=== PATIENT | female | born 1965 | race Caucasian/White ===

== ENCOUNTER → 2017-12-31 11:03 | Outpatient (CLI) | payer OTHER, SELFPAY ==
[2017-12-31 11:30] LABS: Basophils # 0.1 K/mm3 (0-0.2); Basophils % 0.5 % (0.1-2.0); Eosinophils # 0.3 K/mm3 (0.0-0.4); Eosinophils % 2.9 % (0.1-12.0); Hematocrit 43.3 % (37.0-47.0); Hemoglobin 13.6 g/dL (12.2-16.2); Lymphocytes # 2.3 K/mm3 (0.7-4.5); Lymphocytes % 25.8 K/mm3 (10-50); Mean Corpuscular HGB Conc 31.5 g/dL (31.8-35.4); Mean Corpuscular Hemoglobin 26.9 pg (27.0-31.2); Mean Corpuscular Volume 85.6 fl (81-99); Mean Platelet Volume 6.9 fl (7.4-10.4); Monocytes # 0.5 K/mm3 (0.1-1.0); Monocytes % 5.7 % (1.7-9.3); Neutrophils # 5.9 K/mm3 (1.8-7.8); Neutrophils % 65.1 % (37.0-80.0); Platelet Count 394 K/mm3 (142-424); Red Blood Count 5.07 M/mm3 (4.20-5.40); Red Cell Distribution Width 14.8 % (11.5-17.5)
[2017-12-31 12:04] LABS: Anion Gap 14.3 mEq/L (5-15); Blood Urea Nitrogen 23 mg/dL (7-18); Carbon Dioxide 24 mmol/L (21.0-32.0); Chloride 109 mmol/L (98-107); Estimated Glomerular Filt Rate 66 ml/min (>60); GFR (African American) 80 ML/MIN (>60); Glucose 94 mg/dL (74-106); Potassium 4.3 mmoL/L (3.5-5.1); Sodium 143 mmol/L (136-145)
[2018-01-01 08:23] LABS: Iron 45 ug/dL (27-159); UIBC 315 ug/dL (131-425)
[2018-01-03 10:53] LABS: Iron Saturation 13 % (15-55)
== END ==
PROVIDERS: PCP Physician Assistant; Visit Provider Internal Medicine
DX: C18.9 Malignant neoplasm of colon, unspecified (principal)
CPT/HCPCS: 36415; 80048; 83550; 85025

== ENCOUNTER 2018-01-10 09:53 | Day surgery (SDC) | payer OTHER, SELFPAY ==
[2018-01-07 10:53] VITALS: BMI 30.7
[2018-01-10] VITALS (7 sets, daily range): BP systolic 112–146; BP diastolic 74–94; PULSE 86–107; RESP 18–20; TEMP 36.6–37; O2SAT 92–98
--- NOTE | 2018-01-10 10:45 | HMH.PROC ---
[facility] Procedure Note Procedure Note:: Upper Endoscopy Procedure Report: Esophagogastroduodenoscopy with cold biopsies Endoscopost: Dayne Johnson II, MD Referring Physician: Maryse Samuel PA-C/Gaston Huitron MD/Yoel Portillo MD Date of Procedure: January 10, 2018 Equipment: Olympus GIF 180 standard upper endoscope Sedation: MAC sedation Indications: Mrs. Juares is a 52-year-old female with iron deficiency anemia and was found to have a T4 right colonic adenocarcinoma/colon cancer. She had peritoneal spread. She has had chemotherapy. The patient did have right hemicolectomy which was started at [facility] but she was transferred for completion surgery to the [facility] (Dr. Portillo). Prior to reversal of her colostomy, EGD/colon through stoma was recommended. During the operation, there was involvement of the duodenal wall with concomitant duodenal defect. There also appeared to be some end of the distal small bowel. This has prompted the endoscopic evaluations prior to reversal. The patient reports no abdominal pain. There is some bleeding around the stoma. She has gained weight. She reports of minor heartburn but has no complaints. Her CAT scan on November 15, 2017 showed evidence of the partial hemicolectomy of the right colon with ileostomy and no enlarged lymph nodes and no hepatic or adrenal metastasis. Her CAT scan of the chest was also unremarkable. Procedure: Prior to the procedure, a history and physical exam was performed, and patient's medications and allergies were reviewed. The risks, benefits and alternatives of the sedation and procedure were discussed with the patient. All questions were answered and informed consent was obtained. The patient was brought to the procedure room. Patient identification and proposed procedure were verified by the physician and the nurse. The patient was placed in a left lateral decubitus position and the scope was passed under direct vision. Throughout the procedure, the patient's blood pressure, pulse, and oxygen saturations were monitored continuously. The upper GI endoscopy was accomplished without difficulty. The patient tolerated the procedure well. Findings: The scope was passed directly into the upper esophagus and advanced to the third portion of the duodenum. Within the second/third portion of the duodenum was a friable fungating marginated lesion with ulceration and spontaneous bleeding indicative of tumor spread within the duodenum in the second portion going into the third portion of the duodenum. This encompassed one third of the circumference and was extending may be 2.5-3 cm in length. Multiple biopsies were obtained. There was some suture identified at this site. The first portion and duodenal bulb were free of tumor. There was some suture identified along the greater curvature of the stomach but there was no tumor involvement of the stomach. There was minimal reactive gastritis of the stomach. Upon retroflexion there was a small 1-2 cm hiatal hernia. The scope was withdrawn into the esophagus. There was no evidence of reflux esophagitis. The reader of the esophageal mucosa was normal. Impression: 1. Friable fungating duodenal mass lesion encompassing one third circumference of second/third portion of duodenum consistent with tumor involvement at this location status post multiple biopsies Plan: I will discuss this with Dr. Portillo and Dr. Huitron as well as with the patient and family. I will follow up the biopsies.
--- NOTE | 2018-01-10 11:21 | P.PCN_ITS ---
[facility] Procedure Note Procedure Note:: Upper Endoscopy Procedure Report: Esophagogastroduodenoscopy with cold biopsies Endoscopost: Dayne Johnson II, MD Referring Physician: Maryse Samuel PA-C/Gaston Huitron MD/Yoel Portillo MD Date of Procedure: January 10, 2018 Equipment: Olympus GIF 180 standard upper endoscope Sedation: MAC sedation Indications: Mrs. Juares is a 52-year-old female with iron deficiency anemia and was found to have a T4 right colonic adenocarcinoma/colon cancer. She had peritoneal spread. She has had chemotherapy. The patient did have right hemicolectomy which was started at [facility] but she was transferred for completion surgery to the [facility] (Dr. Portillo) . Prior to reversal of her colostomy, EGD/colon through stoma was recommended. During the operation, there was involvement of the duodenal wall with concomitant duodenal defect. There also appeared to be some end of the distal small bowel. This has prompted the endoscopic evaluations prior to reversal. The patient reports no abdominal pain. There is some bleeding around the stoma. She has gained weight. She reports of minor heartburn but has no complaints. Her CAT scan on November 15, 2017 showed evidence of the partial hemicolectomy of the right colon with ileostomy and no enlarged lymph nodes and no hepatic or adrenal metastasis. Her CAT scan of the chest was also unremarkable. Procedure: Prior to the procedure, a history and physical exam was performed, and patient' s medications and allergies were reviewed. The risks, benefits and alternatives of the sedation and procedure were discussed with the patient. All questions were answered and informed consent was obtained. The patient was brought to the procedure room. Patient identification and proposed procedure were verified by the physician and the nurse. The patient was placed in a left lateral decubitus position and the scope was passed under direct vision. Throughout the procedure, the patient's blood pressure, pulse, and oxygen saturations were monitored continuously. The upper GI endoscopy was accomplished without difficulty. The patient tolerated the procedure well. Findings: The scope was passed directly into the upper esophagus and advanced to the third portion of the duodenum. Within the second/third portion of the duodenum was a friable fungating marginated lesion with ulceration and spontaneous bleeding indicative of tumor spread within the duodenum in the second portion going into the third portion of the duodenum. This encompassed one third of the circumference and was extending may be 2.5-3 cm in length. Multiple biopsies were obtained. There was some suture identified at this site. The first portion and duodenal bulb were free of tumor. There was some suture identified along the greater curvature of the stomach but there was no tumor involvement of the stomach. There was minimal reactive gastritis of the stomach. Upon retroflexion there was a small 1-2 cm hiatal hernia. The scope was withdrawn into the esophagus. There was no evidence of reflux esophagitis. The reader of the esophageal mucosa was normal. Impression: 1. Friable fungating duodenal mass lesion encompassing one third circumference of second/third portion of duodenum consistent with tumor involvement at this location status post multiple biopsies Plan: I will discuss this with Dr. Portillo and Dr. Huitron as well as with the patient and family. I will follow up the biopsies.
--- NOTE | 2018-01-10 11:35 | P.PCN_ITS ---
[facility] Procedure Note Procedure Note:: Colonoscopy Procedure Report: Ileoscopy through stoma Endoscopist: Dayne Johnson II, MD Referring physician: Maryse Samuel PA-C/Gaston Huitron MD/Yoel Portillo MD Date of Procedure: January 10, 2018 Equipment: Olympus 180 variable stiffness pediatric colonoscope Sedation: MAC sedation Indication: Mrs. Juares is a 52-year-old female with iron deficiency anemia and was found to have a T4 right colonic adenocarcinoma/colon cancer. She had peritoneal spread. She has had chemotherapy. The patient did have right hemicolectomy which was started at [facility] but she was transferred for completion surgery to the [facility] (Dr. Portillo) . Prior to reversal of her colostomy, EGD/colon through stoma was recommended. During the operation, there was involvement of the duodenal wall with concomitant duodenal defect. There also appeared to be some end of the distal small bowel. This has prompted the endoscopic evaluations prior to reversal. The patient reports no abdominal pain. There is some bleeding around the stoma. She has gained weight. She reports of minor heartburn but has no complaints. Her CAT scan on November 15, 2017 showed evidence of the partial hemicolectomy of the right colon with ileostomy and no enlarged lymph nodes and no hepatic or adrenal metastasis. Her CAT scan of the chest was also unremarkable. Procedure: Prior to the procedure, a history and physical exam was performed, and patient' s medications and allergies were reviewed. The risks, benefits and alternatives of the sedation and procedure were discussed with the patient. All questions were answered and informed consent was obtained. The patient was brought to the procedure room. Patient identification and proposed procedure were verified by the physician and the nurse. The patient was placed in a supine position and the scope was passed under direct vision. Throughout the procedure, the patient's blood pressure, pulse, and oxygen saturations were monitored continuously. The ileoscopy was accomplished without difficulty. The patient tolerated the procedure well. Findings: The stomal bag was removed and the upper endoscope was advanced into the stomal canal into the ileum and advanced 65 cm. At approximately 45-50 cm was an anastomotic site that appeared to be clear and free of tumor. Upon withdrawal of the remainder of the ileum was normal. After completion of the ileoscopy, the scope was introduced into the anal canal and advanced a very short distance but there was marked amount of solid residue impairing advancement of the scope. Impression: 1. Normal ileoscopy to 65 cm Plan: I will discuss the findings with Dr. Portillo, Dr. Huitron and family. We will await the duodenal biopsies.
--- NOTE | 2018-01-13 07:35 | HMH.ANESCL ---
[facility] Anesthesia Checklist - Patient Identification Patient Identification: Arm Band - Structural Data Admitted From: Home Consent for Planned Operative Procedure(s) Verified: Yes Verified Documents: Surgical Consent, History and Physical - NPO Status Verified Time NPO: 00:00 - Additional verifications Anesthesia Reactions: No - Airway Assessment C-Spine Mobility Assessed: Yes TMJ Mobility Assessed: Yes Dentition: Good Dentition - Neurological Assessment Level of Consciousness: Awake, Alert - Anesthesia Plan Anesthesia Risk discussed: Yes Anesthesia Plan: Verified ASA Class: III Anesthesia Type: MAC [facility] Anesthesia HX Medical History: Reports:: Aneurysm (TIA), Cancer, Cerebrovascular Accident Denies:: Diabetes Mellitus Type 1, Diabetes Mellitus Type 2, Internal Pacemaker, Lung Disease, Seizures Other Surgeries: Yes: Cancer Surgery, Colonoscopy, Colostomy. No: Pacemaker *Family Hx:: No significant family history
== END 2018-01-10 12:50 | disposition home or self-care (01) ==
LOC: OUTP 09:55
PROVIDERS: Family Provider Physician Assistant; PCP Physician Assistant; Visit Provider Internal Medicine Gastroenterology
PROC: 0DJ08ZZ Inspection of Upper Intestinal Tract, Via Natural or Artificial Opening Endoscopic (ICD-10-PCS; CPT 43235; principal; 2018-01-10 11:00)
DX: K31.89 Other diseases of stomach and duodenum (principal); C18.9 Malignant neoplasm of colon, unspecified; K44.9 Diaphragmatic hernia without obstruction or gangrene; C78.6 Secondary malignant neoplasm of retroperitoneum and peritoneum; C78.4 Secondary malignant neoplasm of small intestine; D50.9 Iron deficiency anemia, unspecified
CPT/HCPCS: 43239; J1642

== ENCOUNTER → 2018-01-27 10:39 | Outpatient (CLI) | payer OTHER, SELFPAY ==
--- NOTE | 2018-01-27 | MR_ITS ---
MR head/brain wo/w con Ordering Physician: Christina Her MD Patient Age: 52 years: Female HISTORY: Patient reports a previous CVA in May 2017. Diagnosed with colon cancer at the same time. Having of procedure and clearance of MRI brain to do the procedure. TECHNIQUE: Precontrast Multiplanar FLAIR, T1, T2 weighted images along with axial diffusion/ADC imaging performed on 1.5 T. Siemens, MRI. Postcontrast imaging [id number] ProHance T1-weighted images axial & coronal plane performed COMPARISON :Previous CT head without contrast 05/09/2017. Also previous CT sinuses without contrast from 2015 FINDINGS The May [address] showed low density at medial right occipital lobe, just superior to the tentorium. This is site of the old 2017 infarct. Today's MR study shows resulting encephalomalacia and volume loss in the region of this old infarct.-.. This stripe of Encephalomalacia Measuring up to 4.5 cm AP x 12 mm transverse. No significant additional findings.. Somewhat surprised that we do not see more evident gliosis adjacent along the margin of this old infarct at the medial right occipital lobe. .Diffusion images today unremarkable with no additional acute acute or recent infarct evident. The sensitive FLAIR images show only a few scattered tiny deep white matter high signal foci superiorly at centrum semiovale, at frontal and parietal regions. Barely appreciable. Most likely reflect chronic small vessel deep white matter ischemic gliotic changes in this patient with vascular disease.. Other possibilities considered but less likely. These areas show no enhancement. A small slightly more evident white matter focus also noted towards the right occipital lobe axial image 5 also noted just lateral to the old occipital infarct. . The ventricles and basal cistern satisfactory. Cranial cervical junction is normal. Sella normal size and appearance. The postcontrast images show no abnormal areas of enhancement. No focal enhancing intracranial lesions evident. As as seen on the 2015 CT sinuses, again markedly enlarged inferior right turbinate. It measures over 4 cm length, nearly 20 mm height 15 mm transverse and fills the inferior nasal cavity extending back towards the posterior nasopharynx. However this has not shown significant change since the 2015 sinus series and apparently patient was seen by Dr. Vizcaino ENT previously in 2014. . At the right maxillary sinus There is also a 23 mm height 18 mm AP retention cyst or similar polypoid lesion. It too has remained stable since 2015. No erosive changes. No air-fluid levels at paranasal sinuses.. Patient may benefit from follow-up with Dr. Vizcaino/ENT since this area, particularly since this enlarged turbinate does partially occluded right right nasal airway. The orbits unremarkable. Remainder paranasal sinuses fairly clear with only scant mucosal thickening right ethmoid air cells. At the posterior fossa the IACs appear symmetric CP angles clear. No significant lesions here. Mastoid air cells well-developed and clear. Overview survey images of [place] unremarkable. On the standard MRI IMPRESSION......... 1.. Old 2017 infarct at medial inferior right occipital lobe evident.., With Resulting strip of encephalomalacia & volume loss seen here 2. A few tiny deep white matter high signal foci cerebral hemispheres, most compatible with chronic small vessel deep white matter ischemic gliotic change 3. No abnormal l enhancing intracranial lesions.-No evidence of metastatic disease to the brain. 4.... Prominent enlarged slightly lobulated inferior right nasal turbinate which extends back towards the right nasopharynx but appears unchanged 2015 CT sinuses images.... No osseous destruction or erosion. & no significant change ... Also Sta
[2018-01-27 15:53] LABS: Alanine Aminotransferase 29 U/L (12-78); Albumin Level 4.2 gm/dL (3.4-5.0); Alkaline Phosphatase 117 U/L (46-116); Aspartate Amino Transferase 11 U/L (15-37); Bilirubin,Total 0.2 mg/dL (0.2-1.0); Blood Urea Nitrogen 19 mg/dL (7-18); Carbon Dioxide 24 mmol/L (21.0-32.0); Estimated Glomerular Filt Rate 76 ml/min (>60); GFR (African American) 92 ML/MIN (>60); Globulin 4.3 gm/dl (1.3-3.2); Glucose 95 mg/dL (74-106); Thyroid Stimulating Hormone 1.88 uIU/ml (0.358-3.740); Total Protein,Serum 8.5 gm/dL (6.4-8.2)
[2018-01-27 18:14] LABS: Chloride 107 mmol/L (98-107); Sodium 147 mmol/L (136-145)
[2018-01-28 10:39] LABS: Folate 16.6 ng/mL (>3.0); Vitamin B12 663 pg/mL (232-1245)
--- NOTE | 2018-01-30 14:06 | SW/DCPLANNER ---
Followed up with patient IN OFFICE 01/15/18 VINITA: Received income from [employer] in office stating this patient has scored a 10. Visited patient and patient stated that she was receiving any income since May 2017. 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 Due to patients emotional apperance I have recommended that patient speak with a counselor at [facility] and patient refused. I have explained the process for this patient to sign up for disability and explained to importance of doing so...spoke with patient on 01/27/18 and patient stated that she has began this process. Patient did score a 10 on 07/18 and it has went down to an 8 on 01/19. Patient stated that she felt better after our conversation this afternoon. Date of visit: 01/15/18
== END ==
PROVIDERS: Family Provider Physician Assistant; PCP Physician Assistant; Visit Provider Specialist
DX: I63.9 Cerebral infarction, unspecified (principal); G25.9 Extrapyramidal and movement disorder, unspecified; C18.2 Malignant neoplasm of ascending colon
CPT/HCPCS: 36415; 70553; 80053; 82607; 82746; 84443; 95816; A9576

== ENCOUNTER 2018-03-10 11:01 | Outpatient (CLI) | payer OTHER, SELFPAY ==
[2018-03-10 12:00] VITALS: BP 100/74; PULSE 68; RESP 20; TEMP 36.4; O2SAT 96
== END 2018-03-10 12:00 | disposition home or self-care (01) ==
LOC: INF 11:01
PROVIDERS: Family Provider Physician Assistant; PCP Physician Assistant; Visit Provider Internal Medicine
DX: R11.0 Nausea (principal)

== ENCOUNTER 2018-04-04 09:11 | Outpatient (CLI) | payer OTHER, SELFPAY ==
[2018-04-04 09:00] VITALS: BP 112/70; PULSE 68; RESP 20; TEMP 36.7; O2SAT 96
[2018-04-04 09:11] VITALS: BMI 23.7
[2018-04-04 09:45] VITALS: BP 112/70; PULSE 66; RESP 20; TEMP 36.7; O2SAT 96
[2018-04-04 10:12] LABS: INR 3.16 (0.9-1.1); Prothrombin Time 34.5 seconds (9.4-11.8)
--- NOTE | 2018-04-04 12:11 | PC.NURSE ---
PT ARRIVED AT 0850 PT WAS SEEN IN THE ER AT LAST NIGHT; PT WAS INSTRUCTED TO RETURN TO OUR CLINIC THIS AM FOR A PT/INR CHECK PER [facility]. PT IS CURRENTLY ON COUMADIN; PT IS NOT TAKING [facility] CALLED FOR ABNORMAL LABS AND PT IS TO HOLD THE COUMADIN AND GET ANOTHER PT/INR CHECK ON SATURDAY; PT WILL FOLLOW UP WITH [facility] ON SATURDAY WHILE PATIENT WAS HERE SHE NEEDED GAUZE CHANGED ON THE JOSE DRAIN THAT SHE HAS IN PLACE; PT IS FLUSHING THE DRAIN AND CHANGING THE GAUZE AROUND IT AT HOME; THE GAUZE WAS SATURATED WITH DRAINAGE AND WAS CHANGED WHILE SHE WAS HERE; INSTRUCTED PATIENT TO CHECK THE GAUZE MORE OFTEN AT HOME DUE TO IT DRAINING MORE OVER THE LAST DAY; PT IS FOLLOWING UP WITH SURGEON AT ON SATURDAY AND THAT WILL DECIDE IF THE DRAIN WILL NEED TO STAY IN PLACE OR BE REMOVED; PT CONTINUES TO BE VERY WEAK AND NOT FEEL WELL AT ALL; PT IS DRINKING BOOST OR ENSURE AT HOME; PT IS UNABLE TO TOLERATE NORMAL FOOD AT HOME; INSTRUCTED PATIENT TO CALL SOONER WITH ANY PROBLEMS OR CONCERNS. NO OTHER CHANGES TO REPORT AT THIS TIME;
== END 2018-04-04 10:00 | disposition home or self-care (01) ==
LOC: INF 09:11
PROVIDERS: Family Provider Physician Assistant; PCP Physician Assistant; Visit Provider Internal Medicine
DX: C18.9 Malignant neoplasm of colon, unspecified (principal)
CPT/HCPCS: 85610; J1642

== ENCOUNTER 2018-04-07 11:10 | Outpatient (CLI) | payer OTHER, SELFPAY ==
[2018-04-07 11:17] VITALS: BMI 27.1
[2018-04-07 12:23] LABS: Prothrombin Time 16.3 seconds (9.4-11.8)
== END 2018-04-07 12:50 | disposition home or self-care (01) ==
LOC: INF 15:00
PROVIDERS: Family Provider Physician Assistant; PCP Physician Assistant; Visit Provider Internal Medicine
DX: C18.9 Malignant neoplasm of colon, unspecified (principal); Z45.2 Encounter for adjustment and management of vascular access device
CPT/HCPCS: 85610; J1642

== ENCOUNTER 2018-04-15 12:29 | Outpatient (CLI) | payer OTHER, SELFPAY ==
[2018-04-15 12:00] VITALS: BMI 23.8
[2018-04-15 12:19] LABS: Basophils % 0.4 % (0.1-2.0); Eosinophils # 0.2 K/mm3 (0.0-0.4); Eosinophils % 2.4 % (0.1-12.0); Hematocrit 31.2 % (37.0-47.0); Hemoglobin 9.5 g/dL (12.2-16.2); Lymphocytes # 1.6 K/mm3 (0.7-4.5); Lymphocytes % 16.3 K/mm3 (10-50); Mean Corpuscular HGB Conc 30.4 g/dL (31.8-35.4); Monocytes # 0.5 K/mm3 (0.1-1.0); Monocytes % 5.6 % (1.7-9.3); Neutrophils # 7.3 K/mm3 (1.8-7.8); Neutrophils % 75.3 % (37.0-80.0); Platelet Count 697 K/mm3 (142-424); Red Cell Distribution Width 17.1 % (11.5-17.5); White Blood Count 9.7 K/mm3 (4.8-10.8)
[2018-04-15 12:34] LABS: INR 2.58 (0.9-1.1); Prothrombin Time 28.1 seconds (9.4-11.8)
[2018-04-15 12:37] LABS: Alanine Aminotransferase 9 U/L (12-78); Albumin Level 2.1 gm/dL (3.4-5.0); Albumin/Globulin Ratio 0.4 (1.1-1.8); Alkaline Phosphatase 89 U/L (46-116); Anion Gap 13.5 mEq/L (5-15); Aspartate Amino Transferase 14 U/L (15-37); Bilirubin,Total 0.2 mg/dL (0.2-1.0); Blood Urea Nitrogen 3 mg/dL (7-18); Calcium 9.1 mg/dL (8.5-10.1); Carbon Dioxide 25 mmol/L (21.0-32.0); Chloride 107 mmol/L (98-107); Creatinine Clearance Estimated 137 mL/min (0-300); Creatinine,Serum 0.51 mg/dL (0.55-1.02); Estimated Glomerular Filt Rate 127 ml/min (>60); GFR (African American) 153 ML/MIN (>60); Globulin 5.2 gm/dl (1.3-3.2); Glucose 97 mg/dL (74-106); Potassium 3.5 mmoL/L (3.5-5.1); Sodium 142 mmol/L (136-145); Total Protein,Serum 7.3 gm/dL (6.4-8.2)
[2018-04-15 13:00] VITALS: BP 118/70; PULSE 68; RESP 20; TEMP 37.1; O2SAT 96
[2018-04-15 17:02] VITALS: BP 122/70; PULSE 66; RESP 20; TEMP 36.9; O2SAT 96
== END 2018-04-15 13:05 | disposition home or self-care (01) ==
LOC: INF 12:29
PROVIDERS: Family Provider Physician Assistant; PCP Physician Assistant; Visit Provider Internal Medicine
DX: C18.9 Malignant neoplasm of colon, unspecified (principal); Z45.2 Encounter for adjustment and management of vascular access device; Z79.01 Long term (current) use of anticoagulants; Z51.81 Encounter for therapeutic drug level monitoring
CPT/HCPCS: 80053; 85025; 85610; J1642

== ENCOUNTER 2018-04-21 10:02 | Outpatient (CLI) | payer OTHER, SELFPAY ==
[2018-04-21 10:04] VITALS: BMI 23.6
[2018-04-21 10:23] LABS: Basophils % 0.3 % (0.1-2.0); Eosinophils # 0.4 K/mm3 (0.0-0.4); Eosinophils % 2.7 % (0.1-12.0); Hematocrit 34.4 % (37.0-47.0); Hemoglobin 10.5 g/dL (12.2-16.2); Lymphocytes # 1.5 K/mm3 (0.7-4.5); Lymphocytes % 10.6 K/mm3 (10-50); Mean Corpuscular HGB Conc 30.5 g/dL (31.8-35.4); Mean Corpuscular Hemoglobin 25.5 pg (27.0-31.2); Mean Corpuscular Volume 83.7 fl (81-99); Mean Platelet Volume 6.9 fl (7.4-10.4); Monocytes # 0.6 K/mm3 (0.1-1.0); Monocytes % 4.2 % (1.7-9.3); Neutrophils # 11.2 K/mm3 (1.8-7.8); Neutrophils % 82.2 % (37.0-80.0); Platelet Count 605 K/mm3 (142-424); Red Blood Count 4.11 M/mm3 (4.20-5.40); Red Cell Distribution Width 17.8 % (11.5-17.5); White Blood Count 13.7 K/mm3 (4.8-10.8)
[2018-04-21 10:34] LABS: Prothrombin Time 18.5 seconds (9.4-11.8)
[2018-04-21 10:37] LABS: Alanine Aminotransferase 22 U/L (12-78); Albumin Level 2.5 gm/dL (3.4-5.0); Albumin/Globulin Ratio 0.5 (1.1-1.8); Alkaline Phosphatase 95 U/L (46-116); Anion Gap 13.8 mEq/L (5-15); Aspartate Amino Transferase 24 U/L (15-37); Bilirubin,Total 0.2 mg/dL (0.2-1.0); Blood Urea Nitrogen 8 mg/dL (7-18); Calcium 8.8 mg/dL (8.5-10.1); Carbon Dioxide 25 mmol/L (21.0-32.0); Chloride 107 mmol/L (98-107); Creatinine Clearance Estimated 104 mL/min (0-300); Creatinine,Serum 0.66 mg/dL (0.55-1.02); Estimated Glomerular Filt Rate 94 ml/min (>60); GFR (African American) 114 ML/MIN (>60); Globulin 4.9 gm/dl (1.3-3.2); Glucose 107 mg/dL (74-106); Sodium 143 mmol/L (136-145); Total Protein,Serum 7.4 gm/dL (6.4-8.2)
[2018-04-21 10:38] LABS: Potassium 2.8 mmoL/L (3.5-5.1)
--- NOTE | 2018-04-21 12:04 | PC.NURSE ---
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 PT IS SCEHDULED TO SEE THEM IN THE OFFICE TOMORROW; MD INSTRUCTED TO MAKE SURE PATIENT WAS TAKING KCL 40 MEQ. INSTRUCTED FOR PATIENT TO BE TAKING TWICE TODAY. MD WAS GOING TO FOLLOW UP WITH PATIENT LATER TODAY ABOUT SCHEDULING CT SCAN PRIOR TO HER APPT TOMORROW; LEFT PORT ACCESSED FOR HER LABS TOMORROW THEN IT WILL BE DC'D PER MD OFFICE; PT WILL FOLLOW BACK WITH US ON WEDNESDAY 04/25
--- NOTE | 2018-04-21 15:13 | PC.NURSE ---
pt also has drain, flushed drain with 20ml saline flush, the flushe with 10ml saline flush into drainage bag. approximatley 20ml of milky looking substance emptied from drainage bag.
== END 2018-04-21 11:55 | disposition home or self-care (01) ==
LOC: INF 10:02
PROVIDERS: Family Provider Physician Assistant; PCP Physician Assistant; Visit Provider Internal Medicine
DX: Z45.2 Encounter for adjustment and management of vascular access device (principal); Z79.01 Long term (current) use of anticoagulants; Z51.81 Encounter for therapeutic drug level monitoring
CPT/HCPCS: 80053; 85025; 85610; G0463; J1642

== ENCOUNTER 2018-04-24 08:43 | Outpatient (CLI) | payer OTHER, SELFPAY ==
[2018-04-24 09:54] VITALS: BMI 25.8
[2018-04-24 10:43] LABS: Alanine Aminotransferase 29 U/L (12-78); Albumin Level 3.1 gm/dL (3.4-5.0); Albumin/Globulin Ratio 0.6 (1.1-1.8); Alkaline Phosphatase 109 U/L (46-116); Anion Gap 13.6 mEq/L (5-15); Aspartate Amino Transferase 31 U/L (15-37); Basophils # 0.1 K/mm3 (0-0.2); Basophils % 0.7 % (0.1-2.0); Bilirubin,Total 0.4 mg/dL (0.2-1.0); Blood Urea Nitrogen 6 mg/dL (7-18); Calcium 9.5 mg/dL (8.5-10.1); Carbon Dioxide 26 mmol/L (21.0-32.0); Chloride 105 mmol/L (98-107); Creatinine Clearance Estimated 102 mL/min (0-300); Creatinine,Serum 0.74 mg/dL (0.55-1.02); Eosinophils # 0.2 K/mm3 (0.0-0.4); Eosinophils % 2.9 % (0.1-12.0); Estimated Glomerular Filt Rate 82 ml/min (>60); GFR (African American) 100 ML/MIN (>60); Globulin 5.1 gm/dl (1.3-3.2); Glucose 117 mg/dL (74-106); Hematocrit 37.2 % (37.0-47.0); Hemoglobin 11.4 g/dL (12.2-16.2); Lymphocytes # 1.7 K/mm3 (0.7-4.5); Lymphocytes % 20.3 K/mm3 (10-50); Mean Corpuscular HGB Conc 30.6 g/dL (31.8-35.4); Mean Corpuscular Hemoglobin 25.4 pg (27.0-31.2); Mean Platelet Volume 8.6 fl (7.4-10.4); Monocytes # 0.4 K/mm3 (0.1-1.0); Monocytes % 5.1 % (1.7-9.3); Platelet Count 554 K/mm3 (142-424); Potassium 4.6 mmoL/L (3.5-5.1); Red Blood Count 4.49 M/mm3 (4.20-5.40); Red Cell Distribution Width 18.2 % (11.5-17.5); Sodium 140 mmol/L (136-145); Total Protein,Serum 8.2 gm/dL (6.4-8.2); White Blood Count 8.5 K/mm3 (4.8-10.8)
== END 2018-04-24 10:00 | disposition home or self-care (01) ==
LOC: INF 08:43
PROVIDERS: Family Provider Physician Assistant; PCP Physician Assistant; Visit Provider Internal Medicine
DX: C18.9 Malignant neoplasm of colon, unspecified (principal); Z45.2 Encounter for adjustment and management of vascular access device
CPT/HCPCS: 80053; 85025; G0463

== ENCOUNTER 2018-05-01 08:38 | Outpatient (CLI) | payer OTHER, SELFPAY ==
[2018-05-01 08:40] VITALS: BMI 25.8
[2018-05-01 09:11] LABS: Basophils # 0.1 K/mm3 (0-0.2); Basophils % 0.6 % (0.1-2.0); Eosinophils # 0.3 K/mm3 (0.0-0.4); Eosinophils % 3.8 % (0.1-12.0); Hematocrit 38.9 % (37.0-47.0); Hemoglobin 11.1 g/dL (12.2-16.2); Lymphocytes # 1.9 K/mm3 (0.7-4.5); Lymphocytes % 21.9 K/mm3 (10-50); Mean Corpuscular HGB Conc 28.5 g/dL (31.8-35.4); Mean Corpuscular Hemoglobin 24.3 pg (27.0-31.2); Mean Corpuscular Volume 85.2 fl (81-99); Mean Platelet Volume 7.5 fl (7.4-10.4); Monocytes # 0.6 K/mm3 (0.1-1.0); Monocytes % 6.5 % (1.7-9.3); Neutrophils # 5.7 K/mm3 (1.8-7.8); Neutrophils % 67.2 % (37.0-80.0); Platelet Count 428 K/mm3 (142-424); Red Blood Count 4.56 M/mm3 (4.20-5.40); Red Cell Distribution Width 17.7 % (11.5-17.5); White Blood Count 8.5 K/mm3 (4.8-10.8)
[2018-05-01 09:18] LABS: INR 1.38 (0.9-1.1)
[2018-05-01 09:22] LABS: Alanine Aminotransferase 23 U/L (12-78); Albumin Level 3.2 gm/dL (3.4-5.0); Albumin/Globulin Ratio 0.7 (1.1-1.8); Alkaline Phosphatase 98 U/L (46-116); Anion Gap 13.1 mEq/L (5-15); Aspartate Amino Transferase 15 U/L (15-37); Bilirubin,Total 0.3 mg/dL (0.2-1.0); Blood Urea Nitrogen 16 mg/dL (7-18); Calcium 9.2 mg/dL (8.5-10.1); Carbon Dioxide 26 mmol/L (21.0-32.0); Chloride 107 mmol/L (98-107); Creatinine Clearance Estimated 125 mL/min (0-300); Creatinine,Serum 0.64 mg/dL (0.55-1.02); Estimated Glomerular Filt Rate 97 ml/min (>60); GFR (African American) 118 ML/MIN (>60); Globulin 4.5 gm/dl (1.3-3.2); Glucose 91 mg/dL (74-106); Potassium 4.1 mmoL/L (3.5-5.1); Sodium 142 mmol/L (136-145); Total Protein,Serum 7.7 gm/dL (6.4-8.2)
== END 2018-05-01 09:40 | disposition home or self-care (01) ==
LOC: INF 08:38
PROVIDERS: Family Provider Physician Assistant; PCP Physician Assistant; Visit Provider Internal Medicine
DX: C18.9 Malignant neoplasm of colon, unspecified (principal); Z79.01 Long term (current) use of anticoagulants; Z51.81 Encounter for therapeutic drug level monitoring; Z48.01 Encounter for change or removal of surgical wound dressing
CPT/HCPCS: 80053; 85025; 85610; G0463; J1642

== ENCOUNTER 2018-05-05 08:26 | Outpatient (CLI) | payer OTHER, SELFPAY ==
[2018-05-05 08:30] VITALS: BMI 24.9
[2018-05-05 08:40] VITALS: BP 133/69; PULSE 103; RESP 18; TEMP 36.6; O2SAT 98
[2018-05-05 08:57] LABS: Basophils # 0.1 K/mm3 (0-0.2); Basophils % 0.6 % (0.1-2.0); Eosinophils # 0.3 K/mm3 (0.0-0.4); Eosinophils % 3.2 % (0.1-12.0); Hematocrit 40.8 % (37.0-47.0); Hemoglobin 11.8 g/dL (12.2-16.2); Lymphocytes # 1.6 K/mm3 (0.7-4.5); Lymphocytes % 18.6 K/mm3 (10-50); Mean Corpuscular HGB Conc 28.9 g/dL (31.8-35.4); Mean Corpuscular Hemoglobin 24.5 pg (27.0-31.2); Mean Corpuscular Volume 84.7 fl (81-99); Mean Platelet Volume 7.3 fl (7.4-10.4); Monocytes # 0.5 K/mm3 (0.1-1.0); Monocytes % 5.3 % (1.7-9.3); Neutrophils # 6.2 K/mm3 (1.8-7.8); Neutrophils % 72.3 % (37.0-80.0); Platelet Count 465 K/mm3 (142-424); Red Blood Count 4.81 M/mm3 (4.20-5.40); Red Cell Distribution Width 17.4 % (11.5-17.5); White Blood Count 8.6 K/mm3 (4.8-10.8)
[2018-05-05 09:05] LABS: INR 2.55 (0.9-1.1); Prothrombin Time 27.8 seconds (9.4-11.8)
[2018-05-05 09:09] LABS: Alanine Aminotransferase 26 U/L (12-78); Albumin Level 3.4 gm/dL (3.4-5.0); Albumin/Globulin Ratio 0.8 (1.1-1.8); Alkaline Phosphatase 111 U/L (46-116); Aspartate Amino Transferase 20 U/L (15-37); Bilirubin,Total 0.4 mg/dL (0.2-1.0); Blood Urea Nitrogen 12 mg/dL (7-18); Calcium 9.4 mg/dL (8.5-10.1); Carbon Dioxide 24 mmol/L (21.0-32.0); Chloride 106 mmol/L (98-107); Creatinine Clearance Estimated 98 mL/min (0-300); Creatinine,Serum 0.79 mg/dL (0.55-1.02); Estimated Glomerular Filt Rate 76 ml/min (>60); GFR (African American) 92 ML/MIN (>60); Globulin 4.5 gm/dl (1.3-3.2); Glucose 98 mg/dL (74-106); Sodium 142 mmol/L (136-145); Total Protein,Serum 7.9 gm/dL (6.4-8.2)
--- NOTE | 2018-05-05 10:29 | PC.NURSE ---
PT/INR 27.8/2.55. Called to [facility] for coumadin dosing.
== END 2018-05-05 08:55 | disposition home or self-care (01) ==
LOC: INF 08:26
PROVIDERS: Family Provider Physician Assistant; PCP Physician Assistant; Visit Provider Internal Medicine
DX: C18.9 Malignant neoplasm of colon, unspecified (principal); Z45.2 Encounter for adjustment and management of vascular access device; Z79.01 Long term (current) use of anticoagulants; Z51.81 Encounter for therapeutic drug level monitoring
CPT/HCPCS: 80053; 85025; 85610; 96523; J1642

== ENCOUNTER 2018-05-08 09:00 | Outpatient (CLI) | payer OTHER, SELFPAY ==
[2018-05-08 09:19] VITALS: BMI 24.9
[2018-05-08 09:25] VITALS: BP 122/76; PULSE 68; RESP 20; TEMP 36.7; O2SAT 96
[2018-05-08 09:45] VITALS: BP 122/76; RESP 20; TEMP 36.7; O2SAT 96
[2018-05-08 09:46] LABS: Basophils # 0.1 K/mm3 (0-0.2); Basophils % 0.7 % (0.1-2.0); Eosinophils # 0.4 K/mm3 (0.0-0.4); Eosinophils % 4.2 % (0.1-12.0); Hematocrit 38.6 % (37.0-47.0); Hemoglobin 11.3 g/dL (12.2-16.2); Lymphocytes # 1.8 K/mm3 (0.7-4.5); Lymphocytes % 19.7 K/mm3 (10-50); Mean Corpuscular HGB Conc 29.3 g/dL (31.8-35.4); Mean Corpuscular Hemoglobin 24.8 pg (27.0-31.2); Mean Corpuscular Volume 84.7 fl (81-99); Mean Platelet Volume 7.4 fl (7.4-10.4); Monocytes # 0.6 K/mm3 (0.1-1.0); Monocytes % 6.7 % (1.7-9.3); Neutrophils # 6.2 K/mm3 (1.8-7.8); Neutrophils % 68.6 % (37.0-80.0); Platelet Count 460 K/mm3 (142-424); Red Blood Count 4.55 M/mm3 (4.20-5.40); Red Cell Distribution Width 17.1 % (11.5-17.5)
[2018-05-08 09:51] LABS: INR 3.15 (0.9-1.1); Prothrombin Time 34.4 seconds (9.4-11.8)
== END 2018-05-08 09:45 | disposition home or self-care (01) ==
LOC: INF 09:22
PROVIDERS: Family Provider Physician Assistant; PCP Physician Assistant; Visit Provider Internal Medicine
DX: C18.9 Malignant neoplasm of colon, unspecified (principal); Z45.2 Encounter for adjustment and management of vascular access device; Z79.01 Long term (current) use of anticoagulants; Z51.81 Encounter for therapeutic drug level monitoring
CPT/HCPCS: 85025; 85610; J1642

== ENCOUNTER 2018-05-15 08:30 | Outpatient (CLI) | payer OTHER, SELFPAY ==
--- NOTE | 2018-05-15 13:05 | PC.NURSE ---
0840 - REMOVED GAUZE AND PACKING FROM WOUND IN LLQ WHERE JOSE DRAIN WAS RECENTLY REMOVED. IRRIGATED WOUND WITH NS. PACKED WITH 1/4 IN. PLAIN PACKING STRIP, COVERED WITH 2 DRY 4X4'S FOLDED IN HALF AND TAPED INTO PLACE. PT TO RETURN FOR WOUND CARE AGAIN TOMORROW.
== END 2018-05-15 09:00 | disposition home or self-care (01) ==
LOC: INF 08:41
PROVIDERS: Family Provider Physician Assistant; PCP Physician Assistant; Visit Provider Internal Medicine
DX: C18.9 Malignant neoplasm of colon, unspecified (principal); Z45.2 Encounter for adjustment and management of vascular access device
CPT/HCPCS: G0463

== ENCOUNTER 2018-05-16 08:55 | Outpatient (CLI) | payer OTHER, SELFPAY ==
[2018-05-16 08:55] VITALS: BMI 24.9
[2018-05-16 09:00] VITALS: BP 124/70; PULSE 68; RESP 20; TEMP 36.9; O2SAT 96
[2018-05-16 09:30] VITALS: BP 124/70; PULSE 68; RESP 20; TEMP 36.9; O2SAT 96
[2018-05-16 11:24] LABS: Basophils % 0.5 % (0.1-2.0); Eosinophils # 0.3 K/mm3 (0.0-0.4); Eosinophils % 3.4 % (0.1-12.0); Hematocrit 38.5 % (37.0-47.0); Hemoglobin 11.2 g/dL (12.2-16.2); Lymphocytes # 1.8 K/mm3 (0.7-4.5); Lymphocytes % 20.6 K/mm3 (10-50); Mean Corpuscular HGB Conc 29.2 g/dL (31.8-35.4); Mean Corpuscular Hemoglobin 24.4 pg (27.0-31.2); Mean Corpuscular Volume 83.7 fl (81-99); Mean Platelet Volume 7.7 fl (7.4-10.4); Monocytes # 0.4 K/mm3 (0.1-1.0); Monocytes % 4.6 % (1.7-9.3); Neutrophils # 6.3 K/mm3 (1.8-7.8); Neutrophils % 70.9 % (37.0-80.0); Platelet Count 435 K/mm3 (142-424); Red Cell Distribution Width 16.7 % (11.5-17.5); White Blood Count 8.9 K/mm3 (4.8-10.8)
== END 2018-05-16 09:30 | disposition home or self-care (01) ==
LOC: INF 08:55
PROVIDERS: Family Provider Physician Assistant; PCP Physician Assistant; Visit Provider Internal Medicine
DX: C18.9 Malignant neoplasm of colon, unspecified (principal); Z45.2 Encounter for adjustment and management of vascular access device
CPT/HCPCS: 85025; G0463; J1642

== ENCOUNTER 2018-05-19 09:25 | Outpatient (CLI) | payer OTHER, SELFPAY ==
[2018-05-19 09:33] VITALS: BMI 26.9
[2018-05-19 10:04] VITALS: BP 124/89; PULSE 84; RESP 18; TEMP 36.8; O2SAT 97
[2018-05-19 10:15] VITALS: BP 124/89; PULSE 84; RESP 18; TEMP 36.8; O2SAT 97
[2018-05-19 10:15] LABS: Basophils % 0.7 % (0.1-2.0); Eosinophils # 0.2 K/mm3 (0.0-0.4); Eosinophils % 4.3 % (0.1-12.0); Hematocrit 37.9 % (37.0-47.0); Hemoglobin 11.2 g/dL (12.2-16.2); Lymphocytes # 1.4 K/mm3 (0.7-4.5); Lymphocytes % 25.2 K/mm3 (10-50); Mean Corpuscular HGB Conc 29.5 g/dL (31.8-35.4); Mean Corpuscular Hemoglobin 24.5 pg (27.0-31.2); Mean Corpuscular Volume 83.1 fl (81-99); Mean Platelet Volume 6.9 fl (7.4-10.4); Monocytes # 0.3 K/mm3 (0.1-1.0); Monocytes % 4.8 % (1.7-9.3); Neutrophils # 3.5 K/mm3 (1.8-7.8); Platelet Count 392 K/mm3 (142-424); Red Blood Count 4.57 M/mm3 (4.20-5.40); Red Cell Distribution Width 16.3 % (11.5-17.5); White Blood Count 5.4 K/mm3 (4.8-10.8)
[2018-05-19 10:37] LABS: Anion Gap 15.1 mEq/L (5-15); Blood Urea Nitrogen 11 mg/dL (7-18); Carbon Dioxide 24 mmol/L (21.0-32.0); Chloride 109 mmol/L (98-107); Creatinine Clearance Estimated 96 mL/min (0-300); Creatinine,Serum 0.82 mg/dL (0.55-1.02); Estimated Glomerular Filt Rate 73 ml/min (>60); GFR (African American) 89 ML/MIN (>60); Glucose 128 mg/dL (74-106); Potassium 3.1 mmoL/L (3.5-5.1); Sodium 145 mmol/L (136-145)
--- NOTE | 2018-05-19 13:38 | PC.NURSE ---
1008: LLQ old adam drain site, area is scabbed, no drainage. No foul odors.
== END 2018-05-19 10:15 | disposition home or self-care (01) ==
LOC: INF 09:31
PROVIDERS: Family Provider Physician Assistant; PCP Physician Assistant; Visit Provider Internal Medicine
DX: Z90.49 Acquired absence of other specified parts of digestive tract (principal); Z85.038 Personal history of other malignant neoplasm of large intestine
CPT/HCPCS: 80048; 85025; J1642

== ENCOUNTER 2018-06-18 10:00 | Outpatient (CLI) | payer OTHER, SELFPAY ==
[2018-06-18 10:18] VITALS: BMI 27.6
[2018-06-18 11:28] LABS: Alanine Aminotransferase 33 U/L (12-78); Albumin Level 3.4 gm/dL (3.4-5.0); Albumin/Globulin Ratio 0.9 (1.1-1.8); Alkaline Phosphatase 105 U/L (46-116); Anion Gap 9.5 mEq/L (5-15); Aspartate Amino Transferase 14 U/L (15-37); Basophils # 0.1 K/mm3 (0-0.2); Basophils % 0.8 % (0.1-2.0); Bilirubin,Total 0.4 mg/dL (0.2-1.0); Blood Urea Nitrogen 15 mg/dL (7-18); Calcium 8.9 mg/dL (8.5-10.1); Carbon Dioxide 28 mmol/L (21.0-32.0); Chloride 108 mmol/L (98-107); Creatinine Clearance Estimated 103 mL/min (0-300); Creatinine,Serum 0.78 mg/dL (0.55-1.02); Eosinophils # 0.2 K/mm3 (0.0-0.4); Eosinophils % 2.3 % (0.1-12.0); Estimated Glomerular Filt Rate 78 ml/min (>60); GFR (African American) 94 ML/MIN (>60); Glucose 101 mg/dL (74-106); Hematocrit 39.3 % (37.0-47.0); Hemoglobin 11.9 g/dL (12.2-16.2); Lymphocytes # 1.6 K/mm3 (0.7-4.5); Mean Corpuscular HGB Conc 30.2 g/dL (31.8-35.4); Mean Corpuscular Hemoglobin 25.2 pg (27.0-31.2); Mean Corpuscular Volume 83.2 fl (81-99); Mean Platelet Volume 7.1 fl (7.4-10.4); Monocytes # 0.4 K/mm3 (0.1-1.0); Monocytes % 5.7 % (1.7-9.3); Neutrophils # 4.9 K/mm3 (1.8-7.8); Neutrophils % 69.2 % (37.0-80.0); Platelet Count 326 K/mm3 (142-424); Potassium 3.5 mmoL/L (3.5-5.1); Red Blood Count 4.72 M/mm3 (4.20-5.40); Red Cell Distribution Width 14.4 % (11.5-17.5); Sodium 142 mmol/L (136-145); Total Protein,Serum 7.4 gm/dL (6.4-8.2); White Blood Count 7.1 K/mm3 (4.8-10.8)
[2018-06-18 13:56] LABS: Free Thyroxine Index 2.2 ug/dL (5.93-13.13); T4 (Thyroxine) 5.8 ug/dl (4.7-13.3); Thyroid Stimulating Hormone 1.68 uIU/ml (0.358-3.740); Triiodothryronine (T3) Uptake 38 % (31-39)
[2018-06-19 09:11] LABS: Hematocrit 36.3 % (34.0-46.6)
[2018-06-19 15:28] LABS: Folate, Hemolysate 306.8 ng/mL (Not Estab.)
[2018-06-20 11:59] LABS: Folate, RBC 845 ng/mL (>498); Vitamin B12 365 pg/mL (232-1245)
[2018-06-25 06:14] LABS: Vitamin A 56.7 ug/dL (33.1-100.0)
== END 2018-06-18 11:10 | disposition home or self-care (01) ==
LOC: INF 10:09
PROVIDERS: Family Provider Physician Assistant; PCP Physician Assistant; Visit Provider Internal Medicine
DX: C18.9 Malignant neoplasm of colon, unspecified (principal); Z45.2 Encounter for adjustment and management of vascular access device; L65.9 Nonscarring hair loss, unspecified
CPT/HCPCS: 80053; 82607; 82747; 84436; 84443; 84479; 84590; 85014; 85025; J1642

== ENCOUNTER 2018-07-14 13:53 | Outpatient (CLI) | payer OTHER, SELFPAY ==
[2018-07-14 14:15] VITALS: BP 122/70; PULSE 68; RESP 20; TEMP 36.7; O2SAT 96
[2018-07-14 14:20] VITALS: BP 116/70; PULSE 68; RESP 20; TEMP 37.1; O2SAT 96
[2018-07-14 14:46] LABS: C-Reactive Protein 15.4 mg/L (0.0-0.9)
[2018-07-14 15:03] LABS: Erythrocyte Sedimentation Rate 73 mm/hr (0-30)
[2018-07-16 13:17] LABS: Anti-Centromere B Antibodies <0.2 AI (0.0-0.9); Anti-Jo-1 <0.2 AI (0.0-0.9); Anti-Smith Antibody <0.2 AI (0.0-0.9); Antichromatin Antibodies <0.2 AI (0.0-0.9); Antiscleroderma-70 Antibodies <0.2 AI (0.0-0.9); RNP Antibodies <0.2 AI (0.0-0.9); Sjogren's Anti-SS-A <0.2 AI (0.0-0.9); Sjogren's Anti-SS-B <0.2 AI (0.0-0.9)
[2018-07-16 15:04] LABS: Anti-DNA (DS) Ab Qn 1 IU/mL (0-9)
== END 2018-07-14 14:30 | disposition home or self-care (01) ==
LOC: LAB 13:53 → INF 15:33
PROVIDERS: Visit Provider Nurse Practitioner Family
DX: R51 Headache (principal)
CPT/HCPCS: 36415; 85651; 86140; 86225; 86235; J1642

== ENCOUNTER 2018-07-23 10:15 | Outpatient (CLI) | payer OTHER, SELFPAY ==
[2018-07-23 10:25] VITALS: BMI 26.6
[2018-07-23 10:59] LABS: Basophils % 0.4 % (0.1-2.0); Eosinophils # 0.2 K/mm3 (0.0-0.4); Eosinophils % 2.4 % (0.1-12.0); Hemoglobin 11.6 g/dL (12.2-16.2); Lymphocytes # 2.2 K/mm3 (0.7-4.5); Lymphocytes % 23.3 K/mm3 (10-50); Mean Corpuscular HGB Conc 31.4 g/dL (31.8-35.4); Mean Corpuscular Hemoglobin 25.4 pg (27.0-31.2); Mean Platelet Volume 6.6 fl (7.4-10.4); Monocytes # 0.6 K/mm3 (0.1-1.0); Neutrophils # 6.3 K/mm3 (1.8-7.8); Neutrophils % 67.9 % (37.0-80.0); Platelet Count 476 K/mm3 (142-424); Red Blood Count 4.57 M/mm3 (4.20-5.40); Red Cell Distribution Width 13.8 % (11.5-17.5); White Blood Count 9.3 K/mm3 (4.8-10.8)
[2018-07-23 11:12] LABS: Alanine Aminotransferase 39 U/L (12-78); Albumin Level 3.3 gm/dL (3.4-5.0); Albumin/Globulin Ratio 0.8 (1.1-1.8); Alkaline Phosphatase 112 U/L (46-116); Aspartate Amino Transferase 13 U/L (15-37); Bilirubin,Total 0.3 mg/dL (0.2-1.0); Blood Urea Nitrogen 19 mg/dL (7-18); Calcium 8.7 mg/dL (8.5-10.1); Carbon Dioxide 25 mmol/L (21.0-32.0); Chloride 108 mmol/L (98-107); Creatinine Clearance Estimated 89 mL/min (0-300); Creatinine,Serum 0.87 mg/dL (0.55-1.02); Estimated Glomerular Filt Rate 68 ml/min (>60); GFR (African American) 83 ML/MIN (>60); Globulin 4.2 gm/dl (1.3-3.2); Glucose 96 mg/dL (74-106); Sodium 141 mmol/L (136-145); Total Protein,Serum 7.5 gm/dL (6.4-8.2)
== END 2018-07-23 10:40 | disposition home or self-care (01) ==
LOC: INF 10:23
PROVIDERS: Family Provider Physician Assistant; PCP Physician Assistant; Visit Provider Internal Medicine
DX: Z45.2 Encounter for adjustment and management of vascular access device (principal); C18.9 Malignant neoplasm of colon, unspecified
CPT/HCPCS: 80053; 85025; J1642

== ENCOUNTER → 2018-08-15 14:44 | Outpatient (CLI) | payer OTHER, SELFPAY ==
[2018-08-15 18:31] LABS: Amphetamine/Metha Screen,Urine Negative ng/mL (<1000); Barbiturates Screen,Urine Negative ng/mL (<200); Benzodiazepines Screen,Urine Negative ng/mL (<200); Cannabinoid Screen,Urine Negative ng/mL (<50); Cocaine Screen,Urine Negative ng/mL (<300); Methadone Screen,Urine Negative ng/mL (<300); Opiate Screen,Urine Negative ng/mL (<300); Phencyclidine Screen,Urine Negative ng/mL (<25)
== END ==
PROVIDERS: Visit Provider Nurse Practitioner Family
DX: Z79.899 Other long term (current) drug therapy (principal)
CPT/HCPCS: 80305

== ENCOUNTER → 2018-08-19 09:46 | Outpatient (POV) | payer OTHER, SELFPAY | PROVIDERS: Visit Provider Otolaryngology | DX: Z00.00 Encounter for general adult medical examination without abnormal findings (principal) ==

== ENCOUNTER → 2018-10-02 17:54 | Outpatient (CLI) | payer OTHER, SELFPAY ==
[2018-10-02 18:38] LABS: Basophils # 0.8 K/mm3 (0-0.2); Basophils % 7.2 % (0.1-2.0); Eosinophils # 0.2 K/mm3 (0.0-0.4); Eosinophils % 1.7 % (0.1-12.0); Hematocrit 39.2 % (37.0-47.0); Hemoglobin 12.7 g/dL (12.2-16.2); Lymphocytes # 2.4 K/mm3 (0.7-4.5); Lymphocytes % 22.9 K/mm3 (10-50); Mean Corpuscular HGB Conc 32.5 g/dL (31.8-35.4); Mean Corpuscular Hemoglobin 26.2 pg (27.0-31.2); Mean Corpuscular Volume 80.6 fl (81-99); Mean Platelet Volume 7.9 fl (7.4-10.4); Monocytes # 0.7 K/mm3 (0.1-1.0); Monocytes % 6.7 % (1.7-9.3); Neutrophils # 7.3 K/mm3 (1.8-7.8); Neutrophils % 68.7 % (37.0-80.0); Platelet Count 325 K/mm3 (142-424); Red Blood Count 4.86 M/mm3 (4.20-5.40); White Blood Count 10.6 K/mm3 (4.8-10.8)
[2018-10-02 18:51] LABS: Alanine Aminotransferase 44 U/L (12-78); Albumin Level 3.8 gm/dL (3.4-5.0); Albumin/Globulin Ratio 1.1 (1.1-1.8); Alkaline Phosphatase 142 U/L (46-116); Anion Gap 19.7 mEq/L (5-15); Aspartate Amino Transferase 24 U/L (15-37); Bilirubin,Total 0.4 mg/dL (0.2-1.0); Blood Urea Nitrogen 16 mg/dL (7-18); Calcium 8.8 mg/dL (8.5-10.1); Carbon Dioxide 20 mmol/L (21.0-32.0); Chloride 107 mmol/L (98-107); Chol/HDL Ratio 4.2 (1-3.5); Cholesterol 156 mg/dL (140-200); Creatinine,Serum 0.84 mg/dL (0.55-1.02); Estimated Glomerular Filt Rate 71 ml/min (>60); GFR (African American) 86 ML/MIN (>60); Globulin 3.6 gm/dl (1.3-3.2); Glucose 119 mg/dL (74-106); HDL Cholesterol 37 mg/dL (29-89); LDL Cholesterol 74 mg/dL (0-130); Potassium 4.7 mmoL/L (3.5-5.1); Sodium 142 mmol/L (136-145); T4 (Thyroxine) 4.9 ug/dl (4.7-13.3); Thyroid Stimulating Hormone 1.58 uIU/ml (0.358-3.740); Total Protein,Serum 7.4 gm/dL (6.4-8.2); Triglycerides 226 mg/dL (30-200); VLDL Cholesterol 45 mg/dL (0-40)
[2018-10-04 18:43] LABS: Vitamin B12 484 pg/mL (232-1245); Vitamin D 25 Hydroxy 20.8 ng/mL (30.0-100.0)
== END ==
PROVIDERS: Visit Provider Nurse Practitioner Family
DX: R42 Dizziness and giddiness (principal)
CPT/HCPCS: 80053; 80061; 82607; 82652; 84436; 84443; 85025

== ENCOUNTER → 2018-10-07 13:20 | Outpatient (CLI) | payer OTHER, SELFPAY ==
[2018-10-07 14:31] LABS: Hemoglobin A1C 5.8 % (0.0-7.0)
== END ==
PROVIDERS: PCP Physician Assistant; Visit Provider Physician Assistant
DX: R73.09 Other abnormal glucose (principal)
CPT/HCPCS: 83036

== ENCOUNTER → 2018-11-17 10:45 | Outpatient (CLI) | payer OTHER, SELFPAY ==
--- NOTE | 2018-11-17 10:48 | CT_ITS ---
CT head/brain wo con HISTORY: Stroke last year. His been having bad headaches posterior left and behind eyes. Seen spots from right side. ITS.REASON: acute onset headache, visual disturbance ORDERING PHYSICIAN: Christina Her MD PATIENT AGE: 53 years COMPARISON: CT head without contrast 05/09/2017. Also MRI brain 01/27/2018. TECHNIQUE: Axial images obtained without contrast. Brain and bone windows reviewed. All CT scans at the facility use one or more dose reduction, viz: automated exposure control, ma/kV adjustment per patient size (including targeted exams where dose is matched to indication, i.e. head), or iterative reconstruction technique. FINDINGS: Again note the old infarct medial aspect right occipital lobe, just above the tentorium. This is matured since May 2017 CT and was seen to good advantage on the MRI from January 2018. It is not changed since that prior MRI. Mild Focal atrophy again noted in this region from the encephalomalacia and volume loss at specifically slight enlargement right occipital horn right lateral ventricle & slight prominent sulci above this region. No new findings evident today . No acute findings No midline shift, no mass effect, no intracranial hemorrhage, no hydrocephalus, nor extra-axial fluid collection is evident. The posterior fossa otherwise unremarkable. The skull is intact. Only slight additional mild mucosal thickening and inflammatory changes at the right ethmoid air cells. No air-fluid levels. Otherwise the frontal sinuses clear. Left ethmoid and both sphenoid sinuses clear. Top of the maxillary sinuses included and clear. The mastoid air cells are well-developed and clear. Middle air clear IACs unremarkable.No mastoid effusion. IMPRESSION: ......... 1. No new nor acute intracranial findings. Old infarct and encephalomalacia seen at the medial aspect of the right occipital lobe. Stable. Features here unchanged since January 2018 MRI brain 2. Only minor additional mucosal thickening right ethmoid air cells vs February MRI study.
== END ==
PROVIDERS: PCP Physician Assistant; Visit Provider Specialist
DX: I63.9 Cerebral infarction, unspecified (principal); R51 Headache
CPT/HCPCS: 70450

== ENCOUNTER → 2018-12-08 10:27 | Outpatient (CLI) | payer OTHER, SELFPAY | PROVIDERS: Visit Provider Podiatrist | DX: L60.0 Ingrowing nail (principal) | CPT/HCPCS: 87102; 87206; 87220 ==

== ENCOUNTER 2019-01-27 12:48 | Outpatient (RCR) | payer OTHER, SELFPAY ==
--- NOTE | 2019-01-27 13:56 | HMH.PTOPEV ---
PT Outpatient Evaluation Rehab PT Outpatient Evaluation Start: 01/27/19 13:41 Freq: Status: Active Protocol: Document 01/27/19 13:42 LAKHWINDER (Rec: 01/27/19 13:54 LAKHWINDER [id number]) Electronically Signed By Zachary Merritt, PT 01/27/19 13:42 Outpatient Therapy Subjective History Subjective History Patient is a 53 year old female presenting to outpatient PT with reports of chronic headaches (L>R) starting after a CVA 05/18. Pt reports moderate relief with oral medication. 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 No other motor deficits noted. Comorbidites include OA , hx of cancer, whipple procedure. Chief Complaint Pain Symptom Type Ache Sharp Dull Symptoms Relieved By Rest/Positioning Prescription Meds Prior Functional Limitations None Current Functional Limitations Lifting Housework Desk Work/Reading Driving Sleeping Recreation Activity Symptom Description Constant but Variable Level of pain today (0-10) 5 Pain scale - at its best (0-10) 2 Pain scale - at its worst (0-10) 9 Cervical Eval Palpation Cervical Muscles R Cervical Paraspinal L Cervical Paraspinal R Suboccipital L Suboccipital R Upper Trapezius L Upper Trapezius Cervical/Thoracic Palpation Findings Tenderness Posture Head/C-Spine Posture Sitting Position C-Spine Flattened Flexibility Deficits Upper Trapezius Muscle Length (R) Moderate Tightness (L) Moderate Tightness Levaetor Scapulae Muscle Length (R) Moderate Tightness (L) Moderate Tightness Pectoralis Minor Muscle Length (R) Mild Tightness (L) Mild Tightness Passive Joint Mobility Cervical PIVM Dec: R OA L OA R AA L AA WNL: R C2/3 L C2/3 R C3/4 L C3/4
== END 2019-01-27 12:55 | disposition home or self-care (01) ==
LOC: PT 12:48
PROVIDERS: Visit Provider Specialist
DX: R51 Headache (principal)
CPT/HCPCS: 97163

== ENCOUNTER → 2019-02-02 10:00 | Outpatient (CLI) | payer OTHER, SELFPAY ==
--- NOTE | 2019-02-02 10:04 | XR_ITS ---
XR foot wt bearing LT 3V HISTORY: Pain ITS.REASON: rule out fracture of distal phalanx ORDERING PHYSICIAN: Haily Garg DPM PATIENT AGE: 53 years COMPARISON: None FINDINGS: No fracture or dislocation. No lytic or blastic change. There is normal mineralization.. There are mild osteoarthritic changes of the first metatarsophalangeal joint. No bony erosive process evident. Hypertrophic changes are present at the distal aspect of the first metatarsal. IMPRESSION: 1. No acute finding. 2. Osteoarthritis of the first metatarsophalangeal joint
[2019-02-02 16:03] LABS: Amphetamine/Metha Screen,Urine Negative ng/mL (<1000); Barbiturates Screen,Urine Positive ng/mL (<200); Benzodiazepines Screen,Urine Negative ng/mL (<200); Cannabinoid Screen,Urine Negative ng/mL (<50); Cocaine Screen,Urine Negative ng/mL (<300); Methadone Screen,Urine Negative ng/mL (<300); Opiate Screen,Urine Negative ng/mL (<300); Phencyclidine Screen,Urine Negative ng/mL (<25)
== END ==
PROVIDERS: Nurse Practitioner Family; PCP Physician Assistant; Visit Provider Podiatrist
DX: M79.675 Pain in left toe(s) (principal)
CPT/HCPCS: 73630; 80305

== ENCOUNTER → 2019-02-02 14:32 | Outpatient (CLI) | payer OTHER, SELFPAY | PROVIDERS: Visit Provider Nurse Practitioner Family | DX: Z79.899 Other long term (current) drug therapy (principal) | CPT/HCPCS: 80305 ==

== ENCOUNTER → 2019-02-04 09:25 | Outpatient (CLI) | payer OTHER, SELFPAY ==
[2019-02-04 10:38] LABS: Alanine Aminotransferase 37 U/L (12-78); Albumin Level 3.7 gm/dL (3.4-5.0); Alkaline Phosphatase 176 U/L (46-116); Aspartate Amino Transferase 13 U/L (15-37); Bilirubin,Direct 0.1 mg/dL (0.0-0.2); Bilirubin,Indirect 0.2 mg/dL (0.0-0.9); Bilirubin,Total 0.3 mg/dL (0.2-1.0); Chol/HDL Ratio 3.9 (1-3.5); Cholesterol 162 mg/dL (140-200); HDL Cholesterol 42 mg/dL (29-89); LDL Cholesterol 91 mg/dL (0-130); Total Protein,Serum 7.6 gm/dL (6.4-8.2); Triglycerides 143 mg/dL (30-200); VLDL Cholesterol 29 mg/dL (0-40)
== END ==
PROVIDERS: Visit Provider Internal Medicine
DX: E78.5 Hyperlipidemia, unspecified (principal)
CPT/HCPCS: 36415; 80061; 80076

== ENCOUNTER → 2019-03-04 09:34 | Outpatient (CLI) | payer OTHER, SELFPAY ==
[2019-03-04 09:57] LABS: Basophils % 0.6 % (0.1-2.0); Eosinophils # 0.1 K/mm3 (0.0-0.4); Eosinophils % 2.2 % (0.1-12.0); Hemoglobin 13.8 g/dL (12.2-16.2); Lymphocytes # 1.7 K/mm3 (0.7-4.5); Lymphocytes % 27.1 % (10-50); Mean Corpuscular Hemoglobin 26.2 pg (27.0-31.2); Monocytes # 0.4 K/mm3 (0.1-1.0); Monocytes % 5.8 % (1.7-9.3); Neutrophils # 4.1 K/mm3 (1.8-7.8); Neutrophils % 64.3 % (37.0-80.0); Platelet Count 278 K/mm3 (142-424); Red Blood Count 5.25 M/mm3 (4.20-5.40); Red Cell Distribution Width 14.8 % (11.5-17.5); White Blood Count 6.4 K/mm3 (4.8-10.8)
[2019-03-04 10:25] LABS: Anion Gap 16.5 mEq/L (5-15); Blood Urea Nitrogen 23 mg/dL (7-18); Carbon Dioxide 25 mmol/L (21.0-32.0); Chloride 107 mmol/L (98-107); Creatinine,Serum 0.98 mg/dL (0.55-1.02); Estimated Glomerular Filt Rate 60 ml/min (>60); GFR (African American) 72 ML/MIN (>60); Glucose 111 mg/dL (74-106); Potassium 4.5 mmoL/L (3.5-5.1); Sodium 144 mmol/L (136-145)
[2019-03-04 11:53] LABS: Erythrocyte Sedimentation Rate 22 mm/hr (0-30)
== END ==
PROVIDERS: Visit Provider Internal Medicine
DX: D59.9 Acquired hemolytic anemia, unspecified (principal); E78.2 Mixed hyperlipidemia; I48.0 Paroxysmal atrial fibrillation; I63.9 Cerebral infarction, unspecified; Z85.038 Personal history of other malignant neoplasm of large intestine
CPT/HCPCS: 36415; 80048; 85025; 85651

== ENCOUNTER → 2019-05-04 08:23 | Outpatient (CLI) | payer OTHER, SELFPAY ==
--- NOTE | 2019-05-04 08:26 | CI_ITS ---
Cerebrovascular Exam Indications: 780.4 Dizziness and giddiness. IMPRESSIONS 1. The bilateral vertebral arteries are patent with normal antegrade flow. 2. Study suggests 20-49% (lower end of scale) stenosis involving the right internal carotid artery. No change from the study of 16-Nov-2011. 3. Study suggests 20-49% (lower end of scale)stenosis involving the left internal carotid artery. No change from the study of 16-Nov-2011. 4. Tortuous carotid arteries seen bilaterally. History: Stroke. Risk factors: Hyperlipidemia. Carotid duplex study. Complete study and Doppler flow study including spectral analysis, color and valenzuela scale imaging. Height: Height: 170.2cm. Height: 67in. Weight: Weight: 81.6kg. Weight: 179.6lb. Body mass index: BMI: 28.2kg/m^2. Body surface area: BSA: 1.98m^2. Location: Vascular laboratory. Patient status: Outpatient. Tables: Arterial flow: + +--------+--------+ Location V sys V ed + +--------+--------+ Right CCA - proximal 80.9cm/s 21.2cm/s + +--------+--------+ Right CCA - distal 97.1cm/s 28.9cm/s + +--------+--------+ Right ECA 99.5cm/s 16.9cm/s + +--------+--------+ Right ICA - proximal 94.2cm/s 24.3cm/s + +--------+--------+ Right ICA - mid 80.6cm/s 17cm/s + +--------+--------+ Right ICA - distal 66cm/s 13.6cm/s + +--------+--------+ Right vertebral 44.1cm/s 16.4cm/s + +--------+--------+ Left CCA - proximal 80.1cm/s 19.3cm/s + +--------+--------+ Left CCA - distal 86.1cm/s 29.4cm/s + +--------+--------+ Left ECA 64.3cm/s 18.4cm/s + +--------+--------+ Left ICA - proximal 65.1cm/s 24.9cm/s + +--------+--------+ Left ICA - mid 73.3cm/s 26.9cm/s + +--------+--------+ Left ICA - distal 76.3cm/s 30.4cm/s + +--------+--------+ Left vertebral 44.3cm/s 19cm/s + +--------+--------+ Velocity ratios: + + + + + + Right, V sys Right, V ed Left, V sys Left, V ed + + + + + + Max ICA/dist CCA 0.97 0.84 0.89 1.03 + + + + + + (Report amended ) Electronically signed by: Randy Lopez [id number]
== END ==
PROVIDERS: PCP Emergency Medicine; Visit Provider Internal Medicine
DX: R42 Dizziness and giddiness (principal); G43.909 Migraine, unspecified, not intractable, without status migrainosus; I63.9 Cerebral infarction, unspecified
CPT/HCPCS: 93880

== ENCOUNTER → 2019-06-24 14:35 | Outpatient (POV) | payer OTHER, SELFPAY | DX: Z00.00 Encounter for general adult medical examination without abnormal findings (principal) ==

== ENCOUNTER → 2019-06-25 10:55 | Outpatient (CLI) | payer OTHER, SELFPAY ==
--- NOTE | 2019-06-25 10:55 | MM_ITS ---
MM Dig screening mamm BI w/CAD CAD Screening COMPARISON: None, this is baseline INDICATION: There is no personal or family history of breast cancer TECHNIQUE: Standard CC and MLO images were obtained. R2 CAD reviewed. FINDINGS: Moderate diffuse fibroglandular densities are seen throughout both breasts. There is a loop recorder device seen in her quadrant left breast. There are 2 possible asymmetric densities left breast probably representing summation shadows but recommend patient return for spot compression views and ultrasound as well. There are couple benign-appearing calcifications left breast. IMPRESSION: Moderate breast density with possible asymmetric densities left breast BI-RADS Category: 0 Need Additional Imaging Evaluation RECOMMENDED FOLLOW-UP: IMM - IMMEDIATE FOLLOW-UP RECOMMENDED (A letter has been sent to the patient regarding results of the study.)
== END ==
PROVIDERS: PCP Physician Assistant; Visit Provider Physician Assistant
DX: Z12.31 Encounter for screening mammogram for malignant neoplasm of breast (principal)
CPT/HCPCS: 77067

== ENCOUNTER → 2019-09-07 11:24 | Outpatient (CLI) | payer OTHER, SELFPAY ==
[2019-09-07 14:31] LABS: Uric Acid 4.2 mg/dL (2.6-7.2)
== END ==
PROVIDERS: Visit Provider Nurse Practitioner Family
DX: M10.9 Gout, unspecified (principal)
CPT/HCPCS: 36415; 84550

== ENCOUNTER → 2019-09-29 13:27 | Outpatient (CLI) | payer OTHER, SELFPAY ==
[2019-09-29 14:12] LABS: Basophils # 0.1 K/mm3 (0-0.2); Basophils % 0.6 % (0.1-2.0); Eosinophils # 0.2 K/mm3 (0.0-0.4); Hematocrit 40.3 % (37.0-47.0); Hemoglobin 12.8 g/dL (12.2-16.2); Lymphocytes # 1.5 K/mm3 (0.7-4.5); Lymphocytes % 20.1 % (10-50); Mean Corpuscular HGB Conc 31.7 g/dL (31.8-35.4); Mean Corpuscular Hemoglobin 26.9 pg (27.0-31.2); Mean Corpuscular Volume 84.8 fl (81-99); Mean Platelet Volume 8.3 fl (7.4-10.4); Monocytes # 0.5 K/mm3 (0.1-1.0); Monocytes % 6.1 % (1.7-9.3); Neutrophils # 5.3 K/mm3 (1.8-7.8); Neutrophils % 70.2 % (37.0-80.0); Platelet Count 264 K/mm3 (142-424); Red Blood Count 4.75 M/mm3 (4.20-5.40); Red Cell Distribution Width 13.4 % (11.5-17.5); White Blood Count 7.5 K/mm3 (4.8-10.8)
[2019-09-29 14:24] LABS: Alanine Aminotransferase 22 U/L (12-78); Albumin Level 3.6 gm/dL (3.4-5.0); Albumin/Globulin Ratio 0.9 (1.1-1.8); Alkaline Phosphatase 151 U/L (46-116); Anion Gap 17.3 mEq/L (5-15); Aspartate Amino Transferase 11 U/L (15-37); Bilirubin,Total 0.3 mg/dL (0.2-1.0); Blood Urea Nitrogen 26 mg/dL (7-18); Calcium 8.8 mg/dL (8.5-10.1); Carbon Dioxide 22 mmol/L (21.0-32.0); Chloride 107 mmol/L (98-107); Chol/HDL Ratio 3.3 (1-3.5); Cholesterol 139 mg/dL (140-200); Creatinine,Serum 1.05 mg/dL (0.55-1.02); Estimated Glomerular Filt Rate 55 ml/min (>60); GFR (African American) 66 ML/MIN (>60); Globulin 3.8 gm/dl (1.3-3.2); Glucose 77 mg/dL (74-106); HDL Cholesterol 42 mg/dL (29-89); LDL Cholesterol 72 mg/dL (0-130); Potassium 4.3 mmoL/L (3.5-5.1); Sodium 142 mmol/L (136-145); T4 (Thyroxine) 7.4 ug/dl (4.7-13.3); Thyroid Stimulating Hormone 1.36 uIU/ml (0.358-3.740); Total Protein,Serum 7.4 gm/dL (6.4-8.2); Triglycerides 126 mg/dL (30-200); VLDL Cholesterol 25 mg/dL (0-40)
[2019-09-29 16:51] LABS: Hemoglobin A1C 5.9 % (0.0-7.0)
[2019-09-30 16:24] LABS: Vitamin D 25 Hydroxy 81.2 ng/mL (30.0-100.0)
== END ==
PROVIDERS: Visit Provider Physician Assistant
DX: D64.9 Anemia, unspecified (principal); E78.5 Hyperlipidemia, unspecified; R42 Dizziness and giddiness
CPT/HCPCS: 80053; 80061; 82652; 83036; 84436; 84443; 85025

== ENCOUNTER → 2019-10-09 08:49 | Outpatient (CLI) | payer OTHER, SELFPAY ==
--- NOTE | 2019-10-09 08:50 | CA_ITS ---
APPROVED REPORT Dairy Nutrition Specialist: Jennifer Wells RVT Laterality: Bilateral Study Quality: Adequate Indications: vertigo, h/o stroke, tunnel vision, pre-syncope Risk Factors Hyperlipidemia Doppler Spectral Velocity Analysis ECA (R) 83.30/14.20 cm/s ECA (L) 76.40/11.80 cm/s dICA (R) 61.40/25.90 cm/s dICA (L) 51.30/20.70 cm/s Radha (R) 68.00/17.30 cm/s Radha (L) 46.00/20.00 cm/s pICA (R) 79.60/14.40 cm/s pICA (L) 62.00/17.90 cm/s dCCA (R) 93.50/22.20 cm/s dCCA (L) 81.40/15.70 cm/s pCCA (R) 80.50/17.10 cm/s pCCA (L) 81.70/18.60 cm/s Vert (R) 59.00/25.90 cm/s Vert (L) 47.80/11.20 cm/s ICA/CCA 0.85 ICA/CCA 0.76 Conclusion Study suggests 20-49% (lower end of scale) stenosis of the right internal carotid artery unchanged from the 05/04/19 study. Study suggests 20-49% (lower end of scale) stenosis of the left internal carotid artery unchanged from the 05/04/19 study. Antegrade flow seen bilateral vertebral arteries. Tortuous carotid arteries bilaterally. Electronically signed by : Randy Lopez MD 10/09/2019 17:13:45
--- NOTE | 2019-10-09 09:33 | MR_ITS ---
PROCEDURE: MR HEAD/BRAIN WO CON CLINICAL INDICATION: Tunnel vision, headache, memory loss, h/o CA Dizziness COMPARISON: BRAINWW MR head/brain wo/w con from 01/27/2018 TECHNIQUE: Routine multiplanar multi echo sequences are performed without gadolinium enhancement. FINDINGS: No midline shift, mass effect, intracranial hemorrhage, or hydrocephalus is evident. There is no evidence of acute infarction. The cerebellopontine angles, cerebellum, and brainstem have an unremarkable appearance. Encephalomalacia changes are present involving the medial aspect of the right occipital lobe consistent with an old infarction. There is a small focus of increased T2 signal in the right olguin radiata and may be due to small ischemic gliotic focus. Retention cyst is present in the floor the right maxillary sinus. There is mild mucosal thickening of the left maxillary sinus posteriorly. Previously noted posterior nasal mass on the right is no longer apparent. No mastoid effusion. Small cystic areas noted along the posterior aspect of the pituitary gland not significantly changed measuring 4 mm without mass effect. The optic chiasm, corpus callosum, and craniocervical junction are unremarkable. There is degenerative disc disease at C3-C4 with mild bulging disc with narrowing of the canal at 8 mm at this area. IMPRESSION: 1. No acute intracranial findings. 2. Old right occipital infarction. 3. 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 4. Canal stenosis at C3-C4 which may be better evaluated with MRI of the neck as clinically desired Dictated by: Randy Lopez MD 10/09/2019 16:49 Electronically signed by Randy Lopez MD in [place] 10/10/2019 07:50
== END ==
PROVIDERS: PCP Physician Assistant; Visit Provider Physician Assistant
DX: H53.489 Generalized contraction of visual field, unspecified eye (principal); R42 Dizziness and giddiness; Z86.73 Personal history of transient ischemic attack (TIA), and cerebral infarction without residual deficits
CPT/HCPCS: 70551; 93880

== ENCOUNTER → 2019-11-16 10:51 | Outpatient (CLI) | payer OTHER, SELFPAY ==
--- NOTE | 2019-11-16 10:51 | MR_ITS ---
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 3-D MIP and myelographic images are also rendered and reviewed FINDINGS: There is normal alignment. Cranial cervical junction has an unremarkable appearance. C2-C3: There is mild prominence of the posterior longitudinal ligament with narrowing of the canal at 10 mm without impingement. C3-C4: Mild degenerative disc disease with mild bulging disc with narrowing of the canal at 9 mm with minimal contour deformity of the anterior aspect of the cord. C3-C4: Degenerative disc disease with bulging disc and endplate hypertrophic change eccentric to the right with narrowing of the canal at 7 mm along with severe right lateral recess and moderate bilateral foraminal narrowing. There is right sided uncovertebral disc osteophyte complex. C5-C6: Degenerate disc disease with bulging disc which is eccentric toward the right with bilateral uncovertebral disc osteophyte complex. There is severe right lateral recess and foraminal narrowing. C6-C7: Mild degenerative disc disease there is mild contour deformity of the cord anteriorly at this level. C7-T1: Unremarkable. No extruded herniated disc evident. IMPRESSION: Multilevel cervical spondylosis with degenerative disc disease, bulging disc, and uncovertebral disc osteophyte complexes resulting in canal stenosis lateral recess narrowing and foraminal narrowing at multiple levels. Please see above for detailed description at each level. Overall, the findings do not appear significantly changed from 07/24/2016. Dictated by: Randy Lopez MD 11/18/2019 05:34 Electronically signed by Randy Lopez MD in [place] 11/18/2019 05:34
== END ==
PROVIDERS: PCP Physician Assistant; Visit Provider Physician Assistant
DX: M54.2 Cervicalgia (principal)
CPT/HCPCS: 72141; 76376

== ENCOUNTER → 2020-01-21 13:47 | Outpatient (POV) | payer MEDICARE, MEDICAID, SELFPAY | PROVIDERS: PCP Physician Assistant; Visit Provider Neurological Surgery | DX: Z00.00 Encounter for general adult medical examination without abnormal findings (principal) ==

== ENCOUNTER → 2020-03-30 10:40 | Outpatient (CLI) | payer MEDICARE, SELFPAY ==
[2020-03-30 12:40] LABS: Basophils # 0.1 K/mm3 (0-0.2); Basophils % 1.1 % (0.1-2.0); Eosinophils # 0.2 K/mm3 (0.0-0.4); Eosinophils % 2.8 % (0.1-12.0); Hematocrit 41.1 % (37.0-47.0); Hemoglobin 12.8 g/dL (12.2-16.2); Lymphocytes # 2.1 K/mm3 (0.7-4.5); Lymphocytes % 32.3 % (10-50); Mean Corpuscular HGB Conc 31.2 g/dL (31.8-35.4); Mean Corpuscular Hemoglobin 26.1 pg (27.0-31.2); Mean Corpuscular Volume 83.6 fl (81-99); Mean Platelet Volume 7.5 fl (7.4-10.4); Monocytes # 0.4 K/mm3 (0.1-1.0); Monocytes % 6.2 % (1.7-9.3); Neutrophils # 3.8 K/mm3 (1.8-7.8); Neutrophils % 57.6 % (37.0-80.0); Platelet Count 288 K/mm3 (142-424); Red Blood Count 4.91 M/mm3 (4.20-5.40); Red Cell Distribution Width 13.6 % (11.5-17.5); White Blood Count 6.6 K/mm3 (4.8-10.8)
[2020-03-30 12:44] LABS: Anion Gap 12.3 mEq/L (5-15); Blood Urea Nitrogen 22 mg/dl (7-17); Calcium 9.3 mg/dl (8.4-10.2); Carbon Dioxide 26 mmol/L (22.0-30.0); Chloride 109 mmol/L (98-107); Estimated Glomerular Filt Rate 58 ml/min (>60); GFR (African American) 70 ML/MIN (>60); Glucose 92 mg/dl (74-100); Potassium 4.3 mmoL/L (3.5-5.1); Sodium 143 mmol/L (136-145)
== END ==
PROVIDERS: Visit Provider Urology
DX: G89.29 Other chronic pain (principal); M54.2 Cervicalgia; I10 Essential (primary) hypertension; I48.0 Paroxysmal atrial fibrillation; R42 Dizziness and giddiness
CPT/HCPCS: 36415; 80048; 85025

== ENCOUNTER → 2020-04-04 14:22 | Outpatient (CLI) | payer MEDICARE, MEDICAID, SELFPAY ==
--- NOTE | 2020-04-04 14:24 | CA_ITS ---
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: Joy Henderson RT(R) Ht: 5 ft 7 in Wt: 182lbs BSA: 1.94 BP: 98/59 mmHg Indications: Hyperlipidemia, Family history of HD, AFIB, dizziness, hx CVA, migraine, hx of CM, GERD 2D Dimensions LVOT 1.58 cm (M/F) 1.5-2.5 M-Mode Dimensions RVDd 2.81 cm (0.9-2.6) LVDd 3.83 cm (3.5-5.7) LVDs 2.84 cm (3.5-5.7) IVSd 0.95 cm (0.6-1.1) PWd 0.80 cm (0.6-1.1) EF (Teich) 51.50% FS 25.80% EDV (Teich) 63.10 mL ESV (Teich) 30.60 mL LV Diastology E/A Ratio 0.88 Mitral Valve MV A Velocity 85.00 (40-130 cm/s) Left Ventricle Left atrium is mildly enlarged, left ventricle is normal size, visually estimated ejection fraction 55% with no regional wall motion abnormality, diastolic parameters are within normal range. Right Ventricle Right atrium and right ventricular normal size and contractility. Aortic Valve Aortic valve is minimally thickened and fibrosed. There is no aortic stenosis aortic insufficiency. Mitral Valve Mitral valve leaflets is not well visualized, there appears to be mild prolapse of the posterior mitral leaflet. There is mitral regurgitation present which is likely in moderate range. Tricuspid Valve Tricuspid valve is grossly normal, there is mild tricuspid regurgitation, tricuspid irritation jet velocity is inadequate for calculation of the right ventricular systolic pressure. Pulmonic Valve Pulmonic valve is poorly visualized. Great Vessels Aortic root is normal size. Pericardium No significant pericardial effusion noted. Conclusion 1. Mildly enlarged left atrium, normal left ventricular size, visually estimated ejection fraction 55% with no regional wall motion abnormality, diastolic parameters are within normal range. 2. Mitral valve leaflets are not well visualized, there is appears to be mild prolapse of the posterior mitral leaflet, there is moderate mitral regurgitation. If clinically indicated a transesophageal echocardiogram is recommended to evaluate the mitral valve and severity of the mitral regurgitation. 3. Mild tricuspid regurgitation 4. No significant pericardial effusion noted. Electronically signed by : Sridhar Dominique, 04/04/2020 20:29:08
[2020-04-04 16:48] LABS: Bilirubin,Unconjugated 0.3 mg/dL (0.0-1.1)
[2020-04-04 16:49] LABS: Alanine Aminotransferase 18 U/L (12-78); Albumin Level 3.9 g/dl (3.5-5.0); Alkaline Phosphatase 105 U/L (38-126); Aspartate Amino Transferase 22 U/L (14-36); Bilirubin,Indirect 0.3 mg/dL (0.0-0.9); Bilirubin,Total 0.3 mg/dl (0.2-1.3); Chol/HDL Ratio 2.5 (1-3.5); Cholesterol 107 mg/dl (140-200); HDL Cholesterol 42 mg/dl (40-60); Total Protein,Serum 6.7 g/dl (6.3-8.2); Triglycerides 209 mg/dl (30-150); VLDL Cholesterol 42 mg/dL (0-40)
[2020-04-04 17:00] LABS: Direct LDL Cholesterol 58.31 mg/dL (100-129)
[2020-04-04 17:05] LABS: Triiodothryronine (T3) Uptake 38 % (23.5-40.5)
[2020-04-04 17:06] LABS: Free Thyroxine Index 2.8 ug/dL (5.93-13.13); T4 (Thyroxine) 7.4 ug/dl (5.53-11.0)
[2020-04-04 17:20] LABS: Thyroid Stimulating Hormone 0.96 uIU/mL (0.465-4.68)
== END ==
PROVIDERS: PCP Physician Assistant; Visit Provider Physician Assistant
DX: E78.2 Mixed hyperlipidemia (principal); G43.909 Migraine, unspecified, not intractable, without status migrainosus; I48.0 Paroxysmal atrial fibrillation; I63.9 Cerebral infarction, unspecified; R42 Dizziness and giddiness
CPT/HCPCS: 36415; 80061; 80076; 84436; 84443; 84479; 93306

== ENCOUNTER → 2020-04-29 10:35 | Outpatient (CLI) | payer MEDICARE, MEDICAID, SELFPAY ==
--- NOTE | 2020-04-29 10:45 | MR_ITS ---
PROCEDURE: MR FOOT LT WO/W CON CLINICAL INDICATION: ACUTE OSTEOMYELITIS Pain and swelling left great toe COMPARISON: [id number] XR foot wt bearing LT 3V from 02/02/2019 TECHNIQUE: Routine multiplanar multi echo sequences are performed without and with gadolinium enhancement. FINDINGS: Stir images show increased T2 signal involving the proximal and distal phalanx of the great toe. These areas do demonstrate contrast enhancement. There is associated soft tissue swelling along the medial aspect of the great toe. No obvious abscess or sinus tract. No other significant anomalies are evident. There is a small amount of fluid about the ankle joint. No obvious ligamentous or tendon abnormalities. IMPRESSION: Findings are compatible with cellulitis and osteomyelitis of the proximal and distal phalanx of the great toe Dictated by: Randy Lopez MD 05/03/2020 09:18 Electronically signed by Randy Lopez MD in [place] 05/03/2020 09:18
== END ==
PROVIDERS: PCP Physician Assistant; Visit Provider Podiatrist Foot & Ankle Surgery
DX: M86.172 Other acute osteomyelitis, left ankle and foot (principal)
CPT/HCPCS: 73720; A9576

== ENCOUNTER 2020-05-07 09:48 | Outpatient (CLI) | payer MEDICARE, MEDICAID, SELFPAY ==
[2020-05-07 09:59] VITALS: BP 106/41; PULSE 60; RESP 18; TEMP 36.8; O2SAT 97
[2020-05-07 11:50] VITALS: BP 104/76; PULSE 66; RESP 16; TEMP 36.6; O2SAT 100
== END 2020-05-07 12:00 | disposition home or self-care (01) ==
LOC: INF 09:49
PROVIDERS: PCP Physician Assistant; Visit Provider Internal Medicine Infectious Disease
DX: M86.172 Other acute osteomyelitis, left ankle and foot (principal); L03.032 Cellulitis of left toe; L03.116 Cellulitis of left lower limb
CPT/HCPCS: 96365; G0463; J1335

== ENCOUNTER 2020-05-08 10:06 | Outpatient (CLI) | payer MEDICARE, MEDICAID, SELFPAY ==
[2020-05-08 10:19] VITALS: BP 116/64; PULSE 73; RESP 17; TEMP 36.8; O2SAT 100
[2020-05-08 11:20] VITALS: BP 118/55; PULSE 62; RESP 16; RESP 17; TEMP 36.4; TEMP 36.5; O2SAT 98
== END 2020-05-08 11:20 | disposition home or self-care (01) ==
LOC: INF 10:07
PROVIDERS: PCP Physician Assistant; Visit Provider Internal Medicine Infectious Disease
DX: M86.172 Other acute osteomyelitis, left ankle and foot (principal); L03.032 Cellulitis of left toe; L03.116 Cellulitis of left lower limb
CPT/HCPCS: 96365; J1335

== ENCOUNTER 2020-05-09 09:51 | Outpatient (CLI) | payer MEDICARE, MEDICAID, SELFPAY ==
[2020-05-09 09:53] VITALS: BMI 28.5
[2020-05-09 10:11] LABS: Basophils % 0.5 % (0.1-2.0); Eosinophils # 0.1 K/mm3 (0.0-0.4); Eosinophils % 2.1 % (0.1-12.0); Hematocrit 38.3 % (37.0-47.0); Hemoglobin 12.6 g/dL (12.2-16.2); Lymphocytes % 30.2 % (10-50); Mean Corpuscular Volume 81.8 fl (81-99); Monocytes # 0.4 K/mm3 (0.1-1.0); Monocytes % 6.2 % (1.7-9.3); Platelet Count 225 K/mm3 (142-424); Red Blood Count 4.68 M/mm3 (4.20-5.40); Red Cell Distribution Width 14.1 % (11.5-17.5); White Blood Count 6.6 K/mm3 (4.8-10.8)
[2020-05-09 10:16] LABS: Chloride 114 mmol/L (98-107); Potassium 4.1 mmoL/L (3.5-5.1); Sodium 143 mmol/L (136-145)
[2020-05-09 10:18] LABS: Alanine Aminotransferase 28 U/L (12-78); Aspartate Amino Transferase 27 U/L (14-36); Blood Urea Nitrogen 18 mg/dl (7-17); Creatinine Clearance Estimated 84 mL/min (50-200); Estimated Glomerular Filt Rate 58 ml/min (>60); GFR (African American) 70 ML/MIN (>60)
[2020-05-09 10:19] LABS: Albumin Level 3.9 g/dl (3.5-5.0); Albumin/Globulin Ratio 1.3 (1.1-1.8); Alkaline Phosphatase 116 U/L (38-126); Anion Gap 9.1 mEq/L (5-15); Bilirubin,Total 0.7 mg/dl (0.2-1.3); Calcium 8.9 mg/dl (8.4-10.2); Carbon Dioxide 24 mmol/L (22.0-30.0); Glucose 98 mg/dl (74-100); Total Protein,Serum 6.9 g/dl (6.3-8.2)
[2020-05-09 10:20] VITALS: BP 110/62; PULSE 68; RESP 20; TEMP 36.9; O2SAT 98
[2020-05-09 10:46] LABS: Erythrocyte Sedimentation Rate 19 mm/hr (0-30)
[2020-05-09 11:00] VITALS: BP 122/74; PULSE 68; RESP 20; TEMP 36.9; O2SAT 95
[2020-05-09 11:11] LABS: C-Reactive Protein 2.1 mg/L (0-4)
== END 2020-05-09 11:00 | disposition home or self-care (01) ==
LOC: INF 09:51
PROVIDERS: Visit Provider Internal Medicine Infectious Disease
DX: M86.172 Other acute osteomyelitis, left ankle and foot (principal); L03.032 Cellulitis of left toe; L03.116 Cellulitis of left lower limb
CPT/HCPCS: 80053; 85025; 85651; 86140; 96365; J1335

== ENCOUNTER 2020-05-10 09:56 | Outpatient (CLI) | payer MEDICARE, MEDICAID, SELFPAY ==
[2020-05-10 10:08] VITALS: BP 123/70; PULSE 72; RESP 18
[2020-05-10 11:00] VITALS: BP 107/68; PULSE 65; RESP 18
== END 2020-05-10 11:00 | disposition home or self-care (01) ==
LOC: INF 09:56
PROVIDERS: Visit Provider Internal Medicine Infectious Disease
DX: Z51.11 Encounter for antineoplastic chemotherapy (principal); C18.9 Malignant neoplasm of colon, unspecified
CPT/HCPCS: 96365; J1335

== ENCOUNTER 2020-05-11 10:08 | Outpatient (CLI) | payer MEDICARE, MEDICAID, SELFPAY ==
[2020-05-11 10:20] VITALS: BP 110/68; PULSE 77; RESP 18; TEMP 36.9; O2SAT 97
[2020-05-11 11:12] VITALS: BP 104/74; PULSE 65; RESP 18; TEMP 36.9; O2SAT 98
== END 2020-05-11 11:12 | disposition home or self-care (01) ==
LOC: INF 10:08
PROVIDERS: Visit Provider Internal Medicine Infectious Disease
DX: M86.172 Other acute osteomyelitis, left ankle and foot (principal); L03.032 Cellulitis of left toe; L03.116 Cellulitis of left lower limb; M10.9 Gout, unspecified
CPT/HCPCS: 96365; J1335

== ENCOUNTER 2020-05-12 08:27 | Outpatient (CLI) | payer MEDICARE, MEDICAID, SELFPAY ==
[2020-05-12 08:35] VITALS: BP 117/82; PULSE 64; RESP 18; TEMP 36.6; O2SAT 99
[2020-05-12 09:26] VITALS: BP 122/57; PULSE 66; RESP 18
== END 2020-05-12 09:26 | disposition home or self-care (01) ==
LOC: INF 08:27
PROVIDERS: Visit Provider Internal Medicine Infectious Disease
DX: M86.172 Other acute osteomyelitis, left ankle and foot (principal); M79.676 Pain in unspecified toe(s); L03.032 Cellulitis of left toe; L03.116 Cellulitis of left lower limb; M10.9 Gout, unspecified
CPT/HCPCS: 96365; J1335

== ENCOUNTER → 2020-05-14 10:11 | Outpatient (CLI) | payer MEDICARE, MEDICAID, SELFPAY ==
[2020-05-14 10:15] VITALS: BP 107/73; PULSE 61; RESP 14; TEMP 36.4; O2SAT 100
[2020-05-14 11:30] VITALS: BP 110/61; PULSE 66; RESP 16; TEMP 36.6; O2SAT 100
== END ==
PROVIDERS: PCP Internal Medicine Infectious Disease; Visit Provider Internal Medicine Infectious Disease
DX: M86.172 Other acute osteomyelitis, left ankle and foot (principal); L03.032 Cellulitis of left toe; L03.116 Cellulitis of left lower limb; M10.9 Gout, unspecified
CPT/HCPCS: 96365; 96367; J0878

== ENCOUNTER → 2020-05-15 09:19 | Outpatient (CLI) | payer MEDICARE, MEDICAID, SELFPAY ==
[2020-05-15 09:36] VITALS: BP 104/62; PULSE 57; RESP 18; TEMP 36.4; O2SAT 98; BMI 28.1
[2020-05-15 11:34] VITALS: BP 129/83; PULSE 59; RESP 16; TEMP 36.6; O2SAT 98
== END ==
PROVIDERS: PCP Physician Assistant; Referring Provider Internal Medicine Infectious Disease; Visit Provider Internal Medicine Infectious Disease
DX: M86.172 Other acute osteomyelitis, left ankle and foot (principal); L03.032 Cellulitis of left toe; L03.116 Cellulitis of left lower limb; M10.9 Gout, unspecified
CPT/HCPCS: 96365; 96367; J0878

== ENCOUNTER 2020-05-16 09:00 | Outpatient (CLI) | payer MEDICARE, MEDICAID, SELFPAY ==
[2020-05-16 09:30] VITALS: BP 107/76; PULSE 68; RESP 20; TEMP 36.9; O2SAT 95
[2020-05-16 10:09] VITALS: BP 108/76; PULSE 72; RESP 20; TEMP 36.9; O2SAT 95
== END 2020-05-16 10:18 | disposition home or self-care (01) ==
LOC: INF 09:01
PROVIDERS: Visit Provider Internal Medicine Infectious Disease
DX: M86.172 Other acute osteomyelitis, left ankle and foot (principal); L03.032 Cellulitis of left toe; L03.116 Cellulitis of left lower limb; M10.9 Gout, unspecified
CPT/HCPCS: 96365; 96367; J0878

== ENCOUNTER 2020-05-17 09:35 | Outpatient (CLI) | payer MEDICARE, MEDICAID, SELFPAY ==
[2020-05-17 09:44] VITALS: BMI 28.5
[2020-05-17 09:55] VITALS: BP 118/73; PULSE 62; RESP 18; O2SAT 100
[2020-05-17 10:00] LABS: Basophils % 0.4 % (0.1-2.0); Eosinophils # 0.2 K/mm3 (0.0-0.4); Eosinophils % 2.6 % (0.1-12.0); Hemoglobin 13.2 g/dL (12.2-16.2); Lymphocytes # 2.3 K/mm3 (0.7-4.5); Lymphocytes % 32.4 % (10-50); Mean Corpuscular HGB Conc 32.9 g/dL (31.8-35.4); Mean Corpuscular Hemoglobin 27.1 pg (27.0-31.2); Mean Corpuscular Volume 82.4 fl (81-99); Mean Platelet Volume 7.7 fl (7.4-10.4); Monocytes # 0.5 K/mm3 (0.1-1.0); Monocytes % 6.5 % (1.7-9.3); Neutrophils # 4.2 K/mm3 (1.8-7.8); Neutrophils % 58.2 % (37.0-80.0); Platelet Count 214 K/mm3 (142-424); Red Blood Count 4.86 M/mm3 (4.20-5.40); Red Cell Distribution Width 13.9 % (11.5-17.5); White Blood Count 7.2 K/mm3 (4.8-10.8)
[2020-05-17 10:07] LABS: Alanine Aminotransferase 43 U/L (12-78); Albumin Level 4.1 g/dl (3.5-5.0); Albumin/Globulin Ratio 1.2 (1.1-1.8); Alkaline Phosphatase 137 U/L (38-126); Anion Gap 12.3 mEq/L (5-15); Aspartate Amino Transferase 36 U/L (14-36); Bilirubin,Total 0.6 mg/dl (0.2-1.3); Blood Urea Nitrogen 16 mg/dl (7-17); Calcium 9.1 mg/dl (8.4-10.2); Carbon Dioxide 26 mmol/L (22.0-30.0); Chloride 108 mmol/L (98-107); Creatine Kinase 105 U/L (30-135); Creatinine Clearance Estimated 93 mL/min (50-200); Estimated Glomerular Filt Rate 65 ml/min (>60); GFR (African American) 79 ML/MIN (>60); Globulin 3.3 g/dL (1.3-3.2); Glucose 107 mg/dl (74-100); Potassium 4.3 mmoL/L (3.5-5.1); Sodium 142 mmol/L (136-145); Total Protein,Serum 7.4 g/dl (6.3-8.2)
[2020-05-17 10:13] LABS: C-Reactive Protein 1.8 mg/L (0-4)
[2020-05-17 10:31] LABS: Erythrocyte Sedimentation Rate 17 mm/hr (0-30)
[2020-05-17 10:45] VITALS: BP 101/74; PULSE 61; RESP 18
== END 2020-05-17 10:45 | disposition home or self-care (01) ==
LOC: INF 09:38
PROVIDERS: Visit Provider Internal Medicine Infectious Disease
DX: M86.172 Other acute osteomyelitis, left ankle and foot (principal); L03.032 Cellulitis of left toe; L03.116 Cellulitis of left lower limb
CPT/HCPCS: 80053; 82550; 85025; 85651; 86140; 96365; 96367; J0878

== ENCOUNTER 2020-05-19 10:02 | Outpatient (CLI) | payer MEDICARE, MEDICAID, SELFPAY ==
[2020-05-19 10:10] VITALS: BP 97/69; PULSE 58; RESP 18; O2SAT 97
[2020-05-19 11:15] VITALS: BP 119/77; PULSE 63; RESP 18; O2SAT 98
== END 2020-05-19 11:15 | disposition home or self-care (01) ==
LOC: INF 10:02
PROVIDERS: Visit Provider Internal Medicine Infectious Disease
DX: M86.172 Other acute osteomyelitis, left ankle and foot (principal); L03.032 Cellulitis of left toe; L03.116 Cellulitis of left lower limb
CPT/HCPCS: 96365; 96367; J0878

== ENCOUNTER 2020-05-20 09:27 | Outpatient (CLI) | payer MEDICARE, MEDICAID, SELFPAY ==
[2020-05-20 09:45] VITALS: BP 102/70; PULSE 71; RESP 18; TEMP 36.7
[2020-05-20 10:30] VITALS: BP 112/70; PULSE 68; RESP 18
== END 2020-05-20 10:30 | disposition home or self-care (01) ==
LOC: INF 09:27
PROVIDERS: Visit Provider Internal Medicine Infectious Disease
DX: M86.172 Other acute osteomyelitis, left ankle and foot (principal); L03.032 Cellulitis of left toe; L03.116 Cellulitis of left lower limb
CPT/HCPCS: 96365; 96367; J0878

== ENCOUNTER 2020-05-21 09:05 | Outpatient (CLI) | payer MEDICARE, MEDICAID, SELFPAY ==
[2020-05-21 09:27] VITALS: BP 99/71; PULSE 77; RESP 16; O2SAT 97
[2020-05-21 10:20] VITALS: BP 100/60; PULSE 70; RESP 15; O2SAT 98
== END 2020-05-21 10:23 | disposition home or self-care (01) ==
PROVIDERS: PCP Physician Assistant; Visit Provider Internal Medicine Infectious Disease
DX: M86.172 Other acute osteomyelitis, left ankle and foot (principal); L03.032 Cellulitis of left toe; L03.116 Cellulitis of left lower limb; M10.9 Gout, unspecified
CPT/HCPCS: 96365; 96367; J0878

== ENCOUNTER 2020-05-22 09:16 | Outpatient (CLI) | payer MEDICARE, MEDICAID, SELFPAY ==
[2020-05-22 09:45] VITALS: BP 122/77; PULSE 74; RESP 16; O2SAT 96
[2020-05-22 10:37] VITALS: BP 119/72; PULSE 62; RESP 15; O2SAT 96
== END 2020-05-22 10:33 | disposition home or self-care (01) ==
LOC: INF 09:18
PROVIDERS: PCP Physician Assistant; Visit Provider Internal Medicine Infectious Disease
DX: M86.172 Other acute osteomyelitis, left ankle and foot (principal); L03.032 Cellulitis of left toe; L03.116 Cellulitis of left lower limb
CPT/HCPCS: 96365; 96367; J0878

== ENCOUNTER 2020-05-23 09:58 | Outpatient (CLI) | payer MEDICARE, MEDICAID, SELFPAY ==
[2020-05-23 10:02] VITALS: BMI 28.5
[2020-05-23 10:13] LABS: Basophils # 0.1 K/mm3 (0-0.2); Basophils % 0.7 % (0.1-2.0); Eosinophils # 0.2 K/mm3 (0.0-0.4); Eosinophils % 2.9 % (0.1-12.0); Hematocrit 39.2 % (37.0-47.0); Lymphocytes # 2.3 K/mm3 (0.7-4.5); Lymphocytes % 28.5 % (10-50); Mean Corpuscular HGB Conc 33.2 g/dL (31.8-35.4); Mean Corpuscular Volume 81.2 fl (81-99); Mean Platelet Volume 7.3 fl (7.4-10.4); Monocytes # 0.5 K/mm3 (0.1-1.0); Monocytes % 6.4 % (1.7-9.3); Neutrophils # 4.9 K/mm3 (1.8-7.8); Neutrophils % 61.5 % (37.0-80.0); Platelet Count 216 K/mm3 (142-424); Red Blood Count 4.83 M/mm3 (4.20-5.40); Red Cell Distribution Width 14.1 % (11.5-17.5)
[2020-05-23 10:15] LABS: Chloride 111 mmol/L (98-107); Potassium 3.9 mmoL/L (3.5-5.1); Sodium 140 mmol/L (136-145)
[2020-05-23 10:18] LABS: Alanine Aminotransferase 53 U/L (12-78); Albumin/Globulin Ratio 1.2 (1.1-1.8); Alkaline Phosphatase 118 U/L (38-126); Anion Gap 9.9 mEq/L (5-15); Aspartate Amino Transferase 35 U/L (14-36); Bilirubin,Total 0.7 mg/dl (0.2-1.3); Blood Urea Nitrogen 17 mg/dl (7-17); Calcium 8.6 mg/dl (8.4-10.2); Carbon Dioxide 23 mmol/L (22.0-30.0); Creatine Kinase 128 U/L (30-135); Creatinine Clearance Estimated 70 mL/min (50-200); Estimated Glomerular Filt Rate 47 ml/min (>60); GFR (African American) 57 ML/MIN (>60); Globulin 3.3 g/dL (1.3-3.2); Glucose 136 mg/dl (74-100); Total Protein,Serum 7.3 g/dl (6.3-8.2)
[2020-05-23 10:20] VITALS: BP 104/66; PULSE 67; RESP 18; TEMP 36.7; O2SAT 99
[2020-05-23 10:23] LABS: C-Reactive Protein 3.9 mg/L (0-4)
[2020-05-23 10:54] LABS: Erythrocyte Sedimentation Rate 18 mm/hr (0-30)
[2020-05-23 11:05] VITALS: BP 109/76; PULSE 78; RESP 18; O2SAT 98
== END 2020-05-23 11:05 | disposition home or self-care (01) ==
LOC: INF 09:58
PROVIDERS: Visit Provider Internal Medicine Infectious Disease
DX: M86.172 Other acute osteomyelitis, left ankle and foot (principal); L03.032 Cellulitis of left toe; L03.116 Cellulitis of left lower limb
CPT/HCPCS: 80053; 82550; 85025; 85651; 86140; 96365; 96367; J0878

== ENCOUNTER 2020-05-24 10:07 | Outpatient (CLI) | payer MEDICARE, MEDICAID, SELFPAY ==
[2020-05-24 10:10] VITALS: BMI 28.5
[2020-05-24 10:20] VITALS: BP 130/80; PULSE 51; RESP 20; TEMP 36.8; O2SAT 95
[2020-05-24 10:24] LABS: Chloride 108 mmol/L (98-107); Potassium 4.6 mmoL/L (3.5-5.1); Sodium 142 mmol/L (136-145)
[2020-05-24 10:27] LABS: Alanine Aminotransferase 55 U/L (12-78); Albumin Level 4.1 g/dl (3.5-5.0); Albumin/Globulin Ratio 1.3 (1.1-1.8); Alkaline Phosphatase 117 U/L (38-126); Anion Gap 14.6 mEq/L (5-15); Aspartate Amino Transferase 37 U/L (14-36); Bilirubin,Total 0.5 mg/dl (0.2-1.3); Blood Urea Nitrogen 19 mg/dl (7-17); Carbon Dioxide 24 mmol/L (22.0-30.0); Creatinine Clearance Estimated 93 mL/min (50-200); Estimated Glomerular Filt Rate 65 ml/min (>60); GFR (African American) 79 ML/MIN (>60); Globulin 3.2 g/dL (1.3-3.2); Total Protein,Serum 7.3 g/dl (6.3-8.2)
[2020-05-24 10:28] LABS: Calcium 9.3 mg/dl (8.4-10.2); Glucose 105 mg/dl (74-100)
[2020-05-24 10:55] VITALS: BP 132/84; PULSE 68; RESP 20; TEMP 36.9; O2SAT 95
== END 2020-05-24 11:00 | disposition home or self-care (01) ==
LOC: INF 10:09
PROVIDERS: Visit Provider Internal Medicine Infectious Disease
DX: M86.172 Other acute osteomyelitis, left ankle and foot (principal); L03.032 Cellulitis of left toe; L03.116 Cellulitis of left lower limb
CPT/HCPCS: 80053; 96365; 96367; J0878

== ENCOUNTER 2020-05-26 09:25 | Outpatient (CLI) | payer MEDICARE, MEDICAID, SELFPAY ==
[2020-05-26 09:47] VITALS: BP 107/78; PULSE 72; RESP 18; TEMP 36.6; O2SAT 98
[2020-05-26 10:50] VITALS: BP 124/73; PULSE 69; RESP 16; TEMP 36.6; O2SAT 99
== END 2020-05-26 10:55 | disposition home or self-care (01) ==
PROVIDERS: PCP Physician Assistant; Visit Provider Internal Medicine Infectious Disease
DX: M86.172 Other acute osteomyelitis, left ankle and foot (principal); L03.032 Cellulitis of left toe; L03.116 Cellulitis of left lower limb
CPT/HCPCS: 96365; 96367; J0878

== ENCOUNTER 2020-05-27 08:29 | Outpatient (CLI) | payer MEDICARE, MEDICAID, SELFPAY ==
[2020-05-27 08:29] VITALS: BP 127/85; PULSE 65; RESP 20; TEMP 36.9; O2SAT 95
[2020-05-27 09:13] VITALS: BP 121/74; PULSE 56; RESP 20; TEMP 36.9; O2SAT 95
== END 2020-05-27 09:10 | disposition home or self-care (01) ==
LOC: INF 08:29
PROVIDERS: Visit Provider Internal Medicine Infectious Disease
DX: M86.172 Other acute osteomyelitis, left ankle and foot (principal); L03.032 Cellulitis of left toe; L03.116 Cellulitis of left lower limb
CPT/HCPCS: 96365; 96367; J0878

== ENCOUNTER → 2020-05-28 09:09 | Outpatient (CLI) | payer MEDICARE, MEDICAID, SELFPAY ==
[2020-05-28 09:45] VITALS: BP 113/66; PULSE 68; RESP 18; TEMP 36.5; O2SAT 98
[2020-05-28 10:15] VITALS: BP 114/81; PULSE 66; RESP 16; TEMP 36.7; O2SAT 97
== END ==
PROVIDERS: PCP Physician Assistant; Visit Provider Internal Medicine Infectious Disease
DX: M86.172 Other acute osteomyelitis, left ankle and foot (principal); L03.032 Cellulitis of left toe; L03.116 Cellulitis of left lower limb
CPT/HCPCS: 96365; 96367; G0463; J0878

== ENCOUNTER → 2020-05-29 09:55 | Outpatient (CLI) | payer MEDICARE, MEDICAID, SELFPAY ==
[2020-05-29 10:25] VITALS: BP 123/74; PULSE 68; RESP 18; TEMP 36.5; O2SAT 98
--- NOTE | 2020-05-29 10:35 | PC.NURSE ---
PICC LINE DRESSING CHANGED D/T BEING SOILED USING STERILE TECHNIQUE.
[2020-05-29 10:50] VITALS: BP 107/71; PULSE 58; RESP 16; TEMP 36.7; O2SAT 98
== END ==
PROVIDERS: PCP Physician Assistant; Visit Provider Internal Medicine Infectious Disease
DX: M86.172 Other acute osteomyelitis, left ankle and foot (principal); L03.032 Cellulitis of left toe; L03.116 Cellulitis of left lower limb
CPT/HCPCS: 96365; 96367; G0463; J0878

== ENCOUNTER 2020-05-31 07:53 | Outpatient (CLI) | payer MEDICARE, MEDICAID, SELFPAY ==
--- NOTE | 2020-05-31 07:54 | MR_ITS ---
PROCEDURE: MR HEAD/BRAIN WO CON CLINICAL INDICATION: headaches, colon CA, seizures, stroke Headaches and left with blurred vision COMPARISON: MR HEAD/BRAIN WO CON from 10/09/2019 TECHNIQUE: Routine multiplanar multi echo sequences are performed without gadolinium enhancement. FINDINGS: No evidence of acute infarction. No midline shift or mass effect. The cerebellopontine angles, cerebellum, and brainstem have an unremarkable appearance. There are few scattered periventricular and subcortical T2 white matter hyperintensities noted. There is a small T2 white matter hyperintensity in the right occipital lobe not significantly changed. The pituitary, optic chiasm, corpus callosum, and craniocervical junction have an unremarkable appearance. There is an area of encephalomalacia in the right occipital lobe medially. No mastoid effusion or sinus air-fluid levels evident. Right maxillary sinus mucous retention cyst is present measuring 3 cm. There is mucosal thickening of the left maxillary sinus. IMPRESSION: 1. No acute intracranial findings. 2. Scattered nonspecific periventricular and subcortical T2 white matter hyperintensities including a small T2 hyperintensity in the right occipital lobe which is not significantly changed.. This may be seen with ischemic gliotic change from microvascular disease. Demyelinating process and migraine headache is also included in the differential diagnosis 3. Encephalomalacia change right occipital lobe. 4. Sinus disease 5. No change with no acute finding Dictated by: Randy Lopez MD 06/01/2020 11:24 Electronically signed by Randy Lopez MD in [place] 06/01/2020 11:24
[2020-05-31 08:56] VITALS: BMI 28.5
[2020-05-31 09:10] VITALS: BP 105/68; PULSE 58; RESP 18; TEMP 36.6
[2020-05-31 09:15] LABS: Basophils % 0.5 % (0.1-2.0); Chloride 111 mmol/L (98-107); Eosinophils # 0.2 K/mm3 (0.0-0.4); Hematocrit 40.4 % (37.0-47.0); Lymphocytes # 2.5 K/mm3 (0.7-4.5); Lymphocytes % 33.2 % (10-50); Mean Corpuscular HGB Conc 32.2 g/dL (31.8-35.4); Mean Corpuscular Hemoglobin 26.8 pg (27.0-31.2); Mean Corpuscular Volume 83.1 fl (81-99); Mean Platelet Volume 7.5 fl (7.4-10.4); Monocytes # 0.4 K/mm3 (0.1-1.0); Monocytes % 5.7 % (1.7-9.3); Neutrophils # 4.3 K/mm3 (1.8-7.8); Neutrophils % 57.6 % (37.0-80.0); Platelet Count 249 K/mm3 (142-424); Red Blood Count 4.86 M/mm3 (4.20-5.40); Red Cell Distribution Width 14.3 % (11.5-17.5); Sodium 140 mmol/L (136-145); White Blood Count 7.4 K/mm3 (4.8-10.8)
[2020-05-31 09:17] LABS: Alanine Aminotransferase 46 U/L (12-78); Aspartate Amino Transferase 33 U/L (14-36); Blood Urea Nitrogen 18 mg/dl (7-17); Creatinine Clearance Estimated 93 mL/min (50-200); Estimated Glomerular Filt Rate 65 ml/min (>60); GFR (African American) 79 ML/MIN (>60)
[2020-05-31 09:18] LABS: Albumin Level 3.9 g/dl (3.5-5.0); Albumin/Globulin Ratio 1.3 (1.1-1.8); Alkaline Phosphatase 112 U/L (38-126); Bilirubin,Total 0.7 mg/dl (0.2-1.3); Calcium 9.2 mg/dl (8.4-10.2); Carbon Dioxide 24 mmol/L (22.0-30.0); Creatine Kinase 135 U/L (30-135); Globulin 3.1 g/dL (1.3-3.2); Glucose 103 mg/dl (74-100)
[2020-05-31 09:23] LABS: C-Reactive Protein 2.9 mg/L (0-4)
[2020-05-31 09:44] LABS: Erythrocyte Sedimentation Rate 19 mm/hr (0-30)
[2020-05-31 10:00] VITALS: BP 100/60; PULSE 63; RESP 18
== END 2020-05-31 10:00 | disposition home or self-care (01) ==
LOC: RAD 07:54 → INF 08:35
PROVIDERS: Internal Medicine Infectious Disease; PCP Physician Assistant; Visit Provider Physician Assistant
DX: R51 Headache (principal); M86.172 Other acute osteomyelitis, left ankle and foot; L03.032 Cellulitis of left toe; L03.116 Cellulitis of left lower limb
CPT/HCPCS: 70551; 80053; 82550; 85025; 85651; 86140; 96365; 96367; J0878

== ENCOUNTER 2020-06-01 09:50 | Outpatient (CLI) | payer MEDICARE, MEDICAID, SELFPAY ==
[2020-06-01 10:10] VITALS: BP 91/57; PULSE 63; RESP 18; TEMP 36.9
[2020-06-01 10:40] VITALS: BP 94/74; PULSE 73; RESP 18
== END 2020-06-01 11:05 | disposition home or self-care (01) ==
LOC: INF 09:56
PROVIDERS: Visit Provider Internal Medicine Infectious Disease
DX: M86.172 Other acute osteomyelitis, left ankle and foot (principal); L03.032 Cellulitis of left toe; L03.116 Cellulitis of left lower limb
CPT/HCPCS: 96365; 96367; J0878

== ENCOUNTER 2020-06-02 14:05 | Outpatient (CLI) | payer MEDICARE, MEDICAID, SELFPAY ==
[2020-06-02 14:20] VITALS: BP 119/66; PULSE 79; RESP 18; TEMP 36.6
[2020-06-02 14:55] VITALS: BP 110/71; PULSE 75; RESP 18
== END 2020-06-02 15:10 | disposition home or self-care (01) ==
LOC: INF 14:06
PROVIDERS: Visit Provider Internal Medicine Infectious Disease
DX: M86.172 Other acute osteomyelitis, left ankle and foot (principal); L03.032 Cellulitis of left toe; L03.116 Cellulitis of left lower limb; M10.9 Gout, unspecified
CPT/HCPCS: 96365; 96367; J0878

== ENCOUNTER 2020-06-03 09:15 | Outpatient (CLI) | payer MEDICARE, MEDICAID, SELFPAY ==
[2020-06-03 09:35] VITALS: BP 116/77; PULSE 62; RESP 18; TEMP 36.6
[2020-06-03 10:20] VITALS: BP 123/75; PULSE 68; RESP 18
== END 2020-06-03 10:25 | disposition home or self-care (01) ==
LOC: INF 09:24
PROVIDERS: Visit Provider Internal Medicine Infectious Disease
DX: M86.172 Other acute osteomyelitis, left ankle and foot (principal); L03.032 Cellulitis of left toe; L03.116 Cellulitis of left lower limb
CPT/HCPCS: 96365; 96367; J0878

== ENCOUNTER 2020-06-04 09:39 | Outpatient (CLI) | payer MEDICARE, MEDICAID, SELFPAY ==
[2020-06-04 10:04] VITALS: BP 105/69; PULSE 56; RESP 17; TEMP 36.5; O2SAT 98
[2020-06-04 11:02] VITALS: BP 105/69; PULSE 58; RESP 16; TEMP 36.6; O2SAT 98
== END 2020-06-04 11:06 | disposition home or self-care (01) ==
LOC: INF 09:41
PROVIDERS: PCP Physician Assistant; Visit Provider Internal Medicine Infectious Disease
DX: M86.172 Other acute osteomyelitis, left ankle and foot (principal); L03.032 Cellulitis of left toe; L03.116 Cellulitis of left lower limb
CPT/HCPCS: 96365; 96367; J0878

== ENCOUNTER 2020-06-05 08:46 | Outpatient (CLI) | payer MEDICARE, MEDICAID, SELFPAY ==
[2020-06-05 09:20] VITALS: BP 103/70; PULSE 63; RESP 16; TEMP 36.5; O2SAT 98
[2020-06-05 09:50] VITALS: BP 105/88; PULSE 59; RESP 15; TEMP 36.5; O2SAT 98
== END 2020-06-05 09:55 | disposition home or self-care (01) ==
PROVIDERS: PCP Physician Assistant; Visit Provider Internal Medicine Infectious Disease
DX: M86.172 Other acute osteomyelitis, left ankle and foot (principal); L03.032 Cellulitis of left toe; L03.116 Cellulitis of left lower limb
CPT/HCPCS: 96365; 96367; J0878

== ENCOUNTER 2020-06-06 09:35 | Outpatient (CLI) | payer MEDICARE, MEDICAID, SELFPAY ==
[2020-06-06 09:37] VITALS: BMI 28.5
[2020-06-06 09:50] VITALS: BP 112/79; PULSE 68; RESP 18; TEMP 36.6; O2SAT 98
[2020-06-06 10:01] LABS: Basophils # 0.1 K/mm3 (0-0.2); Basophils % 0.6 % (0.1-2.0); Eosinophils # 0.3 K/mm3 (0.0-0.4); Eosinophils % 3.4 % (0.1-12.0); Hematocrit 39.9 % (37.0-47.0); Hemoglobin 13.3 g/dL (12.2-16.2); Lymphocytes # 2.2 K/mm3 (0.7-4.5); Lymphocytes % 26.9 % (10-50); Mean Corpuscular HGB Conc 33.2 g/dL (31.8-35.4); Mean Corpuscular Hemoglobin 27.3 pg (27.0-31.2); Mean Corpuscular Volume 82.2 fl (81-99); Mean Platelet Volume 7.8 fl (7.4-10.4); Monocytes # 0.4 K/mm3 (0.1-1.0); Monocytes % 5.4 % (1.7-9.3); Neutrophils # 5.3 K/mm3 (1.8-7.8); Neutrophils % 63.7 % (37.0-80.0); Platelet Count 252 K/mm3 (142-424); Red Blood Count 4.86 M/mm3 (4.20-5.40); White Blood Count 8.3 K/mm3 (4.8-10.8)
[2020-06-06 10:06] LABS: Chloride 111 mmol/L (98-107)
[2020-06-06 10:07] LABS: Potassium 3.8 mmoL/L (3.5-5.1); Sodium 142 mmol/L (136-145)
[2020-06-06 10:09] LABS: Alanine Aminotransferase 36 U/L (12-78); Alkaline Phosphatase 108 U/L (38-126); Aspartate Amino Transferase 29 U/L (14-36); Bilirubin,Total 0.8 mg/dl (0.2-1.3); Blood Urea Nitrogen 15 mg/dl (7-17); Creatinine Clearance Estimated 93 mL/min (50-200); Estimated Glomerular Filt Rate 65 ml/min (>60); GFR (African American) 79 ML/MIN (>60)
[2020-06-06 10:10] LABS: Albumin Level 4.1 g/dl (3.5-5.0); Albumin/Globulin Ratio 1.2 (1.1-1.8); Anion Gap 13.8 mEq/L (5-15); Carbon Dioxide 21 mmol/L (22.0-30.0); Creatine Kinase 120 U/L (30-135); Globulin 3.3 g/dL (1.3-3.2); Glucose 101 mg/dl (74-100); Total Protein,Serum 7.4 g/dl (6.3-8.2)
[2020-06-06 10:15] LABS: C-Reactive Protein 2.3 mg/L (0-4)
[2020-06-06 10:28] VITALS: BP 104/79; PULSE 67; RESP 16; TEMP 36.6; O2SAT 98
[2020-06-06 10:34] LABS: Erythrocyte Sedimentation Rate 18 mm/hr (0-30)
== END 2020-06-06 10:28 | disposition home or self-care (01) ==
LOC: INF 09:35
PROVIDERS: Visit Provider Internal Medicine Infectious Disease
DX: M86.172 Other acute osteomyelitis, left ankle and foot (principal); L03.032 Cellulitis of left toe; L03.116 Cellulitis of left lower limb; M79.675 Pain in left toe(s)
CPT/HCPCS: 80053; 82550; 85025; 85651; 86140; 96365; 96367; J0878

== ENCOUNTER 2020-06-09 09:55 | Outpatient (CLI) | payer MEDICARE, MEDICAID, SELFPAY ==
[2020-06-09 10:16] VITALS: BP 132/82; PULSE 79; RESP 18; TEMP 36.9; O2SAT 99
[2020-06-09 11:00] VITALS: BP 106/67; PULSE 65; RESP 18; TEMP 36.8; O2SAT 98
== END 2020-06-09 11:00 | disposition home or self-care (01) ==
LOC: INF 09:55
PROVIDERS: Visit Provider Internal Medicine Infectious Disease
DX: M86.172 Other acute osteomyelitis, left ankle and foot (principal); L03.032 Cellulitis of left toe; L03.116 Cellulitis of left lower limb
CPT/HCPCS: 87493; 96365; 96367; J0878

== ENCOUNTER 2020-06-10 09:00 | Outpatient (CLI) | payer MEDICARE, MEDICAID, SELFPAY ==
[2020-06-10 09:05] VITALS: BP 106/78; PULSE 72; RESP 18; O2SAT 97
[2020-06-10 09:45] VITALS: BP 120/72; PULSE 61; RESP 18
== END 2020-06-10 10:05 | disposition home or self-care (01) ==
LOC: INF 09:00
PROVIDERS: Visit Provider Internal Medicine Infectious Disease
DX: M86.172 Other acute osteomyelitis, left ankle and foot (principal); L03.032 Cellulitis of left toe; L03.116 Cellulitis of left lower limb
CPT/HCPCS: 96365; 96367; J0878

== ENCOUNTER → 2020-06-11 08:21 | Outpatient (CLI) | payer MEDICARE, MEDICAID, SELFPAY ==
[2020-06-11 08:48] VITALS: BP 106/67; PULSE 68; RESP 16; TEMP 37.1; O2SAT 98
[2020-06-11 09:32] VITALS: BP 111/75; PULSE 69; RESP 18; TEMP 36.6; O2SAT 98
== END ==
PROVIDERS: PCP Physician Assistant; Visit Provider Internal Medicine Infectious Disease
DX: M86.172 Other acute osteomyelitis, left ankle and foot (principal); L03.032 Cellulitis of left toe; L03.116 Cellulitis of left lower limb
CPT/HCPCS: 96365; 96367; J0878

== ENCOUNTER → 2020-06-12 08:19 | Outpatient (CLI) | payer MEDICARE, MEDICAID, SELFPAY ==
[2020-06-12 08:36] VITALS: BP 116/70; PULSE 68; RESP 16; TEMP 36.7; O2SAT 99
[2020-06-12 09:31] VITALS: BP 113/53; PULSE 71; RESP 18; TEMP 36.8; O2SAT 98
== END ==
PROVIDERS: PCP Physician Assistant; Visit Provider Internal Medicine Infectious Disease
DX: M86.172 Other acute osteomyelitis, left ankle and foot (principal); L03.032 Cellulitis of left toe; L03.116 Cellulitis of left lower limb
CPT/HCPCS: 96365; 96367; J0878

== ENCOUNTER 2020-06-13 08:57 | Outpatient (CLI) | payer MEDICARE, MEDICAID, SELFPAY ==
[2020-06-13 09:02] VITALS: BMI 28.5
[2020-06-13 09:15] VITALS: BP 105/71; PULSE 59; RESP 18; TEMP 36.6; O2SAT 100
[2020-06-13 09:35] LABS: Chloride 111 mmol/L (98-107); Sodium 143 mmol/L (136-145)
[2020-06-13 09:36] LABS: Basophils # 0.1 K/mm3 (0-0.2); Basophils % 0.6 % (0.1-2.0); Eosinophils # 0.3 K/mm3 (0.0-0.4); Eosinophils % 3.6 % (0.1-12.0); Hematocrit 40.9 % (37.0-47.0); Hemoglobin 13.4 g/dL (12.2-16.2); Lymphocytes # 2.5 K/mm3 (0.7-4.5); Lymphocytes % 33.4 % (10-50); Mean Corpuscular HGB Conc 32.8 g/dL (31.8-35.4); Mean Corpuscular Hemoglobin 27.1 pg (27.0-31.2); Mean Corpuscular Volume 82.7 fl (81-99); Mean Platelet Volume 7.9 fl (7.4-10.4); Monocytes # 0.4 K/mm3 (0.1-1.0); Monocytes % 5.8 % (1.7-9.3); Neutrophils # 4.2 K/mm3 (1.8-7.8); Neutrophils % 56.5 % (37.0-80.0); Platelet Count 250 K/mm3 (142-424); Red Blood Count 4.95 M/mm3 (4.20-5.40); Red Cell Distribution Width 14.1 % (11.5-17.5); White Blood Count 7.3 K/mm3 (4.8-10.8)
[2020-06-13 09:37] LABS: Alanine Aminotransferase 43 U/L (12-78); Alkaline Phosphatase 109 U/L (38-126); Aspartate Amino Transferase 33 U/L (14-36); Bilirubin,Total 0.6 mg/dl (0.2-1.3); Blood Urea Nitrogen 17 mg/dl (7-17); Creatinine Clearance Estimated 93 mL/min (50-200); Estimated Glomerular Filt Rate 65 ml/min (>60); GFR (African American) 79 ML/MIN (>60)
[2020-06-13 09:38] LABS: Albumin Level 4.2 g/dl (3.5-5.0); Albumin/Globulin Ratio 1.4 (1.1-1.8); Calcium 9.1 mg/dl (8.4-10.2); Carbon Dioxide 23 mmol/L (22.0-30.0); Creatine Kinase 143 U/L (30-135); Glucose 97 mg/dl (74-100); Total Protein,Serum 7.2 g/dl (6.3-8.2)
[2020-06-13 09:43] LABS: C-Reactive Protein 2.1 mg/L (0-4)
[2020-06-13 10:06] LABS: Erythrocyte Sedimentation Rate 14 mm/hr (0-30)
[2020-06-13 10:07] VITALS: BP 108/69; PULSE 54; RESP 18; O2SAT 100
== END 2020-06-13 10:07 | disposition home or self-care (01) ==
LOC: INF 08:57
PROVIDERS: Visit Provider Internal Medicine Infectious Disease
DX: M86.172 Other acute osteomyelitis, left ankle and foot (principal); L03.032 Cellulitis of left toe; L03.116 Cellulitis of left lower limb
CPT/HCPCS: 80053; 82550; 85025; 85651; 86140; 96365; 96367; J0878

== ENCOUNTER 2020-06-14 11:25 | Outpatient (CLI) | payer MEDICARE, MEDICAID, SELFPAY ==
[2020-06-14 11:55] VITALS: BP 101/72; PULSE 73; RESP 18; TEMP 36.4; O2SAT 97
[2020-06-14 12:49] VITALS: BP 106/72; PULSE 66; RESP 18; O2SAT 97
== END 2020-06-14 12:49 | disposition home or self-care (01) ==
LOC: INF 11:31
PROVIDERS: Visit Provider Internal Medicine Infectious Disease
DX: M86.172 Other acute osteomyelitis, left ankle and foot (principal); L03.032 Cellulitis of left toe; L03.116 Cellulitis of left lower limb
CPT/HCPCS: 96365; 96367; J0878

== ENCOUNTER → 2020-08-25 08:54 | Outpatient (CLI) | payer MEDICARE, MEDICAID, SELFPAY | PROVIDERS: PCP Physician Assistant; Visit Provider Internal Medicine Cardiovascular Disease | DX: G47.30 Sleep apnea, unspecified (principal); R40.0 Somnolence; G47.9 Sleep disorder, unspecified | CPT/HCPCS: G0399 ==

== ENCOUNTER → 2020-09-01 09:17 | Outpatient (POV) | payer MEDICARE, MEDICAID, SELFPAY ==
[2020-09-01 10:14] VITALS: BP 140/74; PULSE 74; RESP 18; TEMP 36.7; O2SAT 99; BMI 28.7
--- NOTE | 2020-09-01 10:41 | HMH.PMCON ---
Assessment and Plan (1) Sacroiliitis Status: Acute Category: Medical Code(s): M46.1 - Sacroiliitis, not elsewhere classified (2) Neck pain Status: Chronic Category: Medical Code(s): M54.2 - Cervicalgia (3) Degenerative joint disease of cervical spine Status: Chronic Category: Medical Code(s): M47.812 - Spondylosis without myelopathy or radiculopathy, cervical region - Assessment and plan all Dx Assessment and Plan for all problems:: Patient reported her neck pain to be worse than her left buttock pain. Patient has had a left SI injection in the past that gave her relief. Patient does have imaging of her cervical spine from 2019. I did review the MRI and discussed the plan of care with the patient, however, she is not interested in any type of therapy at this time. Patient says that she knows that Dr. Sandoval will not approve her to hold the anticoagulation therapy for any type of injective therapy. She also says that she is afraid of needles and does not want any type of injections. She says that she will only allow specific providers to inject her and she will need to discuss this with her primary care provider before proceeding with any type of intervention. Patient has been encouraged to call the clinic if she has any concerns for next appointment. The patient and I specifically discussed risk factors for COVID19. These risks include, but are not limited to age greater than 60, heart or lung disease, diabetes, immunosuppression, and travel. We also discussed NSAIDs may worsen COVID19 infection or symptoms. Patient should not use NSAIDs to treat COVID19 signs or symptoms. Patient was also informed that any type of corticosteroid of any form (oral or injection) will decrease the patient's immune system response and may increase the likelihood of COVID19 infection [address] symptoms[address] Zimmerman has reviewed this note and agrees with this plan of care. This note was dictated using voice recognition software and make contain errors or omissions. HPI - Data of Consult Patient: new to practice Consult date: 09/01/20 Requesting Physician: Britni Last APRN Primary Care Provider: RAUL Hudson - Consult Narrative Reason for consult: Neck pain, left buttock pain History of present illness: Ms. Juares is a 55 year old female presents today for consultation for neck pain as well as left buttock pain. Patient says she has had her neck pain ongoing for approximately 2 to 3 years. She says she had her left lower buttock pain approximately a year and a half ago. She was given a left SI joint injection and says her pain was resolved. She says the pain is recently returned. Patient reports her neck pain be worse than her left low buttock pain at this time, however. Patient says that her pain is worse when she turns her head to the left side. She says that it does radiate into her left scapular area. She denies any numbness or tingling. Patient says that she does not want any type of medication that will causes me to gain even a pound of weight . Patient also says that she does not want medication that would cause her to have any type of constipation. Patient says that medications work much differently on her than other people. Patient is very concerned about any type of therapies that we can provide. Patient says that she has had bad experiences with multiple providers and is unsure if she wants any treatment within our clinic. She does rate her pain a 5 out of 10 today. Patient is on Xarelto which is prescribed per Dr. Sandoval. CC: Britni Last APRN [facility] History I have reviewed the patient's past medical history: Yes Medical History: Reports:: Aneurysm, Arrhythmia, Atrial Fibrillation, Cardiomyopathy, Coronary Artery Disease, Cerebrovascular Accident, Depression, Gastroesophageal Reflux Disease(GERD), Hyperlipidemia, Hypertension, Migraine, Transient Ischemic Attacks (TIA) Denies:: Cancer, Diabe
== END ==
PROVIDERS: PCP Physician Assistant; Visit Provider Clinical Nurse Specialist Family Health
DX: M46.1 Sacroiliitis, not elsewhere classified (principal); M54.2 Cervicalgia; M47.812 Spondylosis without myelopathy or radiculopathy, cervical region
CPT/HCPCS: 99202

== ENCOUNTER → 2020-09-13 17:41 | Outpatient (CLI) | payer MEDICARE, MEDICAID, SELFPAY ==
[2020-09-13 18:30] LABS: Basophils % 0.5 % (0.1-2.0); Eosinophils # 0.2 K/mm3 (0.0-0.4); Eosinophils % 2.4 % (0.1-12.0); Hematocrit 43.9 % (37.0-47.0); Hemoglobin 13.4 g/dL (12.2-16.2); Lymphocytes # 2.1 K/mm3 (0.7-4.5); Lymphocytes % 24.6 % (10-50); Mean Corpuscular HGB Conc 30.5 g/dL (31.8-35.4); Mean Corpuscular Hemoglobin 26.3 pg (27.0-31.2); Mean Platelet Volume 8.5 fl (7.4-10.4); Monocytes # 0.6 K/mm3 (0.1-1.0); Monocytes % 6.6 % (1.7-9.3); Neutrophils # 5.6 K/mm3 (1.8-7.8); Neutrophils % 65.9 % (37.0-80.0); Platelet Count 333 K/mm3 (142-424); Red Cell Distribution Width 13.4 % (11.5-17.5); White Blood Count 8.4 K/mm3 (4.8-10.8)
[2020-09-13 18:34] LABS: Alanine Aminotransferase 34 U/L (12-78); Albumin Level 4.6 g/dl (3.5-5.0); Albumin/Globulin Ratio 1.4 (1.1-1.8); Alkaline Phosphatase 140 U/L (38-126); Anion Gap 16.5 mEq/L (5-15); Aspartate Amino Transferase 33 U/L (14-36); Bilirubin,Total 0.6 mg/dl (0.2-1.3); Blood Urea Nitrogen 23 mg/dl (7-17); Calcium 9.5 mg/dl (8.4-10.2); Carbon Dioxide 23 mmol/L (22.0-30.0); Chloride 109 mmol/L (98-107); Cholesterol 130 mg/dl (140-200); Estimated Glomerular Filt Rate 58 ml/min (>60); GFR (African American) 70 ML/MIN (>60); Globulin 3.3 g/dL (1.3-3.2); Glucose 99 mg/dl (74-100); HDL Cholesterol 43 mg/dl (40-60); Potassium 4.5 mmoL/L (3.5-5.1); Sodium 144 mmol/L (136-145); Total Protein,Serum 7.9 g/dl (6.3-8.2); Triglycerides 122 mg/dl (30-150); VLDL Cholesterol 24 mg/dL (0-40)
[2020-09-13 18:45] LABS: C-Reactive Protein 11.8 mg/L (0-4); Direct LDL Cholesterol 59.53 mg/dL (100-129)
[2020-09-13 18:56] LABS: Erythrocyte Sedimentation Rate 11 mm/hr (0-30)
[2020-09-13 19:08] LABS: Thyroid Stimulating Hormone 1.37 uIU/mL (0.465-4.68)
[2020-09-15 10:58] LABS: RA Latex Turbid. <10.0 IU/mL (0.0-13.9)
[2020-09-15 13:25] LABS: Anti-Centromere B Antibodies <0.2 AI (0.0-0.9); Anti-Jo-1 <0.2 AI (0.0-0.9); Anti-Smith Antibody <0.2 AI (0.0-0.9); Antichromatin Antibodies <0.2 AI (0.0-0.9); Antiscleroderma-70 Antibodies <0.2 AI (0.0-0.9); RNP Antibodies <0.2 AI (0.0-0.9); Sjogren's Anti-SS-A <0.2 AI (0.0-0.9); Sjogren's Anti-SS-B <0.2 AI (0.0-0.9)
[2020-09-15 14:57] LABS: Anti-DNA (DS) Ab Qn <1 IU/mL (0-9)
[2020-09-16 13:26] LABS: Anti-Cyclic Citrullinated Pept 6 units (0-19)
== END ==
PROVIDERS: Visit Provider Physician Assistant
DX: M25.50 Pain in unspecified joint (principal); M46.1 Sacroiliitis, not elsewhere classified; I10 Essential (primary) hypertension; R53.83 Other fatigue
CPT/HCPCS: 80053; 80061; 84443; 85025; 85651; 86140; 86200; 86225; 86235; 86431

== ENCOUNTER 2020-10-18 11:29 | Outpatient (CLI) | payer MEDICARE, MEDICAID, SELFPAY ==
[2020-10-18 11:50] VITALS: BP 117/78; PULSE 54; RESP 18; TEMP 36.6; O2SAT 97
[2020-10-18 12:35] VITALS: BP 146/81; PULSE 56; RESP 18
== END 2020-10-18 12:35 | disposition home or self-care (01) ==
LOC: INF 11:48
PROVIDERS: Visit Provider Specialist
DX: G43.919 Migraine, unspecified, intractable, without status migrainosus (principal)
CPT/HCPCS: 96365; J3032

== ENCOUNTER → 2021-01-05 13:43 | Outpatient (CLI) | payer MEDICARE, MEDICAID, SELFPAY ==
--- NOTE | 2021-01-05 13:44 | CT_ITS ---
PROCEDURE: CT HEAD/BRAIN WO CON CLINICAL INDICATION: dizziness, memory loss Dizziness, headaches, blurred vision, memory loss COMPARISON: CT HEADWO CT head/brain wo con from 11/17/2018 TECHNIQUE: Axial images obtained. All CT scans at the facility use one or more dose reduction, viz: automated exposure control, ma/kV adjustment per patient size (including targeted exams where dose is matched to indication, i.e. head), or iterative reconstruction technique. FINDINGS: No midline shift, mass effect, intracranial hemorrhage, hydrocephalus, or extra-axial fluid collection is evident. There are encephalomalacia changes involving the medial aspect of the right occipital lobe. The calvarium has an unremarkable appearance. No mastoid effusion. There is a small amount of mucus in the right ethmoid sinus posteriorly and minimal mucosal thickening involves the left maxillary sinus laterally. IMPRESSION: No change with acute intracranial finding Dictated by: Randy Lopez MD 01/05/2021 17:31 Randy Lopez MD in [place] 01/05/2021 17:31
== END ==
PROVIDERS: PCP Physician Assistant; Visit Provider Physician Assistant
DX: R41.3 Other amnesia (principal); R42 Dizziness and giddiness
CPT/HCPCS: 70450

== ENCOUNTER → 2021-05-17 11:55 | Outpatient (CLI) | payer MEDICARE, MEDICAID, SELFPAY ==
[2021-05-17 14:13] LABS: Vitamin B12 784 pg/mL (239-931)
[2021-05-17 14:25] LABS: Folate > 20.00 ng/mL
[2021-05-25 20:51] LABS: Vitamin B1 127.7 nmol/L (66.5-200.0)
== END ==
PROVIDERS: Visit Provider Podiatrist Foot & Ankle Surgery
DX: G60.9 Hereditary and idiopathic neuropathy, unspecified (principal); M19.072 Primary osteoarthritis, left ankle and foot
CPT/HCPCS: 36415; 82607; 82746; 84425

== ENCOUNTER 2021-05-17 12:27 | Outpatient (RCR) | payer MEDICARE, MEDICAID, SELFPAY ==
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
== END 2021-05-17 12:30 | disposition home or self-care (01) ==
LOC: OT 12:27
PROVIDERS: PCP Physician Assistant; Visit Provider Physician Assistant
DX: M25.512 Pain in left shoulder (principal)
CPT/HCPCS: 97165

== ENCOUNTER → 2021-05-20 10:45 | Outpatient (CLI) | payer MEDICARE, MEDICAID, SELFPAY ==
[2021-05-20 11:47] LABS: Blood Urea Nitrogen 21 mg/dl (7-17); Estimated Glomerular Filt Rate 58 ml/min (>60); GFR (African American) 70 ML/MIN (>60)
== END ==
PROVIDERS: Visit Provider Podiatrist Foot & Ankle Surgery
DX: G57.62 Lesion of plantar nerve, left lower limb (principal)
CPT/HCPCS: 36415; 82565; 84520

== ENCOUNTER → 2021-05-24 09:27 | Outpatient (CLI) | payer MEDICARE, MEDICAID, SELFPAY | PROVIDERS: PCP Physician Assistant; Visit Provider Podiatrist Foot & Ankle Surgery | DX: G57.62 Lesion of plantar nerve, left lower limb (principal) ==

== ENCOUNTER 2021-06-22 09:00 | Outpatient (RCR) | payer MEDICARE, MEDICAID, SELFPAY ==
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
== END 2021-06-22 09:05 | disposition home or self-care (01) ==
LOC: PT 09:00
PROVIDERS: PCP Physician Assistant; Visit Provider Physician Assistant
DX: M54.2 Cervicalgia (principal)
CPT/HCPCS: 97010; 97014; 97035; 97110; 97140; 97163; 97164; G0283

== ENCOUNTER → 2021-07-17 16:55 | Outpatient (CLI) | payer MEDICARE, MEDICAID, SELFPAY ==
[2021-07-17 17:36] LABS: Basophils # 0.1 K/mm3 (0-0.2); Basophils % 0.6 % (0.1-2.0); Eosinophils # 0.1 K/mm3 (0.0-0.4); Eosinophils % 1.2 % (0.1-12.0); Hemoglobin 11.9 g/dL (12.2-16.2); Lymphocytes # 2.4 K/mm3 (0.7-4.5); Mean Corpuscular HGB Conc 32.2 g/dL (31.8-35.4); Mean Corpuscular Hemoglobin 26.2 pg (27.0-31.2); Mean Corpuscular Volume 81.1 fl (81-99); Mean Platelet Volume 7.1 fl (7.4-10.4); Monocytes # 0.6 K/mm3 (0.1-1.0); Neutrophils % 65.2 % (37.0-80.0); Platelet Count 309 K/mm3 (142-424); Red Blood Count 4.56 M/mm3 (4.20-5.40); Red Cell Distribution Width 14.6 % (11.5-17.5); White Blood Count 9.2 K/mm3 (4.8-10.8)
[2021-07-17 17:58] LABS: Chloride 111 mmol/L (98-107); Potassium 3.5 mmoL/L (3.5-5.1); Sodium 145 mmol/L (136-145)
[2021-07-17 18:01] LABS: Anion Gap 12.5 mEq/L (5-15); Blood Urea Nitrogen 15 mg/dl (7-17); Carbon Dioxide 25 mmol/L (22.0-30.0); Estimated Glomerular Filt Rate 74 ml/min (>60); GFR (African American) 90 ML/MIN (>60); Glucose 95 mg/dl (74-100)
[2021-07-17 18:02] LABS: Magnesium 1.7 mg/dl (1.6-2.3)
== END ==
PROVIDERS: Visit Provider Emergency Medicine
DX: R25.2 Cramp and spasm (principal)
CPT/HCPCS: 36415; 80048; 83735; 85025

== ENCOUNTER → 2021-08-14 18:40 | Outpatient (CLI) | payer MEDICARE, MEDICAID, SELFPAY ==
[2021-08-14 19:28] LABS: Alanine Aminotransferase 18 U/L (12-78); Albumin Level 3.9 g/dl (3.5-5.0); Albumin/Globulin Ratio 1.3 (1.1-1.8); Alkaline Phosphatase 93 U/L (38-126); Anion Gap 16.2 mEq/L (5-15); Aspartate Amino Transferase 23 U/L (14-36); Bilirubin,Total 0.6 mg/dl (0.2-1.3); Blood Urea Nitrogen 21 mg/dl (7-17); Calcium 9.1 mg/dl (8.4-10.2); Carbon Dioxide 24 mmol/L (22.0-30.0); Chloride 109 mmol/L (98-107); Chol/HDL Ratio 3.1 (1-3.5); Cholesterol 122 mg/dl (140-200); Estimated Glomerular Filt Rate 65 ml/min (>60); GFR (African American) 79 ML/MIN (>60); Globulin 3.1 g/dL (1.3-3.2); Glucose 95 mg/dl (74-100); HDL Cholesterol 40 mg/dl (40-60); Potassium 4.2 mmoL/L (3.5-5.1); Sodium 145 mmol/L (136-145); Triglycerides 117 mg/dl (30-150); VLDL Cholesterol 23 mg/dL (0-40)
[2021-08-14 19:41] LABS: Direct LDL Cholesterol 58.42 mg/dL (100-129)
[2021-08-14 19:45] LABS: 25-OH Vitamin D, Total 60.4 ng/mL (30-100)
[2021-08-14 19:46] LABS: Free T4 (Free Thyroxine) 1.18 ng/dl (0.78-2.19)
[2021-08-14 19:59] LABS: Thyroid Stimulating Hormone 1.36 uIU/mL (0.465-4.68)
[2021-08-14 20:26] LABS: Basophils # 0.1 K/mm3 (0-0.2); Basophils % 0.6 % (0.1-2.0); Eosinophils # 0.2 K/mm3 (0.0-0.4); Eosinophils % 1.8 % (0.1-12.0); Hematocrit 42.3 % (37.0-47.0); Hemoglobin 12.9 g/dL (12.2-16.2); Lymphocytes # 1.7 K/mm3 (0.7-4.5); Lymphocytes % 17.7 % (10-50); Mean Corpuscular HGB Conc 30.5 g/dL (31.8-35.4); Mean Corpuscular Volume 85.4 fl (81-99); Mean Platelet Volume 8.1 fl (7.4-10.4); Monocytes # 0.5 K/mm3 (0.1-1.0); Monocytes % 5.2 % (1.7-9.3); Neutrophils # 7.1 K/mm3 (1.8-7.8); Neutrophils % 74.7 % (37.0-80.0); Platelet Count 395 K/mm3 (142-424); Red Blood Count 4.96 M/mm3 (4.20-5.40); Red Cell Distribution Width 14.3 % (11.5-17.5); White Blood Count 9.4 K/mm3 (4.8-10.8)
== END ==
PROVIDERS: Visit Provider Physician Assistant
DX: D64.9 Anemia, unspecified (principal); E78.5 Hyperlipidemia, unspecified; R53.83 Other fatigue; K59.00 Constipation, unspecified; E55.9 Vitamin D deficiency, unspecified; R73.03 Prediabetes; I10 Essential (primary) hypertension
CPT/HCPCS: 80053; 80061; 82306; 83036; 84439; 84443; 85025

== ENCOUNTER → 2021-10-10 09:58 | Outpatient (CLI) | payer MEDICARE, MEDICAID, SELFPAY ==
--- NOTE | 2021-10-10 10:04 | XR_ITS ---
PROCEDURE: XR SHOULDER RT MIN 2V CLINICAL INDICATION: fall; right shoulder pain The COMPARISON: No exams were available for comparison FINDINGS: No fracture or dislocation. No lytic or blastic change. There is normal mineralization. There is subacromial stenosis. Minimal osteoarthritic changes of the glenohumeral joint. Other findings:None. IMPRESSION: Mild glenohumeral osteoarthritis with subacromial stenosis Dictated by: Randy Lopez MD 10/10/2021 12:21 Randy Lopez MD in [place] 10/10/2021 12:21
--- NOTE | 2021-10-10 10:04 | XR_ITS ---
PROCEDURE: XR HIP RT 2-3V W/PELVIS CLINICAL INDICATION: right hip pain COMPARISON: No exams were available for comparison FINDINGS: No fracture or dislocation is evident. No significant degenerative change. No lytic or blastic change. Unremarkable soft tissues. A small sclerotic focus in the right femoral neck which may be due to small bone at approximately 5 mm minimal soft tissue calcification lateral to the proximal femur IMPRESSION: No acute findings. Dictated by: Randy Lopez MD 10/10/2021 12:19 Randy Lopez MD in [place] 10/10/2021 12:19
== END ==
PROVIDERS: PCP Physician Assistant; Visit Provider Physician Assistant
DX: M25.511 Pain in right shoulder (principal); M25.551 Pain in right hip
CPT/HCPCS: 73030; 73502

== ENCOUNTER → 2021-11-03 13:12 | Outpatient (CLI) | payer MEDICARE, MEDICAID, SELFPAY ==
[2021-11-03 13:55] LABS: Basophils # 0.1 K/mm3 (0-0.2); Basophils % 0.9 % (0.1-2.0); Eosinophils # 0.3 K/mm3 (0.0-0.4); Eosinophils % 5.6 % (0.1-12.0); Hematocrit 39.3 % (37.0-47.0); Hemoglobin 12.2 g/dL (12.2-16.2); Lymphocytes # 1.8 K/mm3 (0.7-4.5); Lymphocytes % 32.3 % (10-50); Mean Corpuscular HGB Conc 31.1 g/dL (31.8-35.4); Mean Corpuscular Volume 83.8 fl (81-99); Mean Platelet Volume 7.9 fl (7.4-10.4); Monocytes # 0.4 K/mm3 (0.1-1.0); Monocytes % 7.8 % (1.7-9.3); Neutrophils % 53.4 % (37.0-80.0); Platelet Count 372 K/mm3 (142-424); Red Blood Count 4.69 M/mm3 (4.20-5.40); Red Cell Distribution Width 13.9 % (11.5-17.5); White Blood Count 5.7 K/mm3 (4.8-10.8)
[2021-11-03 16:28] LABS: Alanine Aminotransferase 14 U/L (12-78); Albumin Level 4.2 g/dl (3.5-5.0); Albumin/Globulin Ratio 1.4 (1.1-1.8); Alkaline Phosphatase 77 U/L (38-126); Anion Gap 11.4 mEq/L (5-15); Aspartate Amino Transferase 31 U/L (14-36); Bilirubin,Total 0.3 mg/dl (0.2-1.3); Blood Urea Nitrogen 24 mg/dl (7-17); Calcium 9.4 mg/dl (8.4-10.2); Carbon Dioxide 25 mmol/L (22.0-30.0); Chloride 110 mmol/L (98-107); Chol/HDL Ratio 4.7 (1-3.5); Cholesterol 170 mg/dl (140-200); Estimated Glomerular Filt Rate 65 ml/min (>60); GFR (African American) 79 ML/MIN (>60); Globulin 2.9 g/dL (1.3-3.2); Glucose 99 mg/dl (74-100); HDL Cholesterol 36 mg/dl (40-60); Potassium 4.4 mmoL/L (3.5-5.1); Sodium 142 mmol/L (136-145); Total Protein,Serum 7.1 g/dl (6.3-8.2); Triglycerides 146 mg/dl (30-150); VLDL Cholesterol 29 mg/dL (0-40)
[2021-11-03 16:40] LABS: Direct LDL Cholesterol 98.26 mg/dL (100-129)
[2021-11-03 16:43] LABS: T4 (Thyroxine) 8.7 ug/dl (5.53-11.0)
[2021-11-03 16:56] LABS: Thyroid Stimulating Hormone 0.93 uIU/mL (0.465-4.68)
[2021-11-03 17:16] LABS: Vitamin B12 609 pg/mL (239-931)
[2021-11-17 17:09] LABS: 1,25 Dihydroxy Vitamin D 78 pg/mL (.); 1,25-Dihydroxy, Vitamin D-2 31 pg/mL (.); 1,25-Dihydroxy, Vitamin D-3 47 pg/mL (.)
== END ==
PROVIDERS: Visit Provider Physician Assistant
DX: I10 Essential (primary) hypertension (principal); K59.00 Constipation, unspecified; R10.2 Pelvic and perineal pain; R53.83 Other fatigue
CPT/HCPCS: 36415; 80053; 80061; 82607; 82652; 84436; 84443; 85025

== ENCOUNTER 2021-11-17 12:36 | Emergency (ER) | payer MEDICARE, MEDICAID, SELFPAY ==
[2021-11-17 14:00] VITALS: BP 111/72; PULSE 70; RESP 20; TEMP 36.8; O2SAT 99; BMI 22.6
[2021-11-17 14:11] LABS: Apearance,Urine Cloudy (Clear); Color,Urine Amber (Yellow); Glucose,Urine (UA) Negative (Negative); Ketones,Urine Negative (Negative); PH,Urine 6.5 (5.0-8.5); Protein,Urine 2+ (Negative); Specific Gravity, Urine 1.025 (1.005-1.030)
[2021-11-17 14:12] LABS: Bilirubin,Urine Negative (Negative); Blood, Urine 3+ (Negative); UTC Leukocyte Esterase,Urine 1+ (Negative); UTC Nitrate,Urine Positive (Negative); Urobilinogen,Urine 0.2 EU/dl (0.2)
--- NOTE | 2021-11-17 14:51 | HMH.EDUTC ---
[facility] [place] Clinical Impression: UTI (urinary tract infection) Qualifiers: Urinary tract infection type: site unspecified Hematuria presence: with hematuria Qualified Code(s): N39.0 - Urinary tract infection, site not specified Disposition: Home, Self-Care Condition on Discharge: Good Instructions: Trimethoprim/Sulfamethoxazole (Alternative Therapy), DI for Urinary Tract Infection (UTI), Phenazopyridine Additional Instructions: Drink plenty of fluids. Take tylenol or ibuprofen for pain or fever. Take the medications as directed. Follow up with your regular doctor. GO TO THE ER FOR ANY WORSENING SYMPTOMS, The pyridium will make your urine turn orange, this is an expected side effect. It will stain your clothes if it comes into contact with them. Prescriptions: Sulfamethoxazole/Trimethoprim [Bactrim DS tablet] 1 each PO BID 7 Days #14 tab Transmission Status: Received by [facility] #[id number] Phenazopyridine HCl [Pyridium 200mg Tablet] 200 pow PO TID #6 tab Transmission Status: Received by [facility] #[id number] Referrals: Maryse Samuel PA [Primary Care Provider] - Time of Disposition: 15:25 Medical Decision Making - Medical Records Medical records reviewed: No: I reviewed the patient's medical records. - Kan Inquiry Pt receiving controlled substance: No Vital Signs: 11/17/21 14:00 11/17/21 15:11 Temperature 98.2 F 98.2 F Temperature Source Oral Pulse Rate 70 Pulse Rate [Right Brachial] 70 Respiratory Rate 20 20 Blood Pressure 111/72 Blood Pressure [Right Arm] 111/72 Blood Pressure Mean [Right Arm] 85 Blood Pressure Source [Right Arm] Automatic Cuff Blood Pressure Position [Right Arm] Sitting 02 Sat by Pulse Oximetry 99 Oxygen Delivery Method Room Air - Lab Data Lab results reviewed: Yes: I reviewed the patient's lab results. Lab Results 11/17/21 14:10: Urine Color Adrianna, Urine Appearance Cloudy, Urine pH 6.5, Ur Specific [place] 1.025, Urine Protein 2+, Urine Glucose (UA) Negative, Urine Ketones Negative, Urine Blood 3+, Urine Nitrate Positive A, Urine Bilirubin Negative, Urine Urobilinogen 0.2, Ur Leukocyte Esterase 1+ A Orders (Tests/Meds): ED MEDICATIONS Discontinued Medications Generic Name Dose Route Start Last Admin Trade Name Homero PRN Reason Stop Dose Admin Ceftriaxone Sodium 1 gm 11/17/21 15:03 11/17/21 15:09 Ceftriaxone 1gm Vial IM 11/17/21 15:04 1 gm ONCE ONE Administration Lidocaine HCl 0 ml 11/17/21 15:03 11/17/21 15:09 Lidocaine 1% 5ml Pf Vial IM 11/17/21 15:04 2 ml ONCE ONE Administration ORDERS Category Date Time Status Urine Culture Stat Micro 11/17/21 13:15 Results [facility] [place] - General Stated complaint: UTI Time Seen by Provider: 11/17/21 14:52 Mode of Arrival: Ambulatory Source of Information: Patient Limitations: No Limitations Description of Symptoms (Recalled from Triage Doc. by RN): PATIENT C/O PAIN WITH URINATION X 3 DAYS HEENT Symptoms (Recalled from RN notes): No Resp Symptoms (Recalled from RN notes): No Skin Symptoms (Recalled from RN notes): No MS Symptoms (Recalled from RN notes): No Functional Status (Recalled from RN notes): WNL - History of Present Illness Provider Complaint: She c/o dysuria, urinary frequency and low back pain for the past 2 days. She states that her urine has a foul odor to it also. - Related Data Home Medications Medication Instructions Recorded Confirmed crpsvc-wszildhe-[id number] 1 cap PO BID 07/08/18 10/31/21 12,000-38,000-60,000 unit capsule,delayed rel indomethacin 25 mg capsule 25 mg PO TID 04/10/21 10/31/21 Previous Rx's Medication Instructions Recorded colchicine 0.6 mg tablet 0.6 mg PO DAILY #90 tab 06/13/21 icosapent ethyl 1 gram capsule 2 g PO BID #360 cap 06/13/21 omeprazole 40 mg capsule,delayed 40 mg PO DAILY #90 cap 06/13/21 release rivaroxaban 20 mg tablet 20 mg PO DAILY #90 tab 06/13/21 pr
[2021-11-17 15:11] VITALS: BP 111/72; PULSE 70; RESP 20; TEMP 36.8; O2SAT 99
== END 2021-11-17 15:25 | disposition home or self-care (01) ==
PROVIDERS: Emergency Provider Nurse Practitioner Family; PCP Physician Assistant
DX: N30.00 Acute cystitis without hematuria (principal); B96.4 Proteus (mirabilis) (morganii) as the cause of diseases classified elsewhere; I48.91 Unspecified atrial fibrillation; I25.10 Atherosclerotic heart disease of native coronary artery without angina pectoris; F33.1 Major depressive disorder, recurrent, moderate; K21.9 Gastro-esophageal reflux disease without esophagitis; E78.5 Hyperlipidemia, unspecified; I10 Essential (primary) hypertension
CPT/HCPCS: G0463; 81003; 87086; 87088; 87186; 96372; 99202

== ENCOUNTER 2021-12-15 14:17 | Emergency (ER) | payer MEDICARE, MEDICAID, SELFPAY ==
[2021-12-15 14:18] VITALS: BP 121/71; PULSE 86; RESP 18; TEMP 36.6; O2SAT 100; BMI 24.2
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
--- NOTE | 2021-12-15 15:09 | PC.NURSE ---
rad notified of CT orders, spoke with Dimitrios
[2021-12-15 15:10] LABS: Microscopic, Urine URINE MICROSCOPIC (MICROSCOPIC)
[2021-12-15 15:15] LABS: Basophils # 0.1 K/mm3 (0-0.2); Basophils % 1.3 % (0.1-2.0); Eosinophils # 0.2 K/mm3 (0.0-0.4); Hematocrit 37.6 % (37.0-47.0); Hemoglobin 11.8 g/dL (12.2-16.2); Lymphocytes # 2.2 K/mm3 (0.7-4.5); Lymphocytes % 28.4 % (10-50); Mean Corpuscular HGB Conc 31.4 g/dL (31.8-35.4); Mean Corpuscular Hemoglobin 25.7 pg (27.0-31.2); Mean Corpuscular Volume 81.8 fl (81-99); Mean Platelet Volume 7.5 fl (7.4-10.4); Monocytes # 0.5 K/mm3 (0.1-1.0); Neutrophils # 4.7 K/mm3 (1.8-7.8); Neutrophils % 61.2 % (37.0-80.0); Platelet Count 392 K/mm3 (142-424); Red Cell Distribution Width 14.1 % (11.5-17.5); White Blood Count 7.6 K/mm3 (4.8-10.8)
[2021-12-15 15:27] LABS: Alanine Aminotransferase 14 U/L (12-78); Albumin Level 4.3 g/dl (3.5-5.0); Albumin/Globulin Ratio 1.3 (1.1-1.8); Alkaline Phosphatase 87 U/L (38-126); Anion Gap 11.8 mEq/L (5-15); Appearance,Urine SL CLOUDY (Clear); Aspartate Amino Transferase 24 U/L (14-36); Bilirubin,Total 0.4 mg/dl (0.2-1.3); Bilirubin,Urine Negative (Negative); Blood Urea Nitrogen 23 mg/dl (7-17); Blood, Urine Negative (Negative); Calcium 9.3 mg/dl (8.4-10.2); Carbon Dioxide 28 mmol/L (22.0-30.0); Chloride 104 mmol/L (98-107); Color,Urine YELLOW (Yellow); Creatinine Clearance Estimated 85 mL/min (50-200); Estimated Glomerular Filt Rate 74 ml/min (>60); GFR (African American) 90 ML/MIN (>60); Globulin 3.4 g/dL (1.3-3.2); Glucose 87 mg/dl (74-100); Glucose,Urine (UA) Negative (Negative); Ketones,Urine Negative (Negative); Leukocyte Esterase,Urine Negative (Negative); Nitrate,Urine Negative (Negative); PH,Urine 5.5 (5.0-8.5); Potassium 3.8 mmoL/L (3.5-5.1); Protein,Urine Negative (Negative); Sodium 140 mmol/L (136-145); Specific Gravity, Urine 1.025 (1.005-1.030); Total Protein,Serum 7.7 g/dl (6.3-8.2); Urobilinogen,Urine 0.2 EU/dl (0.2)
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
[2021-12-15 15:50] LABS: Bacteria,Urine Trace /lpf
--- NOTE | 2021-12-15 16:52 | PC.NURSE ---
Pt requested to have her IV removed. i did so at this time.
[2021-12-15 17:21] VITALS: BP 121/71; PULSE 86; RESP 18; TEMP 36.6; O2SAT 100
== END 2021-12-15 17:21 | disposition home or self-care (01) ==
PROVIDERS: Emergency Provider Emergency Medicine; PCP Physician Assistant
DX: S30.1XXA Contusion of abdominal wall, initial encounter (principal); W22.8XXA Striking against or struck by other objects, initial encounter; Y92.89 Other specified places as the place of occurrence of the external cause; I10 Essential (primary) hypertension; E78.5 Hyperlipidemia, unspecified; K21.9 Gastro-esophageal reflux disease without esophagitis; I48.91 Unspecified atrial fibrillation
CPT/HCPCS: 71260; 74177; 80053; 81001; 85025; 99282; Q9967

== ENCOUNTER → 2021-12-25 15:36 | Outpatient (CLI) | payer MEDICARE, MEDICAID, SELFPAY ==
[2021-12-25 17:31] LABS: Amphetamine/Metha Screen,Urine Negative ng/ml (<1000)
[2021-12-25 17:32] LABS: Barbiturates Screen,Urine Negative ng/ml (<200)
[2021-12-25 17:33] LABS: Benzodiazepines Screen,Urine Negative ng/ml (<200); Cannabinoid Screen,Urine Negative ng/ml (<50)
[2021-12-25 17:34] LABS: Cocaine Screen,Urine Negative ng/ml (<300)
[2021-12-25 17:35] LABS: Methadone Screen,Urine Negative ng/ml (<300); Opiate Screen,Urine Negative ng/ml (<300)
[2021-12-25 17:36] LABS: Phencyclidine Screen,Urine Negative ng/ml (<25)
== END ==
PROVIDERS: Visit Provider Physician Assistant
DX: M54.2 Cervicalgia (principal)
CPT/HCPCS: 80305

== ENCOUNTER → 2022-04-13 15:42 | Outpatient (CLI) | payer MEDICARE, MEDICAID, SELFPAY | PROVIDERS: Visit Provider Physician Assistant | DX: I10 Essential (primary) hypertension (principal); Z79.899 Other long term (current) drug therapy ==

== ENCOUNTER → 2022-04-17 12:55 | Outpatient (CLI) | payer MEDICARE, MEDICAID, SELFPAY ==
[2022-04-17 13:56] LABS: Hemoglobin A1C 5.6 % (4.0-6.0)
[2022-04-17 14:22] LABS: Chloride 108 mmol/L (98-107); Sodium 143 mmol/L (136-145)
[2022-04-17 14:23] LABS: Potassium 3.6 mmoL/L (3.5-5.1)
[2022-04-17 14:25] LABS: Alanine Aminotransferase 16 U/L (12-78); Albumin Level 3.5 g/dl (3.5-5.0); Albumin/Globulin Ratio 1.2 (1.1-1.8); Alkaline Phosphatase 91 U/L (38-126); Anion Gap 9.6 mEq/L (5-15); Aspartate Amino Transferase 21 U/L (14-36); Bilirubin,Total 0.5 mg/dl (0.2-1.3); Blood Urea Nitrogen 16 mg/dl (7-17); Carbon Dioxide 29 mmol/L (22.0-30.0); Estimated Glomerular Filt Rate 103 ml/min (>60); GFR (African American) 125 ML/MIN (>60); Globulin 2.9 g/dL (1.3-3.2); Total Protein,Serum 6.4 g/dl (6.3-8.2)
[2022-04-17 14:26] LABS: Calcium 9.1 mg/dl (8.4-10.2); Glucose 100 mg/dl (74-100)
== END ==
PROVIDERS: PCP Physician Assistant; Visit Provider Physician Assistant
DX: I10 Essential (primary) hypertension (principal); Z79.899 Other long term (current) drug therapy
CPT/HCPCS: 36415; 80053; 83036

== ENCOUNTER → 2022-05-02 09:40 | Outpatient (CLI) | payer MEDICARE, MEDICAID, SELFPAY ==
[2022-05-02 09:45] LABS: Adenovirus F 40/41, stool Not Detected (NotDetected); Astrovirus Not Detected (NotDetected); Clostridium Difficile A/B, PCR Not Detected (NotDetected); Cryptosporidium Not Detected (NotDetected); Cyclospora Cayetanesis Not Detected (NotDetected); Entamoeba histolytica Not Detected (NotDetected); Enteroaggregative E coli Not Detected (NotDetected); Enteropathogenic E coli Not Detected (NotDetected); Enterotoxigenic E coli Not Detected (NotDetected); Giardia lamblia Not Detected (NotDetected); Norovirus Not Detected (NotDetected); Plesimonas Shigalloides, PCR Not Detected (NotDetected); Rotavirus A Not Detected (NotDetected); Salmonella, PCR Not Detected (NotDetected); Sapovirus Not Detected (NotDetected); Shiga-like toxin E coli Not Detected (NotDetected); Shigella Enterovasive E coli Not Detected (NotDetected); Vibrio Cholerae Not Detected (NotDetected); Vibrio, PCR Not Detected (NotDetected); Yersinia Entercolitica, PCR Not Detected (NotDetected)
[2022-05-02 13:37] LABS: Campylobacter Detected (NotDetected)
[2022-05-03 11:21] LABS: Occult Blood,Stool Negative (Negative)
== END ==
PROVIDERS: PCP Physician Assistant; Visit Provider Physician Assistant
DX: R19.7 Diarrhea, unspecified (principal); A04.5 Campylobacter enteritis
CPT/HCPCS: 82272; 87506; G0328

== ENCOUNTER 2022-05-06 15:23 | Emergency (ER) | payer MEDICARE, MEDICAID, SELFPAY ==
[2022-05-06 15:37] VITALS: BP 109/68; PULSE 85; RESP 16; TEMP 36.8; O2SAT 98; BMI 21.6
[2022-05-06 16:03] VITALS: BP 109/68; PULSE 83; RESP 17; TEMP 36.6; O2SAT 99; BMI 21.5
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
--- NOTE | 2022-05-06 16:51 | XR_ITS ---
PROCEDURE INFORMATION: Exam: XR Cervical Spine Exam date and time: 05/06/2022 4:59 PM Age: 57 years old Clinical indication: Neck pain; Additional info: Pain- after stopping quickly TECHNIQUE: Imaging protocol: XR of the cervical spine. Views: 2 or 3 views. COMPARISON: MR CERVICAL SPINE WO CON 11/16/2019 11:16 AM FINDINGS: Bones/joints: Generalized osteopenia. Mild loss of the cervical lordotic curvature. Changes of disc degeneration C3-4 through C6-7. Findings most pronounced at C4-5 and C5-6. Less than 2 mm retrolisthesis of C4 with respect to C5 and C5 with respect to C6. Soft tissues: Unremarkable. IMPRESSION: 1. Cervical spondylosis with multilevel disc degeneration most pronounced at C4-5 and C5-6. 2. Less than 2 mm retrolisthesis of C4 with respect to C5 and C5 with respect to C6.
[2022-05-06 17:52] VITALS: BP 109/68; PULSE 83; RESP 17; TEMP 36.6
== END 2022-05-06 17:54 | disposition home or self-care (01) ==
PROVIDERS: Emergency Provider Nurse Practitioner; PCP Physician Assistant
DX: M54.2 Cervicalgia (principal); M62.838 Other muscle spasm
CPT/HCPCS: 71046; 72040; 99212; G0463

== ENCOUNTER 2022-07-28 11:25 | Emergency (ER) | payer MEDICARE, MEDICAID, SELFPAY ==
--- NOTE | 2022-07-28 11:41 | EXP.UTC ---
Discharge Plan Disposition Patient Disposition: Home, Self-Care Condition: Good Prescriptions Prescriptions: New levofloxacin 500 mg tablet 500 mg PO DAILY Qty: 7 0RF No Action jkaceu-avceslaj-bhykdqv [Creon] 12,000-38,000 -60,000 unit capsule,delayed release(DR/EC) 1 cap PO BID minoxidil 10 mg tablet 10 mg PO DAILY levocetirizine 5 mg tablet 5 mg PO DAILY indomethacin 25 mg capsule 25 mg PO TID Rx Instructions: administer with food or milk icosapent ethyl 1 gram capsule 2 g PO BID Qty: 360 3RF Xarelto 20 mg tablet 20 mg PO DAILY Qty: 90 3RF atorvastatin 20 mg tablet 20 mg PO HS propranolol 20 mg tablet See Rx Instructions .ROUTE .COMPLEX Qty: 180 1RF Dose Instruction: TAKE 1 TABLET TWICE DAILY Rx Instructions: TAKE 1 TABLET TWICE DAILY desloratadine 5 mg tablet 5 mg PO DAILY Qty: 30 1RF ergocalciferol (vitamin D2) 1,250 mcg (50,000 unit) capsule See Rx Instructions .ROUTE .COMPLEX Qty: 13 0RF Dose Instruction: TAKE 1 CAPSULE EVERY WEEK FOR SUPPLEMENT Rx Instructions: TAKE 1 CAPSULE EVERY WEEK FOR SUPPLEMENT colchicine [Colcrys] 0.6 mg tablet 0.6 mg PO DAILY Qty: 90 3RF quetiapine 25 mg tablet See Rx Instructions .ROUTE .COMPLEX Qty: 180 0RF Dose Instruction: TAKE 1 TABLET TWICE DAILY Rx Instructions: TAKE 1 TABLET TWICE DAILY omeprazole 40 mg capsule,delayed release(DR/EC) See Rx Instructions .ROUTE .COMPLEX Qty: 90 0RF Dose Instruction: TAKE 1 CAPSULE EVERY DAY DIRECTED Rx Instructions: TAKE 1 CAPSULE EVERY DAY DIRECTED Ozempic 1 mg/dose (4 mg/3 mL) pen injector See Rx Instructions .ROUTE .COMPLEX Qty: 9 0RF Dose Instruction: INJECT 1 MG SUBCUTANEOUSLY WEEKLY Rx Instructions: INJECT 1 MG SUBCUTANEOUSLY WEEKLY zonisamide 100 mg capsule See Rx Instructions .ROUTE .COMPLEX Qty: 180 0RF Dose Instruction: TAKE 1 CAPSULE TWICE DAILY (ANTICONVULSANT) Rx Instructions: TAKE 1 CAPSULE TWICE DAILY (ANTICONVULSANT) gabapentin 800 mg tablet 800 mg PO TID Qty: 90 0RF oxycodone 5 mg tablet 5 mg PO Q6H PRN (Reason: pain) Qty: 120 0RF tretinoin 0.1 % cream See Rx Instructions .ROUTE .COMPLEX Qty: 45 0RF Dose Instruction: APPLY TOPICALLY TO THE AFFECTED AREA(S) AT BEDTIME Rx Instructions: APPLY TOPICALLY TO THE AFFECTED AREA(S) AT BEDTIME tizanidine 4 mg tablet See Rx Instructions .ROUTE .COMPLEX Qty: 90 0RF Dose Instruction: TAKE 1 TABLET EVERY 8 HOURS NEEDED FOR MUSCLE SPASMS/MUSCLE SPASTICITY Rx Instructions: TAKE 1 TABLET EVERY 8 HOURS NEEDED FOR MUSCLE SPASMS/MUSCLE SPASTICITY ondansetron 8 mg tablet,disintegrating See Rx Instructions .ROUTE .COMPLEX Qty: 90 0RF Dose Instruction: DISSOLVE 1 TABLET ON THE TONGUE EVERY 8 HOURS NEEDED FOR NAUSEA AND VOMITING Rx Instructions: DISSOLVE 1 TABLET ON THE TONGUE EVERY 8 HOURS NEEDED FOR NAUSEA AND VOMITING Referrals Follow up/Referrals: Maryse Samuel PA [Primary Care Provider] - See instructions Activity Restrictions/Add. Instructions Additional Instructions/Restrictions: Urine culture results should be available Saturday Clinical Impressions Clinical Impression: UTI (urinary tract infection) Instructions Patient Instructions: DI for Urinary Tract Infection (UTI) Discharge ED Provider: Maryse Samuel [facility] General Stated complaint: possible uti Time Seen by Provider: 07/28/22 13:11 History of Present Illness Provider Complaint: Dysuria X 2 days, hematuria this am. No fever. No nausea or vomiting. Onset (ago): day(s) (2) Consistency: constant Relieving factors: none Exacerbating factors: none Associated symptoms: denies other symptoms Treatments prior to arrival: none Related Data Home Medications Medication Instructions Recorded Confirmed pgunje-ljmbpeog-trfbkga 1 c
[2022-07-28 12:52] VITALS: BP 101/55; PULSE 71; RESP 16; TEMP 37.3; O2SAT 100; BMI 20.9
[2022-07-28 13:22] VITALS: BP 101/55; PULSE 71; RESP 16; TEMP 37.3
[2022-07-28 13:38] LABS: Apearance,Urine Turbid (Clear); Color,Urine Red (Yellow); Glucose,Urine (UA) Negative (Negative); Ketones,Urine SMALL (Negative); PH,Urine 8.5 (5.0-8.5); Protein,Urine 3+ (Negative)
[2022-07-28 13:39] LABS: Blood, Urine 3+ (Negative)
[2022-07-28 13:41] LABS: Bilirubin,Urine 3+ (Negative)
[2022-07-28 13:42] LABS: Urobilinogen,Urine 2 EU/dl (0.2)
[2022-07-28 13:43] LABS: UTC Leukocyte Esterase,Urine 3+ (Negative); UTC Nitrate,Urine Negative (Negative)
== END 2022-07-28 13:32 | disposition home or self-care (01) ==
PROVIDERS: Emergency Provider Physician Assistant; PCP Physician Assistant
DX: N39.0 Urinary tract infection, site not specified (principal)
CPT/HCPCS: 81003; 87086; 87088; 87186; 99212; G0463

== ENCOUNTER → 2022-08-08 10:04 | Outpatient (CLI) | payer MEDICARE, MEDICAID, SELFPAY ==
--- NOTE | 2022-08-08 10:04 | US_ITS ---
FINAL REPORT TECHNIQUE: Ultrasound images of the kidneys were obtained. CLINICAL HISTORY: R31.9 - Hematuria, unspecified FINDINGS: US RETROPERITONEAL The right kidney measures 10.6 cm in length. It is normal in echogenicity. There is no hydronephrosis. The left kidney measures 10.5 cm in length. It is normal in echogenicity. There is mild to moderate hydronephrosis. Limited images of the spleen are unremarkable. IMPRESSION: Weer-xz-cfyfnrif left hydronephrosis. Reviewed, Interpreted and Dictated by Pelon Duvall III, MD Transcribed by Melissa Escalante Authenticated and [facility]
== END ==
PROVIDERS: PCP Physician Assistant; Visit Provider Physician Assistant
DX: R31.9 Hematuria, unspecified (principal)
CPT/HCPCS: 76770

== ENCOUNTER → 2022-08-29 08:37 | Outpatient (CLI) | payer MEDICARE, MEDICAID, SELFPAY ==
--- NOTE | 2022-08-29 08:41 | US_ITS ---
FINAL REPORT CLINICAL HISTORY: Bilateral swelling of legs/feet, pain.,CLAUDICATION FINDINGS: LOWER EXTREMITY SEGMENTAL PRESSURE MEASUREMENTS Pressure indices are as follows: RIGHT LOWER EXTREMITY: Thigh: 1.07 Calf: 1.25 Ankle, posterior tibial artery: 1.10 Ankle, dorsalis pedis: 1.32 Toe: 0.46 Comments: LEFT LOWER EXTREMITY: Thigh: 1.10 Calf: 1.02 Ankle, posterior tibial artery: 1.02 Ankle, dorsalis pedis: 1.28 Toe: 0.65 Comments: IMPRESSION: No evidence of significant obstructive peripheral vascular disease of the lower extremities Reviewed, Interpreted and Dictated by Yaa Manzano MD Transcribed by Melissa Escalante Authenticated and [facility]
--- NOTE | 2022-08-29 08:41 | CA_ITS ---
APPROVED REPORT EXAM: Comprehensive 2D, Doppler, and color-flow Echocardiogram Math Interventionist: Vashti Baker, ELVIA, RVS Ht: 5 ft 6 in Wt: 131lbs BSA: 1.67 BP: 102/68 mmHg Indications: Murmur, pedal edema ith kidney stone, Hx-CVA, Fatigue, ? MVP with MR 2D Dimensions IVSd 0.81 cm LVEF (Visual) 60.00 % PWd 1.01 cm LA Volume 37.70 mL LVDd 5.36 cm LA Volume Index 22.57 mL/m2 (M/F) 16-34 LVDs 2.57 cm Aortic Root 2.80 cm Left Atrium 3.13 cm LVOT 1.95 cm (M/F) 1.5-2.5 M-Mode Dimensions LA Diam 2.74 cm (1.9-4.0) Ao Diam 3.13 cm (2.0-3.7) EPSs 0.57 cm TAPSE 1.90 (<1.7) LV Diastology E Decel Time 170.00 (160-240 msec) E/A Ratio 0.76 MED E' 10.70 (< 7 cm/sec) MED A' 12.90 cm/s E'/MED E' Ratio 7.66 (>14) LAT E' 10.60 (<10 cm/sec) LAT A' 12.20 cm/s E/LAT E' Ratio 7.74 (>14) Aortic Valve LVOT Max 98.00 (70-110 cm/s) LVOT VTI 21.10 cm AoV Peak Floyd. 128.00 (50-130 cm/s) AO Peak GR. 6.50 mmHg AO Mean GR. 3.20 (<5 mmHg) AO VTI 23.75 (18-25 cm) KEILA (VTI) 2.65 (2.5-4.5 cm2) Mitral Valve MV A Velocity 107.00 (40-130 cm/s) E/A Ratio 0.76 MV Decel. Time 170.00 (160-240 ms) Pulmonary Valve PV Peak Velocity 70.00 (50-150 cm/s) Tricuspid Valve TR P. Velocity 243.00 cm/s RAP Estimate 10.00 mmHg RVSP 33.60 mmHg Left Ventricle Left atrium is mildly enlarged, left ventricle is normal size overall preserved left ventricular systolic function, estimated ejection fraction 55% with no regional wall motion abnormality, diastolic parameters are inconclusive in the study. Right Ventricle Right atrium and right ventricle are normal size and contractility. Aortic Valve Aortic valve is grossly normal there is no aortic stenosis or aortic insufficiency. Mitral Valve Mitral valve is grossly normal, there is no obvious mitral valve prolapse, there is trace mitral regurgitation. Tricuspid Valve Tricuspid valve grossly normal, there is trace tricuspid regurgitation, tricuspid regurgitation jet velocity is inadequate for calculation of the right ventricular systolic pressure. Pulmonic Valve Pulmonic valve is poorly visualized. Great Vessels Aortic root is normal size. Inferior vena cava is normal size with normal inspiratory collapse. Pericardium No significant pericardial effusion noted. Conclusion 1. Normal left ventricular size preserved left ventricular systolic function, estimated ejection fraction 55% with no regional wall motion abnormality, diastolic parameters are inconclusive. 2. Trace mitral and tricuspid regurgitation. There is no obvious mitral valve prolapse. 3. No significant pericardial effusion. 4. Inferior vena cava normal size with normal inspiratory collapse. Electronically signed by : Sridhar Dominique MD 08/30/2022 06:39:18
== END ==
PROVIDERS: PCP Physician Assistant; Visit Provider Physician Assistant
DX: M25.471 Effusion, right ankle (principal); M25.472 Effusion, left ankle; M25.474 Effusion, right foot; M25.475 Effusion, left foot; M79.604 Pain in right leg; M79.605 Pain in left leg; R60.0 Localized edema; R09.89 Other specified symptoms and signs involving the circulatory and respiratory systems
CPT/HCPCS: 93306; 93923

== ENCOUNTER → 2022-09-06 12:10 | Outpatient (CLI) | payer MEDICARE, MEDICAID, SELFPAY ==
[2022-09-06 15:23] LABS: Basophils # 0.1 K/mm3 (0-0.2); Basophils % 0.5 % (0.1-2.0); Eosinophils # 0.2 K/mm3 (0.0-0.4); Eosinophils % 1.5 % (0.1-12.0); Hematocrit 33.3 % (37.0-47.0); Hemoglobin 10.3 g/dL (12.2-16.2); Lymphocytes # 1.7 K/mm3 (0.7-4.5); Lymphocytes % 14.4 % (10-50); Mean Corpuscular Hemoglobin 25.2 pg (27.0-31.2); Mean Corpuscular Volume 81.2 fl (81-99); Monocytes # 0.9 K/mm3 (0.1-1.0); Monocytes % 7.3 % (1.7-9.3); Neutrophils % 76.3 % (37.0-80.0); Platelet Count 397 K/mm3 (142-424); Red Cell Distribution Width 15.6 % (11.5-17.5); White Blood Count 11.8 K/mm3 (4.8-10.8)
[2022-09-06 15:54] LABS: Alanine Aminotransferase 23 U/L (12-78); Albumin Level 3.5 g/dl (3.5-5.0); Albumin/Globulin Ratio 1.3 (1.1-1.8); Alkaline Phosphatase 78 U/L (38-126); Anion Gap 11.7 mEq/L (5-15); Aspartate Amino Transferase 21 U/L (14-36); Blood Urea Nitrogen 22 mg/dl (7-17); Calcium 8.5 mg/dl (8.4-10.2); Carbon Dioxide 29 mmol/L (22.0-30.0); Chloride 106 mmol/L (98-107); Erythrocyte Sedimentation Rate 39 mm/hr (0-30); Estimated Glomerular Filt Rate 65 ml/min (>60); GFR (African American) 78 ML/MIN (>60); Globulin 2.8 g/dL (1.3-3.2); Glucose 66 mg/dl (74-100); Potassium 4.7 mmoL/L (3.5-5.1); Sodium 142 mmol/L (136-145); Total Protein,Serum 6.3 g/dl (6.3-8.2)
[2022-09-06 16:00] LABS: C-Reactive Protein 4.3 mg/L (0-4)
[2022-09-06 16:03] LABS: Bilirubin,Total < 0.1 mg/dl (0.2-1.3)
[2022-09-08 09:17] LABS: RA Latex Turbid. <10.0 IU/mL (<14.0)
[2022-09-11 00:08] LABS: Anti-Cyclic Citrullinated Pept 4 units (0-19)
== END ==
PROVIDERS: PCP Physician Assistant; Visit Provider Physician Assistant
DX: M25.50 Pain in unspecified joint (principal); M25.551 Pain in right hip
CPT/HCPCS: 80053; 85025; 85651; 86140; 86200; 86431

== ENCOUNTER → 2022-10-02 13:36 | Outpatient (CLI) | payer MEDICARE, MEDICAID, SELFPAY ==
[2022-10-02 13:30] LABS: Anion Gap 16.1 mEq/L (5-15); Blood Urea Nitrogen 17 mg/dl (7-17); Calcium 9.1 mg/dl (8.4-10.2); Carbon Dioxide 26 mmol/L (22.0-30.0); Chloride 105 mmol/L (98-107); Estimated Glomerular Filt Rate 87 ml/min (>60); GFR (African American) 105 ML/MIN (>60); Glucose 80 mg/dl (74-100); Potassium 4.1 mmoL/L (3.5-5.1); Sodium 143 mmol/L (136-145)
== END ==
PROVIDERS: PCP Physician Assistant; Visit Provider Physician Assistant
DX: E87.70 Fluid overload, unspecified (principal)
CPT/HCPCS: 80048

== ENCOUNTER 2023-01-09 13:18 | Emergency (ER) | payer MEDICARE, MEDICAID, SELFPAY ==
[2023-01-09 13:27] VITALS: BP 124/84; PULSE 72; RESP 20; TEMP 36.8; O2SAT 94; BMI 21.4
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
--- NOTE | 2023-01-09 13:56 | HMH.EDGENADL ---
Discharge Plan Disposition Patient Disposition: Home, Self-Care Condition: Good Prescriptions Prescriptions: New lidocaine 5 % adhesive patch,medicated 1 patch topical DAILY Qty: 15 0RF Rx Instructions: leave on most painful area for up to 12 hrs No Action [id number] [Creon] 12,000-38,000 -60,000 unit capsule,delayed release(DR/EC) 1 cap PO BID minoxidil 10 mg tablet 10 mg PO DAILY indomethacin 25 mg capsule 25 mg PO TID Rx Instructions: administer with food or milk icosapent ethyl 1 gram capsule 2 g PO BID Qty: 360 3RF Xarelto 20 mg tablet 20 mg PO DAILY Qty: 90 3RF diazepam 10 mg tablet 10 mg PO rosuvastatin 10 mg tablet 10 mg PO QHS Qty: 90 0RF quetiapine 25 mg tablet See Rx Instructions .ROUTE .COMPLEX Qty: 180 0RF Dose Instruction: TAKE 1 TABLET TWICE DAILY Rx Instructions: TAKE 1 TABLET TWICE DAILY levocetirizine 5 mg tablet 5 mg PO DAILY Qty: 90 0RF desloratadine 5 mg tablet 5 mg PO DAILY Qty: 30 1RF prednisone 20 mg tablet 20 mg PO BID Qty: 10 0RF Rx Instructions: administer with food or milk furosemide 20 mg tablet See Rx Instructions .ROUTE .COMPLEX Qty: 30 0RF Dose Instruction: TAKE ONE TABLET BY MOUTH EVERY DAY Rx Instructions: TAKE ONE TABLET BY MOUTH EVERY DAY propranolol 20 mg tablet See Rx Instructions .ROUTE .COMPLEX Qty: 180 1RF Dose Instruction: TAKE 1 TABLET TWICE DAILY Rx Instructions: TAKE 1 TABLET TWICE DAILY ergocalciferol (vitamin D2) 1,250 mcg (50,000 unit) capsule See Rx Instructions .ROUTE .COMPLEX Qty: 13 0RF Dose Instruction: TAKE 1 CAPSULE EVERY WEEK FOR SUPPLEMENT Rx Instructions: TAKE 1 CAPSULE EVERY WEEK FOR SUPPLEMENT zonisamide 100 mg capsule See Rx Instructions .ROUTE .COMPLEX Qty: 180 0RF Dose Instruction: TAKE 1 CAPSULE TWICE DAILY (ANTICONVULSANT) Rx Instructions: TAKE 1 CAPSULE TWICE DAILY (ANTICONVULSANT) sulfasalazine 500 mg tablet,delayed release (DR/EC) See Rx Instructions .ROUTE .COMPLEX Qty: 270 0RF Dose Instruction: TAKE 1 TABLET THREE TIMES DAILY Rx Instructions: TAKE 1 TABLET THREE TIMES DAILY colchicine [Colcrys] 0.6 mg tablet 0.6 mg PO DAILY Qty: 90 3RF Linzess 290 mcg capsule 290 mcg PO DAILY Qty: 90 2RF tretinoin 0.1 % cream See Rx Instructions .ROUTE .COMPLEX Qty: 45 0RF Dose Instruction: APPLY TOPICALLY TO THE AFFECTED AREA(S) AT BEDTIME Rx Instructions: APPLY TOPICALLY TO THE AFFECTED AREA(S) AT BEDTIME ondansetron 8 mg tablet,disintegrating See Rx Instructions .ROUTE .COMPLEX Qty: 90 0RF Dose Instruction: DISSOLVE 1 TABLET ON THE TONGUE EVERY 8 HOURS NEEDED FOR NAUSEA AND VOMITING Rx Instructions: DISSOLVE 1 TABLET ON THE TONGUE EVERY 8 HOURS NEEDED FOR NAUSEA AND VOMITING tizanidine 4 mg tablet See Rx Instructions .ROUTE .COMPLEX Qty: 90 0RF Dose Instruction: TAKE 1 TABLET EVERY 8 HOURS NEEDED FOR MUSCLE SPASMS/MUSCLE SPASTICITY Rx Instructions: TAKE 1 TABLET EVERY 8 HOURS NEEDED FOR MUSCLE SPASMS/MUSCLE SPASTICITY omeprazole 40 mg capsule,delayed release(DR/EC) See Rx Instructions .ROUTE .COMPLEX Qty: 90 0RF Dose Instruction: TAKE 1 CAPSULE EVERY DAY DIRECTED Rx Instructions: TAKE 1 CAPSULE EVERY DAY DIRECTED Ozempic 1 mg/dose (4 mg/3 mL) pen injector See Rx Instructions .ROUTE .COMPLEX Qty: 9 0RF Dose Instruction: INJECT 1MG UNDER THE SKIN ONE TIME WEEKLY Rx Instructions: INJECT 1MG UNDER THE SKIN ONE TIME WEEKLY gabapentin 800 mg tablet 800 mg PO TID Qty: 90 0RF oxycodone 5 mg tablet 5 mg PO Q6H PRN (Reason: pain) Qty: 120 0RF Referrals Follow up/Referrals: Maryse Samuel PA [Primary Care Provider] - See instructions Activity Restrictions/Add. Instructions Additional Instructions/Restrictio
[2023-01-09 14:00] VITALS: BP 122/86; PULSE 79; O2SAT 99
[2023-01-09 14:30] VITALS: BP 109/74; PULSE 102; RESP 20; O2SAT 100
[2023-01-09 15:00] VITALS: BP 115/73; PULSE 75; RESP 18; O2SAT 99
[2023-01-09 15:52] VITALS: BP 127/86; PULSE 75; RESP 16; TEMP 36.8; O2SAT 100
== END 2023-01-09 15:43 | disposition home or self-care (01) ==
PROVIDERS: Emergency Provider Emergency Medicine; PCP Physician Assistant
DX: V49.40XA Driver injured in collision with unspecified motor vehicles in traffic accident, initial encounter (principal); S16.1XXA Strain of muscle, fascia and tendon at neck level, initial encounter
CPT/HCPCS: 71045; 72125; 96372; 99284

== ENCOUNTER → 2023-01-27 10:02 | Outpatient (CLI) | payer MEDICARE, MEDICAID, SELFPAY | PROVIDERS: PCP Physician Assistant; Visit Provider Physician Assistant | DX: R31.9 Hematuria, unspecified (principal); B96.29 Other Escherichia coli [E. coli] as the cause of diseases classified elsewhere | CPT/HCPCS: 87086; 87088; 87186 ==

== ENCOUNTER 2023-01-28 11:10 | Emergency (ER) | payer MEDICARE, MEDICAID, SELFPAY ==
[2023-01-28 11:10] VITALS: BP 116/68; BP 141/84; PULSE 62; PULSE 85; RESP 18; RESP 20; TEMP 36.3; TEMP 36.7; O2SAT 100; O2SAT 95; BMI 20.9
--- NOTE | 2023-01-28 11:18 | CT_ITS ---
FINAL REPORT TECHNIQUE: Thin section axial images were obtained from the lung bases to the pubic symphysis without IV contrast. Coronal reconstruction images were obtained from the axial data. Exam was performed using dose reduction technique. CLINICAL HISTORY: left flank pain COMPARISON: 12/15/2021 FINDINGS: There is atelectasis in the lower lungs bilaterally. There is moderate left hydronephrosis and hydroureter to the level of an obstructing 7 mm distal left ureteral stone. There are additional nonobstructing renal stones bilaterally. No right hydronephrosis. The liver, spleen, adrenals, and pancreas are without acute abnormality. The gallbladder is absent. There are postoperative changes in the upper abdomen, likely from Whipple procedure. There is no evidence of small bowel obstruction. The appendix is not visualized and there are no secondary signs of appendicitis. GI tract is without acute abnormality. There is no lymphadenopathy or free fluid. The uterus is normal for age. No acute osseous abnormality is identified. IMPRESSION: Obstructing 7 mm distal left ureteral stone with hydronephrosis. Bilateral nonobstructing stones. Reviewed, Interpreted and Dictated by Mel Sinclair MD Transcribed by Kaylyn Krishnamurthy Authenticated and . [facility]
--- NOTE | 2023-01-28 11:22 | HMH.EDGENADL ---
Discharge Plan Disposition Patient Disposition: Home, Self-Care Condition: Good Prescriptions Prescriptions: New oxycodone-acetaminophen [Percocet] 5-325 mg tablet 1 tab PO Q6H PRN (Reason: pain) Qty: 10 0RF cephalexin 500 mg capsule 500 mg PO Q8H 7 Days Qty: 21 0RF ondansetron 4 mg tablet,disintegrating 4 mg PO Q8H PRN (Reason: nausea and vomiting) 4 Days Qty: 14 0RF No Action yjrsbc-eqprrqag-kvmddxb [Creon] 12,000-38,000 -60,000 unit capsule,delayed release(DR/EC) 1 cap PO BID minoxidil 10 mg tablet 10 mg PO DAILY indomethacin 25 mg capsule 25 mg PO TID Rx Instructions: administer with food or milk icosapent ethyl 1 gram capsule 2 g PO BID Qty: 360 3RF Xarelto 20 mg tablet 20 mg PO DAILY Qty: 90 3RF diazepam 10 mg tablet 10 mg PO rosuvastatin 10 mg tablet 10 mg PO QHS Qty: 90 0RF quetiapine 25 mg tablet See Rx Instructions .ROUTE .COMPLEX Qty: 180 0RF Dose Instruction: TAKE 1 TABLET TWICE DAILY Rx Instructions: TAKE 1 TABLET TWICE DAILY levocetirizine 5 mg tablet 5 mg PO DAILY Qty: 90 0RF desloratadine 5 mg tablet 5 mg PO DAILY Qty: 30 1RF prednisone 20 mg tablet 20 mg PO BID Qty: 10 0RF Rx Instructions: administer with food or milk propranolol 20 mg tablet See Rx Instructions .ROUTE .COMPLEX Qty: 180 1RF Dose Instruction: TAKE 1 TABLET TWICE DAILY Rx Instructions: TAKE 1 TABLET TWICE DAILY ergocalciferol (vitamin D2) 1,250 mcg (50,000 unit) capsule See Rx Instructions .ROUTE .COMPLEX Qty: 13 0RF Dose Instruction: TAKE 1 CAPSULE EVERY WEEK FOR SUPPLEMENT Rx Instructions: TAKE 1 CAPSULE EVERY WEEK FOR SUPPLEMENT zonisamide 100 mg capsule See Rx Instructions .ROUTE .COMPLEX Qty: 180 0RF Dose Instruction: TAKE 1 CAPSULE TWICE DAILY (ANTICONVULSANT) Rx Instructions: TAKE 1 CAPSULE TWICE DAILY (ANTICONVULSANT) sulfasalazine 500 mg tablet,delayed release (DR/EC) See Rx Instructions .ROUTE .COMPLEX Qty: 270 0RF Dose Instruction: TAKE 1 TABLET THREE TIMES DAILY Rx Instructions: TAKE 1 TABLET THREE TIMES DAILY colchicine [Colcrys] 0.6 mg tablet 0.6 mg PO DAILY Qty: 90 3RF Linzess 290 mcg capsule 290 mcg PO DAILY Qty: 90 2RF tretinoin 0.1 % cream See Rx Instructions .ROUTE .COMPLEX Qty: 45 0RF Dose Instruction: APPLY TOPICALLY TO THE AFFECTED AREA(S) AT BEDTIME Rx Instructions: APPLY TOPICALLY TO THE AFFECTED AREA(S) AT BEDTIME ondansetron 8 mg tablet,disintegrating See Rx Instructions .ROUTE .COMPLEX Qty: 90 0RF Dose Instruction: DISSOLVE 1 TABLET ON THE TONGUE EVERY 8 HOURS NEEDED FOR NAUSEA AND VOMITING Rx Instructions: DISSOLVE 1 TABLET ON THE TONGUE EVERY 8 HOURS NEEDED FOR NAUSEA AND VOMITING tizanidine 4 mg tablet See Rx Instructions .ROUTE .COMPLEX Qty: 90 0RF Dose Instruction: TAKE 1 TABLET EVERY 8 HOURS NEEDED FOR MUSCLE SPASMS/MUSCLE SPASTICITY Rx Instructions: TAKE 1 TABLET EVERY 8 HOURS NEEDED FOR MUSCLE SPASMS/MUSCLE SPASTICITY omeprazole 40 mg capsule,delayed release(DR/EC) See Rx Instructions .ROUTE .COMPLEX Qty: 90 0RF Dose Instruction: TAKE 1 CAPSULE EVERY DAY DIRECTED Rx Instructions: TAKE 1 CAPSULE EVERY DAY DIRECTED Ozempic 1 mg/dose (4 mg/3 mL) pen injector See Rx Instructions .ROUTE .COMPLEX Qty: 9 0RF Dose Instruction: INJECT 1MG UNDER THE SKIN ONE TIME WEEKLY Rx Instructions: INJECT 1MG UNDER THE SKIN ONE TIME WEEKLY gabapentin 800 mg tablet 800 mg PO TID Qty: 90 0RF oxycodone 5 mg tablet 5 mg PO Q6H PRN (Reason: pain) Qty: 120 0RF furosemide 20 mg tablet See Rx Instructions .ROUTE .COMPLEX Qty: 30 0RF Dose Instruction: TAKE ONE TABLET BY MOUTH EVERY DAY Rx Instructions: TAKE ONE TABLET BY MOUTH EVERY DAY lidocaine 5 % adhesive patch,medicated 1 p
[2023-01-28 11:44] LABS: Basophils % 0.4 % (0.1-2.0); Eosinophils # 0.1 K/mm3 (0.0-0.4); Eosinophils % 0.7 % (0.1-12.0); Hematocrit 30.6 % (37.0-47.0); Hemoglobin 9.7 g/dL (12.2-16.2); Lymphocytes # 1.3 K/mm3 (0.7-4.5); Lymphocytes % 16.2 % (10-50); Mean Corpuscular HGB Conc 31.7 g/dL (31.8-35.4); Mean Corpuscular Hemoglobin 24.3 pg (27.0-31.2); Mean Corpuscular Volume 76.6 fl (81-99); Mean Platelet Volume 7.8 fl (7.4-10.4); Monocytes # 0.5 K/mm3 (0.1-1.0); Monocytes % 5.7 % (1.7-9.3); Neutrophils # 6.3 K/mm3 (1.8-7.8); Platelet Count 373 K/mm3 (142-424); Red Cell Distribution Width 15.8 % (11.5-17.5); White Blood Count 8.2 K/mm3 (4.8-10.8)
[2023-01-28 11:47] LABS: Microscopic, Urine URINE MICROSCOPIC (MICROSCOPIC)
--- NOTE | 2023-01-28 11:48 | PC.NURSE ---
PT BACK FROM CT DILAUDID NOT GIVEN DUE TO NO RIDE
[2023-01-28 11:51] LABS: Chloride 108 mmol/L (98-107); Sodium 139 mmol/L (136-145)
[2023-01-28 11:52] LABS: Appearance,Urine CLEAR (Clear); Bilirubin,Urine Negative (Negative); Blood, Urine 3+ (Negative); Color,Urine YELLOW (Yellow); Glucose,Urine (UA) Negative (Negative); Ketones,Urine Negative (Negative); Leukocyte Esterase,Urine TRACE (Negative); Nitrate,Urine Negative (Negative); Protein,Urine Negative (Negative); Specific Gravity, Urine >= 1.030 (1.005-1.030); Urobilinogen,Urine 0.2 EU/dl (0.2)
[2023-01-28 11:52] LABS: Potassium 3.6 mmoL/L (3.5-5.1)
[2023-01-28 11:54] LABS: Alanine Aminotransferase 35 U/L (12-78); Alkaline Phosphatase 102 U/L (38-126); Anion Gap 9.6 mEq/L (5-15); Aspartate Amino Transferase 38 U/L (14-36); Bilirubin,Total 0.6 mg/dl (0.2-1.3); Blood Urea Nitrogen 13 mg/dl (7-17); Carbon Dioxide 25 mmol/L (22.0-30.0); Estimated Glomerular Filt Rate 87 ml/min (>60); GFR (African American) 105 ML/MIN (>60); Lipase 109 U/L (23-300)
[2023-01-28 11:55] LABS: Albumin/Globulin Ratio 1.2 (1.1-1.8); Calcium 8.4 mg/dl (8.4-10.2); Globulin 3.3 g/dL (1.3-3.2); Glucose 137 mg/dl (74-100); Total Protein,Serum 7.3 g/dl (6.3-8.2)
[2023-01-28 12:00] VITALS: BP 139/81; PULSE 78; RESP 18; O2SAT 100
--- NOTE | 2023-01-28 12:01 | PC.NURSE ---
PT BACK FROM CT AND PT RESTING
[2023-01-28 12:26] LABS: Bacteria,Urine Trace /lpf; Squamous Epithelial Cell,Urine Occasional #/hpf (0-5)
[2023-01-28 13:00] VITALS: BP 145/72; PULSE 68; RESP 18
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
--- NOTE | 2023-01-28 13:22 | PC.NURSE ---
PT ASSISTED TO BR
[2023-01-28 13:30] VITALS: BP 160/93; PULSE 82; RESP 20
--- NOTE | 2023-01-28 13:35 | PC.NURSE ---
DR HOLLEY AT BEDSIDE
--- NOTE | 2023-01-28 14:03 | PC.NURSE ---
THIS NURSE WENT TO DISCHARGE THE PT. PT STATES SHE FEELS BAD. REFUSED PAIN MEDICATION AND ZOFRAN. STATES SHE WILL TAKE HER PRESCRIBED MEDICATION WHEN SHE GETS HOME.
--- NOTE | 2023-01-28 14:05 | PC.NURSE ---
PT STATES SHE HAS CHEST PAIN IN THE CENTER OF HER CHEST. ER MD NOTIFIED.
[2023-01-28 14:06] VITALS: BP 140/80; PULSE 65; RESP 20; TEMP 36.8; O2SAT 98
--- NOTE | 2023-01-28 14:11 | ECG_ITS ---
APPROVED REPORT Exam: Resting ECG HR:60 bpm ECG Measurements Heart Rate 60 AXES VA 152 P 15 QRSd 89 QRS 42 QT 454 T 48 QTc 456 Conclusion SINUS RHYTHM WITH OCCASIONAL SUPRAVENTRICULAR PREMATURE COMPLEXES BORDERLINE ECG UNCONFIRMED REPORT Electronically signed by : Raúl Alan MD 01/29/2023 20:30:38
== END 2023-01-28 15:00 | disposition home or self-care (01) ==
PROVIDERS: Emergency Provider Emergency Medicine; PCP Physician Assistant
DX: R10.9 Unspecified abdominal pain (principal); R11.2 Nausea with vomiting, unspecified; Z87.442 Personal history of urinary calculi; Z86.79 Personal history of other diseases of the circulatory system; Z86.73 Personal history of transient ischemic attack (TIA), and cerebral infarction without residual deficits; M54.50 Low back pain, unspecified; G89.29 Other chronic pain; M54.2 Cervicalgia; Z85.00 Personal history of malignant neoplasm of unspecified digestive organ
CPT/HCPCS: 74176; 80053; 81001; 83690; 85025; 93005; 96361; 96374; 96375; 99285; J2405

== ENCOUNTER → 2023-04-08 13:05 | Outpatient (CLI) | payer MEDICARE, MEDICAID, SELFPAY ==
[2023-04-08 13:10] LABS: Adenovirus F 40/41, stool Not Detected (NotDetected); Astrovirus Not Detected (NotDetected); Campylobacter Not Detected (NotDetected); Clostridium Difficile A/B, PCR Not Detected (NotDetected); Cryptosporidium Not Detected (NotDetected); Cyclospora Cayetanesis Not Detected (NotDetected); Entamoeba histolytica Not Detected (NotDetected); Enteroaggregative E coli Not Detected (NotDetected); Enteropathogenic E coli Not Detected (NotDetected); Enterotoxigenic E coli Not Detected (NotDetected); Giardia lamblia Not Detected (NotDetected); Norovirus Not Detected (NotDetected); Plesimonas Shigalloides, PCR Not Detected (NotDetected); Rotavirus A Not Detected (NotDetected); Salmonella, PCR Not Detected (NotDetected); Sapovirus Not Detected (NotDetected); Shiga-like toxin E coli Not Detected (NotDetected); Shigella Enterovasive E coli Not Detected (NotDetected); Vibrio Cholerae Not Detected (NotDetected); Vibrio, PCR Not Detected (NotDetected); Yersinia Entercolitica, PCR Not Detected (NotDetected)
[2023-04-08 15:41] LABS: Basophils % 0.4 % (0.1-2.0); Eosinophils # 0.1 K/mm3 (0.0-0.4); Eosinophils % 2.4 % (0.1-12.0); Hematocrit 30.1 % (37.0-47.0); Hemoglobin 9.2 g/dL (12.2-16.2); Lymphocytes # 1.3 K/mm3 (0.7-4.5); Lymphocytes % 26.9 % (10-50); Mean Corpuscular HGB Conc 30.6 g/dL (31.8-35.4); Mean Corpuscular Hemoglobin 23.7 pg (27.0-31.2); Mean Corpuscular Volume 77.4 fl (81-99); Monocytes # 0.3 K/mm3 (0.1-1.0); Monocytes % 7.1 % (1.7-9.3); Neutrophils # 3.1 K/mm3 (1.8-7.8); Neutrophils % 63.1 % (37.0-80.0); Platelet Count 330 K/mm3 (142-424); Red Blood Count 3.89 M/mm3 (4.20-5.40); Red Cell Distribution Width 17.5 % (11.5-17.5); White Blood Count 4.8 K/mm3 (4.8-10.8)
[2023-04-08 16:03] LABS: Alanine Aminotransferase 47 U/L (12-78); Albumin Level 3.7 g/dl (3.5-5.0); Albumin/Globulin Ratio 1.5 (1.1-1.8); Alkaline Phosphatase 95 U/L (38-126); Aspartate Amino Transferase 53 U/L (14-36); Bilirubin,Total 0.7 mg/dl (0.2-1.3); Blood Urea Nitrogen 13 mg/dl (7-17); Calcium 8.4 mg/dl (8.4-10.2); Carbon Dioxide 21 mmol/L (22.0-30.0); Chloride 105 mmol/L (98-107); Chol/HDL Ratio 1.8 (1-3.5); Cholesterol 89 mg/dl (140-200); Estimated Glomerular Filt Rate 86 ml/min (>60); GFR (African American) 104 ML/MIN (>60); Globulin 2.5 g/dL (1.3-3.2); Glucose 81 mg/dl (74-100); HDL Cholesterol 49 mg/dl (40-60); Sodium 138 mmol/L (136-145); Total Protein,Serum 6.2 g/dl (6.3-8.2); Triglycerides 74 mg/dl (30-150); VLDL Cholesterol 15 mg/dL (0-40)
[2023-04-08 16:14] LABS: Direct LDL Cholesterol 34.92 mg/dL (100-129)
[2023-04-08 16:20] LABS: 25-OH Vitamin D, Total 74.1 ng/mL (30-100)
[2023-04-08 16:33] LABS: Thyroid Stimulating Hormone 0.44 uIU/mL (0.465-4.68)
== END ==
PROVIDERS: PCP Physician Assistant; Visit Provider Physician Assistant
DX: E78.5 Hyperlipidemia, unspecified (principal); I10 Essential (primary) hypertension; R19.5 Other fecal abnormalities; Z85.038 Personal history of other malignant neoplasm of large intestine; E55.9 Vitamin D deficiency, unspecified
CPT/HCPCS: 36415; 80053; 80061; 82306; 84443; 85025; 87507

== ENCOUNTER → 2023-04-22 12:20 | Outpatient (CLI) | payer MEDICARE, MEDICAID, SELFPAY ==
[2023-04-22 14:09] LABS: Hematocrit 29.3 % (37.0-47.0); Mean Corpuscular HGB Conc 30.8 g/dL (31.8-35.4); Mean Corpuscular Hemoglobin 24.4 pg (27.0-31.2); Mean Corpuscular Volume 79.2 fl (81-99); Platelet Count 346 K/mm3 (142-424); Red Blood Count 3.69 M/mm3 (4.20-5.40); White Blood Count 7.9 K/mm3 (4.8-10.8)
[2023-04-22 14:23] LABS: Chloride 107 mmol/L (98-107)
[2023-04-22 14:24] LABS: Potassium 4.6 mmoL/L (3.5-5.1); Sodium 139 mmol/L (136-145)
[2023-04-22 14:26] LABS: Alanine Aminotransferase 40 U/L (12-78); Albumin Level 3.9 g/dl (3.5-5.0); Albumin/Globulin Ratio 1.5 (1.1-1.8); Alkaline Phosphatase 91 U/L (38-126); Anion Gap 10.6 mEq/L (5-15); Aspartate Amino Transferase 36 U/L (14-36); Bilirubin,Total 0.7 mg/dl (0.2-1.3); Blood Urea Nitrogen 19 mg/dl (7-17); Carbon Dioxide 26 mmol/L (22.0-30.0); Estimated Glomerular Filt Rate 103 ml/min (>60); GFR (African American) 125 ML/MIN (>60); Globulin 2.6 g/dL (1.3-3.2); Total Protein,Serum 6.5 g/dl (6.3-8.2)
[2023-04-22 14:27] LABS: Calcium 8.9 mg/dl (8.4-10.2); Glucose 72 mg/dl (74-100)
[2023-04-24 08:23] LABS: Prealbumin 25 mg/dL (10-36)
== END ==
PROVIDERS: PCP Physician Assistant; Visit Provider Surgery
DX: C18.9 Malignant neoplasm of colon, unspecified (principal)
CPT/HCPCS: 36415; 80053; 84134; 85014; 85018; 85048; 85049

== ENCOUNTER → 2023-05-01 23:23 | Outpatient (CLI) | payer MEDICARE, MEDICAID, SELFPAY ==
[2023-05-01 15:27] LABS: Chloride 106 mmol/L (98-107); Sodium 139 mmol/L (136-145)
[2023-05-01 15:31] LABS: Blood Urea Nitrogen 20 mg/dl (7-17); Calcium 8.3 mg/dl (8.4-10.2); Carbon Dioxide 26 mmol/L (22.0-30.0); Estimated Glomerular Filt Rate 86 ml/min (>60); GFR (African American) 104 ML/MIN (>60); Glucose 87 mg/dl (74-100); Magnesium 1.8 mg/dl (1.6-2.3)
[2023-05-01 16:06] LABS: Ferritin 5.36 ng/ml (11.1-264)
== END ==
PROVIDERS: PCP Physician Assistant; Visit Provider Physician Assistant
DX: C18.2 Malignant neoplasm of ascending colon (principal); M62.838 Other muscle spasm
CPT/HCPCS: 80048; 82728; 83735

== ENCOUNTER 2023-09-26 12:09 | Emergency (ER) | payer MEDICARE, MEDICAID, SELFPAY ==
[2023-09-26 12:12] VITALS: BP 116/78; PULSE 78; RESP 17; TEMP 36.7; O2SAT 99; BMI 21.3
--- NOTE | 2023-09-26 12:13 | CT_ITS ---
FINAL REPORT TECHNIQUE: Thin section axial CT with IV contrast supplemented with multiplanar reconstruction under CT angiogram protocol. 3-D reconstructions were performed. This study was performed with techniques to keep radiation doses as low as reasonably achievable (ALARA). Individualized dose reduction techniques using automated exposure control or adjustment of mA and/or kV according to the patient''s size were employed. CLINICAL HISTORY: previous CVA/Previous intestine cancer/Vertigo stroke protocol FINDINGS: The distal vertebral, basilar and distal internal carotid arteries have an unremarkable appearance. No aneurysm is seen. Major intracranial vessels are patent without significant stenosis. IMPRESSION: No significant stenosis identified. Reviewed, Interpreted and Dictated by Pelon Duvall III, MD Transcribed by Kandace Tan Authenticated and [facility]
--- NOTE | 2023-09-26 12:13 | CT_ITS ---
FINAL REPORT CLINICAL HISTORY: previous CVA/Previous intestine cancer/Vertigo stroke protocol COMPARISON: 01/05/2021 FINDINGS: Axial images of the head were obtained without contrast. Coronal reformatted images were also obtained.This study was performed with techniques to keep radiation doses as low as reasonably achievable (ALARA). Individualized dose reduction techniques using automated exposure control or adjustment of mA and/or kV according to the patient''s size were employed. There is no evidence of intracranial hemorrhage or mass. There is right occipital encephalomalacia consistent with prior infarct, stable. The ventricular size is within normal limits. There is no evidence of shift of the midline structures. No abnormal extra axial fluid collection is identified. No skull abnormality is seen on the bone window images. There are retention cysts or polyps in the right maxillary sinus. IMPRESSION: No acute intracranial abnormality. Right occipital encephalomalacia. Reviewed, Interpreted and Dictated by Pelon Duvall III, MD Transcribed by Kandace Tan Authenticated and [facility]
--- NOTE | 2023-09-26 12:13 | CT_ITS ---
FINAL REPORT TECHNIQUE: Thin section axial CT with IV contrast supplemented with multiplanar reconstruction under CT angiogram protocol. This study was performed with techniques to keep radiation doses as low as reasonably achievable (ALARA). Individualized dose reduction techniques using automated exposure control or adjustment of mA and/or kV according to the patient''s size were employed. NASCET criteria was utilized during interpretation. CLINICAL HISTORY: previous CVA/Previous intestine cancer/Vertigo FINDINGS: Aortic arch: Arch shows no significant narrowing. Great vessel origins are widely patent. Right carotid: No significant stenosis is seen of the cervical common or internal carotid artery. Left carotid: No significant stenosis is seen of the cervical common or internal carotid artery. Vertebral: The vertebral arteries are codominant. No significant stenosis is present. IMPRESSION: No significant stenosis identified. Reviewed, Interpreted and Dictated by Pelon Duvall III, MD Transcribed by Kandace Tan Authenticated and [facility]
--- NOTE | 2023-09-26 12:15 | HMH.EDGENADL ---
Discharge Plan Disposition Patient Disposition: Home, Self-Care Chief Complaint: Neuro Symptoms/Deficit Prescriptions Prescriptions: No Action minoxidil 10 mg tablet 10 mg PO DAILY lidocaine [Lidoderm] 5 % adhesive patch,medicated 1 patch topical DAILY Qty: 30 2RF Rx Instructions: leave on most painful area for up to 12 hrs triamcinolone acetonide 0.025 % lotion 1 applic topical BID Qty: 60 0RF indomethacin 25 mg capsule 25 mg PO TID Rx Instructions: administer with food or milk icosapent ethyl 1 gram capsule 2 g PO BID Qty: 360 3RF Xarelto 20 mg tablet 20 mg PO DAILY Qty: 90 3RF diazepam 10 mg tablet 10 mg PO rosuvastatin 10 mg tablet 10 mg PO QHS Qty: 90 0RF quetiapine 25 mg tablet See Rx Instructions .ROUTE .COMPLEX Qty: 180 0RF Dose Instruction: TAKE 1 TABLET TWICE DAILY Rx Instructions: TAKE 1 TABLET TWICE DAILY levocetirizine 5 mg tablet 5 mg PO DAILY Qty: 90 0RF desloratadine 5 mg tablet 5 mg PO DAILY Qty: 30 1RF Sutab 1.479-0.188- 0.225 gram tablet See Rx Instructions PO PER PKG DIR Qty: 24 0RF Rx Instructions: PO PER PKG DIR tuberculin PPD 5 tub. unit /0.1 mL solution 0.1 ml intradermal ONCE Qty: 0.1 0RF Creon 36,000-114,000- 180,000 unit capsule,delayed release(DR/EC) PO propranolol 20 mg tablet See Rx Instructions .ROUTE .COMPLEX Qty: 180 1RF Dose Instruction: TAKE 1 TABLET TWICE DAILY Rx Instructions: TAKE 1 TABLET TWICE DAILY ergocalciferol (vitamin D2) 1,250 mcg (50,000 unit) capsule See Rx Instructions .ROUTE .COMPLEX Qty: 13 0RF Dose Instruction: TAKE 1 CAPSULE EVERY WEEK FOR SUPPLEMENT Rx Instructions: TAKE 1 CAPSULE EVERY WEEK FOR SUPPLEMENT colchicine (gout) [Colcrys] 0.6 mg tablet 0.6 mg PO DAILY Qty: 90 3RF Slow Fe 142 mg (45 mg iron) tablet extended release 142 mg PO DAILY Qty: 90 0RF calcium carbonate [Calcium 600] 600 mg calcium (1,500 mg) tablet 600 mg PO DAILY Qty: 90 0RF omeprazole 40 mg capsule,delayed release(DR/EC) See Rx Instructions .ROUTE .COMPLEX Qty: 90 0RF Dose Instruction: TAKE 1 CAPSULE EVERY DAY DIRECTED Rx Instructions: TAKE 1 CAPSULE EVERY DAY DIRECTED Linzess 290 mcg capsule 290 mcg PO DAILY Qty: 90 3RF Ozempic 2 mg/dose (8 mg/3 mL) pen injector See Rx Instructions .ROUTE .COMPLEX Qty: 9 0RF Dose Instruction: INJECT 2MG UNDER THE SKIN ONE TIME WEEKLY Rx Instructions: INJECT 2MG UNDER THE SKIN ONE TIME WEEKLY zonisamide 100 mg capsule See Rx Instructions .ROUTE .COMPLEX Qty: 180 0RF Dose Instruction: TAKE 1 CAPSULE TWICE DAILY (ANTICONVULSANT) Rx Instructions: TAKE 1 CAPSULE TWICE DAILY (ANTICONVULSANT) furosemide 20 mg tablet See Rx Instructions .ROUTE .COMPLEX Qty: 30 3RF Dose Instruction: TAKE ONE TABLET BY MOUTH EVERY DAY Rx Instructions: TAKE ONE TABLET BY MOUTH EVERY DAY tizanidine 4 mg tablet See Rx Instructions .ROUTE .COMPLEX Qty: 90 0RF Dose Instruction: TAKE 1 TABLET EVERY 8 HOURS NEEDED FOR MUSCLE SPASMS/MUSCLE SPASTICITY Rx Instructions: TAKE 1 TABLET EVERY 8 HOURS NEEDED FOR MUSCLE SPASMS/MUSCLE SPASTICITY tretinoin 0.1 % cream See Rx Instructions .ROUTE .COMPLEX Qty: 45 0RF Dose Instruction: APPLY TOPICALLY TO THE AFFECTED AREA(S) AT BEDTIME Rx Instructions: APPLY TOPICALLY TO THE AFFECTED AREA(S) AT BEDTIME ondansetron 8 mg tablet,disintegrating See Rx Instructions .ROUTE .COMPLEX Qty: 90 0RF Dose Instruction: DISSOLVE 1 TABLET ON THE TONGUE EVERY 8 HOURS NEEDED FOR NAUSEA AND VOMITING Rx Instructions: DISSOLVE 1 TABLET ON THE TONGUE EVERY 8 HOURS NEEDED FOR NAUSEA AND VOMITING gabapentin 800 mg tablet 800 mg PO TID Qty: 90 1RF oxycodone 10 mg tablet 10 mg PO QID PRN (Reason: pain) Qty: 120 0RF sulfasalazine 500
--- NOTE | 2023-09-26 12:18 | ECG_ITS ---
APPROVED REPORT Exam: Resting ECG HR:64 bpm ECG Measurements Heart Rate 64 AXES ME 170 P 138 QRSd 89 QRS 48 QT 395 T 49 QTc 405 Conclusion Sinus rhythm, atrial abnormality noted Late R wave progression, old finding ABNORMAL ECG UNCONFIRMED REPORT Electronically signed by : Raúl Alan MD 09/27/2023 17:06:46
--- NOTE | 2023-09-26 12:21 | PC.NURSE ---
pt to CT
[2023-09-26 12:32] LABS: Basophils % 0.5 % (0.1-2.0); Eosinophils # 0.1 K/mm3 (0.0-0.4); Eosinophils % 1.6 % (0.1-12.0); Hematocrit 29.3 % (37.0-47.0); Hemoglobin 9.4 g/dL (12.2-16.2); Lymphocytes # 1.4 K/mm3 (0.7-4.5); Lymphocytes % 23.6 % (10-50); Mean Corpuscular HGB Conc 32.1 g/dL (31.8-35.4); Mean Corpuscular Hemoglobin 25.5 pg (27.0-31.2); Mean Corpuscular Volume 79.4 fl (81-99); Mean Platelet Volume 7.9 fl (7.4-10.4); Monocytes # 0.5 K/mm3 (0.1-1.0); Monocytes % 8.5 % (1.7-9.3); Neutrophils # 3.8 K/mm3 (1.8-7.8); Neutrophils % 65.7 % (37.0-80.0); Platelet Count 292 K/mm3 (142-424); Red Blood Count 3.69 M/mm3 (4.20-5.40); Red Cell Distribution Width 15.5 % (11.5-17.5); White Blood Count 5.8 K/mm3 (4.8-10.8)
--- NOTE | 2023-09-26 12:38 | PC.NURSE ---
pt back from ct scan and obtaining full NIHSS at this time
[2023-09-26 12:40] LABS: Chloride 106 mmol/L (98-107); Potassium 4.5 mmoL/L (3.5-5.1); Sodium 137 mmol/L (136-145)
[2023-09-26 12:43] LABS: Alanine Aminotransferase 43 U/L (12-78); Albumin Level 3.9 g/dl (3.5-5.0); Albumin/Globulin Ratio 1.3 (1.1-1.8); Alkaline Phosphatase 97 U/L (38-126); Anion Gap 8.5 mEq/L (5-15); Aspartate Amino Transferase 43 U/L (14-36); Bilirubin,Total 0.7 mg/dl (0.2-1.3); Blood Urea Nitrogen 15 mg/dl (7-17); Calcium 8.2 mg/dl (8.4-10.2); Carbon Dioxide 27 mmol/L (22.0-30.0); Estimated Glomerular Filt Rate 74 ml/min (>60); GFR (African American) 89 ML/MIN (>60); Glucose 99 mg/dl (74-100); Total Protein,Serum 6.9 g/dl (6.3-8.2)
[2023-09-26 12:44] LABS: Magnesium 1.8 mg/dl (1.6-2.3)
--- NOTE | 2023-09-26 13:12 | PC.NURSE ---
Dr. Avelar at [facility] for pt eval
[2023-09-26 13:36] VITALS: BP 113/78; PULSE 67; RESP 18; TEMP 36.7; O2SAT 97
== END 2023-09-26 14:23 | disposition home or self-care (01) ==
PROVIDERS: Emergency Provider Emergency Medicine; PCP Physician Assistant
DX: R55 Syncope and collapse (principal)
CPT/HCPCS: 70450; 70496; 70498; 80053; 83735; 85025; 93005; 96360; 99285; Q9967

== ENCOUNTER → 2023-11-28 16:49 | Outpatient (CLI) | payer MEDICARE, MEDICAID, SELFPAY ==
[2023-11-28 16:32] LABS: Amphetamine/Metha Screen,Urine Negative ng/ml (<1000)
[2023-11-28 16:33] LABS: Barbiturates Screen,Urine Negative ng/ml (<200); Benzodiazepines Screen,Urine Negative ng/ml (<200)
[2023-11-28 16:35] LABS: Cannabinoid Screen,Urine Negative ng/ml (<50); Cocaine Screen,Urine Negative ng/ml (<300)
[2023-11-28 16:36] LABS: Methadone Screen,Urine Negative ng/ml (<300); Opiate Screen,Urine Negative ng/ml (<300)
[2023-11-28 16:37] LABS: Phencyclidine Screen,Urine Negative ng/ml (<25)
[2023-12-05 14:12] LABS: Opiates Negative ng/mL (Cutoff=100)
== END ==
LOC: LAB.DROPOF 16:50
PROVIDERS: PCP Physician Assistant; Visit Provider Physician Assistant
DX: G89.29 Other chronic pain (principal); M54.2 Cervicalgia; Z79.891 Long term (current) use of opiate analgesic
CPT/HCPCS: 80307; 80361; 80365; G0480

== ENCOUNTER 2024-08-21 09:52 | Outpatient (CLI) | payer MEDICARE, MEDICAID, SELFPAY ==
--- NOTE | 2024-08-21 09:56 | XR_ITS ---
FINAL REPORT CLINICAL HISTORY: low back pain COMPARISON: None FINDINGS: 3 views of the lumbar spine were obtained. There is no evidence of fracture. There is no malalignment. There is moderately advanced disc space narrowing at L5-S1. There is moderate facet sclerosis noted in the lower lumbar spine. Scattered surgical clips are noted in the mid upper abdomen. Calcified kidney stones are noted on the left measuring up to 8 mm. IMPRESSION: Degenerative changes without acute bony abnormality. Calcified left kidney stones. Reviewed, Interpreted and Dictated by Yoel Bryant MD Transcribed by Kaylyn Krishnamurthy Authenticated and [facility]
== END 2024-08-21 23:59 | disposition home or self-care (01) ==
LOC: RAD 09:54
PROVIDERS: PCP Family Medicine; Visit Provider Family Medicine
DX: M54.41 Lumbago with sciatica, right side (principal); G89.29 Other chronic pain
CPT/HCPCS: 72100

== ENCOUNTER 2024-09-25 14:47 | Outpatient (CLI) | payer MEDICARE, MEDICAID, SELFPAY ==
[2024-09-25 18:39] LABS: Basophils % 0.6 % (0.1-2.0); Eosinophils # 0.3 K/mm3 (0.0-0.4); Eosinophils % 4.6 % (0.1-12.0); Hematocrit 36.8 % (37.0-47.0); Hemoglobin 11.3 g/dL (12.2-16.2); Lymphocytes # 1.6 K/mm3 (0.7-4.5); Lymphocytes % 21.5 % (10-50); Mean Corpuscular HGB Conc 30.6 g/dL (31.8-35.4); Mean Corpuscular Hemoglobin 25.1 pg (27.0-31.2); Mean Corpuscular Volume 82.2 fl (81-99); Mean Platelet Volume 8.4 fl (7.4-10.4); Monocytes # 0.5 K/mm3 (0.1-1.0); Monocytes % 7.4 % (1.7-9.3); Neutrophils # 4.8 K/mm3 (1.8-7.8); Neutrophils % 65.8 % (37.0-80.0); Platelet Count 429 K/mm3 (142-424); Red Blood Count 4.48 M/mm3 (4.20-5.40); Red Cell Distribution Width 15.3 % (11.5-17.5); White Blood Count 7.3 K/mm3 (4.8-10.8)
[2024-09-25 19:01] LABS: Alanine Aminotransferase 30 U/L (12-78); Albumin Level 3.9 g/dl (3.5-5.0); Albumin/Globulin Ratio 1.2 (1.1-1.8); Alkaline Phosphatase 93 U/L (38-126); Anion Gap 11.6 mEq/L (5-15); Aspartate Amino Transferase 39 U/L (14-36); Bilirubin,Total 0.6 mg/dl (0.2-1.3); Blood Urea Nitrogen 24 mg/dl (7-17); Calcium 8.8 mg/dl (8.4-10.2); Carbon Dioxide 25 mmol/L (22.0-30.0); Chloride 110 mmol/L (98-107); Chol/HDL Ratio 1.6 (1-3.5); Cholesterol 122 mg/dl (140-200); Erythrocyte Sedimentation Rate 48 mm/hr (0-30); Estimated Glomerular Filt Rate 86 ml/min (>60); GFR (African American) 104 ML/MIN (>60); Globulin 3.2 g/dL (1.3-3.2); Glucose 91 mg/dl (74-100); HDL Cholesterol 76 mg/dl (40-60); Potassium 4.6 mmoL/L (3.5-5.1); Sodium 142 mmol/L (136-145); Total Protein,Serum 7.1 g/dl (6.3-8.2); Triglycerides 71 mg/dl (30-150); Uric Acid 3.3 mg/dl (2.5-6.2); VLDL Cholesterol 14 mg/dL (0-40)
[2024-09-25 19:11] LABS: Direct LDL Cholesterol 47.09 mg/dL (100-129)
[2024-09-25 20:07] LABS: Folate 7.55 ng/mL
[2024-09-25 20:08] LABS: Thyroid Stimulating Hormone 0.29 uIU/mL (0.465-4.68); Vitamin B12 603 pg/mL (239-931)
[2024-09-25 20:21] LABS: Ferritin 6.17 ng/ml (11.1-264)
[2024-09-25 21:39] LABS: HIV (1&2) Antibody Rapid NONREACTIVE (NONREACTIVE)
[2024-09-27 08:22] LABS: RA Latex Turbid. 11.7 IU/mL (<14.0)
[2024-09-27 10:22] LABS: HCV Ab Non Reactive (Non Reactive)
[2024-09-29 13:11] LABS: Antinuclear Antibodies, IFA Negative (.)
== END 2024-09-25 23:59 | disposition home or self-care (01) ==
LOC: LAB.DROPOF 09-28 14:47
PROVIDERS: PCP Family Medicine; Visit Provider Family Medicine
DX: D64.9 Anemia, unspecified (principal); I10 Essential (primary) hypertension; M19.90 Unspecified osteoarthritis, unspecified site; Z11.4 Encounter for screening for human immunodeficiency virus [HIV]; R41.3 Other amnesia; Z90.410 Acquired total absence of pancreas; Z90.49 Acquired absence of other specified parts of digestive tract; Z86.73 Personal history of transient ischemic attack (TIA), and cerebral infarction without residual deficits; M46.1 Sacroiliitis, not elsewhere classified; G43.909 Migraine, unspecified, not intractable, without status migrainosus; E78.2 Mixed hyperlipidemia; I48.0 Paroxysmal atrial fibrillation; C18.2 Malignant neoplasm of ascending colon; Z79.899 Other long term (current) drug therapy; R63.4 Abnormal weight loss; R53.83 Other fatigue; Z11.59 Encounter for screening for other viral diseases
CPT/HCPCS: 80053; 80061; 82607; 82728; 82746; 84443; 84550; 85025; 85651; 86038; 86431; 86803; 87389

== ENCOUNTER 2024-10-16 08:55 | Outpatient (CLI) | payer MEDICARE, MEDICAID, SELFPAY ==
[2024-10-16 18:48] LABS: Free Thyroxine Index 2.5 ug/dL (5.93-13.13); T4 (Thyroxine) 7.2 ug/dl (5.53-11.0); Triiodothryronine (T3) Uptake 35 % (23.5-40.5)
[2024-10-16 19:01] LABS: Thyroid Stimulating Hormone 0.18 uIU/mL (0.465-4.68)
== END 2024-10-16 23:59 | disposition home or self-care (01) ==
LOC: LAB.DROPOF 10-19 10:34
PROVIDERS: PCP Family Medicine; Visit Provider Family Medicine
DX: E05.90 Thyrotoxicosis, unspecified without thyrotoxic crisis or storm (principal)
CPT/HCPCS: 84436; 84443; 84479

== ENCOUNTER 2024-12-29 08:59 | Outpatient (CLI) | payer MEDICARE, MEDICAID, SELFPAY ==
--- NOTE | 2024-12-29 09:02 | MR_ITS ---
FINAL REPORT CLINICAL HISTORY: MILD COGNITIVE IMPAIRMENT. h.o stroke.hx cancer FINDINGS: Multi planar MR imaging was obtained through the brain without contrast. The midline structures appear intact. There is no evidence of Chiari malformation. There are a few tiny scattered foci of abnormal signal in the deep white matter bilaterally which are nonspecific. On diffusion-weighted images there is no evidence of restricted diffusion. There is mild lobular mucoperiosteal thickening in the left maxillary sinus. The seventh and eighth nerve root complexes are intact. IMPRESSION: Small scattered foci of abnormal signal in the deep white matter, probably due to chronic ischemia. Chronic left maxillary sinusitis. Reviewed, Interpreted and Dictated by Yoel Bryant MD Transcribed by Kandace Tan Authenticated and . [facility]
== END 2024-12-29 23:59 | disposition home or self-care (01) ==
LOC: RAD 09:00
PROVIDERS: PCP Family Medicine; Visit Provider Nurse Practitioner Family
DX: R41.3 Other amnesia (principal); R41.0 Disorientation, unspecified
CPT/HCPCS: 70551

== ENCOUNTER 2025-04-22 13:16 | Outpatient (CLI) | payer MEDICARE, MEDICAID, SELFPAY ==
--- OUTSIDE RECORDS SUMMARY | 2025-04-22 13:19 | XMS_ITS | Data Portability ---
Author Organization [facility] Address [address] [place] [phone] Assessment No assessment recorded. Plan of Treatment Reminders Order Date Submit Date Provider Last Modified By Organization Details Last Modified Time Details Appointments None record ed. Lab None record ed. Referral None record ed. Procedures None record ed. Surgeries None record ed. Imaging XR, abdome n, 1 view 023 02/07/20 23 [email or web address] Not available 3 14:18:27 Medication Orders None record ed. Patient TargetsNo targets recorded. Patient InstructionsNo instructions recorded. Reason for Referral None Reported. Problems Name Problem SNOMED Code Status Onset Date Resolution Date Notes Provider Name and Address Organization Details Recorded Time Myocardial infarction 04227615 Active 2022 Saniajohann Delon alanis [facility] & [place] 3 13:28:08 Hypertensive disorder 02228265 Active 2022 Cady alanis [facility] & [place] 3 13:28:14 Sleep apnea 84669056 Active 2022 Cady alanis [facility] & [place] 3 13:28:22 Chronic obstructive pulmonary disease 58951687 Active 2022 Saniajohann Delon alanis [facility] & [place] 3 13:28:30 Problem Notes None recorded. Medical Equipment None Reported. Allergies No known drug allergies Medications Name Sig Start Date Stop Date Status Note LastModified by Organization Details LastModified Time quetiapine 25 mg tablet TAKE 1 TABLET BY MOUTH TWICE DAILY active Not Available Not Available No t Available tretinoin 0.1 % topical cream active Not Available Not Available Not Available atorvastati n 20 mg tablet active Not Available Not Available Not Available azithromyci n 250 mg tablet 02/06 completed Not Available Not Available Not Available tizanidine 4 mg tablet active Not Available Not Available Not Available prednisone 20 mg tablet TAKE ONE TABLET BY MOUTH TWICE DAILY --TAKE WITH FOOD-- active Not Available Not Available No t Available sulfasalazi ne 500 mg tablet,haris yed release TAKE ONE TABLET BY MOUTH THREE TIMES DAILY active Not Available Not Available No t Available diphenoxyla te-atropine 2.5 mg-0.025 mg tablet TAKE 1 TABLET BY MOUTH TWICE DAILY NEEDED FOR DIARRHEA active Not Available Not Available No t Available sulfamethox azole 800 mg-trimetho prim 160 mg tablet TAKE ONE TABLET BY MOUTH EVERY TWELVE HOURS FOR 10 DAYS -- FINISH ALL MEDICINE -- active Not Available Not Available No t Available omeprazole 40 mg capsule,del ayed release active Not Available Not Available Not Available ondansetron 8 mg disintegrat ing tablet active Not Available Not Available N ot Available zonisamide 100 mg capsule active Not Available Not Available Not Available oxycodone-a cetaminophe n 5 mg-325 mg tablet 02/06 completed Not Available Not Available Not Available gabapentin 800 mg tablet TAKE ONE TABLET BY MOUTH THREE TIMES DAILY MAY CAUSE DROWSINES S active Not Available Not Available No t Available imiquimod 5 % topical cream packet APPLY A THIN LAYER TO AFFECTED AREA NIGHTLY active Not Available Not Available No t Available desloratadi ne 5 mg tablet TAKE ONE TABLET BY MOUTH EVERY DAY active Not Available Not Available No t Available cephalexin 500 mg capsule TAKE ONE CAPSULE BY MOUTH EVERY 8 HOURS FOR 7 DAYS -- FINISH ALL MEDICINE -- active Not Available Not Available No t Available indomethaci n 25 mg capsule active Not Available Not Available Not Available minoxidil 10 mg tablet active Not Available Not Available Not Available furosemide 20 mg tablet TAKE ONE TABLET BY MOUTH EVERY DAY active Not Available Not Available No t Available diazepam 10 mg tablet TAKE 1 TABLET BY MOUTH ONE HOUR BEFORE PROCEDURE active Not Available Not Available No t Available levofloxaci n 500 mg tablet TAKE ONE TABLET BY MOUTH EVERY DAY -- FINISH ALL MEDICINE -- 02/06 completed Not Available Not Available Not Available colchicine 0.6 mg tablet active Not Available Not Available Not Available propranolol 20 mg tablet active Not Available Not Available Not Available ondansetron 4 mg disintegrat ing tablet DISSOLVE ONE TABLET in mouht EVERY 8 HOURS NEEDED FOR NAUSEA AND VOMITING active Not Available Not Available No t Available amoxicillin 875 mg-bozena bustillos clavulanate 125 mg tablet TAKE ONE TABLET BY MOUTH TWICE DAILY -- FINISH ALL MEDICINE -- 02/06 completed Not Available Not Available Not Available oxycodone 5 mg tablet TAKE ONE TABLET BY MOUTH EVERY 6 HOURS NEEDED FOR PAIN MAY CAUSE DROWSINES S active Not Available Not Available No t Available rosuvastati n 10 mg tablet active Not Available Not Available Not Available levocetiriz ine 5 mg tablet active Not Available Not Available Not Available Xarelto 20 mg tablet active Not Available Not Available No t Available Linzess 145 mcg capsule TAKE ONE CAPSULE BY MOUTH EVERY DAY active Not Available Not Available No t Available Linzess 290 mcg capsule TAKE ONE CAPSULE BY MOUTH EVERY DAY active Not Available Not Available No t Available Vascepa 1 gram capsule active Not Available Not Available Not Available Creon 36,000 unit-114,00 0 unit-180,00 0 unit capsule,del ayed release active Not Available Not Available Not Available Ozempic 1 mg/dose (4 mg/3 mL) subcutaneou s pen injector active Not Available Not Available Not Available Vitals Date Recorded Body height Body mass index (BMI) Body weight Body temperature Provider Name and Address Organization Details Last Updated DateTime 02/06/2023 172.72 cm 27.4 kg/m2 71050.63 g 97.6 [degF] Cady Jernigan [facility] [place] 02/06/2023 13:26:17 Social History None recorded. Functional Status Question Answer Note LastModified by Organization D etails LastModified Time What is your level of alcohol consumption? None [email or web address] Information not available 02/06/2023 Mental Status None recorded. Family History Relationship Description Onset Age of this Age Resolved Age Notes LastModified by Organization Details LastModified Time Brother Disorder of kidney and/or ureter dec [email or web address] Not available 2022 13:29:18 Father Myocardial infarction dec [email or web address] Not available 02/06 13:29:34 Mother Family history unknown [email or web address] Not available 2022 13:29:43 Medical History No medical history recorded. Gynecological HistoryNo gynecological history recorded. Obstetrics History GPAL:G 0 P 0 0 0 0 Past Encounters Encounter ID Performer Location Encounter Start Date Encounter Closed Date Diagnosis/Indication Diagnosis SNOMED-CT Code Diagnosis ICD10 Code Diagnosis Note [id number] Jules Ayala Jr, MD [facility] [address] [address] 02/06/2023 12:46:07 02/06/2023 14:44:48 Kidney stone 91866529 N20.0 Ureteric stone 57693206 N20.1 patient with recent left-sided flank pain. CT scan on January 28 showed a 7 mm distal left ureteral stone. She is had only a couple of bouts of flank discomfort since that time. [place] and she has no family or friends to help her when she is sick. We discussed options today including a trial of passage versus ureterosco py and stone extraction . We are going to obtain a KUB overt [facility] see if the stone is still there and if it is still there we discussed proceeding with ureterosco py and stone extraction which she agrees to do. Risks and complicati ons of the procedure discussed at length. Health Concerns Section Related Observation LastModified by Organization Detai ls LastModified Time None Recorded Concern Status LastModified by Organization Details LastModified Time None Recorded Advance Directives Directive None Recorded Payers Insurance Date Sequence Insurance Name Policy Number Policy Singh Covered Member ID Singh Member ID Guarantor Name 06/20/2024 1 [employer] (MEDICARE REPLACEMENT/A DVANTAGE - PPO) Rafia Bustillos Mor [id number] Notes Date Note Type Note Provider Name and Address Organization Details Recorded Time 02/06/2023 text/html patient is a 57-year-old white female with recent left-sided flank pain. She presented to the emergency room on January [address] scan showed a 7 mm distal left ureteral stone. She was discharged home with pain meds, nausea medications and antibiotic. She states she is had a couple of episodes of flank discomfort since that time but no further significant pain. She was seen and treated as the [facility] Emergency room. She has a history of previous Whipple procedure for pancreatic cancer. Blood work in emergency room showed a white count of 8.2. Her renal function was normal. Her urinalysis showed 3+ blood and no evidence of infection. She denies having passed the stone since 10 days ago. Jules Ayala Jr, MD [address] [place] [address], [address], [place], [address], [facility] - [place] & [place] 02/06/2023 16:02:27 OBGyn Episode No OBEpisode recorded.
[2025-04-22 14:40] LABS: Chol/HDL Ratio 1.9 (1-3.5); Cholesterol 98 mg/dl (140-200); HDL Cholesterol 51 mg/dl (40-60); Triglycerides 62 mg/dl (30-150); VLDL Cholesterol 12 mg/dL (0-40)
== END 2025-04-22 23:59 | disposition home or self-care (01) ==
LOC: LAB 13:17
PROVIDERS: PCP Family Medicine; Visit Provider Nurse Practitioner Family
DX: I69.30 Unspecified sequelae of cerebral infarction (principal)
CPT/HCPCS: 36415; 80061

== ENCOUNTER 2025-08-06 15:22 | Outpatient (CLI) | payer MEDICARE, MEDICAID, SELFPAY ==
--- OUTSIDE RECORDS SUMMARY | 2025-07-07 10:00 | XMS_ITS | Encounter Summary ---
Author Organization Healthcare Address [address] [place] [address] Care Team Providers Care Software Business Analyst Name Role Phone Sarika Frost Unavailable [phone] Andrea Mullen MD Unavailable Unavail able Peri Martin Unavailable [phone] Pcp, No Primary Care Provider Unavailabl e Reason for Referral * Consultation (Routine) - Authorized Specialty Diagnoses / Procedures Referred By Kenya t Referred To Contact Physical Therapy Diagnoses Myofascial pain syndrome Cervicalgia Sarika Frost PA [address] [address] Phone: tel: fax: Referral ID Status Reason Start Date Expiration Date Visits Requested Visits Authorized [id number] Authorized Consult and Treat 07/07/2025 01/06/2027 1 1 * Other Medical (Routine) - Pending Review Specialty Diagnoses / Procedures Referred By Contac t Referred To Contact Diagnoses Myofascial pain syndrome Procedures Inject Trigger Points, >3 Sarika Frost PA [address] [address] Phone: tel: fax: Referral ID Status Reason Start Date Expiration Date V isits Requested Visits Authorized [id number] Pending Review 07/07/2025 01/06/2027 1 1 Reason for Visit * Other Medical (Routine) - Closed Specialty Diagnoses / Procedures Referred By Kenya de la torre Referred To Contact Neurology Diagnoses Myofascial pain syndrome Procedures Inject Trigger Points, >3 Sarika Frost PA [address] [address] Phone: tel: fax: Referral ID Status Reason Start Date Expiration Date Visits Re quested Visits Authorized [id number] Closed 07/15/2024 01/14/2026 1 1 Encounter Details Date Type Department Care Team (Latest Contact Info) Description 07/07/2025 10:00 AM EDT Procedure Visit [place] [facility] [address] [place] [address] Sarika Frost PA [phone] [place] [address] Myofascial pain syndrome (Primary Dx); Cervicalgia Social History Tobacco Use Types Packs/Day Years Used Date Smoking Tobacco: Never Smokeless Tobacco: Never Alcohol Use Standard Drinks/Week Comments Never 0 (1 standard drink = 0.6 oz pure alcohol) Alcoholic Drinks/day: No history of alcohol use PHQ-2 Answer Date Recorded Patient Health Questionnaire-2 Score 0 02/02/2025 PHQ-9 Answer Date Recorded Patient Health Questionnaire-9 Score 0 02/02/2025 PHQ-2A Answer Date Recorded Depression Risk 0 02/04/2024 Comments No Sex and Gender Information Value Date Recorded Sex Assigned at Not on file Legal Sex Female 6:28 PM EDT Gender Identity Not on file Sexual Orientation Not on file documented as of this encounter Last Filed Vital Signs Vital Sign Reading Time Taken Comments Blood Pressure 104/74 07/07/2025 9:53 AM EDT Pulse - - Temperature - - Respiratory Rate - - Oxygen Saturation - - Inhaled Oxygen Concentration - - Weight 47.6 kg (104 lb 15 oz) 07/07/2025 9:53 AM EDT Height 167.6 cm (5' 6 ) 07/07/2025 9:53 AM EDT Body Mass Index 16.94 07/07/2025 9:53 AM EDT documented in this encounter Miscellaneous Notes * Progress Notes - Sarika Frost PA - 07/07/2025 10:00 AM EDT Patient is suffering from headache, neck pain and myofascial pain syndrome. CONSENT OBTAINED: Risks and benefits of the Trigger point injection procedure have been explained to the patient. Patient has no contraindications such as bleed diathesis, recent acute trauma at the muscle sites, anesthetic allergy or anticoagulation. Mechanism of trigger point injection has been explained to patient. The patient understands the risks and benefits of the trigger point injection procedure and wished to proceed. Patient's consent was obtained and updated. A time out was performed before the nerve block procedure and consisted of verifying patient identity, procedure and sites of treatment. PROCEDURE NOTE: Patient was positioned comfortably. Before injections are started, 10 Trigger Points sites are identified throughout the bilateral occipitalis, upper trapezius muscle, levator scapulae, and erector spinae muscles. Overlying skin area was cleaned with Alcohol swab. Before injection, trigger points sites were palpated for local twitch and referred pain to confirms placement. Local anesthetic was mixed with Depo-Medrol (5 cc of Marcaine 0.25% mixed with 5 cc of Depo-Medrol at 40 mg/ml - for a total of 10 cc). 25 gauge 1 inch needle was utilized to ensure patient comfort. I started with the most tender spot in above mentioned Trigger Points within the muscles of bilateral occipitalis, upper trapezius, levator scapulae, and erector spinae. Localize most tender spot within taut muscle-fibers. Fix tender spot between fingers (1-2 cm in size) to prevent from rolling away from needle. Before injection, patient was instructed of possible pain on injection. Direct needleat 30 degree angle off skin. Insert needle into skin 1-2 cm from Trigger Point. Advance needle intoTrigger Point. Use 1cc anesthetic at each Trigger Points identified. Repeat until local twitch or tautness resolves. Post-Procedure: There was no evidence of complications from injection was noted such as local Skin Infection at injection site or local hematoma at injection site Patient was instructed to avoid over-using injected area for 3-4 days. Maintain active range of motion of injected muscle. Place a heating pad over a warm moist towel with the warm moist towel directly over the injected sites. Anticipate post-injection soreness for 3-4 days Follow up: 12 weeks or PRN Medications Administered: Bupivacaine HCl - 0.25 % Injection Solution Methylprednisolone Acetate 40 mg/ml Relief from last procedure: 75% Left: O x 1, C x 2, T x 2 Right: O x 1, C x 2, T x 2 Total Given: 10 documented in this encounter Plan of Treatment Upcoming Encounters Date Type Department Care Team (Late st Contact Info) Description 10/13/2025 10:00 AM EST Procedure Visit [place] [facility] [address] [place] [address] Sarika Frost PA [address] [facility] [address] [place] [address] 02/01/2026 9:00 AM EST Appointment [facility] [address] [place] [phone] 02/01/2026 11:30 AM EST Office Visit [facility] [address] [place] [phone] Marycruz Kinney, SOURCER [address] [facility] [address] [place] [address] Scheduled Orders Name Type Priority Associated Diagnoses Orde r Schedule Inject Trigger Points, >3 Procedures Routine Myofascial pain syndrome Expected: 10/06/2025, Expires: 07/06/2026 Scheduled Referrals Name Type Priority Associated Diagnoses Order Schedule Ambulatory referral to Physical Therapy Outpatient Referral Routine Myofascial pain syndrome Cervicalgia 1 Occurrences starting 07/07/2025 until 01/08/2027 documented as of this encounter Visit Diagnoses Diagnosis Myofascial pain syndrome- Primary Unspecified myalgia and myositis Cervicalgia documented in this encounter Administered Medications Inactive Administered Medications - up to 3 most recent administrations Medication Order MAR Action Action Date Dose Rate Site bupivacaine PF (Marcaine) 0.25 % injection 12.5 mg 12.5 mg (5 mL), Injection, Once, 1 dose, On Sat07/07/25 at 1045, RoutineIndications:Myofascia l pain syndrome Given by Other 07/07/2025 10:05 AM EDT 12.5 mg Other methylPREDNISolone acetate (DEPO-Medrol) injection 200 mg 200 mg, Intramuscular, Once, 1 dose, On Sat07/07/25 at 1045, RoutineIndications:Myofascia l pain syndrome Given by Other 07/07/2025 10:05 AM EDT 200 mg Other documented in this encounter Additional Health Concerns Assessment Noted Time PHQ-9 Depression Total Score: 0 02/03/20 11:34 AM EST A fall risk assessment has been complete d for the patient 07/07/2025 9:57 AM EDT A Body Mass Index follow-up plan has been documented for the patient 07/07/2025 11:29 AM EDT documented as of this encounter Care Teams Software Business Analyst Relationship Specialty Start Date End Date Pcp, No [phone] PCP - General Family Medicine 01/15/24 Sarika Frost PA [address] [address] Physician [facility] 06/21/21 Andrea Mullen MD [address] [address] Resident Neurology 07/16/22 Peri Martin MBBS [phone] Resident Neurology 01/21/23 documented as of this encounter
--- OUTSIDE RECORDS SUMMARY | 2025-07-20 09:00 | XMS_ITS | Encounter Summary ---
[facility] Address [address] [place] [address] Care Team Providers Care Pecan Gatherer Name Role Phone Maryse Samuel Primary Care Provider [phone] Reason for Visit * Reason Comments Follow-up 3 mo Encounter Details Date Type Department Care Team (Late st Contact Info) Description 07/20/2025 9:00 AM EDT Office Visit [facility] [address] [place] [address] [address] [place] [phone] Marci Kaba APRN [address] [place] [address] [address] [place] [address] Mild cognitive impairment (Primary Dx); Complex partial seizures; History of CVA with residual deficit; Episodic migraine Social History Tobacco Use Types Packs/Day Years Used Date Smoking Tobacco: Never Passive Smoke Exposure: Never Smokeless Tobacco: Never Tobacco Cessation:Counseling Given: No Alcohol Use Standard Drinks/Week Comments Never 0 (1 standard drink = 0.6 oz pur e alcohol) AUDIT-C Answer Date Recorded Q1: How often do you have a drink containing alc ohol? Never 02/13/2021 Average Number of Drinks Not on file 021 Frequency of Binge Drinking Not on file 01/30 Comments No Sex and Gender Information Value Date Recorded Sex Assigned at Female 02/07/2025 12:20 AM EST Legal Sex Female 12:18 PM EDT Gender Identity Not on file Sexual Orientation Straight 02/07/2025 12 :20 AM EST documented as of this encounter Last Filed Vital Signs Vital Sign Reading Time Taken Comments Blood Pressure 98/60 07/20/2025 8:42 AM EDT Pulse 73 07/20/2025 8:42 AM EDT Temperature - - Respiratory Rate - - Oxygen Saturation 96% 07/20/2025 8:42 AM EDT Inhaled Oxygen Concentration - - Weight 50.8 kg (112 lb) 07/20/2025 8:42 AM EDT Height 167.6 cm (5' 5.98 ) 07/20/2025 8:42 AM ED T Body Mass Index 18.09 07/20/2025 8:42 AM EDT documented in this encounter Progress Notes * Marci Kaba, FR[employer] FARM[employer]ER - 07/20/2025 9:00 AM EDT Neuro Office Visit Encounter Date: 07/20/2025 Patient Name: Rafia Juares : 1965 PCP: Maryse Saumel PA Chief Complaint: Chief Complaint Patient presents with Follow-up 3 mo History of Present Illness: Rafia Juares is a 60 y.o. 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 James Luna she had history of stroke,seizure, cancer, PFO and anticardiolipin antibody positive. She was evaluated for concern of potential seizures. Reported that she had had 2 main events that he would consider potential seizures. Describes having bilateral drawing up of her hands associated with retained consciousness. She takes gabapentin for pain control. She had reported at that visit that she was not taking Zonisamide howevertoday reports that she is taking. She did not wish to delve into seizures today and primarily wanted to focus on confusion/memory changes. Per review of Dr. Jonas's OV note from 02/13/2021 - 55 y.o. female self referred for migraines, R occipital stroke, PAF on Xarelto. 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 R Occipital stroke with L HH 2016 known AF with ASA. FONTANA located over R vertex. Sharp stabbing pain. Present daily but not constant. Severe intensity. Timing most of day. Takes ZNG for CPSZ. GBP once a day for arthritis. She reports that botox did not help with her headaches. Per review of primary care note she had concern of short-term memory, forgetting what she is doing,why she is going somewhere, does have mother with history of dementia. She reports that she is always confused. She lives independently. She has noted symptoms of memory loss/confusion since at least after CVA (2017) and Whipple procedure marked initially by forgetfulness. She reports that she is often forgetting objects. This has remained static over time. Additional symptoms have included impairments in in essentially all spheres of cognition. There have been associated symptoms of agitation. She denies impairments in ADL's. She manages her medications and finances. She continues to drive. She often gets lost while driving. She is currently residing at home independently. Her PCP has prescribed Memantine 5 mg daily which she reports that she is tolerating well. 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 No pathologic enhancement of the brain. Follow up visit 02/08/2025: Rafia Juares returns to neurology clinic for continued evaluation of memory loss. Lab work from 12/14/2024 showed RPR nonreactive, ammonia level was 12, free T4 was 1.06, TSH was 2.230, phosphorylated tau 217 was normal at 0.09, methylmalonic acid was normal at 129, folate was 9.85, vitamin B12 was normal at 449, cmp was normal She lives alone, wants to get a pill box to help with medication management. She is easily distressed and feels that memory is worsening. She manages her own ADL's, driving, and medications. MRI brain performed on 12/29/2024 stated small scattered foci of abnormal signal in the deep white matter probably d/t chronic ischemia, chronic left maxillary sinusitis. She recalls a recent episode in which her left leg and one of her wrists were shaking - reports that this can happen once every few months. Reports that this was brief, will sometimes have a gold orbin her left eye vision, reports that this has happened a few times, reports that this happens a fewtimes per month. Not passing out. Reports frequent headaches - she does take Indomethacin PRN up to twice per day. Headaches are frontal, behind her eyes, can fluctuate in frequency, light sensitivity, will have nausea from headaches.Tried Ajovy before and Emgality before which didn't help. Has not tried Nurtec. No recent stroke activity, reports compliance with secondary prevention measures of Xarelto 20 mg daily and Rosuvastatin 10 mg daily. Follow up visit 04/12/2025: Rafia Juares returns to neurology clinic for routine follow. Memantine dose was increased to 5 mgBID at last visit, she was also instructed to start B12 supplement. She reports that she gets easily confused. She has seen some improvement in her memory recently and is very pleased to start to seesome positive change. There was confusion as to whether she was taking Zonisamide or not, this was restarted between visits at dose of 100 mg nightly and she reports that she is tolerating this well without any seizures. EEG has not been done yet. She reports that she does continue to take Xarelto 20 mg daily, reports that she follows with cardiology but has not been back to see them recently. No recurrence of stroke symptoms. She also takes Rosuvastatin 10 mg daily. She reports that Nurtec helped with her migraines. She is unsure of headache frequency but is pleased that Nurtec helped as a rescue treatment. She reports that prior to a migraine she will get a visual aura, she often vomits with headaches as well. Current visit 07/20/2025: Rafia returns for follow up. MCI: At last visit Memantine was to be slowly increased to 10 mg BID. She has seen improvement since starting Memantine, she is now able to remember a code sent to her on her phone. Still with some short term recall difficulties. She is overall managing medications well. She continues to live independently. She is pleased to see improvement in her memory. Seizures: She was restarted on Zonisamide 100 mg nightly. Reports that since starting Zonisamide she has not had any seizures. No side effects. She previously had reported intolerance to higher dosing. She also takes Gabapentin [address] Coffman. Migraines: She underwent trigger point injections at on 07/07/2025. She is seeing some improvement from TPI. She takes Nurtec 75 mg PRN and wants this sent to her pharmacy not to her house. Nurtec works well for rescue. She does not wish to take anything for prevention of migraines. She is unable to provide number regarding migraine frequency but is pleased with the response to Nurtec. Stroke: She denies recurrence of stroke symptoms. She reports compliance with Xarelto 20 mg daily plus Rosuvastatin 5 mg daily. Lipid panel performed on 04/22/2025 showed glycerides 62, cholesterol 98, LDL 37.6, HDL 51, Rosuvastatin dose was decreased from 10 mg daily to 5 mg daily. She reports that she is frequently dehydrated and that she doesn't drink enough water throughout the day. She is getting labs per PCP done today. Subjective Review of Systems Constitutional: Positive for fatigue. Eyes: Positive for visual disturbance (Loss of left peripheral vision from prior CVA). Respiratory: Negative. Musculoskeletal: Positive for back pain and gait problem. Skin: Negative. Neurological: Positive for speech difficulty and headaches. Memory loss Psychiatric/Behavioral: Positive for agitation and sleep disturbance. Past Medical History: Past Medical History: Diagnosis Date Atrial fibrillation Colon cancer small bowel Headache, tension-type Memory loss Migraine Osteomyelitis Lt foot Seizures Stroke (cerebrum) 05/2017 Vision loss Past Surgical History: Past Surgical History: Procedure Laterality Date COLON SURGERY WHIPPLE PROCEDURE Family History: Family History Problem Relation Age of Onset Dementia Mother Hypertension Father Social History: Social History Socioeconomic History Marital status: Single Tobacco Use Smoking status: Never Passive exposure: Never Smokeless tobacco: Never Vaping Use Vaping status: Never Used Substance and Sexual Activity Alcohol use: Never Drug use: Never Sexual activity: Not Currently Medications: Current Outpatient Medications: colchicine 0.6 MG tablet, , Disp: , Rfl: CREON 64465 units capsule delayed-release particles capsule, Take 1 capsule by mouth Daily With Breakfast, Lunch & Dinner., Disp: , Rfl: desloratadine (CLARINEX) 5 MG tablet, Take 1 tablet by mouth Daily., Disp: , Rfl: gabapentin (NEURONTIN) 800 MG tablet, Take 1 tablet by mouth 3 (Three) Times a Day. She states she is taking as needed., Disp: , Rfl: levocetirizine (XYZAL) 5 MG tablet, , Disp: , Rfl: Linzess 290 MCG capsule capsule, , Disp: , Rfl: memantine (NAMENDA) 10 MG tablet, Take 1 tablet by mouth 2 (Two) Times a Day for 90 days., Disp: 60tablet, Rfl: 2 metoprolol succinate XL (TOPROL-XL) 25 MG 24 hr tablet, , Disp: , Rfl: omeprazole (priLOSEC) 40 MG capsule, Take 1 capsule by mouth Daily., Disp: , Rfl: ondansetron ODT (ZOFRAN-ODT) 4 MG disintegrating tablet, DISSOLVE ONE TABLET in mouht EVERY 8 HOURSAS NEEDED FOR NAUSEA AND VOMITING, Disp: , Rfl: oxyCODONE (ROXICODONE) 5 MG immediate release tablet, Take 1 tablet by mouth Every 8 (Eight) Hours As Needed. for pain, Disp: , Rfl: Ozempic, 0.25 or 0.5 MG/DOSE, 2 MG/3ML solution pen-injector, INJECT 0.5MG UNDER THE SKIN ONE TIME WEEKLY, Disp: , Rfl: rimegepant sulfate ODT (Nurtec) 75 MG disintegrating tablet, Place 1 tablet under the tongue Daily As Needed (For migraine. Max 75 mg per 24 hours.)., Disp: 16 tablet, Rfl: 11 rosuvastatin (Crestor) 5 MG tablet, Take 1 tablet by mouth Every Night., Disp: 30 tablet, Rfl: 11 sulfaSALAzine (AZULFIDINE ENTABS) 500 MG EC tablet, Take 1 tablet by mouth 3 (Three) Times a Day., Disp: , Rfl: tiZANidine (ZANAFLEX) 4 MG tablet, , Disp: , Rfl: Vascepa 1 g capsule capsule, , Disp: , Rfl: XARELTO 20 MG tablet, Take 1 tablet by mouth Daily., Disp: , Rfl: zonisamide (ZONEGRAN) 100 MG capsule, Take 1 capsule by mouth Every Night for 90 days., Disp: 30 capsule, Rfl: 2 cyanocobalamin ([employer] Vitamin B-12) 1000 MCG tablet, Take 1 tablet by mouth Daily. (Patient not taking: Reported on 07/20/2025), Disp: 100 tablet, Rfl: 2 rimegepant sulfate ODT (Nurtec) 75 MG disintegrating tablet, Place 1 tablet under the tongue As Needed (Migraines)., Disp: 2 tablet, Rfl: 0 Current Facility-Administered Medications: OnabotulinumtoxinA 200 Units, 200 Units, Intramuscular, Q3 Months, René Jonas MD, 200 Units at 03/14/21 1412 Allergies: No Known Allergies Objective Objective: BP 98/60 Pulse 73 Ht 167.6 cm (65.98 ) Wt 50.8 kg (112 lb) SpO2 96% No BMI 18.09 kg/m?? Body mass index is 18.09 kg/m??. Physical Exam Vitals reviewed. Constitutional: Appearance: Normal appearance. HENT: Head: Normocephalic and atraumatic. Mouth/Throat: Mouth: Mucous membranes are moist. Pharynx: Oropharynx is clear. Pulmonary: Effort: Pulmonary effort is normal. No respiratory distress. Skin: General: Skin is warm and dry. Neurological: Mental Status: She is alert. Neurology Exam: General apperance: NAD. Mental status: Alert, awake and oriented to person, year, date, season, day, month, state, county, city, hospital, floor. Fund of knowledge: Mildly limited. Improved some since last clinic visit. Language and Speech: Mild expressive aphasia and lack of fluency with speech from prior CVA Naming , Repetition and Comprehension: Mild loss of fluency with speech pattern from prior CVA Cranial Nerves: CN II: L HH. Pupils - PERRLA CN III, IV and : Extraocular movements are intact. Normal saccades. CN V: Facial sensation is intact. CN VII: Muscles of facial expression reveal no asymmetry. Intact. CN VIII: Hearing is intact. CN IX and X: Palate elevates symmetrically. Intact CN XI: Shoulder shrug is intact. CN XII: Tongue is midline without evidence of atrophy or fasciculation. Motor: Right UE muscle strength 5/5. Normal tone. Left UE muscle strength 5/5. Normal tone. Right LE muscle strength 5/5. Normal tone. Left LE muscle strength 5/5. Normal tone. Sensory: Notes mild decreased sensation left pinky. DTRs: 2+ bilaterally in upper and lower extremities. Coordination: Normal [id number] Gait: Slow cautious gait. MMSE 24/30, recall 3/3 Results: Imaging: No Images in the past 120 days found.. Labs: Lab Results Component Value Date GLUCOSE 85 12/14/2024 BUN 15 12/14/2024 CREATININE 0.72 12/14/2024 NA 140 12/14/2024 K 3.9 12/14/2024 CL 105 12/14/2024 CALCIUM 9.3 12/14/2024 PROTEINTOT 7.9 12/14/2024 ALBUMIN 3.9 12/14/2024 ALT 14 12/14/2024 AST 20 12/14/2024 ALKPHOS 90 12/14/2024 BILITOT 0.4 12/14/2024 GLOB 4.0 12/14/2024 AGRATIO 1.0 12/14/2024 BCR 20.8 12/14/2024 ANIONGAP 11.5 12/14/2024 EGFR 97.1 12/14/2024 Assessment / Plan Assessment/Plan: Diagnoses and all orders for this visit: 1. Mild cognitive impairment (Primary) 2. Complex partial seizures 3. History of CVA with residual deficit 4. Episodic migraine - rimegepant sulfate ODT (Nurtec) 75 MG disintegrating tablet; Place 1 tablet under the tongue As Needed (Migraines). Dispense: 2 tablet; Refill: 0 Rafia returns for follow up. She has seen both subjective and objective improvement in her memory, her MMSE today improved to 24/30 with 3/3 for delayed recall. Will continue Memantine 10 mg BID unchanged today. She reports that seizure like activity is under good control with Zonisamide 100 mg daily, she previously was unable to tolerate higher dosing. It is possible that Zonisamide is also helping with migraine prevention. She does not wish to take anything for prevention of migraines, she does see great relief with Nurtec 75 mg PRN, will continue this. I have provided Nurtec sample todayas she is waiting on PA with her local pharmacy/[place] also notified pharmacy team of need for Nurtec PA and [facility] house. She denies any recurrence of stroke symptoms, she is to continue to follow with cardiology, she takes Xarelto 20 mg daily plus Rosuvastatin 5 mg daily. PCP ordered blood work recently including CBC, CMP, TSH, folate, vitamin B12, hemoglobin A1c, vitamin D, lipid panel which are to be completed today. I advised upon importance of good hydration as well. Will plan to see back in clinic in 3 months or sooner for any concerns. Follow Up: Return in about 3 months (around 10/20/2025). I spent 30 minutes in the care of this patient. I personally spent 50 percent of this time counseling and discussing diagnosis, diagnostic testing, evaluation, treatment options, and management . During this visit the following were done: Labs Reviewed [x] Labs Ordered [] Radiology Reports Reviewed [] Radiology Ordered [] PCP Records Reviewed [] Referring Provider Records Reviewed [] ER Records Reviewed [] Hospital Records Reviewed [] History Obtained From Family [] Radiology Images Reviewed [] Other Reviewed [] Records Requested [] Marci Kaba APRN [facility] [address] [facility] [address] [facility] [phone] documented in this encounter Plan of Treatment Upcoming Encounters Date Type Department Care Team (Late st Contact Info) Description 10/21/2025 10:30 AM EST Office Visit [facility] [address] [facility] [address] [place] [address] Marci Kaba APRN [address] [place] [id number] documented as of this encounter Goals Goal Patient Goal Type Associated Problems Recent Progress Patient-Stated? Author Specialty Pharmacy General Goal General On track( 025 10:31 AM EDT) No Trudy Cool, PharmD Note: On Average, Reduce: Frequency of migraines to 50% fewer per month. Symptom severity by 50% within 1 hour of taking acute therapy. Duration of migraines to 2 hours. Baseline Values/Notes on Enrollment Frequency: Frequent, unsure of count Symptom Severity: photophobia, nausea Duration: Several hours Date of Reassessment Notes on Progress Toward Above Goals 03/23/2025 Initiate Nurtec documented as of this encounter Visit Diagnoses Diagnosis Mild cognitive impairment- Primary Mild cognitive impairment, so stated Complex partial seizures History of CVA with residual deficit Episodic migraine documented in this encounter Care Teams Pecan Gatherer Relationship Specialty Start Date End Date Maryse Samuel PA [address] [place] [address] PCP - General 07/19/25 documented as of this encounter
--- OUTSIDE RECORDS SUMMARY | 2025-07-20 09:50 | XMS_ITS | Encounter Summary ---
[facility] Address [address] [place] [address] Care Team Providers Care Method Consultant Name Role Phone Maryse Samuel Primary Care Provider [phone] Encounter Details Date Type Department Care Team (Late st Contact Info) Description 07/20/2025 9:50 AM EDT Lab [facility] AT [address] [place] [address] History of CVA with residual deficit; Screening for viral disease; Screening for human immunodeficiency virus; Abnormal weight loss Social History Tobacco Use Types Packs/Day Years Used Date Smoking Tobacco: Never Passive Smoke Exposure: Never Smokeless Tobacco: Never Alcohol Use Standard [...] AM EST documented as of this encounter Plan of Treatment Upcoming Encounters Date Type Department Care Team (Late st Contact Info) Description 10/21/2025 10:30 AM EST Office Visit [facility] [address] [facility] [address] [place] [address] 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, 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[phone] (work) documented as of this encounter Goals Goal [...] on Progress Toward Above Goals 03/23/2025 [facility] documented as of this encounter Procedures Procedure Name Priority Date/Time Associated Diagnosis Comments IRON PROFILE + FERRITIN Routine 07/20/2025 9:42 AM EDT Abnormal weight loss HIV-1/O/2 ANTIGEN/ANTIBODY Routine 07/20/2025 9:42 AM EDT Screening for human immunodeficiency virus HEPATITIS C ANTIBODY Routine 07/20/2025 9:42 AM EDT Screening for viral disease NIACIN (VITAMIN B3) Routine 07/20/2025 9 :42 AM EDT Abnormal weight loss VITAMIN D,25-HYDROXY Routine 07/20/2025 9:42 AM EDT Abnormal weight loss CBC (NO DIFF) Routine 07/20/2025 9:42 AM EDT Abnormal weight loss TSH Routine 07/20/2025 9:42 AM EDT Abnormal weight loss LIPASE Routine 07/20/2025 9:42 AM EDT Abnormal weight loss HEMOGLOBIN A1C Routine 07/20/2025 9:42 AM EDT Abnormal weight loss FOLATE Routine 07/20/2025 9:42 AM EDT Abnormal weight loss VITAMIN B12 Routine 07/20/2025 9:42 AM EDT Abnormal weight loss AMYLASE Routine 07/20/2025 9:42 AM EDT Abnormal weight loss LIPID PANEL Routine 07/20/2025 9:42 AM EDT History of CVA with residual deficit COMPREHENSIVE METABOLIC PANEL Routine 07/20/2025 9:42 AM EDT Abnormal weight loss documented in this encounter Results * (ABNORMAL) CBC (No Diff) (07/20/2025 9:42 AM EDT) WBC 9.26 3.40 - 10.80 10*3/mm3 07/20/2025 7:32 PM EDT [facility] RBC 4.07 3.77 - 5.28 10*6/mm3 07/20/2025 7:32 PM EDT [facility] Hemoglobin 6.4(LL) 12.0 - 15.9 g/dL 07/20/2025 7:32 PM EDT [facility] Hematocrit 25.6(L) 34.0 - 46.6 % 07/20/2025 7:32 PM EDT [facility] MCV 62.9(L) 79.0 - 97.0 fL 07/20/2025 7:32 PM EDT [facility] MCH 15.7(L) 26.6 - 33.0 pg 07/20/2025 7:32 PM EDT [facility] MCHC 25.0(L) 31.5 - 35.7 g/dL 07/20/2025 7:32 PM EDT [facility] RDW 19.0(H) 12.3 - 15.4 % 07/20/2025 7:32 PM EDT [facility] RDW-SD 40.4 37.0 - 54.0 fl 07/20/2025 7:32 PM EDT [facility] MPV 9.5 6.0 - 12.0 fL 07/20/2025 7:32 PM EDT [facility] Platelets 425 140 - 450 10*3/mm3 07/20/2025 7:32 PM EDT [facility] Blood Venipuncture / Unknown 07/20/2025 9:42 AM EDT 07/20/2025 9:45 AM EDT us Maryse CARTER LAB BLOOD ORDERABLES Final Resul t [facility]
[address] [place] [address], * (ABNORMAL) Comprehensive Metabolic Panel (07/20/2025 9:42 AM EDT) Glucose 78 65 - 99 mg/dL 07/20/2025 8:07 PM EDT [facility] BUN 17.0 6.0 - 20.0 mg/dL 07/20/2025 8:07 PM EDT [facility] Creatinine 0.64 0.57 - 1.00 mg/dL 07/20/2025 8:07 PM EDT [facility] Sodium 140 136 - 145 mmol/L 07/20/2025 8:07 PM EDT [facility] Potassium 3.8 3.5 - 5.2 mmol/L 07/20/2025 8:07 PM EDT [facility] Chloride 105 98 - 107 mmol/L 07/20/2025 8:07 PM EDT [facility] CO2 23.0 22.0 - 29.0 mmol/L 07/20/2025 8:07 PM EDT [facility] Calcium 8.7 8.6 - 10.5 mg/dL 07/20/2025 8:07 PM EDT [facility] Total Protein 6.9 6.0 - 8.5 g/dL 07/20/2025 8:07 PM EDT [facility] Albumin 4.0 3.5 - 5.2 g/dL 07/20/2025 8:07 PM EDT [facility] ALT (SGPT) 12 1 - 33 U/L 07/20/2025 8:07 PM EDT [facility] AST (SGOT) 18 1 - 32 U/L 07/20/2025 8:07 PM EDT [facility] Alkaline Phosphatase 74 39 - 117 U/L 07/20/2025 8:07 PM EDT [facility] Total Bilirubin 0.3 0.0 - 1.2 mg/dL 07/20/2025 8:07 PM EDT [facility] Globulin 2.9 gm/dL 07/20/2025 8:07 PM EDT [facility] A/G Ratio 1.4 g/dL 07/20/2025 8:07 PM EDT [facility] BUN/Creatinine Ratio 26.6(H) 7.0 - 25.0 07/20/2025 8:07 PM EDT [facility] Anion Gap 12.0 5.0 - 15.0 mmol/L 07/20/2025 8:07 PM EDT [facility] eGFR 101.9 >60.0 mL/min/1.7 3 07/20/2025 8:07 PM EDT [facility] Blood Venipuncture / Unknown 07/20/2025 9:42 AM EDT 07/20/2025 9:45 AM EDT [facility] - 07/20/2025 8:07 PM EDT GFR Categories in Chronic Kidney Disease (CKD) GFR Category GFR (mL/min/1.73) Interpretation G1 90 or greater Normal or high (1) G2 60-89 Mild decrease (1) G3a 45-59 Mild to moderate decrease G3b 30-44 Moderate to severe decrease G4 15-29 Severe decrease G5 14 or less Kidney failure (1)In the absence of evidence of kidney disease, neither GFR category G1 or G2 fulfill the criteria for CKD. eGFR calculation 2020 CKD-EPI creatinine equation, which does not include race as a factor us Maryse CARTER LAB BLOOD ORDERABLES Final Resul t [facility]
[address] [place] [address], * TSH (07/20/2025 9:42 AM EDT) Pathologist [facility] TSH 1.620 0.270 - 4.200 uIU/mL 07/20/2025 8:09 PM EDT [facility] Blood Venipuncture / Unknown 07/20/2025 9:42 AM EDT 07/20/2025 9:45 AM EDT Maryse [facility] LAB BLOOD ORDERABLES Final Resul t Performing Organization Address City/[facility]/ZIP Co de Phone Number [facility]
[address] [place] [address], * Folate (07/20/2025 9:42 AM EDT) [facility] Folate 9.23 4.78 - 24.20 ng/mL 07/20/2025 8:15 PM EDT [facility] Blood Venipuncture / Unknown 07/20/2025 9:42 AM EDT 07/20/2025 9:45 AM EDT Narrative [facility] - 07/20/2025 8:15 PM EDT Results may be falsely increased if patient taking Biotin. Maryse [employer] [place] LAB BLOOD ORDERABLES Final Resul t [facility]
[address] [place] [address], * Vitamin B12 (07/20/2025 9:42 AM EDT) Pathologist [facility] Vitamin B-12 322 211 - 946 pg/mL 07/20/2025 8:15 PM EDT [facility] Blood Venipuncture / Unknown 07/20/2025 9:42 AM EDT 07/20/2025 9:45 AM EDT Narrative [facility] - 07/20/2025 8:15 PM EDT Results may be falsely increased if patient taking Biotin. Maryse CARTER LAB BLOOD ORDERABLES Final Resul t Performing Organization Address [facility] Co de Phone Number [facility]
[address] [place] [address], [place] [phone] * (ABNORMAL) Iron Profile + Ferritin (07/20/2025 9:42 AM EDT) Iron 13(L) 37 - 145 mcg/dL 07/20/2025 8:09 PM EDT [facility] Iron Saturation (TSAT) 3(L) 20 - 50 % 07/20/2025 8:09 PM EDT [facility] Transferrin 338 200 - 360 mg/dL 07/20/2025 8:09 PM EDT [facility] TIBC 504 298 - 536 mcg/dL 07/20/2025 8:09 PM EDT [facility] Ferritin 4.06(L) 13.00 - 150.00 ng/mL 07/20/2025 8:09 PM EDT [facility] Blood Venipuncture / Unknown 07/20/2025 9:42 AM EDT 07/20/2025 9:45 AM EDT Narrative [facility] - 07/20/2025 8:09 PM EDT Results may be falsely decreased if patient taking Biotin. Maryse Samuel [place] LAB BLOOD ORDERABLES Final Resul t Performing Organization Address City/[facility]/ZIP Co de Phone Number [facility]
[address] [place] [address], [place] [phone] * Hemoglobin A1c (07/20/2025 9:42 AM EDT) Hemoglobin A1C 5.00 4.80 - 5.60 % 07/20/2025 8:22 PM EDT [facility] Blood Venipuncture / Unknown 07/20/2025 9:42 AM EDT 07/20/2025 9:45 AM EDT Narrative [facility] - 07/20/2025 8:22 PM EDT Hemoglobin A1C Ranges: Increased Risk for Diabetes 5.7% to 6.4% Diabetes >= 6.5% Diabetic Goal < 7.0% Maryse Samuel PA LAB BLOOD ORDERABLES Final Resul t Performing Organization Address City/[facility] Co de Phone Number [facility]
[address] [place] [address], * Lipase (07/20/2025 9:42 AM EDT) Lipase 45 13 - 60 U/L 07/20/2025 8:07 PM EDT [facility] Blood Venipuncture / Unknown 07/20/2025 9:42 AM EDT 07/20/2025 9:45 AM EDT Maryse Samuel PA LAB BLOOD ORDERABLES Final Resul t Performing Organization Address [facility] de Phone Number [facility]
[address] [place] [address], * (ABNORMAL) Amylase (07/20/2025 9:42 AM EDT) Amylase 112(H) 28 - 100 U/L 07/20/2025 8:07 PM EDT [facility] Blood Venipuncture / Unknown 07/20/2025 9:42 AM EDT 07/20/2025 9:45 AM EDT Maryse Stone PA LAB BLOOD ORDERABLES Final Resul t Performing Organization Address [facility] de Phone Number [facility]
[address] [place] [address], * Vitamin D 25 Hydroxy (07/20/2025 9:42 AM EDT) 25 Hydroxy, Vitamin D 35.6 30.0 - 100.0 ng/ml 07/20/2025 8:15 PM EDT [facility] Blood Venipuncture / Unknown 07/20/2025 9:42 AM EDT 07/20/2025 9:45 AM EDT Narrative [facility] - 07/20/2025 8:15 PM EDT Reference Range for Total Vitamin D 25(OH) Deficiency <20.0 ng/mL Insufficiency 21-29 ng/mL Sufficiency 30-100 ng/mL Toxicity >100 ng/ml Maryse CARTER LAB BLOOD ORDERABLES Final Resul t [facility]
[address] [place] [address], * Niacin (Vitamin B3) (07/20/2025 9:42 AM EDT) Nicotinamide 12.7 5.2 - 72.1 ng/mL 07/30/2025 12:07 AM EDT [facility] Nicotinic Acid <5.0 0.0 - 5.0 ng/mL 07/30/2025 12:07 AM EDT [facility] Blood Venipuncture / Unknown 07/20/2025 9:42 AM EDT 07/20/2025 9:45 AM EDT [facility] - 07/30/2025 12:07 AM EDT Test(s) 391270-[id number]; [id number] Acid was developed and its performance characteristics determined by [facility]. It has not been cleared or approved by the Food and Drug Administration. Performed at: [address] [id number] Sausage Maker: Jeff Pizano MD, Phone: [phone] Maryse CARTER LAB BLOOD ORDERABLES Final Resul t [facility] [address] [place] [id number], [place] [phone] * HIV-1 / O / 2 Ag / Antibody 4th Generation (07/20/2025 9:42 AM EDT) Pathologist [facility] HIV DUO Non-Reacti ve Non-Reacti ve 07/20/2025 8:09 PM EDT [facility] Blood Venipuncture / Unknown 07/20/2025 9:42 AM EDT 07/20/2025 9:45 AM EDT Narrative [facility] - 07/20/2025 8:09 PM EDT The HIV antibody/antigen combo assay is a qualitative assay for HIV that includes the p24 antigen as well as antibodies to HIV types 1 and 2. This test is intended to be used as a screening assay in the diagnosis of HIV infection in patients over the age of 2. [employer] LAB BLOOD ORDERABLES Final Resul t Performing Organization Address City/[facility]/ZIP Co de Phone Number [facility]
[address] [place] [address], * Hepatitis C Antibody (07/20/2025 9:42 AM EDT) [facility] Hepatitis C Ab Non-Reacti ve Non-Reacti ve 07/20/2025 8:09 PM EDT [facility] Blood Venipuncture / Unknown 07/20/2025 9:42 AM EDT 07/20/2025 9:45 AM EDT [employer] [place] LAB BLOOD ORDERABLES Final Resul t [facility]
[address] [place] [address], * Lipid Panel (07/20/2025 9:42 AM EDT) [facility] Total Cholesterol 138 0 - 200 mg/dL 07/20/2025 8:07 PM EDT [facility] Triglycerides 59 0 - 150 mg/dL 07/20/2025 8:07 PM EDT [facility] HDL Cholesterol 52 40 - 60 mg/dL 07/20/2025 8:07 PM EDT [facility] LDL Cholesterol 74 0 - 100 mg/dL 07/20/2025 8:07 PM EDT [facility] VLDL Cholesterol 12 5 - 40 mg/dL 07/20/2025 8:07 PM EDT [facility] LDL/HDL Ratio 1.43 07/20/2025 8:07 PM EDT [facility] Blood Venipuncture / Unknown 07/20/2025 9:42 AM EDT 07/20/2025 9:45 AM EDT Narrative [facility] - 07/20/2025 8:07 PM EDT Cholesterol Reference Ranges (U.S. Department of Health and Human Services ATP III Classifications) Desirable <200 mg/dL Borderline High 200-239 mg/dL High Risk >240 mg/dL Triglyceride Reference Ranges (U.S. Department of Health and Human Services ATP III Classifications) Normal <150 mg/dL Borderline High 150-199 mg/dL High 200-499 mg/dL Very High >500 mg/dL HDL Reference Ranges (U.S. Department of Health and Human Services ATP III Classifications) Low <40 mg/dl (major risk factor for CHD) High >60 mg/dl ('negative' risk factor for CHD) LDL Reference Ranges (U.S. Department of Health and Human Services ATP III Classifications) Optimal <100 mg/dL Near Optimal 100-129 mg/dL Borderline High 130-159 mg/dL High 160-189 mg/dL Very High >189 mg/dL LDL is calculated using the NIH LDL-C calculation. Marci Kaba APRN LAB BLOOD ORDERABLES Final Result [facility]
[address] [place] [address], documented in this encounter Visit Diagnoses Diagnosis History of CVA with residual deficit Screening for viral disease Special screening examination for unspecified viral disease Screening for human immunodeficiency virus Special screening examination for other specified viral diseases Abnormal weight loss Loss of weight documented in this encounter Care Teams Method Consultant Relationship Specialty Start Date End Date Maryse Samuel PA [address] [place] [address] PCP - General 07/19/25 documented as of this encounter
--- OUTSIDE RECORDS SUMMARY | 2025-07-21 15:07 | XMS_ITS | Encounter Summary ---
Author Organization Healthcare Address [address] [place] [address] Care Team Providers Care Supervisor [employer] Name Role Phone Sarika Frost Unavailable [phone] Andrea Mullen MD Unavailable Unavail able Peri Martin Unavailable [phone] Pcp, No Primary Care Provider Unavailabl e Reason for Visit * Reason Comments Abnormal Lab Encounter Details Date Type Department Care Team ([facility] st Contact Info) Description 07/21/2025 3:07 PM EDT - 07/21/2025 8:44 PM EDT Emergency [facility] [address] [place] [address] Juan Nunes MD [address] [place] [address] Anemia requiring transfusions (Primary Dx) Discharge Disposition: Home or Self Care Social History Tobacco Use Types Packs/Day Years [...] Sign Reading Time Taken Comments Blood Pressure 107/72 07/21/2025 8:34 PM EDT Pulse 75 07/21/2025 8:34 PM EDT Temperature 36.7 C (98 F) 07/21/2025 8:34 PM EDT Respiratory Rate 18 07/21/2025 6:33 PM EDT Oxygen Saturation 99% 07/21/2025 8:34 PM EDT Inhaled Oxygen Concentration - - Weight 46.3 kg (102 lb) 07/21/2025 1:46 PM EDT Height 167.6 cm (5' 6 ) 07/21/2025 1:46 PM EDT Body Mass Index 16.46 07/21/2025 1:46 PM EDT documented in this encounter Functional Status * Calculated C-SSRS Risk Score (Lifetime/Recent) Answer Date of Assessment Author No Risk Indicated 07/21/2025 3:32 PM EDT Tiffanie Oro RN * Question Answer Date of Assessment Author 1. Wish to be (Past 1 Month) No 025 3:32 PM EDT Tiffanie Oro RN 2. Non-Specific Active Suici hortencia Thoughts (Past 1 Month) No 07/21/2025 3:32 PM EDT Albina Oro RN 6. Suicidal Behavior (Lifetime) No 3:32 PM EDT Tiffanie Oro RN documented as of this encounter Discharge Instructions * Discharge Instructions* Jonny Roper MD - 07/21/2025 8:07 PM EDT Follow up with PCP Start taking your iron supplements Return to ED if symptoms worsen, you develop significant bleeding, or if you become concerned for your health documented in this encounter Medications at Time of Discharge bisacodyl (Dulcolax) 5 MG EC tablet Day before procedure at 4pm take 4 tablets with 8 oz of clear liquid. 4 tablet 04/15/2023 colchicine 0.6 MG tablet Take 1 tablet (0.6 mg) by mouth daily as needed. 09/26/2021 Creon [id number] units capsule delayed-release particles capsule Take 3 capsules by mouth 3 times a day with meals. May also take 2 capsules as needed for snacks. 270 capsule 11 04/05/2025 Dermatological Products, Misc. (EpiCeram) lotion Please apply to skin 3 times per day 30 minutes before getting dressed. 0.225 g 3 09/11/2023 gabapentin (Neurontin) 800 MG tablet Take 1 tablet (800 mg) by mouth 3 (three) times a day. 01/29/2024 indomethacin (Indocin) 25 MG capsule TAKE 1 CAPSULE THREE TIMES DAILY WITH MEALS 270 capsule 3 02/28/2025 levocetirizine (Xyzal) 5 MG tablet TAKE 1 TABLET EVERY DAY IN THE EVENING 90 tablet 3 05/12/2024 lidocaine (Lidoderm) 5 % patch 01/19/2025 Linzess 290 MCG capsule 02/18/2023 memantine (Namenda) 5 MG tablet Take 1 tablet (5 mg) by mouth daily. metFORMIN XR (Glucophage-XR) 500 MG 24 hr tablet Take 1 tablet (500 mg) by mouth 1 (one) time each day with dinner. Do not crush, chew, or split. 28 tablet 01/16/2024 metoprolol succinate XL (Toprol-XL) 50 MG 24 hr tablet Take 1 tablet (50 mg) by mouth 1 (one) time each day. Do not crush or chew. 30 tablet 2 02/05/2024 minoxidil (Loniten) 10 MG tabletIndications:D rug-related hair loss TAKE 1/2 TABLET EVERY DAY 45 tablet 3 03/23/2022 nutritional drink (Boost) liquid liquid Take 237 mL by mouth 2 (two) times a day. 71388 mL 1 02/04/2024 omeprazole (PriLOSEC) [address] capsule 03/03/2022 ondansetron ODT (Zofran-ODT) 4 MG disintegrating tablet Take 1 tablet (4 mg) by mouth every 8 hours as needed. 07/14/2024 oxyCODONE (Oxy-IR) 5 MG immediate release capsule Take 1 capsule (5 mg) by mouth 3 (three) times a day. Ozempic, 0.25 or 0.5 MG/DOSE, 2 MG/3ML solution pen-injector 07/06/2024 polyethylene glycol (GoLYTELY) 236 g solution At 5 p.m., mix the GoLytely solution Drink 3/4 solution, 8 oz/ 15 min Refrigerate the remaining mixture. 6 hours before your scheduled arrival time, finish the remaining 1 liter of GoLytely solution. 4000 mL 05/03/2023 polyethylene glycol (MiraLax) 17 GM/SCOOP powder At 6pm day BEFORE surgery, mix Miralax (polyethylene glycol) powder with 64 oz sports drink. Stir to dissolve. Drink one cup (8oz) every 15 minutes until completed finished. 238 g 04/15/2023 Rimegepant Sulfate (Nurtec) 75 MG orally disintegrating tablet Place 1 tablet under the tongue. 03/23/2025 rosuvastatin (Crestor) 10 MG tablet TAKE 1 TABLET ONE TIME DAILY 90 tablet 3 02/03/2024 sulfaSALAzine (Azulfidine) 500 MG EC tablet Take 1 tablet (500 mg) by mouth 2 (two) times a day. 09/06/2022 tiZANidine (Zanaflex) 4 MG tablet 06/08/2022 tretinoin (Retin-A) 0.1 % cream 05/18/2021 Vascepa 1 g capsuleIndications: Cerebrovascular accident (CVA) due to embolism of right posterior cerebral artery (CMS/HCC) TAKE 2 CAPSULES TWICE DAILY WITH MEALS 360 capsule 10 10/16/2023 Xarelto 20 MG tabletIndications:C erebrovascular accident (CVA) due to embolism of right posterior cerebral artery (CMS/HCC),Paroxysma l atrial fibrillation (CMS/HCC) TAKE 1 TABLET EVERY DAY 90 tablet 10 10/11/2023 zonisamide (Zonegran) 100 MG capsule 12/23/2023 documented as of this encounter Miscellaneous Notes * ED Provider Notes - Jonny Roper MD - 07/21/2025 1:42 PM EDT Images from the original note were not included. - HPI Chief Complaint Patient presents with Abnormal Lab PIT NOTE Rafia Juares is a 60 y.o. 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 Pt presents from anOSH d/t having labs drawn with remarkable findings of HgB 6.4 yesterday. Pt states the OSH found antibodies in her blood and they do not have the ability to cross-match, leading her to present at .Pt states she does have a prior h/o anemia and has previously required blood transfusions. Patient denies fever, abdominal pain, N/V/D, headache, chest pain, SOA. History provided by: Patient interpreter and translator used: No I personally obtained a history and physical exam and agree with the written above. Patient denies any known sources of bleeding including traumatic injuries, hematemesis, hemoptysis, epistaxis, hematuria, hematochezia, melena. She does report some recent decreased energy. Patient History Past Medical History[1] Surgical History[2] Family History[3] Social History[4] Allergies: Allergies[5] Physical Exam ED Triage Vitals [07/21/25 1346] Temp Heart Rate Resp BP 36.6 ??C (97.8 ??F) 91 16 104/75 SpO2 Temp Source Heart Rate Source Patient Position 99 % Oral -- -- BP Location FiO2 (%) -- -- Physical Exam Vitals and nursing note reviewed. Constitutional: General: She is not in acute distress. Appearance: She is well-developed. HENT: Head: Normocephalic and atraumatic. Eyes: Conjunctiva/sclera: Conjunctivae normal. Cardiovascular: Rate and Rhythm: Normal rate and regular rhythm. Heart sounds: No murmur heard. Pulmonary: Effort: Pulmonary effort is normal. No respiratory distress. Breath sounds: Normal breath sounds. Abdominal: Palpations: Abdomen is soft. Tenderness: There is no abdominal tenderness. Musculoskeletal: General: No swelling. Cervical back: Neck supple. Skin: General: Skin is warm and dry. Capillary Refill: Capillary refill takes less than 2 seconds. Neurological: Mental Status: She is alert. Psychiatric: Mood and Affect: Mood normal. Deepa Coma Scale Score: 15 ED Course & MDM - Date/Time: 07/21/2025/2:45 PM Entered by Gail Hurtado, acting as scribe for Shea Browning MD. Scribe Attestation: This note was dictated to me, Gail Hurtado, acting as a scribe for Shea Browning MD. Attending Attestation: The documentation was recorded by Gail Hurtado acting as scribe in my presence at the time of the encounter and accurately reflects the service I personally performed. Assessment: 60 y.o. female presents to ED with complaint of anemia. It should be noted that the chronic conditions includes duodenal cancer s/p Whipple, iron deficiency anemia, type 2 diabetes, previous stroke, which currently is not at goal therapy. This complicates the clinical picture because it Comorbidities: may be exacerbating symptoms, increases the amount and complexity of data to be reviewed, complicates the clinical workup, and increases the risk for morbidity Differential Diagnosis: Acute blood loss anemia, iron deficiency anemia, vitamin deficiency, anemiaof chronic disease, malnutrition In order to fully explore the differential diagnosis the following treatments and tests were ordered: ED Medication Administration from 07/21/2025 1126 to 07/22/2025 0136 Date/Time Order Dose Route Action 07/21/2025 1530 EDT sodium chloride 0.9 % infusion 500 mL 500 mL Intravenous New Bag All Other Orders Ordered Status Ordering Provider 07/21/25 1733 Prepare Leukocyte Reduced RBC Once Preliminary result JONNY ROPER 07/21/25 1544 Until discontinued Comments: Check vital signs immediately prior to transfusion, 15 minutes into transfusion, every hour and after completion of transfusion. Canceled JONNY ROPER 07/21/25 1544 Prepare Leukocyte Reduced RBC: 1 Units Blood - Once Placed in And Linked Group Final result JONNY ROPER 07/21/25 1544 Transfuse RBC Transfusion Placed in And Linked Group Final result JONNY ROPER 07/21/25 1443 XR Chest 1 View One time imaging Final result TAMISHEA Dahl Jung 07/21/25 1444 PT-INR STAT Final result TAMI SHEA Jung 07/21/25 1444 APTT STAT Final result TAMI SHEA Jung 07/21/25 1442 Type and screen Start now Final result TAMI SHEA Jung 07/21/25 1442 Once Canceled TAMI SHEA Jung 07/21/25 1442 BMP STAT Final result TAMI SHEA Jung 07/21/25 1442 CBC w/diff STAT Final result SHEA ENGEL I 07/21/25 1442 Magnesium STAT Final result SHEA ENGEL I 07/21/25 1442 Phosphorus STAT Final result SHEA ENGEL I 07/21/25 1442 Thyroid Stimulating Hormone, Plasma STAT Final result SHEA ENGEL I 07/21/25 1442 Free T4, Plasma STAT Final result SHEA ENGEL I 07/21/25 1442 Hepatitis C Antibody - ED Once Final result SHEA ENGEL I 07/21/25 1442 ED Protocol - HIV 1/2 Antibody/Antigen Screen Once Final result SHEA ENGEL I 07/21/25 1442 ED HIV 1/2 Antibody/Antigen Screen w/Reflex to HIV 1/2 Differentiation PROCEDURE ONCE Final result SHEA ENGEL I ED Course as of 07/22/25 0136 SatJul 21, 2025 154 Upon initial evaluation of the patient they are well-appearing, in no acute distress, hemodynamically stable, saturating well on room air, afebrile. No signs of external bleeding. [NW] 1543 Hemoglobin(!): 6.6 Will transfuse 1u RBC [NW] 1544 MCV(!): 61 Microcytic anemia may be related to iron deficiency especially given her hx of BERNY [NW] 1628 Magnesium: 2.3 [NW] 1628 Creatinine: 0.60 No PENG [NW] 1628 Phosphorus: 4.4 [NW] 1628 TSH: 1.87 [NW] 1628 Free T4: 1.1 [NW] 1745 XR Chest 1 View The cardiac and mediastinal contours are within normal limits. No focal consolidation, pleural effusion or pneumothorax. No acute osseous abnormality. [NW] 2027 Upon re-evaluation of the patient after blood transfusion, she reports no significant change in his symptoms, however she does feel reassured by her laboratory work and the fact that she does not seem to be acutely bleeding at this time. I informed the patient that her anemia is likely due to iron deficiency given her history of iron-deficiency and her laboratory results. I have instructed her that she should start taking her iron supplements again and that she should follow up with her primary care provider regarding her iron deficiency anemia and she expresses understanding. Given the patient does not seem to have any acute blood loss at this time, I will not repeat the patient's hemoglobin as she was appropriately treated with 1 unit of packed red blood cells and I do not feel that the benefit of another lab draw to reoccurrence of I the patient's hemoglobin outweigh the the treatment of further blood draws in the setting of her significant anemia. At this time the patient is stable and appropriate for discharge with outpatient follow up. I had an interactive discussion withthe patient regarding the plan and they express understanding and are agreeable with the plan. At this time the patient is not in need of any further urgent or emergent intervention and is safe and appropriate for discharge. At this time all questions have been answered to the patient's satisfaction and all parties are agreeable to discharge. [NW] ED Course User Index [NW] Jonny Roper MD Clinical Impressions as of 07/22/25 0136 Anemia requiring transfusions Social Determinates of Health Risks (including Economic Stability, Education and level of understanding, Healthcare access and quality and concerning social factors): None identified on this visit Ultimately, this patient was Was discharged Home (Discharge) The encounter diagnosis was Anemia requiring transfusions. . Patient was counseled on the diagnoses. Discharge medications if any are listed below. Listed medications are thought be either curative for listed diagnoses or will help control ongoing symptoms. Patient is requested to follow up with Patient's Primary Care Provider in order to obtain routine follow-up. Instructions on follow up as well as precautions to return to the ER provided verbally by the EM provider, as well as written in patients discharge education packet. ED Prescriptions None Discharge Instructions Follow up with PCP Start taking your iron supplements Return to ED if symptoms worsen, you develop significant bleeding, or if you become concerned for your health Disposition Discharge AVS ([place] Snapshot) - Printed 07/21/2025 Follow-Ups: Schedule an appointment with PcpKyra (Family Medicine) - [1] Past Medical History: Diagnosis Date Anemia, unspecified Chronic anemia Atrial fibrillation (CMS/HCC) 2017 Back pain 07/21/2014 Cerebral infarction, unspecified (CMS/HCC) Stroke, 2017 Chronic sinusitis 10/09/2018 Cognitive impairment 03/28/2021 Colon cancer (CMS/HCC) 2016 Degeneration, intervertebral disc, cervical 03/21/2020 Degeneration, intervertebral disc, lumbar 07/22/2014 Diabetes mellitus (CMS/HCC) After Whipple procedure type 3 Duodenal cancer (CMS/HCC) GERD (gastroesophageal reflux disease) H/O degenerative disc disease 03/09/2014 Headache 12/17/2018 Hemicrania 03/28/2021 Hx of nasal polyp 03/28/2021 Incisional hernia 09/14/2019 Iron deficiency anemia, unspecified Iron deficiency anemia Malignant neoplasm of colon, unspecified (CMS/HCC) Colon cancer Malignant neoplasm of rectosigmoid junction (CMS/HCC) Metastatic colorectal cancer Migraine with aura 02/24/2019 Myofascial pain syndrome 09/24/2019 Nasal obstruction 09/23/2018 Occipital neuralgia 02/24/2019 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 Occlusion of posterior cerebral artery Other specified postprocedural states History of ileostomy Personal history of other diseases of the circulatory system History of atrial fibrillation Personal history of other diseases of the nervous system and sense organs History of partial seizures Personal history of transient ischemic attack (TIA), and cerebral infarction without residual deficits History of stroke PND (post-nasal drip) 09/23/2019 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 CHOLECYSTECTOMY 02/16/2018 HERNIA REPAIR 2018 OTHER SURGICAL HISTORY N/A [facility]pect[facility] SINUS SURGERY N/A Sinus surgery from [facility] SMALL INTESTINE SURGERY 02/16/2018 WHIPPLE PROCEDURE W/ LAPAROSCOPY N/A Whipple procedure 2017 [3] Family History Problem Relation Name Age of Onset Osteoarthritis Mother Emily Juares Rheum arthritis Mother Emily Juares Dementia Mother Emily Juares Other (cva) Father Nadir Juares Stroke Father Nadir Juares No Known Problems Sister No Known Problems Brother No Known Problems Maternal Grandmother No Known Problems Maternal Grandfather No Known Problems Paternal Grandmother No Known Problems Paternal Grandfather Ankylosing spondylitis Sibling Arthritis Other [4] Tobacco Use Smoking status: Never Smokeless tobacco: Never Vaping Use Vaping status: Never Used Substance Use Topics Alcohol use: Never Comment: Alcoholic Drinks/day: No history of alcohol use Drug use: Never Comment: Drug use: No illicit drug use [5] No Known Allergies Jonny Roper MD Resident 07/22/25 0136 Cosigned by Juan Nunes MD at 07/22/2025 12:48 PM EDT Associated attestation - Juan Nunes MD - 07/22/2025 12:48 PM EDT I saw and evaluated the patient with the resident/fellow. I discussed the case with the resident/fellow and agree with the findings and plan as documented. * ED Triage Notes - Evelio Clay, RN - 07/21/2025 1:42 PM EDT Pt states that she is here for a blood transfusion, hgb 6.4 yesterday. documented in this encounter Plan of Treatment Upcoming Encounters Date Type Department Care Team (Late st Contact Info) Description 10/13/2025 10:00 AM EST Procedure Visit [place] [facility] [address] [place] [address] Sarika Frost, RAUL [address] [facility] [address] [place] [address] 02/01/2026 9:00 AM EST Appointment [facility] [address] [place] [address] 02/01/2026 11:30 AM EST Office Visit [facility] [address] [place] [address] Marycruz Kinney, ELECTRONIC [employer]SOLE DISPLAY OPERATOR [address] [facility] [address] [place] [address] Pending Results Name Type Priority Associated Diagnoses Date /Time Prepare Leukocyte Reduced RBC Blood Bank Routine 07/21/2025 5:33 PM EDT documented as of this encounter Procedures Procedure Name Priority Date/Time Associated Diagnosis Comments TRANSFUSE RED BLOOD CELLS Routine 07/21/2025 6:18 PM EDT PREPARE RBC Routine 07/21/2025 5:33 PM EDT PREPARE RBC Routine 07/21/2025 3:45 PM EDT XR CHEST 1 VIEW STAT 07/21/2025 3:37 PM EDT ED HIV 1/2 ANTIBODY/ANTIGEN SCREEN WITH REFLEX TO HIV I/II DIFFERENTIATION STAT 07/21/2025 3:06 PM EDT ED PROTOCOL HIV 1/2 ANTIBODY/ANTIGEN SCREEN W/REFLEX TO HIV 1/2 ANTIBODY DIFFERENTIATION STAT 07/21/2025 3:06 PM EDT HEPATITIS C ANTIBODY - ED W/REFLEX TO HCV QUANT PCR STAT 07/21/2025 3:06 PM EDT APTT STAT 07/21/2025 3:06 PM EDT PROTHROMBIN TIME(PT) / INR STAT 07/21/2025 3:06 PM EDT CBC WITH AUTO DIFFERENTIAL STAT 07/21/2025 3:06 PM EDT TYPE AND SCREEN STAT 07/21/2025 3:06 PM EDT TSH STAT 07/21/2025 3:06 PM EDT FREE T4, PLASMA STAT 07/21/2025 3:06 PM EDT PHOSPHORUS, PLASMA STAT 07/21/2025 3: 06 PM EDT MAGNESIUM, PLASMA STAT 07/21/2025 3:0 6 PM EDT BASIC METABOLIC PANEL, PLASMA STAT 07/21/2025 3:06 PM EDT documented in this encounter Results * Transfuse RBC (07/21/2025 8:43 PM EDT) Juan Nunes MD BLOOD TRANSFUSION ORDERABLES Final Result * Transfuse RBC: 1 Units (07/21/2025 8:43 PM EDT) Juan Nunes MD BLOOD TRANSFUSION ORDERABLES Final Result * Prepare Leukocyte Reduced RBC: 1 Units (07/21/2025 3:45 PM EDT) Product Code [id number] CH BLOO D BANK Dispense Status Transfused BLOOD BANK Blood Expiration Date [id number] BLOOD BANK Unit Number [id number] CH B LOOD BANK Product Blood Type 6200 BLOOD BANK Blood Type A+ BLOOD BANK Crossmatch Compatible BLOOD BANK Other Juan Nunes MD BLOOD BANK PRODUCT ORDERABLES Final Result Performing Organization Address City/State/[facility] de Phone Number BLOOD BANK [address] [place] [address], * XR Chest 1 View (07/21/2025 3:37 PM EDT) Anatomical Region Laterality Modality Chest Digital Radiogra phy Impressions 07/21/2025 5:18 PM EDT No acute focal airspace consolidation. CRITICAL RESULT: No. COMMUNICATION: Per this written report. By electronically signing this report, I, the attending physician, attest that I have personally reviewed the images/data for the above examination(s) and agree with the final edited report. Drafted by Raf Kelly MD on 07/21/2025 4:18 PM Final report signed by Antonio Pedraza MD on 07/21/2025 5:18 PM Narrative 07/21/2025 5:18 PM EDT CLINICAL INDICATION: low hemaglobin, lethargy TECHNIQUE: XR CHEST 1 VIEW COMPARISON: CT chest 02/02/2025. Chest radiograph 09/24/2019. FINDINGS: The cardiac and mediastinal contours are within normal limits. No focal consolidation, pleural effusion or pneumothorax. No acute osseous abnormality. Procedure Note Antonio Pedraza MD - 07/21/2025 CLINICAL INDICATION: low hemaglobin, lethargy TECHNIQUE: XR CHEST 1 VIEW COMPARISON: CT chest 02/02/2025. Chest radiograph 09/24/2019. FINDINGS: The cardiac and mediastinal contours are within normal limits. No focalconsolidation, pleural effusion or pneumothorax. No acute osseousabnormality. IMPRESSION: No acute focal airspace consolidation. CRITICAL RESULT: No. COMMUNICATION: Per this written report. By electronically signing this report, I, the attending physician, ivan I have personally reviewed the images/data for the aboveexamination(s) and agree with the final edited report. Drafted by Raf Kelly MD on 07/21/2025 4:18 PM Final report signed by Antonio Pedraza MD on 07/21/2025 5:18 PM Shea Engel MD IMG XR PROCEDURES Final Re sult * (ABNORMAL) APTT (07/21/2025 3:06 PM EDT) aPTT 39(H) 25 - 35 sec 07/21/2025 3:39 PM EDT [facility] Blood Venous blood specimen / Unknown Venipuncture / Unknown 07/21/2025 3:06 PM EDT 07/21/2025 3:22 PM EDT Shea Engel MD LAB BLOOD ORDERABLES Final Result [facility] [address] [place] [address] * (ABNORMAL) PT-INR (07/21/2025 3:06 PM EDT) Prothrombin Time 15.7(H) 12.0 - 14.3 sec 07/21/2025 3:38 PM EDT [facility] INR 1.3(H) 0.9 - 1.1 07/21/2025 3:38 PM EDT [facility] Blood Venous blood specimen / Unknown Venipuncture / Unknown 07/21/2025 3:06 PM EDT 07/21/2025 3:22 PM EDT Narrative [facility] - 07/21/2025 3:38 PM EDT OPTIMAL INR RANGES FOR PATIENT ON ORAL ANTICOAGULANT THERAPY Prevention of venous thromboembolism INR 2.0 to 3.0 In patients with heart disease: Atrial fibrillation INR 2.0 to 3.0 Valvular heart disease INR 2.0 to 3.0 Tissue heart valves INR 2.0 to 3.0 Mechanical prosthetic valves INR 2.5 to 3.5 Prevention of recurrent IA INR 2.5 to 3.5 Shea Engel MD LAB BLOOD ORDERABLES Final Result [facility] [address] [place] [address] * ED HIV 1/2 Antibody/Antigen Screen w/Reflex to HIV 1/2 Differentiation (07/21/2025 3:06 PM EDT) [facility] HIV 1 & 2 Antibody/Antigen Screen Non Reactive Non Reactive 07/21/2025 4:33 PM EDT [facility] Comment:Screening for HIV 1 & 2 antibodies, and P24 antigen is NONREACTIVE. No confirmatory testing is required. Blood Venous blood specimen / Unknown Venipuncture / Unknown 07/21/2025 3:06 PM EDT 07/21/2025 4:33 PM EDT Result [facility] Shea Engel MD LAB BLOOD ORDERABLES Final Result Performing Organization Address [facility] Co de Phone Number [facility] [address] [place] [address] * Hepatitis C Antibody - ED (07/21/2025 3:06 PM EDT) [facility] Hepatitis C Antibody Negative Negative 07/21/2025 4:28 PM EDT [facility] Blood Venous blood specimen / Unknown Venipuncture / Unknown 07/21/2025 3:06 PM EDT 07/21/2025 3:47 PM EDT Result [facility] Shea Engel MD LAB BLOOD ORDERABLES Final Result Performing Organization Address City/[facility] Co de Phone Number [facility] [address] [place] [address] * Free T4, Plasma (07/21/2025 3:06 PM EDT) Free T4, Plasma 1.1 0.8 - 1.7 ng/dL 07/21/2025 3:56 PM EDT [facility] Blood Venous blood specimen / Unknown Venipuncture / Unknown 07/21/2025 3:06 PM EDT 07/21/2025 3:22 PM EDT Shea Engel MD LAB BLOOD ORDERABLES Final Result [facility] [address] [place] [address] * Thyroid Stimulating Hormone, Plasma (07/21/2025 3:06 PM EDT) Thyroid Stimulating Hormone, Plasma 1.87 0.40 - 4.20 uIU/mL 07/21/2025 3:[address] [facility] Blood Venous blood specimen / Unknown Venipuncture / Unknown 07/21/2025 3:06 PM EDT 07/21/2025 3:22 PM EDT Result [facility] Shea Engel MD LAB BLOOD ORDERABLES Final Result Performing Organization Address City/[facility]/[place] [address] * Phosphorus (07/21/2025 3:06 PM EDT) Phosphorus, Plasma 4.4 2.5 - 4.5 mg/dL 07/21/2025 3:56 PM EDT [facility] Blood Venous blood specimen / Unknown Venipuncture / Unknown 07/21/2025 3:06 PM EDT 07/21/2025 3:22 PM EDT Result [facility] Shea Engel MD LAB BLOOD ORDERABLES Final Result Performing Organization Address City/[facility]/ZIP Co de Phone Number [facility] [address] [place] [address] * Magnesium (07/21/2025 3:06 PM EDT) Pathologist [facility] Magnesium, Plasma 2.3 1.9 - 2.4 mg/dL 07/21/2025 3:56 PM EDT [facility] Blood Venous blood specimen / Unknown Venipuncture / Unknown 07/21/2025 3:06 PM EDT 07/21/2025 3:22 PM EDT Shea Engel MD LAB BLOOD ORDERABLES Final Result [facility] [address] [place] [address] * (ABNORMAL) CBC w/diff (07/21/2025 3:06 PM EDT) [facility] WBC Count 8.00 3.70 - 10.30 10*3/uL LAB HEMATOLOGY METHOD 07/21/2025 3:33 PM EDT [facility] RBC Count 4.18 3.90 - 5.20 10*6/uL LAB HEMATOLOGY METHOD 07/21/2025 3:33 PM EDT [facility] HGB 6.6(L) 11.2 - 15.7 g/dL LAB HEMATOLOGY METHOD 07/21/2025 3:33 PM EDT [facility] HCT 25.3(L) 34.0 - 45.0 % LAB HEMATOLOGY METHOD 07/21/2025 3:33 PM EDT [facility] Platelet Count 418(H) 155 - 369 10*3/uL LAB HEMATOLOGY METHOD 07/21/2025 3:33 PM EDT [facility] MCV 61(L) 79 - 98 fL LAB HEMATOLOGY METHOD 07/21/2025 3:33 PM EDT [facility] MCH 15.8(L) 26.0 - 32.0 pg LAB HEMATOLOGY METHOD 07/21/2025 3:33 PM EDT [facility] MCHC 26.1(L) 30.7 - 35.5 g/dL LAB HEMATOLOGY METHOD 07/21/2025 3:33 PM EDT [facility] RDW 21.8(H) 11.5 - 14.5 % LAB HEMATOLOGY METHOD 07/21/2025 3:33 PM EDT [facility] MPV LAB HEMATOLOGY METHOD 07/21/2025 3:33 PM EDT [facility] Comment:Not Measured nRBC 0.0 <=0.0 per 100 WBCs LAB HEMATOLOGY METHOD 07/21/2025 3:33 PM EDT [facility] Differential Type Automated LAB HEMATOLOGY METHOD 07/21/2025 3:33 PM EDT [facility] Neutrophils % 69 % LAB HEMATOLOGY METHOD 07/21/2025 3:33 PM EDT [facility] Lymphocytes % 20 % LAB HEMATOLOGY METHOD 07/21/2025 3:33 PM EDT [facility] Monocytes % 8 % LAB HEMATOLOGY METHOD 07/21/2025 3:33 PM EDT [facility] Eosinophils % 1 % LAB HEMATOLOGY METHOD 07/21/2025 3:33 PM EDT [facility] Basophils % 1 % LAB HEMATOLOGY METHOD 07/21/2025 3:33 PM EDT [facility] Immature Granulocytes % 1 % LAB HEMATOLOGY METHOD 07/21/2025 3:33 PM EDT [facility] Neutrophils Absolute 5.55 1.60 - 6.10 10*3/uL LAB HEMATOLOGY METHOD 07/21/2025 3:33 PM EDT [facility] Lymphocytes Absolute 1.63 1.20 - 3.90 10*3/uL LAB HEMATOLOGY METHOD 07/21/2025 3:33 PM EDT [facility] Monocytes Absolute 0.62 0.30 - 0.90 10*3/uL LAB HEMATOLOGY METHOD 07/21/2025 3:33 PM EDT [facility] Eosinophils Absolute 0.10 0.00 - 0.50 10*3/uL LAB HEMATOLOGY METHOD 07/21/2025 3:33 PM EDT [facility] Basophils Absolute 0.05 0.00 - 0.10 10*3/uL LAB HEMATOLOGY METHOD 07/21/2025 3:33 PM EDT [facility] Immature Granulocytes Absolute 0.05 0.00 - 0.06 10*3/uL LAB HEMATOLOGY METHOD 07/21/2025 3:33 PM EDT [facility] Blood Venous blood specimen / Unknown Venipuncture / Unknown 07/21/2025 3:06 PM EDT 07/21/2025 3:22 PM EDT [facility] - 07/21/2025 3:33 PM EDT Therapeutic decision making should be based on absolute values, rather than percentages. us Shea Engel MD LAB BLOOD ORDERABLES Final Result [facility] [address] [place] [address] * (ABNORMAL) BMP (07/21/2025 3:06 PM EDT) Glucose, Plasma 123(H) 74 - 99 mg/dL 07/21/2025 3:56 PM EDT [facility] BUN, Plasma 17 7 - 21 mg/dL 07/21/2025 3:56 PM EDT [facility] Creatinine, Plasma 0.60 0.60 - 1.10 mg/dL 07/21/2025 3:56 PM EDT [facility] BUN/Creatinine Ratio 28 07/21/2025 3:56 PM EDT [facility] Sodium, Plasma 141 136 - 145 mmol/L 07/21/2025 3:56 PM EDT [facility] Potassium, Plasma 3.9 3.6 - 4.9 mmol/L 07/21/2025 3:56 PM EDT [facility] Chloride, Plasma 108(H) 97 - 107 mmol/L 07/21/2025 3:56 PM EDT [facility] CO2, Plasma 23 22 - 29 mmol/L 07/21/2025 3:56 PM EDT [facility] Anion Gap 10 6 - 16 mmol/L 07/21/2025 3:56 PM EDT [facility] Total Calcium, Plasma 9.0 8.9 - 10.2 mg/dL 07/21/2025 3:56 PM EDT [facility] eGFRcr 103.5 mL/min/1.7 3m*2 07/21/2025 3:56 PM EDT [facility] Comment:Reported eGFRcr in m L/min/1.73m2 is based the CKD-EPI 2020 equation that does not use a race coefficient. Blood Venous blood specimen / Unknown Venipuncture / Unknown 07/21/2025 3:06 PM EDT 07/21/2025 3:22 PM EDT Shea Engel MD LAB BLOOD ORDERABLES Final Result Performing Organization Address City/[facility]/ZIP Co de Phone Number [facility] [address] [place] [address] * Type and screen (07/21/2025 3:06 PM EDT) ABO/Rh A Positive 07/21/2025 2:42 PM EDT [facility] Antibody Screen Negative 07/21/2025 2:42 PM EDT [facility] Specimen Expiration 07/24/2025 23:59 07/21/2025 2:42 PM EDT [facility] Blood Venous blood specimen / Unknown Venipuncture / Unknown 07/21/2025 3:06 PM EDT 07/21/2025 3:15 PM EDT Shea Engel MD LAB BLOOD BANK TEST ORDERA BLES Final Result Performing Organization Address [facility] de Phone Number BLOOD BANK [address] [place] [address] documented in this encounter Visit Diagnoses Diagnosis Anemia requiring transfusions- Primary documented in this encounter Administered Medications Inactive Administered Medications - up to 3 most recent administrations Medication Order MAR Action Action Date Dose Rate Site sodium chloride 0.9 % infusion 500 mL 500 mL, Intravenous, Once, 1 dose, On Sat07/21/25 at 1450, STAT New Bag 07/21/2025 3:30 PM EDT 500 mL documented in this encounter Active and Recently Administered Medications Times are shown in EDT. Scheduled Medication Order 07/19/2025 07/20/2025 07/21/2025 sodium chloride 0.9 % infusion 500 mL (COMPLETED) 500 mL, Intravenous, Once, 1 dose, On Sat07/21/25 at 1450, STAT 1530 (New Bag - Prov ider: Tiffanie Oro RN) documented in this encounter Additional Health Concerns Assessment Noted Time PHQ-9 Depression Total Score: 0 02/03/20 11:34 AM EST A fall risk assessment has been complete d for the patient 07/07/2025 9:57 AM EDT A Body Mass Index follow-up plan has been documented for the patient 07/07/2025 11:29 AM EDT documented as of this encounter Care Teams Supervisor Paste Plant Relationship Specialty Start Date End Date Pcp, No [address] [place] [address] PCP - General Family Medicine 01/15/24 Sarika Frost PA [address] [address] Physician Cherry Sorter Neurology 06/21/21 Andrea Mullen MD [address] [address] Resident Neurology 07/16/22 Peri Martin MBBS [address] [place] [address] Resident Neurology 01/21/23 documented as of this encounter
--- OUTSIDE RECORDS SUMMARY | 2025-08-06 15:26 | XMS_ITS | Encounter Summary ---
Author Organization Healthcare Address [address] [place] [address] Care Team Providers Care Joggle Press Operator Name Role Phone Sarika Frost Unavailable [phone] Andrea Mullen MD Unavailable Unavail able Peri aMrtin Unavailable [phone] Pcp, No Primary Care Provider Unavailabl e Encounter Details Date Type Department Care Team (Latest Contact Info) Description 07/07/2025 Travel Social History Tobacco Use Types Packs/Day Years [...] on file documented as of this encounter Plan of Treatment Upcoming Encounters Date Type Department Care Team (Late st Contact Info) Description 10/13/2025 10:00 AM EST Procedure Visit [place] [facility] [address] [place] [address] Sarika Frost PA [address] [place] [address] 02/01/2026 9:00 AM EST Appointment [facility] [address] [place] [phone] 02/01/2026 11:30 AM EST Office Visit [facility] [address] [place] [phone] Marycruz Kinney, DIRECTOR OF TRANSPORTATION [address] [place] [phone] documented as of this encounter Visit Diagnoses Not on filedocumented in this encounter Additional Health Concerns Assessment Noted Time PHQ-9 Depression Total Score: 0 02/03/20 25 11:34 AM EST A fall risk assessment has been complete d for the patient 07/07/2025 9:57 AM EDT A Body Mass Index follow-up plan has been documented for the patient 07/07/2025 11:29 AM EDT documented as of this encounter Care Teams Joggle Press Operator Relationship Specialty Start Date End Date Pcp, No [address] [place] [address] PCP - General Family Medicine 01/15/24 Sarika Frost PA [address] [facility] [address] [place] [address] Physician Sheet Music Salesperson Neurology 06/21/21 Andrea Mullen MD [id number] [place] [address] Resident Neurology 07/16/22 Peri Martin MBBS [address] [place] [address] Resident Neurology 01/21/23 documented as of this encounter
--- OUTSIDE RECORDS SUMMARY | 2025-08-06 15:26 | XMS_ITS | Encounter Summary ---
Author Organization Healthcare Address [address] [place] [address] Care Team Providers Care Bus And Sys Integration Senior Manager Name Role Phone Sarika Frost Unavailable [phone] Andrea Mullen MD Unavailable Unavail able Peri Martin Unavailable [phone] Pcp, No Primary Care Provider Unavailabl e Encounter Details Date Type Department Care Team (Latest Contact Info) Description 07/04/2025 Travel Social History Tobacco Use Types Packs/Day [...] [address] [place] [address] Sarika Frost PA [address] [place] [address] 02/01/2026 9:00 AM EST Appointment [facility] [address] [place] [address] 02/01/2026 11:30 AM EST Office [facility] [address] [place] [phone] Marycruz Kinney, PROTECTOR PLATE ATTACHER [address] [place] [address] documented as of this encounter Visit Diagnoses Not on filedocumented in this encounter Additional Health Concerns Assessment Noted Time PHQ-9 Depression Total Score: 0 02/03/20 11:34 AM EST A fall risk assessment has been complete d for the patient 02/02/2025 11:34 AM EST A Body Mass Index follow-up plan has been documented for the patient 02/02/2025 2:20 PM EST documented as of this encounter Care Teams Bus And Sys Integration Senior Manager Relationship Specialty Start Date End Date Pcp, No [address] [place] [address] PCP - General Family Medicine 01/15/24 Sarika Frost PA [address] [place] [address] Physician Form Builder Helper Neurology 06/21/21 Andrea Mullen MD [address] [address] Resident Neurology 07/16/22 Peri Martin MBBS [address] [place] [address] Resident Neurology 01/21/23 documented as of this encounter
--- OUTSIDE RECORDS SUMMARY | 2025-08-06 15:27 | XMS_ITS | Clinical Summary ---
Author Organization [facility] Address [address] [place] [address] Care Team Providers Care Manager Agriculture Name Role Phone Maryse Samuel Primary Care Provider Allergies No known active allergies Medications XARELTO 20 MG tablet Take 1 tablet by mouth Daily. Active CREON 24456 units capsule delayed-release particles capsule Take 1 capsule by mouth Daily With Breakfast, Lunch & Dinner. Active omeprazole (priLOSEC) 40 MG capsule Take 1 capsule by mouth Daily. Active oxyCODONE (ROXICODONE) 5 MG immediate release tablet Take 1 tablet by mouth Every 8 (Eight) Hours As Needed. for pain Active Vascepa 1 g capsule capsule Active tiZANidine (ZANAFLEX) 4 MG tablet Active metoprolol succinate XL (TOPROL-XL) 25 MG 24 hr tablet Active ondansetron ODT (ZOFRAN-ODT) 4 MG disintegrating tablet DISSOLVE ONE TABLET in mouht EVERY 8 HOURS NEEDED FOR NAUSEA AND VOMITING Active colchicine 0.6 MG tablet Active desloratadine (CLARINEX) 5 MG tablet Take 1 tablet by mouth Daily. Active levocetirizine (XYZAL) 5 MG tablet Active Linzess 290 MCG capsule capsule Active Ozempic, 0.25 or 0.5 MG/DOSE, 2 MG/3ML solution pen-injector INJECT 0.5MG UNDER THE SKIN ONE TIME WEEKLY Active sulfaSALAzine (AZULFIDINE ENTABS) 500 MG EC tablet Take 1 tablet by mouth 3 (Three) Times a Day. Active cyanocobalamin ([employer] Vitamin B-12) 1000 MCG tabletIndications :Mild cognitive impairment Take 1 tablet by mouth Daily. 100 tablet 2 025 2025 Active Additional Information Patient not taking.Reported on 07/20/2025 memantine (NAMENDA) 10 MG tabletIndications :Mild cognitive impairment Take 1 tablet by mouth 2 (Two) Times a Day for 90 days. 60 tablet 2 Active rosuvastatin (Crestor) 5 MG tabletIndications :History of CVA with residual deficit Take 1 tablet by mouth Every Night. 30 tablet 11 2025 Active zonisamide (ZONEGRAN) 100 MG capsuleIndication s:History of seizures Take 1 capsule by mouth Every Night for 90 days. 30 capsule 2 025 2024 Active rimegepant sulfate ODT (Nurtec) [address] 1 tablet under the tongue Daily As Needed (For migraine. Max 75 mg per 24 hours.). 16 tablet Active gabapentin (NEURONTIN) 800 MG tablet Take 1 tablet by mouth 3 (Three) Times a Day. She states she is taking as needed. Active rimegepant sulfate ODT (Nurtec) 75 MG disintegrating tabletIndications :Episodic migraine Place 1 tablet under the tongue As Needed (Migraines). 2 tablet Active indomethacin (INDOCIN) 25 MG capsule 2024 Discontinued(P atient Reported Not Taking) tretinoin (RETIN-A) 0.1 % cream 2024 Discontinued(P atient Reported Not Taking) gabapentin (NEURONTIN) 800 MG tablet 2024 Discontinued(D uplicate order) ubrogepant (Ubrelvy) 100 MG tablet Take 1 tablet by mouth Daily As Needed (For migraine. May repeat after 2 hours if needed. Max 200 mg per 24 hours.). 16 tablet 11 2024 Discontinued rimegepant sulfate ODT (Nurtec) [address] 1 tablet under the tongue Daily As Needed (For migraine. Max 75 mg per 24 hours.). 16 tablet 11 06/15/20 25 10:53 AM EDT 025 2024 Discontinued(R eorder) escitalopram (LEXAPRO) 10 MG tablet Take 1 tablet by mouth Daily. 025 2024 Discontinued(P atient Reported Not Taking) Hospital, Clinic, or Other Facility Administered Medication Ordered Dose Route Frequency Start Date End Date Status OnabotulinumtoxinA 200 UnitsIndications:Intract able chronic migraine without aura and without status migrainosus 200 Units IM Every 3 Months 03/14/2021 Ac tive Active Problems Problem Noted Date Diagnosed Date Chronic lower back pain 04/12/2025 Neck pain, chronic 04/12/2025 Right sided sciatica 04/12/2025 Degenerative joint disease of cervical spine 11/2025 Hx of malignant neoplasm of colon 04/12/2025 History of gout 04/12/2025 Left against medical advice 04/12/2025 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 03/22/2025 Homonymous hemianopia, left 06/10/2024 Depression 03/09/2024 Carotid artery stenosis 02/18/2024 Fatigue 02/18/2024 Pain in right toe(s) 02/18/2024 Sacroiliitis 02/18/2024 Rosacea 02/18/2024 Right hand pain 02/18/2024 Puncture wound 02/18/2024 Pre-diabetes 02/18/2024 Large liver 02/18/2024 History of Whipple procedure 02/18/2024 Encounter for removal of skin lesion 02/18/2024 Edema 02/18/2024 Dizziness 02/18/2024 Constipation 02/18/2024 Cervical muscle strain 02/18/2024 Abdominal wall contusion 02/18/2024 Hemolytic anemia 02/18/2024 PFO (patent foramen ovale) 02/11/2024 Overview (12/14/2024): Last Assessment & Plan: -Follows with [facility] and they are planning closure soon Anticardiolipin antibody positive 01/20/2024 Chronic pain disorder 01/20/2024 Overview (12/14/2024): -Pain generators: L hip, lumbar back w/ left sciatica, trigger points right shoulder/trap -Stopped opioids 12/2023 from outside provider, low dose trial started 05/2024 w/ CFM -CSA signed 05/19/24 -UDS 05/19/24 -Pt declined repeat MRI lumbar/c-spine to eval for interventional therapies, last c-spine 2020 Current Regimen: -Cymbalta 40 mg -Gabapentin 800 mg TID -Tizanidine 4 mg mostly at night, helps more w/ cramps than chronic pain -Sulfasalazine somewhat helpful Previously tried: -Avoiding NSAIDs w/ Xarelto use and gastric surgery hx -Oxycodone 10 mg up to QID -Robaxin -Flexeril -Acupuncture Personal history of transien t ischemic attack (TIA), and cerebral infarction without residual deficits 01/20/2024 Overview (12/14/2024): -[employer]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 -Residual blind spot, word finding difficulties -Follows with [facility] -Positive Anticardiolipin Ab Focal seizure 01/20/2024 Overview (04/12/2025): -Follows with [facility] Last Assessment & Plan: -Continue Zonisamide, gabapentin (for pain) per Neuro recs Abnormal glucose 01/20/2024 Overview (04/12/2025): Last Assessment & Plan: -Both A1c and fructosamine at goal after stopping GLP-1 d/t insurance -Started on metformin by Cardiology, may d/c especially if causing diarrhea Anemia 01/20/2024 Overview (04/12/2025): Last Assessment & Plan: -Likely r/t surgical hx w/ Whipple and poor absorption -Will defer decision on scopes to her cancer team -Would anticipate marginal response to PO Fe, so ultimately may need infusions (offered but she declined d/t travel distance right now) Hyperlipidemia 01/15/2024 Paroxysmal atrial fibrillation 01/15/2024 Overview (12/14/2024): -Follows with [facility] Last Assessment & Plan: -Continue BB, Xarelto -Echo per [facility] Type 2 diabetes mellitus without complications 0 01/15/2024 Vasovagal near-syncope 09/26/2023 Calculus of kidney 02/19/2023 HTN (hypertension) 02/06/2023 Myocardial infarction 02/06/2023 Sleep apnea 02/06/2023 Chronic obstructive lung disease 02/06/2023 Localization-related (focal) (partial) symptomatic epilepsy and epileptic syndromes with simple partial seizures, not intractable, without status epilepticus 01/21/2023 Abdominal wall pain 05/17/2022 Syncope 02/02/2022 Cognitive impairment 03/28/2021 Allergic rhinitis 03/28/2021 Chronic migraine without aur a without status migrainosus, not intractable 02/13/2021 Assessment & Plan (02/13/2021 10:27 AM EDT): Greater than 15 FONTANA a month, lasting over 4 - 6 hours. Moderate to severe intensity, present for over 6 months. 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 Headache 12/17/2018 Occipital neuralgia 12/04/2018 Migraine with aura 12/04/2018 PND (post-nasal drip) 09/23/2018 Nasal sinus polyp 09/23/2018 Malignant neoplasm of colon 07/12/2018 Overview (04/12/2025): -2017: 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 -Follows with Heme/Onc Myofascial muscle pain 06/17/2014 Back pain 03/09/2014 Encounters Date Type Department Care Team Description 07/20/2025 9:50 AM EDT Lab [facility] AT [address] [place] [id number] History of CVA with residual deficit; Screening for viral disease; Screening for human immunodeficiency virus; Abnormal weight loss 07/20/2025 9:00 AM EDT Office Visit [facility] [address] [facility] [address] [place] [address] Marci Kaba APRN Mild cognitive impairment (Primary Dx); Complex partial seizures; History of CVA with residual deficit; Episodic migraine 07/20/2025 Travel 07/13/2025 Telephone [facility] [address] [address] [place] [address] Marci Kaba APRN Med Refill 06/22/2025 Telephone [facility] [address] [facility] [address] [place] [address] Marci Kaba APRN [facility] 05/25/2025 Telephone [facility] [address] [facility] [address] [place] [address] Alexia Reyes, RN 05/21/2025 Refill [facility] [address] [facility] [address] [place] [address] Marci Kaba APRN History of seizures from Last 3 Months Family History Medical History Relation Name Comments Hypertension Father Dementia Mother Emily Juares Relation Name Status Comments Father Mother Emily Juares Social History Tobacco Use Types Packs/Day Years [...] Orientation Straight 02/07/2025 12 :20 AM EST Last Filed Vital Signs Vital Sign Reading Time Taken Comments Blood Pressure 98/60 07/20/2025 8:42 AM EDT Pulse 73 07/20/2025 8:42 AM EDT Temperature 35.8 C (96.4 F) 05/06/2020 1:45 PM EDT Respiratory Rate 16 05/06/2020 3:00 PM EDT Oxygen Saturation 96% 07/20/2025 8:42 AM EDT Inhaled Oxygen Concentration - - Weight 50.8 kg (112 lb) 07/20/2025 8:42 AM EDT Height 167.6 cm (5' 5.98 ) 07/20/2025 8:42 AM ED T Body Mass Index 18.09 07/20/2025 8:42 AM EDT Plan of Treatment Upcoming Encounters Date Type Department Care Team (Late st Contact Info) Description 10/21/2025 10:30 AM EST Office Visit [facility] [address] [address] [place] [id number] Marci Kaba, OPERATIONS SUPPORT SPECIALIST [address] [place] [address] Health Maintenance Due Date Last Done Comments Annual Gynecologic Pelvic an d Breast Exam 1966 DIABETIC EYE EXAM 1976 DIABETIC FOOT EXAM 1976 URINE MICROALBUMIN-CREATININ E RATIO (uACR) 1976 Hepatitis B (1 of 3 - 19+ 3- dose series) 1985 PAP SMEAR 1987 ZOSTER VACCINE (1 of 2) 2016 COVID-19 Vaccine (2023-2 5 season) 2024 08/24/2021, 07/28/2021 ANNUAL WELLNESS VISIT 05/18/2025 05/18/2024 MAMMOGRAM 05/23/2025 05/23/2023, 05/03, 05/08/2022, Additional history exists INFLUENZA VACCINE 09/01/2025 08/26/2024, , 08/16/2022, Additional history exists HEMOGLOBIN A1C 01/20/2026 07/20/2025, 01/02, 01/15/2024 TDAP/TD VACCINES (2 - Td or Tdap) 06/20/2026 016 LIPID PANEL 07/20/2026 07/20/2025, 01/02, 01/15/2024 COLONOSCOPY Discontinued 07/15/2023, 07/02, 01/25/2020, Additional history exists COLORECTAL CANCER SCREENING Discontinued Pneumococcal Vaccine 50+ Completed 024, 09/15/2018, 06/20/2016 HEPATITIS C SCREENING Completed 07/20/2025 COLOGUARD Discontinued COLON CANCER SCREENING 5 YEA R SIGMOIDOSCOPY Discontinued CT COLONOGRAPHY Discontinued FECAL OCCULT BLOOD TEST Discontinued FIT Testing (1 year) Discontinued Goals Goal Patient Goal Type Associated Problems [...] on Progress Toward Above Goals 03/23/2025 Initiate [facility] Procedures Procedure Name Priority Date/Time Associated Diagnosis Comments CBC (NO DIFF) Routine 07/20/2025 9:42 AM EDT Abnormal weight loss COMPREHENSIVE METABOLIC PANEL Routine 07/20/2025 9:42 AM EDT Abnormal weight loss TSH Routine 07/20/2025 9:42 AM EDT Abnormal weight loss FOLATE Routine 07/20/2025 9:42 AM EDT Abnormal weight loss VITAMIN B12 Routine 07/20/2025 9:42 AM EDT Abnormal weight loss IRON PROFILE + FERRITIN Routine 07/20/2025 9:42 AM EDT Abnormal weight loss HEMOGLOBIN A1C Routine 07/20/2025 9:42 AM EDT Abnormal weight loss LIPASE Routine 07/20/2025 9:42 AM EDT Abnormal weight loss AMYLASE Routine 07/20/2025 9:42 AM EDT Abnormal weight loss VITAMIN D,25-HYDROXY Routine 07/20/2025 9:42 AM EDT Abnormal weight loss NIACIN (VITAMIN B3) Routine 07/20/2025 9 :42 AM EDT Abnormal weight loss HIV-1/O/2 ANTIGEN/ANTIBODY Routine 07/20/2025 9:42 AM EDT Screening for human immunodeficiency virus HEPATITIS C ANTIBODY Routine 07/20/2025 9:42 AM EDT Screening for viral disease LIPID PANEL Routine 07/20/2025 9:42 AM EDT History of CVA with residual deficit from Last 3 Months Results * (ABNORMAL) Iron Profile + Ferritin (07/20/2025 9:42 AM EDT) [facility] Signature Iron 13(L) 37 - 145 mcg/dL 07/20/2025 8:09 PM EDT [facility] Iron Saturation (TSAT) 3(L) 20 - 50 % 07/20/2025 8:09 PM EDT [facility] Transferrin 338 200 - 360 mg/dL 07/20/2025 8:09 PM EDT [facility] TIBC 504 298 - 536 mcg/dL 07/20/2025 8:09 PM EDT [facility] Ferritin 4.06(L) 13.00 - 150.00 ng/mL 07/20/2025 8:09 PM EDT [facility] Blood Venipuncture / Unknown 07/20/2025 9:42 AM EDT 07/20/2025 9:45 AM EDT [facility] - 07/20/2025 8:09 PM EDT Results may be falsely decreased if patient taking Biotin. Maryse CARTER LAB BLOOD ORDERABLES Final Resul t Performing Organization Address [facility] Co de Phone Number [facility]
[address] [place] [address], * HIV-1 / O / 2 Ag / Antibody 4th Generation (07/20/2025 9:42 AM EDT) [facility] HIV DUO Non-Reacti ve Non-Reacti ve 07/20/2025 8:09 PM EDT [facility] Blood Venipuncture / Unknown 07/20/2025 9:42 AM EDT 07/20/2025 9:45 AM EDT [facility] - 07/20/2025 8:09 PM EDT The HIV antibody/antigen combo assay is a qualitative assay for HIV that includes the p24 antigen as well as antibodies to HIV types 1 and 2. This test is intended to be used as a screening assay in the diagnosis of HIV infection in patients over the age of 2. Maryse CARTER LAB BLOOD ORDERABLES Final Resul t Performing Organization Address [facility] Co de Phone Number [facility]
[address] [place] [address], * Hepatitis C Antibody (07/20/2025 9:42 AM EDT) Pathologist [facility] [place] Hepatitis C Ab Non-Reacti ve Non-Reacti ve 07/20/2025 8:09 PM EDT [facility] Blood Venipuncture / Unknown 07/20/2025 9:42 AM EDT 07/20/2025 9:45 AM EDT Maryse CARTER LAB BLOOD ORDERABLES Final Resul t [facility]
[address] [place] [address], * Niacin (Vitamin B3) (07/20/2025 9:42 AM EDT) Nicotinamide 12.7 5.2 - 72.1 ng/mL 07/30/2025 12:07 AM EDT [facility] Nicotinic Acid <5.0 0.0 - 5.0 ng/mL 07/30/2025 12:07 AM EDT [facility] Blood Venipuncture / Unknown 07/20/2025 9:42 AM EDT 07/20/2025 9:45 AM EDT Narrative [facility] - 07/30/2025 12:07 AM EDT Test(s) [id number]; [id number] Acid was developed and its performance characteristics determined by [facility]. It has not been cleared or approved by the Food and Drug Administration. Performed at: [address] [id number] Phlebotomy Technician: Jeff Pizano MD, Phone: [phone] Maryse CARTER LAB BLOOD ORDERABLES Final Resul t [facility] [address] [place] [address], [place] [phone] * Vitamin D 25 Hydroxy (07/20/2025 9:42 AM EDT) 25 Hydroxy, Vitamin D 35.6 30.0 - 100.0 ng/ml 07/20/2025 8:15 PM EDT [facility] Blood Venipuncture / Unknown 07/20/2025 9:42 AM EDT 07/20/2025 9:45 AM EDT Narrative [facility] - 07/20/2025 8:15 PM EDT Reference Range for Total Vitamin D 25(OH) Deficiency <20.0 ng/mL Insufficiency 21-29 ng/mL Sufficiency 30-100 ng/mL Toxicity >100 ng/ml us Maryse CARTER LAB BLOOD ORDERABLES Final Resul t [facility]
[address] [place] [address], * (ABNORMAL) CBC (No Diff) (07/20/2025 9:42 AM EDT) WBC 9.26 3.40 - 10.80 10*3/mm3 07/20/2025 7:32 PM EDT [facility] RBC 4.07 3.77 - 5.28 10*6/mm3 07/20/2025 7:32 PM EDT [facility] Hemoglobin 6.4(LL) 12.0 - 15.9 g/dL 07/20/2025 7:32 PM EDT [facility] Hematocrit 25.6(L) 34.0 - 46.6 % 07/20/2025 7:32 PM EDT [facility] MCV 62.9(L) 79.0 - 97.0 fL 07/20/2025 7:32 PM EDT [facility] MCH 15.7(L) 26.6 - 33.0 pg 07/20/2025 7:32 PM EDT [facility] MCHC 25.0(L) 31.5 - 35.7 g/dL 07/20/2025 7:32 PM EDT [facility] RDW 19.0(H) 12.3 - 15.4 % 07/20/2025 7:32 PM EDT [facility] RDW-SD 40.4 37.0 - 54.0 fl 07/20/2025 7:32 PM EDT [facility] MPV 9.5 6.0 - 12.0 fL 07/20/2025 7:32 PM EDT [facility] Platelets 425 140 - 450 10*3/mm3 07/20/2025 7:32 PM EDT [facility] Blood Venipuncture / Unknown 07/20/2025 9:42 AM EDT 07/20/2025 9:45 AM EDT Maryse Stone PA LAB BLOOD ORDERABLES Final Resul t Performing Organization Address City/[facility] de Phone Number [facility]
[address] [place] [address], [place] [phone] * TSH (07/20/2025 9:42 AM EDT) TSH 1.620 0.270 - 4.200 uIU/mL 07/20/2025 8:09 PM EDT [facility] Blood Venipuncture / Unknown 07/20/2025 9:42 AM EDT 07/20/2025 9:45 AM EDT Maryse Stone PA LAB BLOOD ORDERABLES Final Resul t Performing Organization Address [facility] de Phone Number [facility]
[address] [place] [address], [place] [phone] * Lipase (07/20/2025 9:42 AM EDT) Lipase 45 13 - 60 U/L 07/20/2025 8:07 PM EDT [facility] Blood Venipuncture / Unknown 07/20/2025 9:42 AM EDT 07/20/2025 9:45 AM EDT [place] Stone PA LAB BLOOD ORDERABLES Final Resul t Performing Organization Address City/[facility] Co de Phone Number [facility]
[address] [place] [address], * Hemoglobin A1c (07/20/2025 9:42 AM EDT) Hemoglobin A1C 5.00 4.80 - 5.60 % 07/20/2025 8:22 PM EDT [facility] Blood Venipuncture / Unknown 07/20/2025 9:42 AM EDT 07/20/2025 9:45 AM EDT [facility] - 07/20/2025 8:22 PM EDT Hemoglobin A1C Ranges: Increased Risk for Diabetes 5.7% to 6.4% Diabetes >= 6.5% Diabetic Goal < 7.0% [employer] [place] LAB BLOOD ORDERABLES Final Resul t Performing Organization Address City/[facility]/ZIP Co de Phone Number [facility]
[address] [place] [address], * Folate (07/20/2025 9:42 AM EDT) Pathologist [facility] [place] Folate 9.23 4.78 - 24.20 ng/mL 07/20/2025 8:15 PM EDT [facility] Blood Venipuncture / Unknown 07/20/2025 9:42 AM EDT 07/20/2025 9:45 AM EDT [facility] - 07/20/2025 8:15 PM EDT Results may be falsely increased if patient taking Biotin. [employer] [place] LAB BLOOD ORDERABLES Final Resul t [facility]
[address] [place] [address], * Vitamin B12 (07/20/2025 9:42 AM EDT) Pathologist [facility] [place] Vitamin B-12 322 211 - 946 pg/mL 07/20/2025 8:15 PM EDT [facility] Blood Venipuncture / Unknown 07/20/2025 9:42 AM EDT 07/20/2025 9:45 AM EDT Narrative [facility] - 07/20/2025 8:15 PM EDT Results may be falsely increased if patient taking Biotin. Maryse Jimmie PA LAB BLOOD ORDERABLES Final Resul t Performing Organization Address [facility] de Phone Number [facility]
[address] [place] [address], * (ABNORMAL) Amylase (07/20/2025 9:42 AM EDT) Amylase 112(H) 28 - 100 U/L 07/20/2025 8:07 PM EDT [facility] Blood Venipuncture / Unknown 07/20/2025 9:42 AM EDT 07/20/2025 9:45 AM EDT [place] LAB BLOOD ORDERABLES Final Resul t Performing Organization Address [facility] de Phone Number [facility]
[address] [place] [address], [place] [phone] * Lipid Panel (07/20/2025 9:42 AM EDT) Total Cholesterol 138 0 - 200 mg/dL 07/20/2025 8:07 PM EDT [facility] Triglycerides 59 0 - 150 mg/dL 07/20/2025 8:07 PM EDT [facility] HDL Cholesterol 52 40 - 60 mg/dL 07/20/2025 8:07 PM EDT [facility] LDL Cholesterol 74 0 - 100 mg/dL 07/20/2025 8:07 PM EDT [facility] VLDL Cholesterol 12 5 - 40 mg/dL 07/20/2025 8:07 PM EDT [facility] LDL/HDL Ratio 1.43 07/20/2025 8:07 PM EDT [facility] Blood Venipuncture / Unknown 07/20/2025 9:42 AM EDT 07/20/2025 9:45 AM EDT Narrative [facility] - 07/20/2025 8:07 PM EDT Cholesterol [...] Kaba APRN LAB BLOOD ORDERABLES Final Result [facility]
[address] [place] [address], * (ABNORMAL) Comprehensive Metabolic Panel (07/20/2025 9:42 AM EDT) Glucose 78 65 - 99 mg/dL 07/20/2025 8:07 PM EDT [facility] BUN 17.0 6.0 - 20.0 mg/dL 07/20/2025 8:07 PM EDT [facility] Creatinine 0.64 0.57 - 1.00 mg/dL 07/20/2025 8:07 PM EDT [facility] Sodium 140 136 - 145 mmol/L 07/20/2025 8:07 PM EDT [facility] Potassium 3.8 3.5 - 5.2 mmol/L 07/20/2025 8:07 PM [facility] Chloride 105 98 - 107 mmol/L 07/20/2025 8:07 PM [facility] CO2 23.0 22.0 - 29.0 mmol/L 07/20/2025 8:07 PM [facility] Calcium 8.7 8.6 - 10.5 mg/dL 07/20/2025 8:07 PM [facility] Total Protein 6.9 6.0 - 8.5 g/dL 07/20/2025 8:07 PM [facility] Albumin 4.0 3.5 - 5.2 g/dL 07/20/2025 8:07 PM [facility] ALT (SGPT) 12 1 - 33 U/L 07/20/2025 8:07 PM [facility] AST (SGOT) 18 1 - 32 U/L 07/20/2025 8:07 PM [facility] Alkaline Phosphatase 74 39 - 117 U/L 07/20/2025 8:07 PM [facility] Total Bilirubin 0.3 0.0 - 1.2 mg/dL 07/20/2025 8:07 PM [facility] Globulin 2.9 gm/dL 07/20/2025 8:07 PM [facility] A/G Ratio 1.4 g/dL 07/20/2025 8:07 PM [facility] BUN/Creatinine Ratio 26.6(H) 7.0 - 25.0 07/20/2025 8:07 PM [facility] Anion Gap 12.0 5.0 - 15.0 mmol/L 07/20/2025 8:07 PM [facility] eGFR 101.9 >60.0 mL/min/1.7 3 07/20/2025 8:07 PM [facility] Blood Venipuncture / Unknown 07/20/2025 9:42 AM T 07/20/2025 9:45 AM [facility] - 07/20/2025 8:07 PM EDT [...] CARTER LAB BLOOD ORDERABLES Final Resul t [facility]
[address] [place] [address], from Last 3 Months Insurance [employer] [place] [address] Care Teams Manager Agriculture Relationship Specialty Start Date End Date Maryse Samuel PA [address] [place] [address] [facility] - General 07/19/25
--- OUTSIDE RECORDS SUMMARY | 2025-08-06 15:27 | XMS_ITS ---
Laboratory report Created on: August 03, 2025 PATRICIA LEVY : 1965 Sex: Female Author Name ADALBERTO MELCHOR Organization Unknown PROBLEMS Problems List Code Description R63.4 RESULTS Laboratory Orders Date Order Code Test 2025-07-20 [id number] VITAMIN B3 (NIAC IN+METABOLITE) Laboratory Results Date LOINC Test Value Unit Reference Range Interpre tation 2025-07-20 14245-2 NICOTINAMIDE 12.7 NG/ML 5.2-72.1 2025-07-20 89110-8 NICOTINIC ACID <5.0 NG/ML 0.0-5.0
--- OUTSIDE RECORDS SUMMARY | 2025-08-06 15:27 | XMS_ITS | Encounter Summary ---
Author Organization Healthcare Address [address] [place] [address] Care Team Providers Care Water/Wastewater Project Manager Name Role Phone Maryse Samuel Primary Care Provider [phone] Josemanuel Carrera PhD Unavailable [phone] Sarika Frost Unavailable [phone] Andrea Mullen MD Unavailable Unavail able Peri Martin Unavailable [phone] Pcp, No Primary Care Provider Unavailabl e Encounter Details Date Type Department Care Team (Late st Contact Info) Description 05/09/2017 Orders Only External Location [address] [place] [phone] Provider, External Social History Tobacco Use Types Packs/Day Years Used Date Smoking Tobacco: Never Assessed Comments Unknown Sex and Gender Information Value Date Recorded Sex Assigned at Not on file Legal Sex Female 6:28 PM EDT Gender Identity Not on file Sexual Orientation Not on file documented as of this encounter Plan of Treatment Upcoming Encounters Date Type Department Care Team (Late st Contact Info) Description 10/13/2025 10:00 AM EST Procedure Visit [facility] [address] [place] [address] Sarika Frost PA [address] [place] [address] 02/01/2026 9:00 AM EST Appointment [facility] [address] [place] [phone] 02/01/2026 11:30 AM EST Office Visit [facility] [address] [place] [address] Marycruz Kinney, FILTER BED PLACER [address] [place] [address] documented as of this encounter Procedures Procedure Name Priority Date/Time Associated Diagnosis Comments CT OUTSIDE IMAGES 05/09/2017 9:47 AM EDT documented in this encounter Results * CT OUTSIDE IMAGES (05/09/2017 9:47 AM EDT) Anatomical Region Laterality Modality Computed Tomogra phy 05/09/2017 9:47 AM EDT us External Provider IMG CT PROCEDURES Final Result documented in this encounter Visit Diagnoses Not on filedocumented in this encounter Additional Health Concerns Infection Onset Date Last Indicated Resolved Time Gastrointestinal Rule-Out 02/19/2018 02/19/2018 5:23 AM EDT documented as of this encounter Care Teams Water/Wastewater Project Manager Relationship Specialty Start Date End Date Maryse Samuel PA [address] [place] [address] PCP - General 04/14/21 01/14/24 Pcp, No [address] [place] [address] PCP - General Family Medicine 01/15/24 Josemanuel Carrera, PhD [address] [place] [address] Consulting Physician Neurology 05/11/21 08/22/21 Sarika Frost PA [address] [place] [address] Physician Route Service Representative Neurology 06/21/21 Andrea Mullen MD [address] [place] [address] Resident Neurology 07/16/22 Peri Martin MBBS [address] [place] [address] Resident Neurology 01/21/23 documented as of this encounter
--- OUTSIDE RECORDS SUMMARY | 2025-08-06 15:27 | XMS_ITS | Encounter Summary ---
Author Organization Healthcare Address [address] [place] [address] Care Team Providers Care [employer] Sewer Name Role Phone Maryse Samuel Primary Care Provider [phone] Josemanuel Carrera PhD Unavailable [phone] Sarika Frost Unavailable [phone] Andrea Mullen MD Unavailable Unavail able Peri Martin Unavailable [phone] Pcp, No Primary Care Provider Unavailabl e Reason for Referral * Imaging (Routine) - Closed Specialty Diagnoses / Procedures Referred By Contac t Referred To Contact Radiology Diagnoses Memory loss Procedures MR Cervical Spine wo IV Contrast Maryse Samuel PA [address] [place] [address] Phone: tel: fax: Referral ID Status Reason Start Date Expiration Date Visits Re quested Visits Authorized [id number] Closed 08/01/2021 01/28/2022 1 1 * Imaging (Routine) - Closed Specialty Diagnoses / Procedures Referred By Contac t Referred To Contact Radiology Diagnoses Memory loss Procedures MR Head wo IV Contrast Maryse Samuel PA [address] [facility] [place] [address] Phone: tel: fax: Referral ID Status Reason Start Date Expiration Date Visits Re quested Visits Authorized [id number] Closed 08/01/2021 01/28/2022 1 1 * Imaging (Routine) - Closed Specialty Diagnoses / Procedures Referred By Contac t Referred To Contact Radiology Diagnoses Memory loss Procedures CT Angio Neck Maryse Samuel PA [address] [place] [address] Phone: tel: fax: Referral ID Status Reason Start Date Expiration Date Visits Re quested Visits Authorized [id number] Closed 08/01/2021 01/28/2022 1 1 * Imaging (Routine) - Closed Specialty Diagnoses / Procedures Referred By Contbubba t Referred To Contact Radiology Diagnoses Memory loss Procedures CT Angio Head Maryse Samuel PA [address] [place] [address] Phone: tel: fax: Drew Pratt MD [address] [place] [address] Phone: tel: fax: Referral ID Status Reason Start Date Expiration Date Visits Re quested Visits Authorized [id number] Closed 08/01/2021 01/28/2022 1 1 Encounter Details Date Type Department Care Team (Late st Contact Info) Description 08/01/2021 [facility] [address] [place] [address] Maryse Samuel PA [address] [place] [address] Memory loss (Primary Dx) Social History Tobacco Use Types Packs/Day Years Used Date Smoking Tobacco: Never Smokeless Tobacco: Never Alcohol Use Standard Drinks/Week Comments No 0 (1 standard drink = 0.6 oz pure alcohol) Alcoholic Drinks/day: No history of alcohol use Comments Unknown Sex and Gender Information Value Date Recorded Sex Assigned at Not on file Legal Sex Female 6:28 PM EDT Gender Identity Not on file Sexual Orientation Not on file COVID-19 Exposure Response Date Recorded In the last month, have you been in contact with someone who was confirmed or suspected to have Coronavirus / COVID-19? No / Unsure 07/05/2021 12:48 PM EDT documented as of this encounter Plan of Treatment Upcoming Encounters Date Type Department Care Team (Late st Contact Info) Description 10/13/2025 10:00 AM EST Procedure Visit [place] [facility] [address] [place] [address] Sarika Frost PA [address] [place] [address] 02/01/2026 9:00 AM EST Appointment [facility] [address] [place] [address] 02/01/2026 11:30 AM EST Office [facility] [address] [place] [address] Marycruz iKnney, JAMES [address] [place] [address] documented as of this encounter Results * CT Angio Neck (08/22/2021 10:16 AM EDT) Anatomical Region Laterality Modality Carotid Artery Computed Tomogra phy Impressions 08/22/2021 4:10 PM EDT Neck CTA: No significant stenosis is present within the cervical carotid and vertebral arteries. Head CTA: No significant intracranial arterial stenosis or aneurysm is present. CRITICAL RESULT: No. COMMUNICATION: Per this written report. By electronically signing this report, I, the attending physician, attest that I have personally reviewed the images/data for the above examination(s) and agree with the final edited report. Signed by Hortencia Padilla on 08/22/2021 4:10 PM Narrative 08/22/2021 4:10 PM EDT Exam/Procedure: CT ANGIO HEAD, CT ANGIO NECK ordered by MARYSE SAMUEL, [id number] CLINICAL INDICATION: Memory Loss TECHNIQUE: Head CTA: Axial images were obtained through the head during contrast bolus injection and multiplanar MIP images were created. Neck CTA: Axial images were obtained through the neck during bolus contrast injection and multiplanar reformatted and MIP images were created. 100 mL of Omnipaque 350 were administered intravenously. Total DLP (Dose-Length Product): 2460 mGycm. Please note: The reported value represents the total of one or more individual components during the CT acquisition on this date and at this time, and as such, the same value may appear in more than one CT report depending on the interpreting/reporting physicians. COMPARISON: CTA Head and Neck performed on May 09, 2017. FINDINGS: Neck CTA: Diagnostic Quality: Adequate. Artifical from dental amalgam. Aorta and Great Vessel Origins: There is no significant stenosis of the origins of the great arteries of the neck. Right Cervical Carotid System: No significant stenosis. There is a 0% stenosis at the bifurcation by NASCET criteria. Left Cervical Carotid System: No significant stenosis. There is a 0% stenosis at the bifurcation by NASCET criteria. Vertebral arteries: No significant stenosis. Other Findings: Large probable retention cyst or polyp of the right maxillary sinus. Mild mucosal thickening of the left maxillary sinus and bilateral ethmoid air cells. Head CTA: Diagnostic Quality: Adequate Vertebrobasilar System: The basilar artery and its major branches are within normal limits. There is no aneurysm. Carotid Arteries: Right ICA: No significant stenosis. Left ICA: No significant stenosis. Other Findings: There is no aneurysm of either internal carotid artery. Rampart of Robles and Major Peripheral Branches: There is no significant stenosis or occlusion. There is no aneurysm. 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 Procedure Note Hortencia Padilla MD - 08/22/2021 Exam/Procedure: CT ANGIO HEAD, CT ANGIO NECK ordered by MARYSE SAMUEL,[id number] CLINICAL INDICATION: Memory Loss TECHNIQUE: Head CTA: Axial images were obtained through the head during contrastbolus injection and multiplanar MIP images were created. Neck CTA: Axial images were obtained through the neck during boluscontrast injection and multiplanar reformatted and MIP images werecreated. 100 mL of Omnipaque 350 were administered intravenously. Total DLP (Dose-Length Product): 2460 mGycm. Please note: The reportedvalue represents the total of one or more individual components during theCT acquisition on this date and at this time, and as such, the same valuemay appear in more than one CT report depending on theinterpreting/reporting physicians. COMPARISON: CTA Head and Neck performed on May 09, 2017. FINDINGS: Neck CTA: Diagnostic Quality: Adequate. Artifical from dental amalgam. Aorta and Great Vessel Origins: There is no significant stenosis of theorigins of the great arteries of the neck. Right Cervical Carotid System: No significant stenosis. There is a 0%stenosis at the bifurcation by NASCET criteria. Left Cervical Carotid System: No significant stenosis. There is a 0%stenosis at the bifurcation by NASCET criteria. Vertebral arteries: No significant stenosis. Other Findings: Large probable retention cyst or polyp of the rightmaxillary sinus. Mild mucosal thickening of the left maxillary sinus andbilateral ethmoid air cells. Head CTA: Diagnostic Quality: Adequate Vertebrobasilar System: The basilar artery and its major branches arewithin normal limits. There is no aneurysm. Carotid Arteries: Right ICA: No significant stenosis. Left ICA: No significant stenosis. Other Findings: There is no aneurysm of either internal carotid artery. Rampart of Robles and Major Peripheral Branches: There is no significantstenosis or occlusion. There is no aneurysm. 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 IMPRESSION: Neck CTA: No significant stenosis is present within the cervical carotid andvertebral arteries. Head CTA: No significant intracranial arterial stenosis or aneurysm is present. CRITICAL RESULT: No. COMMUNICATION: Per this written report. By electronically signing this report, I, the attending physician, attestthat I have personally reviewed the images/data for the aboveexamination(s) and agree with the final edited report. Signed by Hortencia Padilla on 08/22/2021 4:10 PM Maryse CARTER IMManuel CT PROCEDURES Final Result * CT Angio Head (08/22/2021 10:16 AM EDT) Anatomical Region Laterality Modality Rampart of Robles Computed Tomogr aphy Impressions 08/22/2021 4:10 PM EDT Neck CTA: No significant stenosis is present within the cervical carotid and vertebral arteries. Head CTA: No significant intracranial arterial stenosis or aneurysm is present. CRITICAL RESULT: No. COMMUNICATION: Per this written report. By electronically signing this report, I, the attending physician, attest that I have personally reviewed the images/data for the above examination(s) and agree with the final edited report. Signed by Hortencia Padilla on 08/22/2021 4:10 PM Narrative 08/22/2021 4:10 PM EDT Exam/Procedure: CT ANGIO HEAD, CT ANGIO NECK ordered by MARYSE SAMUEL, [id number] CLINICAL INDICATION: Memory Loss TECHNIQUE: Head CTA: Axial images were obtained through the head during contrast bolus injection and multiplanar MIP images were created. Neck CTA: Axial images were obtained through the neck during bolus contrast injection and multiplanar reformatted and MIP images were created. 100 mL of Omnipaque 350 were administered intravenously. Total DLP (Dose-Length Product): 2460 mGycm. Please note: The reported value represents the total of one or more individual components during the CT acquisition on this date and at this time, and as such, the same value may appear in more than one CT report depending on the interpreting/reporting physicians. COMPARISON: CTA Head and Neck performed on May 09, 2017. FINDINGS: Neck CTA: Diagnostic Quality: Adequate. Artifical from dental amalgam. Aorta and Great Vessel Origins: There is no significant stenosis of the origins of the great arteries of the neck. Right Cervical Carotid System: No significant stenosis. There is a 0% stenosis at the bifurcation by NASCET criteria. Left Cervical Carotid System: No significant stenosis. There is a 0% stenosis at the bifurcation by NASCET criteria. Vertebral arteries: No significant stenosis. Other Findings: Large probable retention cyst or polyp of the right maxillary sinus. Mild mucosal thickening of the left maxillary sinus and bilateral ethmoid air cells. Head CTA: Diagnostic Quality: Adequate Vertebrobasilar System: The basilar artery and its major branches are within normal limits. There is no aneurysm. Carotid Arteries: Right ICA: No significant stenosis. Left ICA: No significant stenosis. Other Findings: There is no aneurysm of either internal carotid artery. Rampart of Robles and Major Peripheral Branches: There is no significant stenosis or occlusion. There is no aneurysm. 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 Procedure Note Hortencia Padilla MD - 08/22/2021 Exam/Procedure: CT ANGIO HEAD, CT ANGIO NECK ordered by MARYSE SAMUEL,[id number] CLINICAL INDICATION: Memory Loss TECHNIQUE: Head CTA: Axial images were obtained through the head during contrastbolus injection and multiplanar MIP images were created. Neck CTA: Axial images were obtained through the neck during boluscontrast injection and multiplanar reformatted and MIP images werecreated. 100 mL of Omnipaque 350 were administered intravenously. Total DLP (Dose-Length Product): 2460 mGycm. Please note: The reportedvalue represents the total of one or more individual components during theCT acquisition on this date and at this time, and as such, the same valuemay appear in more than one CT report depending on theinterpreting/reporting physicians. COMPARISON: CTA Head and Neck performed on May 09, 2017. FINDINGS: Neck CTA: Diagnostic Quality: Adequate. Artifical from dental amalgam. Aorta and Great Vessel Origins: There is no significant stenosis of theorigins of the great arteries of the neck. Right Cervical Carotid System: No significant stenosis. There is a 0%stenosis at the bifurcation by NASCET criteria. Left Cervical Carotid System: No significant stenosis. There is a 0%stenosis at the bifurcation by NASCET criteria. Vertebral arteries: No significant stenosis. Other Findings: Large probable retention cyst or polyp of the rightmaxillary sinus. Mild mucosal thickening of the left maxillary sinus andbilateral ethmoid air cells. Head CTA: Diagnostic Quality: Adequate Vertebrobasilar System: The basilar artery and its major branches arewithin normal limits. There is no aneurysm. Carotid Arteries: Right ICA: No significant stenosis. Left ICA: No significant stenosis. Other Findings: There is no aneurysm of either internal carotid artery. Rampart of Robles and Major Peripheral Branches: There is no significantstenosis or occlusion. There is no aneurysm. 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 IMPRESSION: Neck CTA: No significant stenosis is present within the cervical carotid andvertebral arteries. Head CTA: No significant intracranial arterial stenosis or aneurysm is present. CRITICAL RESULT: No. COMMUNICATION: Per this written report. By electronically signing this report, I, the attending physician, attestthat I have personally reviewed the images/data for the aboveexamination(s) and agree with the final edited report. Signed by Hortencia Padilla on 08/22/2021 4:10 PM us Maryse CARTER IM CT PROCEDURES Final Result * MR Cervical Spine wo IV Contrast (08/15/2021 8:29 AM EDT) Anatomical Region Laterality Modality C-spine Magnetic Resonan ce Impressions 08/15/2021 3:59 PM EDT Multilevel degenerative changes. Moderate spinal canal stenosis at C4-5 and C5- 6. Severe right neural foraminal stenosis at C4-5 and C5-6. CRITICAL RESULT: No. COMMUNICATION: Per this written report. Dictated by Nithin Paris D.O. on 08/15/2021 10:32 AM By electronically signing this report, I, the attending physician, attest that I have personally reviewed the images/data for the above examination(s) and agree with the final edited report. Signed by Drew Pratt on 08/15/2021 3:59 PM Narrative 08/15/2021 3:59 PM EDT Exam/Procedure: MR CERVICAL SPINE WO IV CONTRAST ordered by MARYSE SAMUEL, [id number] CLINICAL INDICATION: Cervical radiculopathy TECHNIQUE: Multiplanar multiecho sequences were obtained through the cervical spine utilizing T1 and T2 without the administration of intravenous contrast. 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 Alignment: The bony alignment is normal. Marrow: Modic type I degenerative endplate signal changes at C5-6. Vertebrae and Intervertebral Discs: Vertebral body heights are normal. Intervertebral disc space narrowing and desiccation at C5-6. Ligaments: The anterior and posterior longitudinal ligaments and interspinous ligaments are intact. Spinal Cord: The spinal cord is of normal caliber without abnormal intrinsic signal. Degenerative changes are as follows: C2-3: Mild bilateral facet arthropathy. No significant spinal canal stenosis. Mild right neural foraminal stenosis. C3-4: Mild uncovertebral hypertrophy. Tiny central disc herniation. Bilateral facet arthropathy. Mild spinal canal stenosis. Moderate right and mild left neuroforaminal stenosis. C4-5: Disc osteophyte complex. Tiny central disc herniation. Ligamentum flavum thickening. Moderate spinal canal stenosis. Severe right and moderate left neuroforaminal stenosis. C5-6: Disc osteophyte complex. Ligamentum flavum thickening. Moderate spinal canal stenosis. Severe right and moderate left neuroforaminal stenosis. C6-7: Mild disc bulge. No significant spinal canal stenosis. Mild bilateral neuroforaminal stenosis. C7-T1: Normal. Prevertebral and Paraspinal Soft Tissues: There is no prevertebral or paraspinal soft tissue swelling or mass. Upper Thoracic Spine: Small T3 vertebral body hemangioma. Procedure Note Drew Pratt MD - 08/15/2021 Exam/Procedure: MR CERVICAL SPINE WO IV CONTRAST ordered by MARYSE SAMUEL,[id number] CLINICAL INDICATION: Cervical radiculopathy TECHNIQUE: Multiplanar multiecho sequences were obtained through the cervical spineutilizing T1 and T2 without the administration of intravenous contrast. 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 Alignment: The bony alignment is normal. Marrow: Modic type I degenerative endplate signal changes at C5-6. Vertebrae and Intervertebral Discs: Vertebral body heights are normal.Intervertebral disc space narrowing and desiccation at C5-6. Ligaments: The anterior and posterior longitudinal ligaments andinterspinous ligaments are intact. Spinal Cord: The spinal cord is of normal caliber without abnormalintrinsic signal. Degenerative changes are as follows: C2-3: Mild bilateral facet arthropathy. No significant spinal canalstenosis. Mild right neural foraminal stenosis. C3-4: Mild uncovertebral hypertrophy. Tiny central disc herniation.Bilateral facet arthropathy. Mild spinal canal stenosis. Moderate rightand mild left neuroforaminal stenosis. C4-5: Disc osteophyte complex. Tiny central disc herniation. Ligamentumflavum thickening. Moderate spinal canal stenosis. Severe right andmoderate left neuroforaminal stenosis. C5-6: Disc osteophyte complex. Ligamentum flavum thickening. Moderatespinal canal stenosis. Severe right and moderate left neuroforaminalstenosis. C6-7: Mild disc bulge. No significant spinal canal stenosis. Mildbilateral neuroforaminal stenosis. C7-T1: Normal. Prevertebral and Paraspinal Soft Tissues: There is no prevertebral orparaspinal soft tissue swelling or mass. Upper Thoracic Spine: Small T3 vertebral body hemangioma. IMPRESSION: Multilevel degenerative changes. Moderate spinal canal stenosis at C4-5and C5-6. Severe right neural foraminal stenosis at C4-5 and C5-6. CRITICAL RESULT: No. COMMUNICATION: Per this written report. Dictated by Nithin Paris D.O. on 08/15/2021 10:32 AM By electronically signing this report, I, the attending physician, attestthat I have personally reviewed the images/data for the aboveexamination(s) and agree with the final edited report. Signed by Drew Pratt on 08/15/2021 3:59 PM Maryse CARTER IMG MRI PROCEDURES Final Result * MR Head wo IV Contrast (08/15/2021 8:29 AM EDT) Anatomical Region Laterality Modality Head Magnetic Resonan ce Impressions 08/15/2021 10:33 AM EDT 1. No acute intracranial abnormality. 2. Chronic infarcts in the right medial occipital lobe and right cerebellum. CRITICAL RESULT: No. COMMUNICATION: Per this written report. Dictated by Nithin Paris D.O. on 08/15/2021 8:46 AM By electronically signing this report, I, the attending physician, attest that I have personally reviewed the images/data for the above examination(s) and agree with the final edited report. Signed by Drew Pratt on 08/15/2021 10:33 AM Narrative 08/15/2021 10:33 AM EDT Exam/Procedure: MR HEAD WO IV CONTRAST ordered by MARYSE SAMUEL, [id number] CLINICAL INDICATION: Memory loss TECHNIQUE: Multiplanar multiecho sequences were performed through the brain utilizing T1 and T2 weighting, as well as either axial susceptibility weighted or gradient echo sequences, and axial diffusion weighted images. Imaging was performed without contrast administration. COMPARISON: MRI head 02/11/2019. FINDINGS: Diagnostic Quality: Adequate. The ventricles and sulci are normal in size. Right medial occipital lobe encephalomalacia. Small old infarcts in the right cerebellar hemisphere. Mild white matter changes, which are nonspecific, but may be related to chronic microvascular ischemia. There is no abnormal parenchymal susceptibility artifact or restricted diffusion. Vascular Flow Voids: Normal. Paranasal Sinuses and Mastoid Air Cells: Large retention cyst right maxillary sinus. Mild left maxillary sinus mucosal thickening. Mastoids are clear. Orbits: No definite masses within the limitations of the study. Extracranial Findings: None. Craniocervical Junction and Skull Base: No tonsillar ectopia or mass is present. Procedure Note Drew Pratt MD - 08/15/2021 Exam/Procedure: MR HEAD WO IV CONTRAST ordered by MARYSE SAMUEL, [id number] CLINICAL INDICATION: Memory loss TECHNIQUE: Multiplanar multiecho sequences were performed through the brain utilizingT1 and T2 weighting, as well as either axial susceptibility weighted orgradient echo sequences, and axial diffusion weighted images. Imaging wasperformed without contrast administration. COMPARISON: MRI head 02/11/2019. FINDINGS: Diagnostic Quality: Adequate. The ventricles and sulci are normal in size. Right medial occipital lobeencephalomalacia. Small old infarcts in the right cerebellar hemisphere.Mild white matter changes, which are nonspecific, but may be related tochronic microvascular ischemia. There is no abnormal parenchymalsusceptibility artifact or restricted diffusion. Vascular Flow Voids: Normal. Paranasal Sinuses and Mastoid Air Cells: Large retention cyst rightmaxillary sinus. Mild left maxillary sinus mucosal thickening. Mastoidsare clear. Orbits: No definite masses within the limitations of the study. Extracranial Findings: None. Craniocervical Junction and Skull Base: No tonsillar ectopia or mass ispresent. IMPRESSION: 1. No acute intracranial abnormality. 2. Chronic infarcts in the right medial occipital lobe and rightcerebellum. CRITICAL RESULT: No. COMMUNICATION: Per this written report. Dictated by Nithin Paris D.O. on 08/15/2021 8:46 AM By electronically signing this report, I, the attending physician, attestthat I have personally reviewed the images/data for the aboveexamination(s) and agree with the final edited report. 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 Relationship Specialty Start Date End Date Maryse Samuel PA [address] [place] [address] PCP - General 04/14/21 01/14/24 Pcp, No [address] [place] [address] PCP - General Family Medicine 01/15/24 Josemanuel Carrera, PhD [address] [address] Consulting Physician Neurology 05/11/21 08/22/21 Sarika Frost PA [address] [address] Physician Radiocommunications Technician Neurology 06/21/21 nAdrea Mullen MD [address] [address] Resident Neurology 07/16/22 Peri Martin MBBS [address] [place] [address] Resident Neurology 01/21/23 documented as of this encounter
--- OUTSIDE RECORDS SUMMARY | 2025-08-06 15:27 | XMS_ITS | Encounter Summary ---
Author Organization Healthcare Address [address] [place] [address] Care Team Providers Care Certified Anesthesiologist Assistant Name Role Phone Sarika Frost Unavailable [phone] Andrea Mullen MD Unavailable Unavail able Peri Martin Unavailable [phone] Pcp, No Primary Care Provider Unavailabl e Reason for Visit * Reason Comments Med Refill Encounter Details Date Type Department Care Team (Late st Contact Info) Description 05/18/2024 [facility]ill [facility] [address] [place] [address] Yoel Portillo MD [address] [place] [address] Social History Tobacco Use Types Packs/Day Years Used Date Smoking Tobacco: Never Smokeless Tobacco: Never Alcohol Use Standard Drinks/Week Comments Never 0 (1 standard drink = 0.6 oz pure alcohol) Alcoholic Drinks/day: No history of alcohol use PHQ-2 Answer Date Recorded Patient Health Questionnaire-2 Score 2 02/24/2024 PHQ-2A Answer Date Recorded Depression Risk 0 [...] Description 10/13/2025 10:00 AM EST Procedure Visit [place] [facility] [address] [place] [address] Sarika Frost PA [address] [place] [address] 02/01/2026 9:00 AM EST Appointment [facility] [address] [place] [address] 02/01/2026 11:30 AM EST Office [facility] [address] [place] [address] Marycruz Kinney, CORPORATE DIRECTOR OF PHARMACY [address] [place] [address] documented as of this encounter Visit Diagnoses Not on filedocumented in this encounter Additional Health Concerns Assessment Noted Time A fall risk assessment has been complete d for the patient 02/24/2024 3:08 PM EDT A Body Mass Index follow-up plan has been documented for the patient 04/15/2024 1:57 PM EDT documented as of this encounter Care Teams Certified Anesthesiologist Assistant Relationship Specialty Start Date End Date Pcp, No [address] [place] [address] PCP - General Family Medicine 01/15/24 Sarika Frost PA [address] [place] [address] Physician Ash Worker Neurology 06/21/21 Andrea Mullen MD [address] [place] [address] Resident Neurology 07/16/22 Peri Martin MBBS [address] [place] [address] Resident Neurology 01/21/23 documented as of this encounter
--- OUTSIDE RECORDS SUMMARY | 2025-08-06 15:27 | XMS_ITS | Encounter Summary ---
Author Organization Healthcare Address [address] [place] [address] Care Team Providers Care Office Messenger Name Role Phone Maryse Samuel Primary Care Provider [phone] Sarika Forst Unavailable [phone] Andrea Mullen MD Unavailable Unavail able Peri Martin Unavailable [phone] Pcp, No Primary Care Provider Unavailabl e Encounter Details Date Type Department Care Team (Late st Contact Info) Description 01/03/2022 [facility] [address] [place] [address] Maryse Samuel PA [address] [place] [address] Abdominal hernia without obstruction and without gangrene, recurrence not specified, unspecified hernia type (Primary Dx) Social History Tobacco Use Types Packs/Day Years Used Date Smoking Tobacco: Never Smokeless Tobacco: Never Alcohol Use Standard Drinks/Week Comments No 0 (1 standard drink = 0.6 oz pure alcohol) Alcoholic Drinks/day: No history of alcohol use PHQ-2 Answer Date Recorded Patient Health Questionnaire-2 Score 0 12/28/2021 Comments Unknown Sex and Gender Information Value Date Recorded Sex Assigned at Not on file Legal Sex Female 6:28 PM EDT Gender Identity Not on file Sexual Orientation Not on file COVID-19 Exposure Response Date Recorded In the last month, have you been in contact with someone who was confirmed or suspected to have Coronavirus / COVID-19? No / Unsure 01/02/2022 12:14 PM EST documented as of this encounter Plan of Treatment Upcoming Encounters Date Type Department Care Team (Late st Contact Info) Description 10/13/2025 10:00 AM EST Procedure Visit [place] [facility] [address] [place] [address] Sarika Frost PA [address] [place] [address] 02/01/2026 9:00 AM EST Appointment [facility] [address] [place] [address] 02/01/2026 11:30 AM EST Office [facility] [address] [place] [address] Marycruz Kinney, AEROGRAPHER [address] [place] [address] documented as of this encounter Visit Diagnoses Diagnosis Abdominal hernia without obstruction and without gangrene, recurrence not specified, unspecified hernia type- Primary documented in this encounter Additional Health Concerns Assessment Noted Time A fall risk assessment has been complete d for the patient 01/02/2022 12:46 PM EST documented as of this encounter Care Teams Office Messenger Relationship Specialty Start Date End Date Maryse Samuel PA [address] [place] [address] PCP - General 04/14/21 01/14/24 Pcp, No [address] [place] [address] PCP - General Family Medicine 01/15/24 Sarika Frost PA [address] [place] [address] Physician Adoption Agent Neurology 06/21/21 Andrea Mullen MD [address] [place] [address] Resident Neurology 07/16/22 Peri Martin MBBS NPI: [id number] [place], [place] [id number] Resident Neurology 01/21/23 documented as of this encounter
--- OUTSIDE RECORDS SUMMARY | 2025-08-06 15:27 | XMS_ITS | Encounter Summary ---
Author Organization Healthcare Address [address] [place] [address] Care Team Providers Care Medical Transport Specialist Name Role Phone Sarika Frost Unavailable [phone] Andrea Mullen MD Unavailable Unavail able Peri Martin Unavailable Pcp, No Primary Care Provider Unavailabl e Encounter Details Date Type Department Care Team (Latest Contact Info) Description 07/21/2025 Travel Social History Tobacco Use Types Packs/Day [...] on file documented as of this encounter Functional Status * Calculated C-SSRS [...] Behavior (Lifetime) No 3:32 PM EDT Tiffanie Oro, RN documented as of this encounter Plan of Treatment Upcoming Encounters Date Type Department Care Team (Late st Contact Info) Description 10/13/2025 10:00 AM EST Procedure [facility] [place] [facility] [address] [place] [address] Sarika Frost PA [address] [place] [address] 02/01/2026 9:00 AM EST Appointment [facility] [address] [place] [address] 02/01/2026 11:30 AM EST Office [facility] [address] [place] [address] Marycruz Kinney, PAYROLL DIRECTOR [address] [place] [address] documented as of this encounter [...] documented as of this encounter Care Teams Medical Transport Specialist Relationship Specialty Start Date End Date Pcp, No [address] [place] [address] PCP - General Family Medicine 01/15/24 Sarika Frost PA [address] [place] [address] Physician Marketing Project Specialist Neurology 06/21/21 Andrea Mullen MD [address] [place] [address] Resident Neurology 07/16/22 Peri Martin MBBS [address] [place] [address] Resident Neurology 01/21/23 documented as of this encounter
--- OUTSIDE RECORDS SUMMARY | 2025-08-06 15:27 | XMS_ITS | Encounter Summary ---
Author Organization Healthcare Address [address] 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); Secondary malignant neoplasm of small intestine (CMS/HCC) Social History Tobacco Use Types Packs/Day Years Used Date Smoking Tobacco: Never Smokeless Tobacco: Never Alcohol Use Standard Drinks/Week Comments No 0 (1 standard drink = 0.6 oz pure alcohol) Alcoholic Drinks/day: No history of alcohol use PHQ-2 Answer Date Recorded Patient Health Questionnaire-2 Score 0 10/01/2022 PHQ-2A Answer Date Recorded Depression Risk 6 02/05/2023 Comments No Sex and Gender Information Value Date Recorded Sex Assigned at Not on file Legal Sex Female 6:28 PM EDT Gender Identity Not on file Sexual Orientation Not on file COVID-19 Exposure Response Date Recorded In the last 10 days, have yo u been in contact with someone who was confirmed or suspected to have Coronavirus/COVID-19? No / Unsure 02/05/2023 8:34 AM EST documented as of this encounter Plan of Treatment Upcoming Encounters Date Type Department Care Team (Late st Contact Info) Description 10/13/2025 10:00 AM EST Procedure Visit [place] [facility] [address] [place] [address] Sarika Frost, PA [address] [place] [address] 02/01/2026 9:00 AM EST Appointment [facility] [address] [place] [address] 02/01/2026 11:30 AM EST Office [facility] [address] [place] [address] Marycruz Kinney, INTERNATIONAL STUDENT ADVISOR [address] [place] [address] documented as of this encounter Procedures Procedure Name Priority Date/Time Associated Diagnosis Comments AP MISCELLANEOUS LAB TEST (SO) Routine 02/13/2023 12:00 AM EDT 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) documented in this encounter Results * - AP Miscellaneous Test (02/13/2023 12:00 AM EDT) Test name Dyana Guthrie 03/25/2023 8:53 AM EDT [facility] Comment:[id number] Test Result see scan 03/25/2023 8:53 AM EDT [facility] See Scanned Result 03/25/2023 8:53 AM EDT [facility] Tissue 02/13/2023 02/13/2023 4:2 6 PM EDT us Miguel Pérez MD LAB REF LAB BLOOD AND FLUID ORD Final Result [facility] [address] [place] [address] documented in this encounter Visit Diagnoses Diagnosis 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 documented in this encounter Additional Health Concerns Assessment Noted Time A fall risk assessment has been complete d for the patient 02/05/2023 11:35 AM EST documented as of this encounter Care Teams Protective Officer Relationship Specialty Start Date End Date Maryse Samuel PA [address] [place] [address] PCP - General 04/14/21 01/14/24 Pcp, No [address] [place] [address] PCP - General Family Medicine 01/15/24 Sarika Frost PA [address] [address] Physician Master Esthetician Neurology 06/21/21 Andrea Mullen MD [address] [address] Resident Neurology 07/16/22 Peri Martin MBBS [address] [place] [address] Resident Neurology 01/21/23 documented as of this encounter
--- OUTSIDE RECORDS SUMMARY | 2025-08-06 15:27 | XMS_ITS | Encounter Summary ---
Author Organization Healthcare Address [address] [place] [address] Care Team Providers Care Hide Sorter Name Role Phone Maryse Samuel Primary Care Provider [phone] Sarika Frost Unavailable [phone] Andrea Mullen MD Unavailable Unavail able Peri Martin Unavailable [phone] Pcp, No Primary Care Provider Unavailabl e Reason for Visit * Reason Comments Med Refill Encounter Details Date Type Department Care Team (Late st Contact Info) Description 09/26/2023 Refill [place] [facility] [address] [place] [address] Britton Izquierdo MD [address] [place] [address] Social History Tobacco Use Types Packs/Day Years Used Date Smoking Tobacco: Never Smokeless Tobacco: Never Alcohol Use Standard Drinks/Week Comments No 0 (1 standard drink = 0.6 oz pure alcohol) Alcoholic Drinks/day: No history of alcohol use PHQ-2 Answer Date Recorded Patient Health Questionnaire-2 Score 0 02/28/2023 PHQ-2A Answer Date Recorded Depression Risk 6 02/05/2023 Comments No Sex and Gender Information Value Date Recorded Sex Assigned at Not on file Legal Sex Female 6:28 PM EDT Gender Identity Not on file Sexual Orientation Not on file documented as of this encounter Miscellaneous Notes * Telephone Encounter - Oanh Wright MD - 09/03/2024 10:20 PM EDT Duplicate order * Telephone Encounter - Ayan Justin MBBS - 09/30/2023 7:33 AM EDT Refilled. Thank you documented in this encounter Plan of Treatment Upcoming Encounters Date Type Department Care Team (Late st Contact Info) Description 10/13/2025 10:00 AM EST Procedure [facility] [place] [facility] [address] [place] [address] Sarika Frost PA [address] [facility] [address] [place] [address] 02/01/2026 9:00 AM EST Appointment [facility] [address] [place] [address] 02/01/2026 11:30 AM EST Office [facility] [address] [place] [address] Marycruz Kinney, ROUTE CDL DRIVER [address] [facility] [address] [place] [address] documented as of this encounter Visit Diagnoses Not on filedocumented in this encounter Additional Health Concerns Assessment Noted Time A fall risk assessment has been complete d for the patient 07/29/2023 1:05 PM EDT documented as of this encounter Care Teams Hide Sorter Relationship Specialty Start Date End Date Maryse Samuel PA [address] [place] [address] PCP - General 04/14/21 01/14/24 Pcp, No [address] [place] [address] PCP - General Family Medicine 01/15/24 Sarika Frost PA [id number] [place] [address] Physician Color Separation Photographer Neurology 06/21/21 Andrea Mullen MD [address] [address] Resident Neurology 07/16/22 Peri Martin MBBS [address] [place] [id number] Resident Neurology 01/21/23 documented as of this encounter
--- OUTSIDE RECORDS SUMMARY | 2025-08-06 15:27 | XMS_ITS | Encounter Summary ---
Author Organization Healthcare Address [address] [place] [address] Care Team Providers Care Hr Representative Name Role Phone Maryse Samuel Primary Care Provider [phone] Josemanuel Carrera PhD Unavailable [phone] Sarika Frost Unavailable [phone] Andrea Mullen MD Unavailable Unavail able Peri Martin Unavailable [phone] Pcp, No Primary Care Provider Unavailabl e Encounter Details Date Type Department Care Team (Late st Contact Info) Description 02/23/2012 Orders Only External Location [address] [place] [address] Jules Bui MD [address] [facility] [place] [address] Social History Tobacco Use Types Packs/Day Years [...] Visit [place] [facility] [address] [place] [address] Sarika Frost PA [address] [place] [address] 02/01/2026 9:00 AM EST Appointment [facility] [address] [place] [address] 02/01/2026 11:30 AM EST [facility] [address] [place] [address] Marycruz Kinney, CULTURED [employer] PRODUCTS MAKER [address] [place] [address] documented as of this encounter Procedures Procedure Name Priority Date/Time Associated Diagnosis Comments CT OUTSIDE IMAGES 02/23/2012 2:35 PM EDT documented in this encounter Results * CT OUTSIDE IMAGES (02/23/2012 2:35 PM EDT) Anatomical Region Laterality Modality Computed Tomogra phy 02/23/2012 2:35 PM EDT us Jules Bui MD IMG CT PROCEDURES Final Res ult documented in this encounter Visit Diagnoses Not on filedocumented in this encounter Additional Health Concerns Infection Onset Date Last Indicated Resolved Time Gastrointestinal Rule-Out 02/19/2018 02/19/2018 5:23 AM EDT documented as of this encounter Care Teams Hr Representative Relationship Specialty Start Date End Date Maryse Samuel PA [address] [facility] [place] [address] PCP - General 04/14/21 01/14/24 Pcp, No [address] [place] [address] PCP - General Family Medicine 01/15/24 Josemanuel Carrera, PhD [address] [place] [address] Consulting Physician Neurology 05/11/21 08/22/21 Sarika Frost PA [address] [place] [address] Physician Cop Winder Neurology 06/21/21 Andrea Mullen MD [address] [facility] [address] [place] [address] Resident Neurology 07/16/22 Peri Martin MBBS [address] [place] [address] Resident Neurology 01/21/23 documented as of this encounter
--- OUTSIDE RECORDS SUMMARY | 2025-08-06 15:27 | XMS_ITS | Encounter Summary ---
Author Organization [place] [address] Care Team Providers Care Investment Officer Name Role Phone Tyree Coffman MD Primary Care Provider [phone] Encounter Details Date Type Department Care Team (Late st Contact Info) Description 05/20/2025 Results Follow-Up [place] for Family Medicine [address] [place] [address] Tyree Coffman MD [facility] [id number] DRUGS OF ABUSE WITH REFLEX TO CONFIRMATION, URINE Social History Tobacco Use Types Packs/Day Years Used Date Smoking Tobacco: Former Cigarettes Smokeless Tobacco: Former Alcohol Use Standard Drinks/Week Comments Not Currently 0 (1 standard drink = 0.6 oz pur e alcohol) PHQ-2 Answer Date Recorded PHQ-2 Total Score 1 05/19/2025 Comments No Sex and Gender Information Value Date Recorded Sex Assigned at Not on file Legal Sex Female 9:09 AM EDT Gender Identity Not on file Sexual Orientation Not on file documented as of this encounter Plan of Treatment Not on file documented as of this encounter Goals Goal Patient Goal Type Associated Problems Recent Progress Patient-Stated? Author Maintain a healthy diet, exercise regularly and maintain an ideal body weight General No Tyree Coffman MD Stay Tobacco Free Lifestyle No Tyree Coffman MD documented as of this encounter Visit Diagnoses Not on filedocumented in this encounter Additional Health Concerns Assessment Noted Time PHQ-9 Depression Total Score: 1 05/19/20 25 1:38 PM EDT PHQ-2 Depression Total Score: 1 05/19/20 25 1:38 PM EDT documented as of this encounter Care Teams Investment Officer Relationship Specialty Start Date End Date Tyree Coffman MD [address] [place] [address] PCP - General Family Medicine 01/20/24 documented as of this encounter
--- OUTSIDE RECORDS SUMMARY | 2025-08-06 15:27 | XMS_ITS | Clinical Summary ---
Author Organization Healthcare Address [address] [place] [address] Care Team Providers Care Music Arranger Name Role Phone Sarika Frost Unavailable [phone] Andrea Mullen MD Unavailable Unavail able Peri Martin Unavailable [phone] Pcp, No Primary Care Provider Unavailabl e Allergies No known active allergies Medications oxyCODONE (Oxy-IR) 5 MG immediate release capsule Take 1 capsule (5 mg) by mouth 3 (three) times a day. Active tretinoin (Retin-A) 0.1 % cream 05/18/20 21 Active colchicine 0.6 MG tablet Take 1 tablet (0.6 mg) by mouth daily as needed. 09/26/20 21 Active omeprazole (PriLOSEC) [address] capsule 03/03/20 22 Active minoxidil (Loniten) 10 MG tabletIndications: Drug-related hair loss TAKE 1/2 TABLET EVERY DAY 45 tablet 3 03/23/20 22 Active Additional Information Patient not taking.Reported on 07/07/2025 tiZANidine (Zanaflex) 4 MG tablet 06/08/20 22 Active sulfaSALAzine (Azulfidine) 500 MG EC tablet Take 1 tablet (500 mg) by mouth 2 (two) times a day. 09/06/20 22 Active Linzess 290 MCG capsule 02/19/20 23 Active polyethylene glycol (MiraLax) 17 GM/SCOOP powder At 6pm day BEFORE surgery, mix Miralax (polyethylene glycol) powder with 64 oz sports drink. Stir to dissolve. Drink one cup (8oz) every 15 minutes until completed finished. 238 g 04/15/20 23 Active Additional Information Patient not taking.Reported on 07/07/2025 bisacodyl (Dulcolax) 5 MG EC tablet Day before procedure at 4pm take 4 tablets with 8 oz of clear liquid. 4 tablet 04/15/20 Active Additional Information Patient not taking.Reported on 07/07/2025 polyethylene glycol (GoLYTELY) 236 g solution At 5 p.m., mix the GoLytely solution Drink 3/4 solution, 8 oz/ 15 min Refrigerate the remaining mixture. 6 hours before your scheduled arrival time, finish the remaining 1 liter of GoLytely solution. 4000 mL 05/03/20 Active Additional Information Patient not taking.Reported on 07/07/2025 Dermatological Products, Misc. (EpiCeram) lotion Please apply to skin 3 times per day 30 minutes before getting dressed. 0.225 g 3 09/11/20 Active Additional Information Patient not taking.Reported on 07/07/2025 Xarelto 20 MG tabletIndications: Cerebrovascular accident (CVA) due to embolism of right posterior cerebral artery (CMS/HCC),Paroxysm al atrial fibrillation (CMS/HCC) TAKE 1 TABLET EVERY DAY 90 tablet 10 10/11/20 Active Vascepa 1 g capsuleIndications :Cerebrovascular accident (CVA) due to embolism of right posterior cerebral artery (CMS/HCC) TAKE 2 CAPSULES TWICE DAILY WITH MEALS 360 capsule 10 10/16/20 Active zonisamide (Zonegran) 100 MG capsule 12/23/19 24 Active metFORMIN XR (Glucophage-XR) 500 MG 24 hr tablet Take 1 tablet (500 mg) by mouth 1 (one) time each day with dinner. Do not crush, chew, or split. 28 tablet 01/16/20 Active Additional Information Patient not taking.Reported on 07/07/2025 rosuvastatin (Crestor) 10 MG tablet TAKE 1 TABLET ONE TIME DAILY 90 tablet 3 02/03/20 24 Active gabapentin (Neurontin) 800 MG tablet Take 1 tablet (800 mg) by mouth 3 (three) times a day. 01/29/20 24 Active nutritional drink (Boost) liquid liquid Take 237 mL by mouth 2 (two) times a day. 39185 mL 1 02/04/20 Active Additional Information Patient not taking.Reported on 07/07/2025 metoprolol succinate XL (Toprol-XL) 50 MG 24 hr tablet Take 1 tablet (50 mg) by mouth 1 (one) time each day. Do not crush or chew. 30 tablet 2 02/05/20 24 Active escitalopram (Lexapro) 10 MG tabletIndications: Generalized Anxiety Disorder,Major Depressive Disorder Take 1 tablet (10 mg) by mouth 1 (one) time each day. 30 tablet 1 02/25/20 24 Active Additional Information Patient not taking.Reported on 07/07/2025 levocetirizine (Xyzal) 5 MG tablet TAKE 1 TABLET EVERY DAY IN THE EVENING 90 tablet 3 05/12/20 24 Active ondansetron ODT (Zofran-ODT) 4 MG disintegrating tablet Take 1 tablet (4 mg) by mouth every 8 hours as needed. 07/14/20 24 Active Ozempic, 0.25 or 0.5 MG/DOSE, 2 MG/3ML solution pen-injector 07/06/20 24 Active lidocaine (Lidoderm) 5 % patch 01/19/20 25 Active memantine (Namenda) 5 MG tablet Take 1 tablet (5 mg) by mouth daily. Active indomethacin (Indocin) 25 MG capsule TAKE 1 CAPSULE THREE TIMES DAILY WITH MEALS 270 capsule 3 02/29/20 25 Active Creon 16246-259044 units capsule delayed-release particles capsule Take 3 capsules by mouth 3 times a day with meals. May also take 2 capsules as needed for snacks. 270 capsule 11 04/05/20 25 Active Rimegepant Sulfate (Nurtec) 75 MG orally disintegrating tablet Place 1 tablet under the tongue. 03/23/20 25 Active Active Problems Problem Noted Date Diagnosed Date Abdominal wall contusion 02/18/2024 Carotid artery stenosis 02/18/2024 Cervical muscle strain 02/18/2024 Constipation 02/18/2024 Dizziness 02/18/2024 Edema 02/18/2024 Encounter for removal of skin lesion 02/18/2024 Fatigue 02/18/2024 Hemolytic anemia 02/18/2024 Hepatomegaly 02/18/2024 History of Whipple procedure 02/18/2024 Pain in right toe(s) 02/18/2024 Paroxysmal atrial fibrillation 02/18/2024 Pre-diabetes 02/18/2024 Puncture wound 02/18/2024 Right hand pain 02/18/2024 RLL pneumonia 02/18/2024 Rosacea 02/18/2024 Sacroiliitis 02/18/2024 PFO (patent foramen ovale) 02/11/2024 Overview (02/18/2024): Last Assessment & Plan: -Follows with Cardiology and they are planning closure soon Abnormal glucose 01/20/2024 Overview (02/18/2024): Last Assessment & Plan: -Both A1c and fructosamine at goal after stopping GLP-1 d/t insurance -Started on metformin by Cardiology, may d/c especially if causing diarrhea Anticardiolipin antibody positive 01/20/2024 Focal seizure 01/20/2024 Overview (02/18/2024): -Follows with Neurology Last Assessment & Plan: -Continue Zonisamide, gabapentin (for pain) per Neuro recs Anemia 01/20/2024 Overview (02/18/2024): Last Assessment & Plan: -Likely r/t surgical hx w/ Whipple and poor absorption -Will defer decision on scopes to her cancer team -Would anticipate marginal response to PO Fe, so ultimately may need infusions (offered but she declined d/t travel distance right now) Hyperlipidemia 01/15/2024 Atrial fibrillation 01/15/2024 Overview (02/18/2024): -Follows with [facility] Last Assessment & Plan: -Continue BBJhony -Echo per Cardiology Type 2 diabetes mellitus without complications 0 01/15/2024 Vasovagal near-syncope 09/26/2023 Nephrolithiasis 02/19/2023 Chronic obstructive lung disease 02/06/2023 HTN (hypertension) 02/06/2023 Myocardial infarction 02/06/2023 Sleep apnea 02/06/2023 Localization-related (focal) (partial) symptomatic epilepsy and epileptic syndromes with simple partial seizures, not intractable, without status epilepticus 01/21/2023 Abdominal wall pain 05/17/2022 Syncope 02/02/2022 Allergic rhinitis 03/28/2021 Cognitive impairment 03/28/2021 Hemicrania 03/28/2021 Chronic migraine without aur a without status migrainosus, not intractable 02/13/2021 Overview (06/21/2021): Last Assessment & Plan: Greater than 15 FONTANA a month, lasting over 4 - 6 hours. Moderate to severe intensity, present for over 6 months. 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 Stroke 02/24/2019 Tinnitus 02/24/2019 Headache 12/17/2018 Migraine with aura 12/04/2018 Occipital neuralgia 12/04/2018 Chronic sinusitis 09/23/2018 Nasal polyps 09/23/2018 PND (post-nasal drip) 09/23/2018 Malignant neoplasm of colon 07/12/2018 Myofascial muscle pain 06/17/2014 Back pain 03/09/2014 Degeneration of intervertebral disc 03/09/2014 Resolved Problems Problem Noted Date Diagnosed Date Resolved Date History of loop recorder 04/18/2022 Overview (04/18/2022): Added automatically from request for surgery [id number] Ventral incisional hernia 07/16/2019 Overview (05/08/2021): Incisional hernia without obstruction or gangrene Encounters Date Type Department Care Team Description 07/21/2025 3:07 PM EDT - 07/21/2025 8:44 PM EDT Emergency [facility] [address] [place] [address] Juan Nunes MD Anemia requiring transfusions (Primary Dx) Discharge Disposition: Home or Self Care 07/21/2025 Travel 07/07/2025 10:00 AM EDT Procedure Visit [place] [facility] [address] [place] [address] SantoshSarika foley PA Myofascial pain syndrome (Primary Dx); Cervicalgia 07/07/2025 Travel 07/04/2025 Travel from Last 3 Months Immunizations Immunization Administration Dates Next Due Influenza, injectable, MDCK, preservative free, quadrivalent 08/16/2022 Influenza, injectable, quadrivalent 08/16/2022,1 Influenza, injectable, quadr ivalent, preservative free 09/26/2023,08/14/2021,08/25/2020,09/29,09/15/2018 Influenza, recombinant, quad rivalent, injectable, preservative free 08/21/2020 Influenza, seasonal, injecta ble, preservative free 09/15/2018 Pneumococcal Conjugate PCV 13 06/20/2016 Pneumococcal Polysaccharide PPV23 09/15/2018 Tdap 06/20/2016 Family History Medical History Relation Name Comments No Known Problems Brother Stroke Father Nadir Juares cva Father Nadir Juares No Known Problems Maternal Grandfather No Known Problems Maternal Grandmother Dementia Mother Emily Juares Osteoarthritis Mother Emily Juares Rheum arthritis Mother Emily Juares Arthritis Other No Known Problems Paternal Grandfather No Known Problems Paternal Grandmother Ankylosing spondylitis Sibling No Known Problems Sister Relation Name Status Comments Brother Father Nadir Juares Maternal Grandfather Maternal Grandmother Mother Emily Juares Other Paternal Grandfather Paternal Grandmother Sibling Sister Social History Tobacco Use Types Packs/Day Years [...] on file Sexual Orientation Not on file Last Filed Vital Signs Vital Sign Reading [...] Mass Index 16.46 07/21/2025 1:46 PM EDT Plan of Treatment Upcoming Encounters Date Type Department Care Team (Late st Contact Info) Description 10/13/2025 10:00 AM EST Procedure Visit [place] [facility] [address] [place] [address] Sarika Frost, PA [address] [place] [address] 02/01/2026 9:00 AM EST Appointment [facility] [address] [place] [phone] 02/01/2026 11:30 AM EST Office Visit [facility] [address] [place] [phone] Marycruz Kinney, DRUM TESTER [address] [facility] [address] [place] [address] Health Maintenance Due Date Last Done Comments Dental Oral Exam 1966 Dental Prophylaxis 1966 Dental X-Ray: Bitewings 1966 [facility]-/Child/Adol SDOH Screenings 1966 Diabetes: Dental Exam 1976 [facility]- SDOH Screenings 1984 [facility]-Adult SDOH Screenings 1984 [facility]-Hepatitis A Vaccines (1 of 2 - Risk 2-dose series) 1985 [facility]-Hepatitis B Vaccines (1 of 3 - 19+ 3-dose series) 1985 [facility]-Zoster Vaccines (1 of 2) 1985 [facility]-Pap Smear 1987 [facility]-Cervical Cancer Screening 1996 [facility]-HPV/Cotest 1996 CT Colonography 2011 FIT-DNA 2011 FIT 2011 FOBT 2011 Sigmoidoscopy 2011 [id number] Vaccine (3 - Pfizer risk series) 09/21/2021 08/24/2021, 07/28/2021 [facility]-Breast Cancer Screening 05/23/202505/03, 05/08/2022, 05/08/2022, Additional history exists [facility]-Influenza Vaccine (#1) 08/02/202508/26, 09/26/2023, 08/16/2022, Additional history exists [facility]-Diabetes: Hemoglobin A1C 01/17/2026, 01/15/2024, 05/10/2017, Additional history exists [facility]-Depression Screening 02/02/2026 025, 02/02/2025, 02/04/2024 [facility]-DTaP,Tdap,and Td Vaccines (2 - Td or Tdap) 06/20/2026 06/20/2016 Colonoscopy 07/14/2026 07/15/2023, 01/03, 02/09/2019 [facility]-Colorectal Cancer Screening 07/14/2026 Dental X-Ray: Full Mouth 04/02/2027 04/01/2024 [facility]-Pneumococcal Vaccine: 50+ Years Completed 10/28/2024, 09/15/2018, 06/20/2016 [facility]-HIV Screening Completed 07/21/2025 [facility]-Hepatitis C Screening Completed 07/21/2025, HPV Vaccines Aged Out No longer eligi ble based on patient's age to complete this topic [facility]-HIB Vaccines Aged Out No longer e ligible based on patient's age to complete this topic [facility]-IPV Vaccines Aged Out No longer e ligible based on patient's age to complete this topic [facility]-Rotavirus Vaccines Aged Out No lo nger eligible based on patient's age to complete this topic Procedures Procedure Name Priority Date/Time Associated Diagnosis Comments TRANSFUSE RED BLOOD CELLS Routine 07/21/2025 6:18 PM EDT PREPARE RBC Routine 07/21/2025 5:33 PM EDT PREPARE RBC Routine 07/21/2025 3:45 PM EDT XR CHEST 1 VIEW STAT 07/21/2025 3:37 PM EDT APTT STAT 07/21/2025 3:06 PM EDT PROTHROMBIN TIME(PT) / INR STAT 07/21/2025 3:06 PM EDT ED HIV 1/2 ANTIBODY/ANTIGEN SCREEN WITH REFLEX TO HIV I/II DIFFERENTIATION STAT 07/21/2025 3:06 PM EDT ED PROTOCOL HIV 1/2 ANTIBODY/ANTIGEN SCREEN W/REFLEX TO HIV 1/2 ANTIBODY DIFFERENTIATION STAT 07/21/2025 3:06 PM EDT HEPATITIS C ANTIBODY - ED W/REFLEX TO HCV QUANT PCR STAT 07/21/2025 3:06 PM EDT FREE T4, PLASMA STAT 07/21/2025 3:06 PM EDT TSH STAT 07/21/2025 3:06 PM EDT PHOSPHORUS, PLASMA STAT 07/21/2025 3: 06 PM EDT MAGNESIUM, PLASMA STAT 07/21/2025 3:0 6 PM EDT CBC WITH AUTO DIFFERENTIAL STAT 07/21/2025 3:06 PM EDT BASIC METABOLIC PANEL, PLASMA STAT 07/21/2025 3:06 PM EDT TYPE AND SCREEN STAT 07/21/2025 3:06 PM EDT PANORAMIC RADIOGRAPHIC IMAGE Routine 04/01/2024 10:30 AM EDT Encounter for dental examination HEMOGLOBIN A1C Routine 01/15/2024 1:57 PM EST Paroxysmal atrial fibrillation (CMS/HCC) COLONOSCOPY Routine 07/15/2023 2:01 PM EDT Stage IV carcinoma of colon (CMS/HCC) MAMMOGRAPHY BREAST SCREENING TOMOSYNTHESIS BILATERAL Routine 05/23/2023 7:45 AM EDT Visit for screening mammogram from Last 3 Months or Most Recently Relevant to Health Maintenance Results * Transfuse RBC (07/21/2025 8:43 PM EDT) Juan Nunes MD BLOOD TRANSFUSION ORDERABLES Final Result * Prepare Leukocyte Reduced RBC: 1 Units (07/21/2025 3:45 PM EDT) Product Code P6405P57 BLOO D BANK Dispense Status Transfused BLOOD BANK Blood Expiration Date [id number] BLOOD BANK Unit Number [id number] CH B LOOD BANK Product Blood Type 6200 BLOOD BANK Blood Type A+ BLOOD BANK Crossmatch Compatible BLOOD BANK Other Juan Nunes MD BLOOD BANK PRODUCT ORDERABLES Final Result BLOOD BANK [address] [place] [address], [place] * XR Chest 1 View (07/21/2025 3:37 [...] Antonio Pedraza MD on 07/21/2025 5:18 PM us Claudio Engel MD IMG XR PROCEDURES Final Re sult * ED HIV 1/2 Antibody/Antigen Screen w/Reflex to HIV 1/2 Differentiation (07/21/2025 3:06 PM EDT) HIV 1 & 2 Antibody/Antigen Screen Non Reactive Non Reactive 07/21/2025 4:33 PM EDT [facility] Comment:Screening for HIV 1 & 2 antibodies, and P24 antigen is NONREACTIVE. No confirmatory testing is required. Blood Venous blood specimen / Unknown Venipuncture / Unknown 07/21/2025 3:06 PM EDT 07/21/2025 4:33 PM EDT Claudio Engel MD LAB BLOOD ORDERABLES Final Result Performing Organization Address [facility]/ZIP Co de Phone Number [facility] [address] [place] [address] * Hepatitis C Antibody - ED (07/21/2025 3:06 PM EDT) Hepatitis C Antibody Negative Negative 07/21/2025 4:28 PM EDT [facility] Blood Venous blood specimen / Unknown Venipuncture / Unknown 07/21/2025 3:06 PM EDT 07/21/2025 3:47 PM EDT Claudio Engel MD LAB BLOOD ORDERABLES Final Result Performing Organization Address [facility] Co de Phone Number [facility] [address] [place] [address] * (ABNORMAL) APTT (07/21/2025 3:06 PM EDT) aPTT 39(H) 25 - 35 sec 07/21/2025 3:39 PM EDT [facility] Blood Venous blood specimen / Unknown Venipuncture / Unknown 07/21/2025 3:06 PM EDT 07/21/2025 3:22 PM EDT Claudio Engel MD LAB BLOOD ORDERABLES Final Result Performing Organization Address City/[facility] Co de Phone Number [facility] [address] [place] [address] * (ABNORMAL) PT-INR (07/21/2025 3:06 PM EDT) Prothrombin Time 15.7(H) 12.0 - 14.3 sec 07/21/2025 3:38 PM EDT [facility] INR 1.3(H) 0.9 - 1.1 07/21/2025 3:38 PM EDT [facility] Blood Venous blood specimen / Unknown Venipuncture / Unknown 07/21/2025 3:06 PM EDT 07/21/2025 3:22 PM EDT Narrative [facility] - 07/21/2025 3:38 PM EDT OPTIMAL INR RANGES FOR PATIENT ON ORAL ANTICOAGULANT THERAPY Prevention of venous thromboembolism INR 2.0 to 3.0 In patients with heart disease: Atrial fibrillation INR 2.0 to 3.0 Valvular heart disease INR 2.0 to 3.0 Tissue heart valves INR 2.0 to 3.0 Mechanical prosthetic valves INR 2.5 to 3.5 Prevention of recurrent [place] INR 2.5 to 3.5 us Claudio Engel MD LAB BLOOD ORDERABLES Final Result [facility] [address] [place] [address] * (ABNORMAL) CBC w/diff (07/21/2025 3:06 PM EDT) Pathologist [facility] WBC Count 8.00 3.70 - 10.30 10*3/uL LAB HEMATOLOGY METHOD 07/21/2025 3:33 PM EDT [facility] RBC Count 4.18 3.90 - 5.20 10*6/uL LAB HEMATOLOGY METHOD 07/21/2025 3:33 PM EDT [facility] HGB 6.6(L) 11.2 - 15.7 g/dL LAB HEMATOLOGY METHOD 07/21/2025 3:33 PM EDT [facility] HCT 25.3(L) 34.0 - 45.0 % LAB HEMATOLOGY METHOD 07/21/2025 3:33 PM EDT [facility] Platelet Count 418(H) 155 - 369 10*3/uL LAB HEMATOLOGY METHOD 07/21/2025 3:33 PM EDT [facility] MCV 61(L) 79 - 98 fL LAB HEMATOLOGY METHOD 07/21/2025 3:33 PM EDT [facility] MCH 15.8(L) 26.0 - 32.0 pg LAB HEMATOLOGY METHOD 07/21/2025 3:33 PM EDT [facility] MCHC 26.1(L) 30.7 - 35.5 g/dL LAB HEMATOLOGY METHOD 07/21/2025 3:33 PM EDT [facility] RDW 21.8(H) 11.5 - 14.5 % LAB HEMATOLOGY METHOD 07/21/2025 3:33 PM EDT [facility] MPV LAB HEMATOLOGY METHOD 07/21/2025 3:33 PM EDT [facility] Comment:Not Measured nRBC 0.0 <=0.0 per 100 WBCs LAB HEMATOLOGY METHOD 07/21/2025 3:33 PM EDT [facility] Differential Type Automated LAB HEMATOLOGY METHOD 07/21/2025 3:33 PM EDT [facility] Neutrophils % 69 % LAB HEMATOLOGY METHOD 07/21/2025 3:33 PM EDT [facility] Lymphocytes % 20 % LAB HEMATOLOGY METHOD 07/21/2025 3:33 PM EDT [facility] Monocytes % 8 % LAB HEMATOLOGY METHOD 07/21/2025 3:33 PM EDT [facility] Eosinophils % 1 % LAB HEMATOLOGY METHOD 07/21/2025 3:33 PM EDT [facility] Basophils % 1 % LAB HEMATOLOGY METHOD 07/21/2025 3:33 PM EDT [facility] Immature Granulocytes % 1 % LAB HEMATOLOGY METHOD 07/21/2025 3:33 PM EDT [facility] Neutrophils Absolute 5.55 1.60 - 6.10 10*3/uL LAB HEMATOLOGY METHOD 07/21/2025 3:33 PM EDT [facility] Lymphocytes Absolute 1.63 1.20 - 3.90 10*3/uL LAB HEMATOLOGY METHOD 07/21/2025 3:33 PM EDT [facility] Monocytes Absolute 0.62 0.30 - 0.90 10*3/uL LAB HEMATOLOGY METHOD 07/21/2025 3:33 PM EDT [facility] Eosinophils Absolute 0.10 0.00 - 0.50 10*3/uL LAB HEMATOLOGY METHOD 07/21/2025 3:33 PM EDT [facility] Basophils Absolute 0.05 0.00 - 0.10 10*3/uL LAB HEMATOLOGY METHOD 07/21/2025 3:33 PM EDT [facility] Immature Granulocytes Absolute 0.05 0.00 - 0.06 10*3/uL LAB HEMATOLOGY METHOD 07/21/2025 3:33 PM EDT [facility] Blood Venous blood specimen / Unknown Venipuncture / Unknown 07/21/2025 3:06 PM EDT 07/21/2025 3:22 PM EDT Narrative [facility] - 07/21/2025 3:33 PM EDT Therapeutic decision making should be based on absolute values, rather than percentages. us Claudio Engel MD LAB BLOOD ORDERABLES Final Result Performing Organization Address City/[facility]/ZIP Co de Phone Number [facility] [address] [place] [address] * Type and screen (07/21/2025 3:06 PM EDT) ABO/Rh A Positive 07/21/2025 2:42 PM EDT BLOOD BANK Antibody Screen Negative 07/21/2025 2:42 PM EDT BLOOD BANK Specimen Expiration 07/24/2025 23:59 07/21/2025 2:42 PM EDT BLOOD BANK Blood Venous blood specimen / Unknown Venipuncture / Unknown 07/21/2025 3:06 PM EDT 07/21/2025 3:15 PM EDT us Claudio Engel MD LAB BLOOD BANK TEST ORDERA BLES Final Result Performing Organization Address [facility] Co de Phone Number BLOOD BANK [address] [place] [address], * Thyroid Stimulating Hormone, Plasma (07/21/2025 3:06 PM EDT) Thyroid Stimulating Hormone, Plasma 1.87 0.40 - 4.20 uIU/mL 07/21/2025 3:56 PM EDT [facility] Blood Venous blood specimen / Unknown Venipuncture / Unknown 07/21/2025 3:06 PM EDT 07/21/2025 3:22 PM EDT us Claudio Engel MD LAB BLOOD ORDERABLES Final Result Performing Organization Address City/[facility]/ZIP Co de Phone Number [facility] [address] [place] [address] * Free T4, Plasma (07/21/2025 3:06 PM EDT) Free T4, Plasma 1.1 0.8 - 1.7 ng/dL 07/21/2025 3:56 PM EDT [facility] Blood Venous blood specimen / Unknown Venipuncture / Unknown 07/21/2025 3:06 PM EDT 07/21/2025 3:22 PM EDT us Claudio Engel MD LAB BLOOD ORDERABLES Final Result [facility] [address] [place] [address] * Phosphorus (07/21/2025 3:06 PM EDT) Phosphorus, Plasma 4.4 2.5 - 4.5 mg/dL 07/21/2025 3:56 PM EDT [facility] Blood Venous blood specimen / Unknown Venipuncture / Unknown 07/21/2025 3:06 PM EDT 07/21/2025 3:22 PM EDT us Claudio Engel MD LAB BLOOD ORDERABLES Final Result [facility] [address] [place] [address] * Magnesium (07/21/2025 3:06 PM EDT) Magnesium, Plasma 2.3 1.9 - 2.4 mg/dL 07/21/2025 3:56 PM EDT [facility] Blood Venous blood specimen / Unknown Venipuncture / Unknown 07/21/2025 3:06 PM EDT 07/21/2025 3:22 PM EDT Claudio Engel MD LAB BLOOD ORDERABLES Final Result [facility] [address] [place] [address] * (ABNORMAL) BMP (07/21/2025 3:06 PM EDT) Glucose, Plasma 123(H) 74 - 99 mg/dL 07/21/2025 3:56 PM EDT [facility] BUN, Plasma 17 7 - 21 mg/dL 07/21/2025 3:56 PM EDT [facility] Creatinine, Plasma 0.60 0.60 - 1.10 mg/dL 07/21/2025 3:56 PM EDT [facility] BUN/Creatinine Ratio 28 07/21/2025 3:56 PM EDT [facility] Sodium, Plasma 141 136 - 145 mmol/L 07/21/2025 3:56 PM EDT [facility] Potassium, Plasma 3.9 3.6 - 4.9 mmol/L 07/21/2025 3:56 PM EDT [facility] Chloride, Plasma 108(H) 97 - 107 mmol/L 07/21/2025 3:56 PM EDT [facility] CO2, Plasma 23 22 - 29 mmol/L 07/21/2025 3:56 PM EDT [facility] Anion Gap 10 6 - 16 mmol/L 07/21/2025 3:56 PM EDT [facility] Total Calcium, Plasma 9.0 8.9 - 10.2 mg/dL 07/21/2025 3:56 PM EDT [facility] eGFRcr 103.5 mL/min/1.7 3m*2 07/21/2025 3:56 PM EDT [facility] Comment:Reported eGFRcr in m L/min/1.73m2 is based the CKD-EPI 2020 equation that does not use a race coefficient. Blood Venous blood specimen / Unknown Venipuncture / Unknown 07/21/2025 3:06 PM EDT 07/21/2025 3:22 PM EDT us Claudio Engel MD LAB BLOOD ORDERABLES Final Result [facility] [address] [place] [address] * Colonoscopy (07/15/2023 2:01 PM EDT) Anatomical Region Laterality Modality Endoscopy Narrative 07/15/2023 2:01 PM EDT Table formatting from the original result was not included. Impression: Healthy end-to-side ileocolonic anastomosis in the transverse colon Normal. Surveillance colonoscopy completed in the setting of right colon cancer; previous right colectomy. Healthy-appearing ileocolic anastomosis. No new masses or lesions. Recommend surveillance colonoscopy in 3 years. Recommendation Repeat colonoscopy in 3 years Indication Order Indication: Stage IV carcinoma of colon (CMS/HCC) Medications midazolam (Versed) injection 3 mg fentaNYL (Sublimaze) injection 75 mcg (Totals for administrations occurring from 1321 to 1400 on 07/15/23) Staff Staff Role Yoel Portillo MD Proceduralist Lucio, Lucie Endo Nail Assembly Machine Operator Tata Colin RN Endo Nurse Madison, Patt Endo Nurse Preprocedure A history and physical has been performed, and patient medication allergies have been reviewed. The patient's tolerance of previous anesthesia has been reviewed. The risks and benefits of the procedure and the sedation options and risks were discussed with the patient. All questions were answered and informed consent obtained. Details of the Procedure The patient underwent moderate sedation, which was administered by the procedural nurse. The patient's blood pressure, heart rate, level of consciousness, oxygen and respirations were monitored throughout the procedure. A digital rectal exam was performed. A perianal exam was performed. The scope was introduced through the anus and advanced to the site of the anastomosis. Retroflexion was performed in the rectum. The quality of bowel preparation was evaluated using the [place] Bowel Preparation Scale with scores of: right colon = 2, transverse colon = 2, left colon = 2. The total BBPS score was 6. Bowel prep was adequate. The patient experienced no blood loss. The procedure was not difficult. The patient tolerated the procedure well. There were no apparent adverse events. Conscious sedation administered by myself, LATOYA Portillo MD;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
--- OUTSIDE RECORDS SUMMARY | 2025-08-06 15:27 | XMS_ITS ---
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 Juares has a left homonymous hemianopia secondary to her prior right NEWS CONTENT SPECIALIST stroke. Unfortunately, there is nothing that can be done to try to improve upon this. She does feel she has learned how to accommodate for this deficit. Depression 03/09/2024 Assessment & Plan (03/09/2024 11:24 AM EDT): -Increase Cymbalta to 40 mg PFO (patent foramen ovale) 02/11/2024 Assessment & Plan (06/10/2024 12:43 PM EDT): Mrs. Juares was diagnosed with a PFO when she was found to have her stroke. I calculated her rope score to be 6, which estimates about 62% chance that her stroke was due to this PFO. She is currently anticoagulated. If she were not, I would recommend she pursue PFO closure. She reports having been seen by cardiology who also recommended just remaining on anticoagulation. If there is any thought that she will discontinue anticoagulation at any point in the future I would recommend pursuing PFO closure. Assessment & Plan (02/11/2024 11:42 AM EDT): -Follows with [facility] and they are planning closure soon Anemia 01/20/2024 Assessment & Plan (01/14/2025 9:58 PM EST): -No recent Fe studies but suspect still deficient as not supplementing -Recommended IV Fe again d/t her past GI surgeries, declines d/t transport issues (offered multiple options) -She has upcoming Oncology f/u and recommended she d/w them regarding need for repeat scopes. She likely has nutritional Fe deficiency but with hx colon cancer of course do need to consider repeat scopes and will defer to her Oncologist's expertise -Rec she try OTC Fe or Fe rich diet right now if able to tolerate Assessment & Plan (03/09/2024 11:19 AM EDT): -Upcoming scope to evaluate for source of anemia Assessment & Plan (02/11/2024 11:56 AM EDT): -Likely r/t surgical hx w/ Whipple and poor absorption -Will defer decision on scopes to her cancer team -Would anticipate marginal response to PO Fe, so ultimately may need infusions (offered but she declined d/t travel distance right now) Assessment & Plan (01/20/2024 4:07 PM EST): -Microcytic anemia suspicious for Fe deficiency. Workup ordered -Denies any bleeding including dark/tarry stools. Will defer endoscopic eval decision to Heme/Onc pending Fe studies Abnormal glucose 01/20/2024 Assessment & Plan (01/14/2025 9:58 PM EST): -Noted wt remaining down -She previously was taking Ozempic and we've continued it here. Discussed risk of excessive wt loss. She feels Ozempic has been critical in preventing excessive eating and DM, so much prefers to continue though I feel it may contribute to her wt loss -Will continue watch wt, hold off on increasing dose beyond 0.5 mg right now Assessment & Plan (02/11/2024 11:55 AM EDT): -Both A1c and fructosamine at goal after stopping GLP-1 d/t insurance -Started on metformin by Cardiology, may d/c especially if causing diarrhea Assessment & Plan (01/20/2024 4:08 PM EST): -Last A1c 5.0, can't find others in outside records -Stopped Rybelsus d/t insurance coverage. Ok to continue metformin -Check fructosamine as A1c may be falsely low w/ anemia History of stroke 01/20/2024 Overview (01/20/2024): -NEWS CONTENT SPECIALIST CVA -Residual blind spot, word finding difficulties -Follows with [facility] -Positive Anticardiolipin Ab Assessment & Plan (06/10/2024 12:44 PM EDT): Mrs. Juares has a history of right NEWS CONTENT SPECIALIST stroke with a residual left homonymous hemianopia present. Her stroke workup was notable for PFO and a positive anticardiolipin antibody. She is anticoagulated currently for both. Assessment & Plan (03/09/2024 11:22 AM EDT): -Had appt to discuss PFO closure, but ultimately appears plan is to not pursue since she is on indefinite AC Assessment & Plan (01/20/2024 4:13 PM EST): -Continue secondary risk reduction. Recent lipid panel reviewed, LDL 42 -Continue Xarelto, statin Atrial fibrillation 01/20/2024 Overview (01/20/2024): -Follows with [facility] Assessment & Plan (03/22/2025 3:29 PM EDT): -Continue current medication, denies any overt bleeding including GI Assessment & Plan (06/10/2024 12:45 PM EDT): Mrs. Juares has atrial fibrillation and is currently followed by cardiology at . She is anticoagulated and should remain on anticoagulation long-term. As discussed below, she also has a PFO, which is not being pursued for closure currently as she is anticoagulated. If anticoagulation is to be discontinued I would consider the possibility of PFO closure. Assessment & Plan (01/20/2024 4:11 PM EST): -Continue BB, Xarelto -Echo per Cardiology Focal seizure 01/20/2024 Overview (01/20/2024): -Follows with Neurology Assessment & Plan (05/20/2025 10:03 AM EDT): -Discussed that gabapentin also is an AED so non-adherence can impact seizure thershold -Continue to follow recommendations from her Neurologist Assessment & Plan (03/22/2025 3:29 PM EDT): -Recently saw a new Neurology team, continue current meds per their recommendations Assessment & Plan (06/10/2024 12:43 PM EDT): Mrs. Juares is here today to establish care with a new neurologist. She has a relatively interesting history given her diagnoses of stroke, seizure, cancer, PFO, and anticardiolipin antibody positivity. There have been concerns raised that she has had possible seizures. Based on the description of these events I would agree that they are possibly seizures. She has had 2 main events that I would consider potentially seizures. These consist of her developing a sudden onset silver ball in the left visual field or developing shaking of the left upper extremity with retained consciousness. She describes having bilateral drawing up of her hands associated with retained consciousness that I let her know I had very little suspicion was seizure related. This sounds to be more consistent with a carpal spasm. She is currently taking gabapentin for pain control. She is considering this her seizure medication as well. If she continues to have any further episodes concerning for seizures she is aware to notify me. We did discuss the possibility of starting another antiseizure medication depending on what is discussed. Assessment & Plan (03/09/2024 11:19 AM EDT): -Would like to establish with a local neurologist here and referral placed Assessment & Plan (01/20/2024 4:12 PM EST): -Continue Zonisamide, gabapentin (for pain) per Neuro recs Chronic pain syndrome 01/20/2024 Overview (05/20/2025): -Pain generators: L hip, lumbar back w/ left sciatica, trigger points right shoulder/trap -Stopped opioids 12/2023 from outside provider, low dose trial started 05/2024 w/ [facility] -CSA signed 05/19/24 -UDS 05/19/25 -Pt declined repeat MRI lumbar/c-spine to eval for interventional therapies, last c-spine 2020 Current Regimen: -Gabapentin 800 mg TID -Tizanidine 4 mg mostly at night, helps more w/ cramps than chronic pain -Sulfasalazine somewhat helpful -oxycodone 5 mg PRN (avg <1 dose/day) -Trigger point injections (not at [facility]) Previously tried: -Avoiding NSAIDs w/ Xarelto use and gastric surgery hx -Cymbalta 40 mg -Oxycodone 10 mg up to QID -Robaxin -Flexeril -Acupuncture Assessment & Plan (05/20/2025 10:03 AM EDT): -Discussed the link between pain and mental health. Recommended counseling and she declines right now. -Offered multiple other multimodal treatment options. She will consider OMT -UDS negative and c/w last doses of medication >1 week ago -Urine very dark and will obtain full UA to eval, pt asymptomatic -I did call her back the following day to check in and again recommend additional support. She declines right now, denies any SI or pressing concerns currently. -Pain generators: L hip, lumbar back w/ left sciatica, trigger points right shoulder/trap -Stopped opioids 12/2023 from outside provider, low dose trial started 05/2024 w/ [facility] -CSA signed 05/19/24 -UDS 05/19/25 -Pt declined repeat MRI lumbar/c-spine to eval for interventional therapies, last c-spine 2020 Current Regimen: -Gabapentin 800 mg TID -Tizanidine 4 mg mostly at night, helps more w/ cramps than chronic pain -Sulfasalazine somewhat helpful -oxycodone 5 mg PRN (avg <1 dose/day) -Trigger point injections (not at [facility]) Previously tried: -Avoiding NSAIDs w/ Xarelto use and gastric surgery hx -Cymbalta 40 mg -Oxycodone 10 mg up to QID -Robaxin -Flexeril -Acupuncture State Prescription Drug Monitoring Program (i.e [place], [place], [place]): - Last Successful PDMP Review: 05/19/2025 2:16 PM by Tyree Coffman MD Urine Drug Screen: - urine drug screen will be completed today Controlled Substatnce Contract: - completed and on file Assessment & Plan (03/22/2025 3:29 PM EDT): -Will continue current regimen at this time. Avg oxycodone use <5 mg per day. -Offered to reorder MRI of C-spine in combination w/ interventional spine referral to consider procedural options, declined. -Also discussed importance of support network and recommended counseling, declined right now. State Prescription Drug Monitoring Program (i.e [place], [place]): - Last Successful PDMP Review: 03/22/2025 3:27 PM by Tyree Coffman MD Urine Drug Screen: - urine drug screen completed in the last year Controlled Substatnce Contract: - completed and on file Assessment & Plan (01/14/2025 9:58 PM EST): -Meeting her functional goals w/ current regimen and using oxycodone ~1/day on average, no changes currently -Discussed possibly benefits of Cymbalta again Goals: - maintain lowest amount of pain medication to manage ADLs comfortably State Prescription Drug Monitoring Program (i.e [place], [place]): - Last Successful PDMP Review: 01/13/2025 1:33 PM by Tyree Coffman MD Urine Drug Screen: - urine drug screen completed in the last year Controlled Substatnce Contract: - completed and on file -Pain generators: L hip, lumbar back w/ left sciatica, trigger points right shoulder/trap -Stopped opioids 12/2023 from outside provider, low dose trial started 05/2024 w/ [facility] -CSA signed 05/19/24 -UDS 05/19/24 -Pt declined repeat MRI lumbar/c-spine to eval for interventional therapies, last c-spine 2020 Current Regimen: -Gabapentin 800 mg TID -Tizanidine 4 mg mostly at night, helps more w/ cramps than chronic pain -Sulfasalazine somewhat helpful -oxycodone 5 mg PRN (avg <1 dose/day) Previously tried: -Avoiding NSAIDs w/ Xarelto use and gastric surgery hx -Cymbalta 40 mg -Oxycodone 10 mg up to QID -Robaxin -Flexeril -Acupuncture Orders: lidocaine (LIDODERM) 5 % Top Adhesive Patch, Medicated; Place 1 Patch onto the skin every 12 hours as needed for Pain. Assessment & Plan (10/30/2024 8:51 AM EST): -Doing well on current regimen, avg use is 5 mg QOD for severe pain -Overall she is happy w/ sx control -Offered again we could update MRIs if interested in procedural options Goals: - maintain lowest amount of pain medication to manage ADLs comfortably State Prescription Drug Monitoring Program (i.e [place], [place], [place]): - Last Successful PDMP Review: 10/28/2024 1:36 PM by Tyree Coffman MD Urine Drug Screen: - urine drug screen completed in the last year Controlled Substatnce Contract: - completed and on file Assessment & Plan (08/26/2024 3:05 PM EDT): Goals: - maintain lowest amount of pain medication to manage ADLs comfortably -Pt satisfied w/ current pain mgmt plan. Did discuss we can reeval as desired including repeat MRI if symptoms change/worsen. -Still unclear why she was prescribed sulfasalazine, but does feel it helps. Prescibed by PCP for inflammation she reports, but no clear etiology given. Rheum w/u negative. Discussed possibility of lab negative disease, though no overt signs noted in hx/exam. If suspicion increases, would pursue Rheum referral. -F/u 2 months Assessment & Plan (06/22/2024 4:53 PM EDT): Goals: - maintain lowest amount of pain medication to manage ADLs comfortably -Reports functional improvement and no RUPALI from PRN oxycodone, using on average <1 dose/day. Will continue at this time -Continue multimodal therapies as above -Presentation would be atypical for PMR (considered w/ inflammatory markers) and no overt sx Rheum dx. Unclear why was prescribed sulfasalazine (?from prior PCP) but does seem to get a benefit. Will continue for now and may consider Rheum referral based on course. Assessment & Plan (05/19/2024 9:42 AM EDT): -Unfortunately pain remains severe despite above measures. Pain continues to limit function greatly. We discussed the risks and benefits of opioids in great detail, she's familiar based on past chronic use. She understands that restarting opioids is a major decision and has thought about this for some time. -We will start a low dose trial of PRN oxycodone with goal to improve functional status -UDS ordered, CSA reviewed/signed, Elkin reviewed -Autoimmune w/u ordered given past sulfasalazine use, hx ank spon in brother, and RA in mother Assessment & Plan (03/26/2024 11:54 AM EDT): -Pain remains severe and limiting her function despite optimizing above regimen -Don't see any red flags on exam, but do feel MRI would be useful particularly if she would be interested in procedural options. Also w/ hx of cancer would be reasonable to check, though her sx have been chronic and stable for many years. -Declines MRI right now, agreeable w/ plain films today -Rec we trial acupuncture, will schedule -Rec TENS unit, cost prohibitive right now for her -Discussed r/b of PRN opioid trial. She'd like to hold off right now and we mutually agree to avoid if at all possible. With poor response to above so far, we'll continue to evaluate together. Assessment & Plan (03/20/2024 11:58 AM EDT): -Continues to struggle w/ daily pain despite above regimen -Can only see C spine MRI 2020, showed moderate spinal stenosis -Given her sx which could suggest progressing myelopathy and hx cancer, likely needs repeat MRIs. Will bring in to examine to determine levels (at least cervical/thoracic based on today's hx) -Discussed a number of options including Robaxin/Flexeril/acupuncture, previously tried w/ no relief. -Working to optimize multimodal therapies prior to reconsidering opioids given risks and she's on board w/ this Assessment & Plan (03/09/2024 11:21 AM EDT): -Continues to struggle with pain which limits her functional capacity. We're continuing to work to optimize multimodal treatments prior to considering reintiating opioids and she's agreeable with this. -Increase Cymbalta to 40 mg, f/u via phone in 2 wks (reports poor tolerability of meds so going slowly). No changes to multimodal plan otherwise right now. Assessment & Plan (02/11/2024 11:54 AM EDT): -Discussed her pain generators, pathophys of pain, and evidence-based pain management w/ multimodal therapies -Considered concurrent fibromyalgia, though neither hx or exam suggest this right now. No features to suggest active systemic rheumatologic dx currently. -Declined additional imaging right now -We mutually agree to maximize other options prior to considering opioids -Trial Cymbalta 20 mg BID. Never took SSRI/SNRI - kevin screen negative, discussed RUPALI in detail. This may help for concurrent depression/anxiety as well -Continue gabapentin and tizanidine -Would avoid NSAIDs given risk for marginal ulcer formation -Add Slo Mg for cramps, stop if diarrhea worse -Offered acupuncture, can't do here until she moves closer d/t long drive Assessment & Plan (01/20/2024 4:14 PM EST): -Multiple pain generators (hips, back, neck, shoulders) -Previously on chronic opioids then stopped after reported pill count issue. Elkin c/w this. She weaned herself off opioids, now off x4 days w/o sx withdrawal -Long discussion regarding r/b of opioids. Will observe off opioids for now w/ close f/u to discussion next steps. 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 She is anticoagulated for multiple reasons, including having a PFO and atrial fibrillation. It is not clear that any further treatment would be necessary for this anticardiolipin antibody positivity. I will defer management to the delivery analyst. 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 Last CMP reviewed from recently. -Nutritional labs ordered and pending Assessment & Plan (10/30/2024 8:51 AM EST): -Followed by [facility] -Given large areas of small and large bowel resection, will check for nutritional deficiencies -Recommended IV Fe, declined d/t transport issues -Declined all vaccines except PCV Orders: CBC; Future VITAMIN E - REF LAB; Future VITAMIN B6 (PYRIDOXINE) -REF LAB; Future MAGNESIUM LEVEL; Future ZINC LEVEL-REF LAB; Future COPPER LEVEL -REF LAB; Future VITAMIN B1 (THIAMINE) WHOLE BLOOD -REF LAB; Future VITAMIN A (RETINOL) -REF LAB; Future IRON+TIBC; Future FERRITIN; Future Assessment & Plan (08/26/2024 3:06 PM EDT): -Recommended flu and COVID shots this season, flu given today Assessment & Plan (01/20/2024 4:05 PM EST): -Continue f/u with [facility], coming up in next few weeks Current Treatment and Therapy Plans No current plan information found. Past Treatment and Therapy Plans
--- OUTSIDE RECORDS SUMMARY | 2025-08-06 15:27 | XMS_ITS | Encounter Summary ---
Author Organization [place] [address] Care Team Providers Care Anvil Worker Name Role Phone Tyree Coffman MD Primary Care Provider [phone] Reason for Visit * Reason Onset Date Comments Medication Refill 07/09/2025 Encounter Details Date Type Department Care Team (Late st Contact Info) Description 07/09/2025 [facility] [address] [place] [phone] Renee Flores, research spec Refill Social History Tobacco Use Types Packs/Day Years [...] encounter Miscellaneous Notes * Telephone Encounter - Tyree Coffman MD - 07/19/2025 7:52 AM EDT Yes I believe she has stopped. * Telephone Encounter - Milli Le - 07/16/2025 4:39 PM EDT Pharmacy called to check status of refill. Told them that it is refused. Pharmacy was wondering if this patient has discontinued taking this medication * Telephone Encounter - Elizabeth Mendez, RN - 07/09/2025 10:37 AM EDT Refill pended, please review script prior to sending. documented in this encounter Plan of Treatment Not on [...] documented as of this encounter Care Teams Anvil Worker Relationship Specialty Start Date End Date Tyree Coffman MD [address] [place] [address] PCP - General Family Medicine 01/20/24 documented as of this encounter
--- OUTSIDE RECORDS SUMMARY | 2025-08-06 15:27 | XMS_ITS | Encounter Summary ---
Author Organization [place] [address] Care Team Providers Care Forensic Science Examiner Name Role Phone Tyree Coffman MD Primary Care Provider [phone] Reason for Visit * Reason Onset Date Comments Medication Refill 07/12/2025 Encounter Details Date Type Department Care Team (Late st Contact Info) Description 07/12/2025 [facility] [address] [place] [address] Elizabeth Mendez, electrical designer drafter Refill Social History Tobacco Use Types Packs/Day [...] 1:38 PM EDT PHQ-2 Depression Total Score: 05/19/20 25 1:38 PM EDT documented as of this encounter Care Teams Forensic Science Examiner Relationship Specialty Start Date End Date Tyree Coffman MD [address] [place] [address] PCP - General Family Medicine 01/20/24 documented as of this encounter
--- OUTSIDE RECORDS SUMMARY | 2025-08-06 15:27 | XMS_ITS | Encounter Summary ---
Author Organization Healthcare Address [address] [place] [address] Care Team Providers Care Cooperative Manager Name Role Phone Maryse Samuel Primary Care Provider [phone] Josemanuel Carrera PhD Unavailable [phone] Sarika Frost Unavailable [phone] Andrea Mullen MD Unavailable Unavail able Peri Martin Unavailable [phone] Pcp, No Primary Care Provider Unavailabl e Encounter Details Date Type Department Care Team (Latest Contact Info) Description 07/05/2021 Community Orders [facility] [address] [place] [address] Maryse Samuel PA [address] [place] [address] Cerebrovascular accident (CVA) due to embolism of right posterior cerebral artery (CMS/HCC) (Primary Dx); Memory loss; Cervical pain Social History Tobacco Use Types Packs/Day Years [...] Visit [place] [facility] [address] [place] [address] Sarika Frost PA [address] [place] [address] 02/01/2026 9:00 AM EST Appointment [facility] [address] [place] [address] 02/01/2026 11:30 AM EST Office [facility] [address] [place] [address] Marycruz Kinney, VEHICLE BODY BUILDER [address] [place] [address] documented as of this encounter Visit Diagnoses Diagnosis Cerebrovascular accident (CVA) due to embolism of right posterior cerebral artery (CMS/HCC)- Primary Memory loss Cervical pain Cervicalgia documented in this encounter Additional Health Concerns Assessment Noted Time A fall risk assessment has been complete d for the patient 07/05/2021 1:04 PM EDT documented as of this encounter Care Teams Cooperative Manager Relationship Specialty Start Date End Date Maryse Samuel PA [address] [place] [address] PCP - General 04/14/21 01/14/24 Pcp, No [address] [place] [address] PCP - General Family Medicine 01/15/24 Josemanuel Carrera, PhD [address] [place] [address] Consulting Physician Neurology 05/11/21 08/22/21 Sarika Frost PA [address] [place] [address] Physician Kaiako Kohanga Reo Neurology 06/21/21 Andrea Mullen MD [address] [address] Resident Neurology 07/16/22 Peri Martin MBBS [address] [place] [address] Resident Neurology 01/21/23 documented as of this encounter
--- OUTSIDE RECORDS SUMMARY | 2025-08-06 15:27 | XMS_ITS | Encounter Summary ---
Author Organization Healthcare Address [address] [place] [address] Care Team Providers Care Patch Washer Name Role Phone Maryse Samuel Primary Care Provider [phone] Sarika Frost Unavailable [phone] Andrea Mullen MD Unavailable Unavail able Peri Martin Unavailable [phone] Pcp, No Primary Care Provider Unavailabl e Encounter Details Date Type Department Care Team (Late Contact Info) Description 01/28/2023 Orders Only External Location [address] [place] [address] Provider, External Social History Tobacco Use Types Packs/Day Years Used Date Smoking Tobacco: Never Smokeless Tobacco: Never Alcohol Use Standard Drinks/Week Comments No 0 (1 standard drink = 0.6 oz pure alcohol) Alcoholic Drinks/day: No history of alcohol use PHQ-2 Answer Date Recorded Patient Health Questionnaire-2 Score 0 10/01/2022 Comments No Sex and Gender Information Value Date Recorded Sex Assigned at Not on file Legal Sex Female 6:28 PM EDT Gender Identity Not on file Sexual Orientation Not on file COVID-19 Exposure Response Date Recorded In the last 10 days, have yo u been in contact with someone who was confirmed or suspected to have Coronavirus/COVID-19? No / Unsure 01/21/2023 1:24 PM EST documented as of this encounter Plan of Treatment Upcoming Encounters Date Type Department Care Team (Late Contact Info) Description 10/13/2025 10:00 AM EST Procedure Visit [place] [facility] [address] [place] [address] Sarika Frost PA [address] [place] [address] 02/01/2026 9:00 AM EST Appointment [facility] [address] [place] [address] 02/01/2026 11:30 AM EST Office Visit [facility] [address] [place] [address] Marycruz Kinney, POWER TRANSFORMER ASSEMBLER [address] [place] [address] documented as of this encounter Procedures Procedure Name Priority Date/Time Associated Diagnosis Comments CT OUTSIDE IMAGES 01/28/2023 11:43 AM EST documented in this encounter Results * CT OUTSIDE IMAGES (01/28/2023 11:43 AM EST) Anatomical Region Laterality Modality Computed Tomogra phy 01/28/2023 11:4 3 AM EST us External Provider IMG CT PROCEDURES Final Result documented in this encounter Visit Diagnoses Not on filedocumented in this encounter Additional Health Concerns Assessment Noted Time A fall risk assessment has been complete d for the patient 01/21/2023 1:41 PM EST documented as of this encounter Care Teams Patch Washer Relationship Specialty Start Date End Date Maryse Samuel PA [address] [facility] [place] [address] PCP - General 04/14/21 01/14/24 Pcp, No [address] [place] [address] PCP - General Family Medicine 01/15/24 Sarika Frost PA [address] [place] [address] Physician Customs Port Director Neurology 06/21/21 Andrea Mullen MD [address] [place] [address] Resident Neurology 07/16/22 Peri Martin MBBS [address] [place] [address] Resident Neurology 01/21/23 documented as of this encounter
--- OUTSIDE RECORDS SUMMARY | 2025-08-06 15:27 | XMS_ITS | Encounter Summary ---
Author Organization Healthcare Address [address] [place] [address] Care Team Providers Care Event Sales Representative Name Role Phone Maryse Samuel Primary Care Provider [phone] Josemanuel Carrera PhD Unavailable [phone] Sarika Frost Unavailable [phone] Andrea Mullen MD Unavailable Unavail able Peri Martin Unavailable [phone] Pcp, No Primary Care Provider Unavailabl e Encounter Details Date Type Department Care Team (Late st Contact Info) Description 11/16/2011 Orders Only External Location [address] [place] [address] Provider, External Social History Tobacco Use Types [...] Visit [place] [facility] [address] [place] [address] Sarika Frost PA [address] [place] [address] 02/01/2026 9:00 AM EST Appointment [facility] [address] [place] [address] 02/01/2026 11:30 AM EST Office Visit [facility] [address] [place] [address] Marycruz Kinney, LAUNDRY ATTENDANT [address] [place] [address] documented as of this encounter Procedures Procedure Name Priority Date/Time Associated Diagnosis Comments CT OUTSIDE IMAGES 11/16/2011 10:48 AM EST documented in this encounter Results * CT OUTSIDE IMAGES (11/16/2011 10:48 AM EST) Anatomical Region Laterality Modality Computed Tomogra phy 11/16/2011 10:4 8 AM EST External Provider IMG CT PROCEDURES Final Result documented in this encounter Visit Diagnoses Not on filedocumented in this encounter Additional Health Concerns Infection Onset Date Last Indicated Resolved Time Gastrointestinal Rule-Out 02/19/2018 02/19/2018 5:23 AM EDT documented as of this encounter Care Teams Event Sales Representative Relationship Specialty Start Date End Date Maryse Samuel PA [address] [facility] [place] [address] PCP - General 04/14/21 01/14/24 Pcp, No [address] [place] [address] PCP - General Family Medicine 01/15/24 Josemanuel Carrera, PhD [address] [place] [address] Consulting Physician Neurology 05/11/21 08/22/21 Sarika Frost PA [address] [place] [address] Physician Veterinarian Small Animal Neurology 06/21/21 Andrea Mullen MD [address] [place] [address] Resident Neurology 07/16/22 Peri Martin MBBS [address] [place] [address] Resident Neurology 01/21/23 documented as of this encounter
--- OUTSIDE RECORDS SUMMARY | 2025-08-06 15:27 | XMS_ITS | Encounter Summary ---
Author Organization [place] [address] Care Team Providers Care Clay Temperer Name Role Phone Tyree Coffman MD Primary Care Provider [phone] Reason for Visit * Reason Onset Date Comments Central Patient Navigator Outreach 07/21/2025 AWV questionnaire Encounter Details Date Type Department Care Team (Latest Contact Info) Description 07/21/2025 Patient Outreach [facility] [address] [place] [address] Tyree Coffman MD [address] [place], [place] [phone] Central Patient Navigator Outreach (AWV questionnaire ) Social History Tobacco Use Types Packs/Day Years [...] on file documented as of this encounter Progress Notes * Clarisse Dai - 07/21/2025 11:57 AM EDT Patient Outreach: Pre-Visit Questionnaires Attempt Count: 1st Care Gaps Addressed director of collections and archives: Medicare Questionnaire Outcome:Left message to return call at and MyChart Message Sent Call back number: [phone] documented in this encounter Plan of Treatment [...] Assessment Noted Time PHQ-9 Depression Total Score: 05/19/20 1:38 PM EDT PHQ-2 Depression Total Score: 1 05/19/20 1:38 PM EDT documented as of this encounter Care Teams Clay Temperer Relationship Specialty Start Date End Date Tyree Coffman MD [address] [place] [address] PCP - General Family Medicine 01/20/24 documented as of this encounter
--- OUTSIDE RECORDS SUMMARY | 2025-08-06 15:27 | XMS_ITS | Clinical Summary ---
Author Organization [facility] Address [address] [place] [address] Phone Care Team Providers Care Roll Press Operator Name Role Phone Tyree Coffman MD Primary Care Provider [phone] Allergies No known active allergies Medications BIOTIN ORALIndication s:Acute bronchitis due to other specified organisms Take by mouth. Activ e levocetirizine (XYZAL) 5 mg Oral Tablet 3 Active tretinoin (RETIN-A) 0.1 % Top Cream Apply topically nightly. 45 g 4 Active linaCLOtide (LINZESS) 145 mcg Oral Capsule Take 1 Capsule by mouth daily. Active UNABLE TO FIND Med Name:Collagen Powder Active colchicine 0.6 mg Oral Tablet TAKE 1 TABLET TWICE DAILY (GOUT FLARE) NEEDED 30 Tablet 1 4 Active CREON 36,000-114,000 - 180,000 unit Oral Capsule, Delayed Release(E.C.) TAKE 3 CAPSULES WITH MEALS 3 TIMES PER DAY AND 2 CAPSULES 3 TIMES PER DAY WITH SNACK. 1300 Capsule 3 4 Active indomethacin (INDOCIN) 25 mg Oral Capsule 4 Active zonisamide (ZONEGRAN) 100 mg Oral Capsule 4 Active semaglutide (OZEMPIC) 0.25 mg or 0.5 mg (2 mg/3 mL) SubQ Pen Injector INJECT 0.5MG UNDER THE SKIN ONE TIME WEEKLY 9 mL 3 4 Active tiZANidine (ZANAFLEX) 4 mg Oral Tablet TAKE 1 TABLET THREE TIMES DAILY NEEDED FOR MUSCLE SPASM(S) 30 Tablet 2 5 Active metoprolol succinate (TOPROL-XL) 25 mg Oral Tablet Sustained Release 24 hr TAKE 1 TABLET EVERY DAY 90 Tablet 3 5 Active ondansetron (ZOFRAN-ODT) 4 mg Oral Tablet, Rapid Dissolve DISSOLVE 1 TABLET ON THE TONGUE EVERY 8 HOURS NEEDED FOR NAUSEA AND VOMITING 30 Tablet 2 5 Active lidocaine (LIDODERM) 5 % Top Adhesive Patch, MedicatedIndic ations:Chronic pain syndrome,Chron ic midline low back pain without sciatica Place 1 Patch onto the skin every 12 hours as needed for Pain. 30 Patch 2 5 Active Additional Information Patient not taking.Reason: Did not help, Informant: Self/Patient, Reported on 05/19/2025 XARELTO 20 mg Oral Tablet TAKE 1 TABLET EVERY DAY 90 Tablet 3 5 Active omeprazole (PRILOSEC) 40 mg Oral Capsule, Delayed Release(E.C.)I ndications:pre vention of stress ulcer TAKE 1 CAPSULE BY MOUTH DAILY. INDICATIONS: STRESS ULCER PREVENTION 90 Capsule 3 5 Active rosuvastatin (CRESTOR) 10 mg Oral Tablet TAKE 1 TABLET EVERY DAY 90 Tablet 3 5 Active VASCEPA 1 gram Oral Capsule TAKE 2 CAPSULES TWICE DAILY 360 Capsule 3 5 Active gabapentin (NEURONTIN) 800 mg Oral Tablet Take 1 Tablet by mouth 3 times daily. 90 Tablet 2 5 Active oxyCODONE (ROXICODONE) 5 mg Oral Tablet Take 1 Tablet by mouth every 12 hours as needed for Chronic Pain (G89.29) (for breakthrough pain). 30 Tablet 5 Active sulfaSALAzine (AZULFIDINE) 500 mg Oral Tablet, Delayed Release (E.C.) Take 1 Tablet by mouth 3 times daily. 270 Tablet 1 5 Active GABAPENTIN ORALIndication s:Acute bronchitis due to other specified organisms Take 800 mg by mouth 3 times daily. 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 Unfortunately, there is nothing that can [...] anemia History of stroke 01/20/2024 Overview (01/20/2024): -EMANATIONS ANALYSIS TECHNICIAN CVA -Residual blind spot, word finding difficulties -Follows with [facility] -Positive Anticardiolipin Ab Assessment & Plan (06/10/2024 12:44 PM EDT): Mrs. Juares has a history of right EMANATIONS ANALYSIS TECHNICIAN stroke with a residual left homonymous hemianopia [...] Atrial fibrillation 01/20/2024 Overview (01/20/2024): -Follows with Cardiology Assessment & Plan (03/22/2025 3:29 PM [...] PM EST): -Continue BB, Xarelto -Echo per [facility] Focal seizure 01/20/2024 Overview (01/20/2024): -Follows [...] INSPECT, OARS): - Last Successful PDMP Review: 05/19/2025 [...] positivity. I will defer management to the product development consultant. Malignant neoplasm of colon 07/12/2018 Overview (01/20/2024): [...] Heme/Onc, coming up in next few weeks Encounters Date Type Department Care Team Description 07/21/2025 Patient Outreach [facility] [address] [place] [phone] Tyree Coffman MD Central Patient Navigator Outreach (AWV questionnaire ) 07/12/2025 Refill Center for [address] [address] Elizabeth Mendez, guest experience representative Refill 07/09/2025 [facility] [address] [place] [address] Renee Flores, guest experience representative Refill 06/29/2025 Refill Center for [address] [address] Elizabeth Mendez, guest experience representative Refill 05/20/2025 Results Follow-Up Center [address] [address] Tyree Coffman MD DRUGS OF ABUSE WITH REFLEX TO CONFIRMATION, URINE 05/19/2025 1:15 PM EDT Office Visit [address] [address] Tyree Coffman MD Medication monitoring encounter (Primary Dx); Chronic pain syndrome; Urinary symptom or sign; Focal seizure (HCC); Angular cheilitis 05/13/[address] [address] Tyree Coffman MD Medication Refill from Last 3 Months Immunizations Immunization Administration Dates Next Due Influenza Seasonal Injectable PF 08/26/2024,09/01 Influenza Vaccine Quadrivalent 09/19/2017 Influenza Vaccine Quadrivalent PF 2022,08/14/2021,08/25/2020,09/29,09/15/2018 Influenza Virus Vaccine Quad rivalant, Flublok 08/16/2022,08/21/2020 Influenza, Injectable, MDCK, PF, Quadrivalent 08/16/2022 Pneumococcal Conjugate Vacci ne 13 Valent 06/20/2016 Pneumococcal Conjugate Vacci ne 20 Valent 10/28/2024 Pneumococcal Polysaccharide 23 Valent 09/15/2018 Tdap 06/20/2016 Surgical History Surgery Date Site/Laterality Comments MM STEREO BREAST BIOPSY LEFT 08/24/2019 Left MM STEREO BREAST BIOPSY LEFT 08/24/2019 Social History Tobacco Use Types Packs/Day Years Used Date Smoking Tobacco: Former Cigarettes Smokeless Tobacco: Former Tobacco Cessation:Counseling Given: Yes Alcohol Use Standard Drinks/Week Comments Not Currently 0 (1 standard drink = 0.6 oz pur e alcohol) PHQ-2 Answer Date Recorded PHQ-2 Total Score 1 05/19/2025 Comments No Sex and Gender Information Value Date Recorded Sex Assigned at Not on file Legal Sex Female 9:09 AM EDT Gender Identity Not on file Sexual Orientation Not on file Obstetrics History Last Filed Vital Signs Vital Sign Reading Time Taken Comments Blood Pressure 95/66 05/19/2025 1:39 PM EDT Pulse 96 05/19/2025 1:39 PM EDT Temperature 36.9 C (98.4 F) 05/19/2025 1:39 PM EDT Respiratory Rate 18 03/22/2025 1:18 PM EDT Oxygen Saturation 95% 06/10/2024 10:03 AM EDT Inhaled Oxygen Concentration - - Weight 50.1 kg (110 lb 8 oz) 05/19/2025 1:39 PM EDT Height 167.6 cm (5' 6 ) 05/19/2025 1:39 PM EDT Body Mass Index 17.84 05/19/2025 1:39 PM EDT Plan of Treatment Health Maintenance Due Date Last Done Comments Hepatitis B Vaccine (1 of 3 - 19+ 3-dose series) 1985 Cervical Cancer Screening 1987 Pap Smear 1987 HPV/Pap Cotest 1996 Zoster (1 of 2) 2016 Wellness Exam Medicare 05/19/2025 05/18/2024 Breast Cancer Screening 05/23/2025 05/23/20 23, 05/23/2023, 05/08/2022, Additional history exists COVID-19 Vaccine ( - 2024- season) 2025 08/24/2021, 07/28/2021 Influenza Vaccine (#1) 2025 , 09/26/2023, 08/16/2022, Additional history exists DTaP/TDaP/Td (2 - Td or Tdap) 06/20/2026 06/20/2016 Colon Cancer Screening Discontinued Colonoscopy Discontinued 07/15/2023, 01/03, 02/09/2019 Pneumococcal Vaccine 50+ Completed 024, 09/15/2018, 06/20/2016 Cologuard Discontinued FIT Discontinued Meningococcal B Vaccine Aged Out No l onger eligible based on patient's age to complete this topic Sigmoidoscopy Discontinued Virtual Colonography Discontinued Goals Goal Patient Goal Type Associated Problems Recent Progress Patient-Stated? Author Maintain a healthy diet, exercise regularly and maintain an ideal body weight General No Tyree Coffman MD Stay Tobacco Free Lifestyle No Tyree Coffman MD Procedures Procedure Name Priority Date/Time Associated Diagnosis Comments DRUGS OF ABUSE WITH REFLEX TO CONFIRMATION, URINE Routine 05/19/2025 3:52 PM EDT Medication monitoring encounter from Last 3 Months Results * DRUGS OF ABUSE WITH REFLEX TO CONFIRMATION, URINE (05/19/2025 3:52 PM EDT) 6 AM (Heroin) Absent Cutoff 10 ng/mL 05/19/2025 7:08 PM EDT [facility] Amphetamines Absent Cutoff 500 ng/mL 05/19/2025 7:08 PM EDT [facility] Barbiturates Absent Cutoff 200 ng/mL 05/19/2025 7:08 PM EDT [facility] Benzodiazepines Absent Cutoff 200 ng/mL 05/19/2025 7:08 PM EDT [facility] Buprenorphine Absent Cutoff 5 ng/mL 05/19/2025 7:08 PM EDT [facility] Cannabinoid Metabolite Absent Cutoff 50 ng/mL 05/19/2025 7:08 PM EDT [facility] Cocaine Metabolite Absent Cutoff 150 ng/mL 05/19/2025 7:08 PM EDT [facility] Fentanyl Absent Cutoff 5 ng/mL 05/19/2025 7:08 PM EDT [facility] Methadone and Metabolite Absent Cutoff 300 ng/mL 05/19/2025 7:08 PM EDT [facility] Opiate Absent Cutoff 300 ng/mL 05/19/2025 7:08 PM EDT [facility] Oxycodone Lvl Absent Cutoff 100 ng/mL 05/19/2025 7:08 PM EDT [facility] Urine Creatinine 154.0 mg/dL 05/19/20 25 7:08 PM EDT [facility] Comment: Greater than 20: Consistent with valid sample Greater than 2 but less than 20: Possible dilution Less than 2: Questionable valid sample Urine STRUCTURE OF URINARY TRACT PROPER / Unknown 05/19/2025 3:52 PM EDT 05/19/2025 3:53 PM EDT Narrative [facility] - 05/19/2025 7:08 PM EDT These drug classes have been qualitatively screened by immunoassay and are for medical purposes only. Results should not be used for non-medical purposes. Results reported as presumptive positive will be sent for confirmation. Due to possible factors, such as, dilute/adulterated urine, concentration of drug/metabolite being below the cut-off, or antibody specificity of test reagent, a negative result does not rule out drug use. These results are only valid for urine specimens. Any contamination with vaginal pool/amniotic fluid could cause erroneous results. us Tyree Coffman MD URINE ORDERABLES Final Resu lt [facility] [address] [facility] , [place] [address] from Last 3 Months Insurance [employer] MEDICARE HMO MR MDR [employer] MEDICARE HMO MR [facility] MDR [employer] MEDICARE HMO MR Care Teams Roll Press Operator Relationship Specialty Start Date End Date Tyree Coffman MD [address] [place] [address] PCP - General Family Medicine 01/20/24
--- OUTSIDE RECORDS SUMMARY | 2025-08-06 15:27 | XMS_ITS | Encounter Summary ---
Author Organization Healthcare Address [address] [place] [address] Care Team Providers Care Group Insurance Specialist Name Role Phone Maryse Samuel Primary Care Provider [phone] Sarika Frost Unavailable [phone] Andrea Mullen MD Unavailable Unavail able Peri Martin Unavailable [phone] Pcp, No Primary Care Provider Unavailabl e Reason for Visit * Reason Comments distress screening f/u Encounter Details Date Type Department Care Team ([facility] st Contact Info) Description 06/19/2022 Social Work [facility] [address] [place] [address] Kaylyn Flores, SIGHTER Social History Tobacco Use Types Packs/Day Years Used Date Smoking Tobacco: Never Smokeless Tobacco: Never Alcohol Use Standard Drinks/Week Comments No 0 (1 standard drink = 0.6 oz pure alcohol) Alcoholic Drinks/day: No history of alcohol use PHQ-2 Answer Date Recorded Patient Health Questionnaire-2 Score 0 12/28/2021 Comments No Sex and Gender Information Value Date Recorded Sex Assigned at Not on file Legal Sex Female 6:28 PM EDT Gender Identity Not on file Sexual Orientation Not on file COVID-19 Exposure Response Date Recorded In the last 10 days, have yo u been in contact with someone who was confirmed or suspected to have Coronavirus/COVID-19? No / Unsure 06/19/2022 10:53 AM EDT documented as of this encounter Functional Status * Calculated C-SSRS Risk Score (Lifetime/Recent) Answer Date of Assessment Author No Risk Indicated 06/19/2022 4:16 PM EDT Tanya Encarnacion * Question Answer Date of Assessment Author 1. Wish to be (Past 1 Month) No 022 4:16 PM EDT Tanya Gramajo 2. Non-Specific Active Suici hortencia Thoughts (Past 1 Month) No 06/19/2022 4:16 PM EDT Carlton Gramajo ige T 6. Suicidal Behavior (Lifetime) No 4:16 PM EDT Tanya Gramajo documented as of this encounter Plan of Treatment Upcoming Encounters Date Type Department Care Team (Late st Contact Info) Description 10/13/2025 10:00 AM EST Procedure [facility] [place] [facility] [address] [place] [address] Sarika Frost PA [address] [place] [address] 02/01/2026 9:00 AM EST Appointment [facility] [address] [place] [phone] 02/01/2026 11:30 AM EST Office Visit [facility] [address] [place] [phone] Marycruz Kinney, CONTENT PRODUCTION SPECIALIST [address] [place] [address] documented as of this encounter Visit Diagnoses Not on filedocumented in this encounter Additional Health Concerns Assessment Noted Time A fall risk assessment has been complete d for the patient 06/19/2022 4:17 PM EDT documented as of this encounter Care Teams Group Insurance Specialist Relationship Specialty Start Date End Date Maryse Samuel PA [address] [place] [address] PCP - General 04/14/21 01/14/24 Pcp, No [address] [place] [address] PCP - General Family Medicine 01/15/24 Sarika Frost PA [address] [place] [address] Physician Workcell Operator Neurology 06/21/21 Andrea Mullen MD [address] [address] Resident Neurology 07/16/22 Peri Martin MBBS [address] [place] [address] Resident Neurology 01/21/23 documented as of this encounter
--- OUTSIDE RECORDS SUMMARY | 2025-08-06 15:27 | XMS_ITS | Encounter Summary ---
Author Organization [place] [address] Care Team Providers Care Centrifugal Casting Machine Operator Name Role Phone Tyree Coffman MD Primary Care Provider [phone] Reason for Visit * Reason Onset Date Comments Medication Refill 06/29/2025 Encounter Details Date Type Department Care Team (Late st Contact Info) Description 06/29/2025 Refill [facility] [address] [place] [phone] Elizabeth Mendez, business technology architect Refill Social History Tobacco Use Types Packs/Day [...] on file documented as of this encounter Ordered Prescriptions Prescription Sig Dispense Quantity Refills Last Filled Start Date End Date sulfaSALAzine (AZULFIDINE) 500 mg Oral Tablet, Delayed Release (E.C.) Take 1 Tablet by mouth 3 times daily. 270 Tablet 1 06/30/2025 documented in this encounter Miscellaneous Notes * Telephone Encounter - Elizabeth Mendez, MELBA - 06/29/2025 2:15 PM EDT Refill pended, please review script prior [...] Diagnoses Not on filedocumented in this encounter Discontinued Medications Medication Sig Discontinue Reason Start Date End Da te sulfaSALAzine (AZULFIDINE) 500 mg Oral Tablet, Delayed Release (E.C.) Take 1 Tablet by mouth 3 times daily. Reorder 09/17/2024 06/29/2025 documented as of this encounter Additional Health Concerns Assessment Noted Time PHQ-9 Depression Total Score: 1 05/19/20 1:38 PM EDT PHQ-2 Depression Total Score: 1 05/19/20 1:38 PM EDT documented as of this encounter Care Teams Centrifugal Casting Machine Operator Relationship Specialty Start Date End Date Tyree Coffman MD [address] [place] [address] PCP - General Family Medicine 01/20/24 documented as of this encounter
--- OUTSIDE RECORDS SUMMARY | 2025-08-06 15:27 | XMS_ITS ---
Laboratory report Created on: July 24, 2025 PATRICIA LEVY : 1965 Sex: Female Author Organization Unknown PROBLEMS Problems List Code Description RESULTS Laboratory Orders Date Order Code Test 2025-07-21 [id number] HAPTOGLOBIN Laboratory Results Date LOINC Test Value Unit Reference Range Interpre tation 2025-07-21 [id number] HAPTOGLOBIN 155 MG/DL 33-346
--- OUTSIDE RECORDS SUMMARY | 2025-08-06 15:28 | XMS_ITS | Encounter Summary ---
[facility] Address [address] [place] [id number] Care Team Providers Care Registered Nurse Practitioner Name Role Phone Maryse Samuel Primary Care Provider [phone] Encounter Details Date Type Department Care Team (Latest Contact Info) Description 07/20/2025 Travel Social History Tobacco Use Types Packs/Day [...] Description 10/21/2025 10:30 AM EST Office Visit [facility] NEUROLOGY [address] [facility] [place] [address] Marci Kaba, LOG PROCESSOR OPERATOR [address] [facility] [address] [place] [address] documented as of this encounter Goals Goal Patient Goal Type Associated Problems Recent Progress Patient-Stated? Author Specialty Pharmacy General Goal General On track( 025 10:31 AM EDT) No Travon, Trudy E, PharmD Note: On Average, Reduce: Frequency of [...] Diagnoses Not on filedocumented in this encounter Care Teams Registered Nurse Practitioner Relationship Specialty Start Date End Date Maryse Samuel PA [address] [place] [address] PCP - General 07/19/25 documented as of this encounter
--- OUTSIDE RECORDS SUMMARY | 2025-08-06 15:28 | XMS_ITS | Encounter Summary ---
[facility] [address] [place] [address] Care Team Providers Care Patient Relations Liaison Name Role Phone Raúl Robbins MD Primary Care Provider [phone] Encounter Details Date Type Department Care Team (Late st Contact Info) Description 05/25/2025 Telephone [facility] MEDICAL [facility] NEUROLOGY [address] [facility] [address] [place] [address] Alexia Reyes, RN Social History Tobacco Use Types Packs/Day Years [...] AM EST documented as of this encounter Miscellaneous Notes * Telephone Encounter - Marci Kaba APRN - 05/26/2025 4:25 PM EDT I have resent Zonisamide 100 mg nightly, please let me know if she has any side effects with this medication, thanks. * Telephone Encounter - Alexia Reyes, RN - 05/26/2025 9:21 AM EDT Talked with a technician telecommunication systems who said that the prescription had been discontinued, a refill request had been sent back in May but they never heard back. They said we just need to send in another prescription. * Telephone Encounter - Alexia Reyes RN - 05/25/2025 2:22 PM EDT I called and talked with Rafia, she said she is taking the Crestor 5 mg and got rid of the 10 mg dose. She is tolerating well. She did say that insurance had called her about the Zonisamide and that they had reached out to our office and we had told them that she didn't need the medicine because it caused drowsiness so they don't want to cover it. Looking back, all I could see was about the Nurtec and nothing about the Zonisamide. documented in this encounter Plan of Treatment Upcoming Encounters Date Type Department Care Team (Late st Contact Info) Description 10/21/2025 10:30 AM EST Office Visit [facility] NEUROLOGY [address] [facility] [address] [place] [address] Marci Kaba APRN [address] [facility] [address] [place] [address] documented as of this encounter Goals Goal [...] as of this encounter Visit Diagnoses Diagnosis History of seizures documented in this encounter Care Teams Patient Relations Liaison Relationship Specialty Start Date End Date Raúl Robbins MD [facility] [place] [address] PCP - General Family Medicine 09/03/24 07/18/25 documented as of this encounter
--- OUTSIDE RECORDS SUMMARY | 2025-08-06 15:28 | XMS_ITS ---
Author Organization [facility] Address [address] [place] [address] Care Team Providers Care Medical Logistics Specialist Name Role Phone Maryse Samuel Primary Care Provider [phone] Chronic Migraine - External Program Status:Enrolled (Active) Start date:07/19/2025 Enrollment date:07/19/2025 Enrollment reason:Referred by provider Current support & services provided:Benefits Investigation, External Pharmacy Dispensing Linked medications:Rimegepant Sulfate (Active) Linked problems:Chronic migraine without aura without status migrainosus, not intractable (Active) Overview 07/19/2025 patient says she's not able to sign for her meds due to being afraid her dogs will run out the door. She wants us to transfer her Nurtec to [facility] in [place] Case Team Name Relationship Phone Marci Kaba APRN Nurse Practitioner [phone] Continued Care and Services Coordination
--- OUTSIDE RECORDS SUMMARY | 2025-08-06 15:28 | XMS_ITS | Encounter Summary ---
[facility] Address [address] [place] [id number] Care Team Providers Care Assessment Technician Name Role Phone Raúl Robbins MD Primary Care Provider [phone] Reason for Visit * Reason Onset Date Comments KABA - MEDICAL CONCERN 06/22/2025 Encounter Details Date Type Department Care Team (Late st Contact Info) Description 06/22/2025 Telephone [facility] NEUR[facility] [address] [facility] [address] [place] [address] Marci Kaba, AUTHORIZATION REPRESENTATIVE [address] [facility] [address] [place] [address] FELIZ - MEDICAL CONCERN Social History Tobacco Use Types Packs/Day Years [...] encounter Miscellaneous Notes * Telephone Encounter - Alexia Reyes RN - 06/24/2025 3:06 PM EDT Said she didn't go to the ED but she is feeling better now. She has been drinking a lot of tea. Shebelieves she was dehydrated, she said she is still really tired and not sure if she is valenzuela still. She said she only drinks a cup of coffee in the morning and nothing else all day despite trying to make herself do so. We talked about needing to get a primary care provider and where she would be willing to go. She was very emotional and cried talking about how people treat her and she doesn't wantto yet. I have sent her information about a primary care group in [place] that she was comfortable driving to and told her she would need to call them. She stated understanding. She doesn't like [facility] so I informed her that if she would go to the ER, to go to [facility] instead so that she doesn't get more stressed with [place]. * Telephone Encounter - Alexia Reyes RN - 06/22/2025 5:23 PM EDT Patient called back. She said that she wanted to know if Marci wanted to add any labs as she is getting them next month. She then said she was confused and I repeated what the message said. She saidshe isn't seeing colors but really tired all the time.If she goes to the mailbox, she has to sit down after, she can't make herself do anything, I asked if she is drinking enough and she said she can't make herself do it. She said she looks funny in the mirror, I asked what she meant and she said that she looks valenzuela. I asked when she sees PCP, she said she doesn't really see anyone now, I recommended ER or at least urgent care so that she can be looked at in person to be evaluated. I told her it didn't sound like anything we can help with and she needs to be looked at quicker. She said okay. * Telephone Encounter - Yolanda Holland RegSched Rep - 06/22/2025 12:45 PM EDT Caller: Rafia Juares Relationship: Self Best call back number: [phone] Who are you requesting to speak with (clinical staff, provider, specific staff member): ALEXIA What was the call regarding: THE PT CALLED AND STATED SHE HAS BEEN HAVING ISSUES WITH FATIGUE AND THEN MENTIONED SHE IS SEEING IN A DIFFERENT COLOR. SHE SAID SHE WOULD CALL BACK LATER. documented in this encounter Plan of Treatment Upcoming Encounters Date Type Department Care Team (Late st Contact Info) Description 10/21/2025 10:30 AM EST Office Visit [facility] NEUROLOGY [address] [place] [address] [address] [place] [address] Marci Kaba APRN [address] [place] [address] [address] [place] [address] documented as of this encounter Goals Goal [...] on filedocumented in this encounter Care Teams Assessment Technician Relationship Specialty Start Date End Date Raúl Robbins MD [address] [place] [address] PCP - General Family Medicine 09/03/24 07/18/25 documented as of this encounter
--- OUTSIDE RECORDS SUMMARY | 2025-08-06 15:28 | XMS_ITS | Encounter Summary ---
[facility] [address] [place] [address] Care Team Providers Care Junior Administrative Assistant Name Role Phone Raúl Robbins MD Primary Care Provider [phone] Reason for Visit * Reason Onset Date Comments Med Refill 07/13/2025 Encounter Details Date Type Department Care Team (Late st Contact Info) Description 07/13/2025 Telephone [facility] NEUROLOGY [address] [facility] [address] [place] [phone] Marci Kaba, JAMES 2101 [facility] 204 [place] [address] Med Refill Social History Tobacco Use Types Packs/Day [...] Telephone Encounter - Alexia Reyes RN - 07/16/2025 10:10 AM EDT Message sent to pharmacy team to make aware of needed change. * Telephone Encounter - Alexia Reyes RN - 07/16/2025 9:03 AM EDT Rafia said that the [employer] was requiring a signature which had never been needed before and it got her dogs acting up. One of them knocked her down, the cdl dedicated truck driver called the front office associate for a welfare check and she said if the front office associate had came in, he would have shot her dog. She doesn't want this situation to happen again so wants meds sent to [facility] and not by us. The patient is okay from falling.I had asked if she wanted all medicines we prescribed sent to [facility] and she said yes. After taking all the information in, I called and left a message for the patient clarifying that she doesn't want any of the meds sent to [facility]. Rafia just wants the one sent to her by [facility] to be sent to [facility]. * Telephone Encounter - Danitza Portillo RegSched Rep - 07/16/2025 8:07 AM EDT PHARMACY CHANGE: [facility] Caller: Rafia Juares Relationship: Self Best call back number: Telephone Information: Which medication are you concerned about[facility] What are your concerns: PT SAID THAT UPS WAS TRYING TO DELIVER HER RX. UPS COULDN'T DELIVER AND THEY CALLED THE HAMMER SHOP SUPERVISOR TO DO A WELL CHECK. PT SAID THIS RX MUST BE SENT TO [facility] SO PT CAN GO TO [facility]. SHE HAS DOGS AND IS VERY CONCERNED ABOUT PEOPLE COMING ON HER PROPERTY AND BEING ATTACKED. PLEASE CANCEL THE SCRIPT AT [facility] PT ISN'T ABLE TO GIVE A SIGNATURE ON DELIVERIES. * Telephone Encounter - Wisam Jay RegSched Rep - 07/13/2025 9:51 AM EDT URGENT Medication requested (name and dose): rimegepant sulfate ODT (Nurtec) [address] 1 tablet under the tongue Daily As Needed (For migraine. Max 75 mg per 24 hours.). Pharmacy where request should be sent: [id number] - [place] - [address] [facility] [phone] [facility] [phone] Additional details provided by patient: Best call back number: [phone] Does the patient have less than a 3 day supply: [x] Yes [] No Rio P[place] 07/13/25, 09:51 EDT documented in this encounter Plan of Treatment Upcoming Encounters Date Type Department Care Team (Late st Contact Info) Description 10/21/2025 10:30 AM EST Office Visit [facility] NEUROLOGY [address] [place] [address] Marci Kaba APRN [address] [place] [address] [address] [place] [address] documented as of this encounter Goals Goal [...] on filedocumented in this encounter Care Teams Junior Administrative Assistant Relationship Specialty Start Date End Date Raúl Robbins MD [address] [place] [address] PCP - General Family Medicine 09/03/24 07/18/25 documented as of this encounter
--- OUTSIDE RECORDS SUMMARY | 2025-08-06 15:28 | XMS_ITS ---
Author Organization [facility] Address [address] [place] [id number] Care Team Providers Care Rib Cloth Knitter Name Role Phone Maryse Samuel Primary Care Provider [phone] Chronic Migraine - External Program Status:Disenrolled (Closed) Start date:02/08/2025 Enrollment date:02/08/2025 Enrollment reason:Referred by provider End date:07/07/2025 Close reason:Therapy completed Linked medications:Ubrogepant (Discontinued) Linked problems:Migraine with aura (Active) Continued Care and Services Coordination
--- OUTSIDE RECORDS SUMMARY | 2025-08-06 15:28 | XMS_ITS ---
Author Organization [facility] Address [address] [place] [address] Care Team Providers Care Script Girl Name Role Phone Maryse Samuel Primary Care Provider [phone] Chronic Migraine Status:Disenrolled (Closed) Start date:03/23/2025 Enrollment date:03/23/2025 Enrollment reason:New start at End date:07/19/2025 Close reason:Patient preference Linked medications:Rimegepant Sulfate (Active) Linked problems:Migraine with aura (Active) Overview 07/19/2025 Patient says she's not able to sign for her meds due to being afraid her dogs will run out the door. She wants us to transfer her Nurtec to [facility] in [place] Continued Care and Services Coordination
--- OUTSIDE RECORDS SUMMARY | 2025-08-06 15:28 | XMS_ITS | Encounter Summary ---
[facility] Address [address] [place] [address] Care Team Providers Care Time Motion Analyst Name Role Phone Maryse Samuel Primary Care Provider [phone] Encounter Details Date Type Department Care Team (Late st Contact Info) Description 04/29/2025 Results Follow-Up [facility] NEUROLOGY [address] [facility] [address] [place] [address] Alexia Reyes, RN Social History [...] Telephone Encounter - Alexia Reyes RN - 07/22/2025 9:17 AM EDT Relayed labs to patient and before I could finish she said she had a blood transfusion yesterday. She said she was going to go back to sleep now, she wasn't really wanting to talk. Will mail out information about the Mediterranean diet. * Telephone Encounter - Alexia Reyes RN - 07/21/2025 12:42 PM EDT Left message asking for a call back. * Telephone Encounter - Alexia Reyes RN - 05/06/2025 8:40 AM EDT Relayed to her in a message to stop the 10 mg dose of Crestor and take 5 mg instead. * Telephone Encounter - Alexia Reyes RN - 04/29/2025 11:18 AM EDT Patient looked at medicine, she takes Rosuvastatin 10 mg nightly, said she hasn't missed any doses.She then asked me about her iron level, she said her oncologist wants to make a test appointment tomake sure she isn't bleeding, she needs a local bulk driver and now [facility] won't accept her becauseshe missed too many appointments. She told me that they would schedule her and not call her to tellher, they just messaged her, she doesn't get on her phone often so she didn't know there were appointments. I told her I would try and see if I can't get her help with a local bulk driver to make the appointment. * Telephone Encounter - Alexia Reyes RN - 04/29/2025 10:37 AM EDT Left a message for a call back related to lab results. documented in this encounter Plan of Treatment Upcoming Encounters Date Type Department Care Team (Late st Contact Info) Description 10/21/2025 10:30 AM EST Office Visit [facility] NEUROLOGY [address] [facility] [address] [place] [address] Marci Kaba APRN [address] [facility] [address] [place] [address] documented as of this encounter Goals Goal [...] on filedocumented in this encounter Care Teams Time Motion Analyst Relationship Specialty Start Date End Date Maryse Samuel PA [address] [place] [address] PCP - General 07/19/25 documented as of this encounter
[2025-08-06 16:18] LABS: Hematocrit 29.8 % (37.0-47.0); Hemoglobin 8.0 g/dL (12.2-16.2); Immature Granulocytes % 0.7 %; Mean Corpuscular HGB Conc 26.8 g/dL (31.8-35.4); Mean Corpuscular Hemoglobin 18.9 pg (27.0-31.2); Mean Corpuscular Volume 70.3 fl (81-99); Nucleated Red Blood Cells % 0 %; Platelet Count 479 K/mm3 (142-424); Red Blood Count 4.24 M/mm3 (4.20-5.40); Red Cell Distribution Width-SD 70.6 fL; White Blood Count 6.0 K/mm3 (4.8-10.8)
[2025-08-06 17:54] LABS: Iron 25 ug/dL (37-170)
[2025-08-06 18:03] LABS: Total Iron Binding Capacity 364 ug/dL (265-497)
[2025-08-06 18:31] LABS: Ferritin 6.26 ng/ml (11.1-264)
== END 2025-08-06 23:59 | disposition home or self-care (01) ==
LOC: LAB 15:25
PROVIDERS: PCP Physician Assistant; Visit Provider Physician Assistant
DX: E61.1 Iron deficiency (principal)
CPT/HCPCS: 36415; 82728; 83540; 83550; 85025